=== PATIENT | male | born 1935 | race American Indian/Alaskan Native ===

== ENCOUNTER 2016-07-12 20:22 | Observation (INO) | payer MEDICARE, MEDICAID ==
[2016-07-12 20:50] VITALS: BMI 29.0
--- NOTE | 2016-07-12 21:06 | ED PDOC ---
Arrival/HPI - General Chief Complaint: Shortness Of Breath Time Seen by Provider: 07/12/16 20:23 Historian: Patient - History of Present Illness Narrative History of Present Illness (Text): 07/12/16 20:50 Davin Venegas Jr. is a 80 year old male, whose past medical history includes CAD , CABG, valve replacement, peripheral vascular disease, COPD, CHF, renal insufficiency, diabetes, hyperlipidemia, and arthritis, who presents to the Emergency department complaining of shortness of breath for the past few days. Patient denies any fever, chills, nausea, vomiting, diarrhea, urinary symptoms, back pain, neck pain, headache, dizziness, or any other complaints. Time/Duration: < week (few days) Symptom Onset: Gradual Symptom Course: Unchanged Activities at Onset: Rest, Light Context: Home Past Medical History - Provider Review Nursing Documentation Reviewed: Yes - Past History Past History: No Previous - Infectious Disease Hx of Infectious Diseases: None - Tetanus Immunization Tetanus Immunization: Unknown - Cardiac Hx Cardiac Disorders: Yes Hx Cardiac Arrhythmia: Yes Hx Congestive Heart Failure: Yes Hx Hypertension: Yes Hx Peripheral Edema: Yes Hx Peripheral Vascular Disease: Yes Other/Comment: CABG, Open Heart Sx - Pulmonary Hx Respiratory Disorders: Yes Hx Asthma: Yes Hx Chronic Obstructive Pulmonary Disease (COPD): Yes - Neurological Hx Neurological Disorder: No - HEENT Hx HEENT Disorder: No - Renal Hx Renal Disorder: No - Endocrine/Metabolic Hx Endocrine Disorders: No - Hematological/Oncological Hx Blood Disorders: No - Integumentary Hx Dermatological Disorder: No - Musculoskeletal/Rheumatological Hx Arthritis: Yes Hx Falls: No Other/Comment: (R) hand pain and edema - Gastrointestinal Hx Gastrointestinal Disorders: Yes Other/Comment: Large (L) sided inguinal hernia repair extending into scrotum - Genitourinary/Gynecological Hx Genitourinary Disorders: Yes Hx Prostate Problems: Yes - Psychiatric Hx Psychophysiologic Disorder: No Hx Substance Use: No - Past Surgical History Past Surgical History: No Previous - Surgical History Hx Inguinal Hernia Repair: Yes - Anesthesia Hx Anesthesia Reactions: No Hx Malignant Hyperthermia: No - Suicidal Assessment Feels Threatened In Home Enviroment: No Family/Social History - Physician Review Nursing Documentation Reviewed: Yes Family/Social History: No Known Family HX Smoking Status: Heavy Smoker > 10 Cigarettes Daily Hx Alcohol Use: No Hx Substance Use: No Hx Substance Use Treatment: No Allergies/Home Meds Allergies/Adverse Reactions: Allergies No Known Allergies Allergy (Verified 02/26/16 14:04) Home Medications: Home Meds Medication Instructions Recorded Confirmed Fluticasone/Salmeterol [Advair 1 dsk IH SA 09/06/12 07/13/16 250-50 Diskus] Simvastatin 40 mg PO DAILY 09/06/12 07/13/16 Finasteride [Proscar] 5 mg PO DAILY 07/28/14 07/13/16 Montelukast [Singulair] 10 mg PO HS 07/28/14 12/27/15 Pantoprazole Sodium [Protonix] 40 mg PO DAILY 07/28/14 12/27/15 Sitagliptin Phosphate [Januvia] 100 mg PO DAILY 07/28/14 07/13/16 Tamsulosin [Flomax] 0.4 mg PO DAILY 07/28/14 07/13/16 Aspirin 81 mg PO DAILY 10/13/15 07/13/16 Clopidogrel 75 mg PO DAILY 10/13/15 07/13/16 Metoprolol Tartrate 25 mg PO DAILY 10/13/15 12/27/15 Review of Systems - Physician Review All systems were reviewed & negative as marked: Yes - Review of Systems Constitutional: Normal. absent: Fevers Eyes: Normal ENT: Normal Respiratory: SOB Gastrointestinal: Normal. absent: Abdominal Pain, Diarrhea, Nausea, Vomiting Genitourinary Male: Normal. absent: Dysuria, Frequency, Hematuria, Urinary Output Changes Musculoskeletal: Normal. absent: Back Pain, Neck Pain Skin: Normal. absent: Rash Neurological: Normal. absent: Headache, Dizziness Endocrine: Normal Hemo/Lymphatic: Normal Psychiatric: Normal Physical Exam Vital Signs Reviewed: Yes Vital Signs Pulse Resp BP Pulse Ox 07/13/16 00:34 81 16 120/64 07/12/16 20:50 90 16 132/49 L 99 Temperature: Afebrile Blood Pressure: Normal Pulse: Regular Respiratory Rate: Normal Appearance: Positive for: Well-Appearing, Non-Toxic, Comfortable Pain Distress: None Mental Status: Positive for: Alert and Oriented X 3 - Systems Exam Head: Present: Atraumatic, Normocephalic Pupils: Present: PERRL Extroacular Muscles: Present: EOMI Conjunctiva: Present: Normal Mouth: Present: Moist Mucous Membranes Neck: Present: Normal Range of Motion Respiratory/Chest: Present: Wheezes. No: Respiratory Distress, Accessory Muscle Use Cardiovascular: Present: Regular Rate and Rhythm, Normal S1, S2. No: Murmurs Abdomen: Present: Normal Bowel Sounds. No: Tenderness, Distention, Peritoneal Signs Back: Present: Normal Inspection Upper Extremity: Present: Normal Inspection. No: Cyanosis, Edema Lower Extremity: Present: Normal Inspection. No: Edema Neurological: Present: GCS=15, CN II-XII Intact, Speech Normal Skin: Present: Warm, Dry, Normal Color. No: Rashes Psychiatric: Present: Alert, Oriented x 3, Normal Insight, Normal Concentration Medical Decision Making ED Course and Treatment: 07/12/16 20:50 Impression: 80 year old male complaining of shortness of breath for the past few days. Differential Diagnosis included but are not limited to: ACS vs. pneumonia vs. COPD vs. CHF Plan: -- EKG -- Chest X-ray -- Labs, cardiac enzymes, BNP, VBG, blood cultures -- Solu-medrol -- Reassess and disposition Prior Visits: Notes and results from previous visits were reviewed. On 02/26/2016, pt was seen in the Emergency department for hematuria. Pt was admitted to the hospital for further evaluation. Progress Notes: Reviewed EKG, 100% paced rhythm at 84 bpm. 07/12/16 21:50 Reviewed radiology, Chest X-ray shows no active disease, no pneumonia. 07/12/16 23:[address] Sorto, who is aware and agrees with plan. Accepts pt in to his service. Pt will go to Telemetry observation for COPD. Pt is no acute distress. Discussed results and plan with pt and family, who are aware and verbalize understanding. - Lab Interpretations Lab Results: 07/12/16 22:00 07/12/16 22:00 Lab Results 07/12/16 22:00: Sodium 136, Chloride 91 L, Potassium 3.2 L, Carbon Dioxide 33, Anion Gap 15, BUN 42 H, Creatinine 1.3, Est GFR ( Amer) > 60, Est GFR ( Non-Af Amer) 53, Random Glucose 84, Calcium 9.0, Total Bilirubin 1.3, AST 33, ALT 28, Alkaline Phosphatase 157 H, Lactate Dehydrogenase 555, Total Creatine Kinase 76, Troponin I 0.05 D, NT-Pro-B Natriuret Pep 1270 H, Total Protein 8.4 H, Albumin 4.0, Globulin 4.4, Albumin/Globulin Ratio 0.9 L 07/12/16 22:00: pO2 35, VBG pH 7.33, VBG pCO2 71.0 H*, VBG HCO3 37.4 H, VBG Total CO2 39.6 H, VBG O2 Sat (Calc) 67.1 H, VBG Base Excess 8.7 H, VBG Potassium 5.5 H, Sodium 134.0, Chloride 95.0 L, Glucose 88, Lactate 2.4 H, FiO2 21.0, Venous Blood Potassium 5.5 H 07/12/16 22:00: WBC 6.2, RBC 5.89, Hgb 17.9, Hct 49.6, MCV 84.2, MCH 30.4, MCHC 36.1, RDW 16.7 H, Plt Count 160, MPV 10.4, Gran % 42.9 L, Lymph % (Auto) 41.1 H , Loup % (Auto) 15.0 H, Eos % (Auto) 0.5 L, Baso % (Auto) 0.5, Gran # 2.66, Lymph # 2.6, Loup # 0.9 H, Eos # 0.0, Baso # 0.03 I have reviewed the lab results: Yes - RAD Interpretation Radiology Orders: 07/12/16 20:51 CHEST PORTABLE [RAD] Stat Wool Classer: ED Physician - EKG Interpretation EKG Interpretation (Text): EKG: Ordered, reviewed, and independently interpreted the EKG. Rate : 84 BPM Rhythm : 100% paced rhythm Comparison : No acute change from previous EKG on 02/26/2016. Interpreted by ED Physician: Yes Type: 12 lead EKG - Medication Orders Current Medication Orders: Acetaminophen (Tylenol 325mg Tab) 650 mg PO Q4H PRN PRN Reason: Fever >100.5 F Albuterol/Ipratropium (Duoneb 3 Mg/0.5 Mg (3 Ml) Ud) 3 ml IH Q4H PRN PRN Reason: Shortness of Breath Discontinued Medications Albuterol/Ipratropium (Duoneb 3 Mg/0.5 Mg (3 Ml) Ud) 3 ml IH Q15M EFRAIN Stop: 07/12/16 21:31 Last Admin: 07/12/16 21:50 Dose: Not Given Non-Admin Reason: Patient Refused Piperacillin Sod/Tazobactam Sod (Zosyn 3.375 In Ns 100ml) 100 mls @ 200 mls/hr IVPB STAT STA PRN Reason: Protocol Stop: 07/12/16 22:52 Last Admin: 07/12/16 23:26 Dose: 200 mls/hr Methylprednisolone (Solu-Medrol) 125 mg IVP STAT STA Stop: 07/12/16 20:52 Last Admin: 07/12/16 21:50 Dose: 125 mg Potassium Chloride (Klor-Con 10) 40 meq PO STAT STA Stop: 07/13/16 01:01 Last Admin: 07/13/16 01:13 Dose: 40 meq - Scribe Statement The provider has reviewed the documentation as recorded by the Buzz Malik Provider Attestation: All medical record entries made by the Buzz were at my direction and personally dictated by me. I have reviewed the chart and agree that the record accurately reflects my personal performance of the history, physical exam, medical decision making, and the department course for this patient. I have also personally directed, reviewed, and agree with the discharge instructions and disposition. Disposition/Present on Arrival - Present on Arrival Any Indicators Present on Arrival: No History of DVT/PE: No History of Uncontrolled Diabetes: No Urinary Catheter: No History of Decub. Ulcer: No History Surgical Site Infection Following: None - Disposition Have Diagnosis and Disposition been Completed?: Yes Diagnosis: Hypokalemia, Chronic obstructive lung disease Disposition: HOSPITALIZED Disposition Time: 23:00 Condition: FAIR
[2016-07-12] MEDS: Albuterol-Ipratrop 3 mg / 0.5 (3 ml) UD IH SCH ×4 (21:10→23:26)
[2016-07-12 22:10] LABS: ADD MANUAL DIFF? NO
[2016-07-12 22:19] LABS: BASO # 0.03 K/mm3 (0.0-2.0); BASO % 0.5 % (0.0-3.0); EOS % 0.5 % (1.5-5.0); GRAN # 2.66 (1.4-6.5); GRAN % 42.9 % (50.0-68.0); HEMATOCRIT 49.6 % (42.0-52.0); LYMPH # 2.6 (1.2-3.4); LYMPH % 41.1 % (22.0-35.0); MEAN CELL VOLUME 84.2 fL (80.0-105.0); MEAN CORPUSCULAR HEMOGLOBIN 30.4 pg (25.0-35.0); MEAN CORPUSCULAR HGB CONC 36.1 g/dl (31.0-37.0); MEAN PLATELET VOLUME 10.4 fl (7.0-11.0); MONO # 0.9 (0.1-0.6); PLATELET COUNT 160 10^3/uL (120.0-450.0); RED CELL DISTRIBUTION WIDTH 16.7 % (11.5-14.5); VENOUS BLOOD GAS BASE EXCESS 8.7 mmol/L (0.0-2.0); VENOUS BLOOD PH 7.33 (7.32-7.43); WHITE BLOOD COUNT 6.2 10^3/ul (4.5-11.0)
[2016-07-12] MEDS ORDERED: Piperacillin/Tazobact 3.375 gm 100 ML IVPB STA (22:23)
[2016-07-12 22:27] LABS: BLOOD UREA NITROGEN 42 mg/dL (7-21); GLUCOSE,RANDOM 84 mg/dL (70-110)
[2016-07-12 22:28] LABS: ALB/GLOB RATIO 0.9 (1.1-1.8); ALKALINE PHOSPHATASE 157 U/L (38-133); ALT/SGPT 28 U/L (7-56); AST/SGOT 33 U/L (15-59); BILIRUBIN,TOTAL 1.3 mg/dL (0.2-1.3); CARBON DIOXIDE 33 mmol/L (21-33); CHLORIDE 91 mmol/L (98-107); GFR AFRICAN-AMERICAN > 60; POTASSIUM 3.2 mmol/L (3.6-5.0); SODIUM 136 mmol/L (132-148); TOTAL PROTEIN 8.4 g/dL (5.8-8.3)
[2016-07-12 22:39] LABS: TROPONIN I 0.05 ng/mL
[2016-07-13] MEDS ORDERED: Potassium Chloride 10 mEq ER Tab PO STA (01:00)
[2016-07-13 02:33] LABS: VENOUS BLOOD GAS BASE EXCESS 7.2 mmol/L (0.0-2.0); VENOUS BLOOD PH 7.42 (7.32-7.43)
[2016-07-13 08:24] LABS: VENOUS BLOOD GAS BASE EXCESS 6.3 mmol/L (0.0-2.0); VENOUS BLOOD PH 7.38 (7.32-7.43)
--- NOTE | 2016-07-13 08:52 | RAD ---
HISTORY: sob COMPARISON: 02/26/2016 FINDINGS: LUNGS: No active pulmonary disease. PLEURA: No significant pleural effusion identified, no pneumothorax apparent. CARDIOVASCULAR: Permanent pacemaker. Normal heart size. Sternotomy wires. OSSEOUS STRUCTURES: No significant abnormalities. VISUALIZED UPPER ABDOMEN: Normal. OTHER FINDINGS: None. IMPRESSION: No active disease.
[2016-07-13] MEDS: cefTRIAXone 1 gm 1 GM/100 ML BAG IVPB SCH (09:44)
[2016-07-13] MEDS: Enoxaparin 40 mg Syringe SC SCH (09:45)
[2016-07-13] MEDS: Pantoprazole 40 mg EC Tab PO SCH (09:45)
[2016-07-13] MEDS: metOLazone 2.5 MG TAB PO SCH (09:48)
[2016-07-13] MEDS: Azithromycin 250 MG in Sodium Chloride 0.9% 250 ML IVPB SCH (09:57)
[2016-07-13] MEDS ORDERED: Potassium Chloride 20 mEq ER Tab PO SCH (10:00)
--- NOTE | 2016-07-13 10:24 | CARD ---
APPROVED REPORT EKG Measurement Heart [id number] IN [id number] <Conclusion> Electronic ventricular pacemaker
[2016-07-13] MEDS ORDERED: Potassium Chloride 20 mEq ER Tab PO STA (11:25)
--- NOTE | 2016-07-13 11:33 | US ---
HISTORY: Leg pain and swelling. Evaluate for DVT PHYSICIAN(S): Daniel Kate MD. TECHNIQUE: Duplex sonography and color-flow Doppler with graded compression were used to evaluate the deep venous systems of both lower extremities. The exam is limited by edema. FINDINGS: The visualized deep venous systems of both lower extremities are sonographically normal and compressible. Normal wave forms and augmentation are seen. There is no sonographic evidence for deep venous thrombosis in the visualized segments of both lower extremities. IMPRESSION: No sonographic evidence for deep venous thrombosis in the visualized segments of both lower extremities.
[2016-07-13] MEDS: Insulin Reg-LOW-Coverage SC SCH ×3 (12:04→22:25)
[2016-07-13] MEDS ORDERED: Potassium Chloride 20 mEq ER Tab PO ONE (13:00)
--- NOTE | 2016-07-13 18:49 | CON ---
DATE: 07/13/2016 The patient in room 260, bed 2. REASON FOR CONSULTATION: Shortness of breath, history of coronary artery disease, pacemaker, CABG, m itral valve replacement. HISTORY OF PRESENT ILLNESS: The patient is a 80-year-old male who was admitted with shortness of marita ath and cough, along with 2 days' duration. Denies any chest pain or palpitation. The patient is a poor compliant patient, does not follow medicine. Also, he has continued to smoke. He still s mokes 1 pack a day. The patient has known case of mitral valve endocarditis, status post open heart surgery, status post MVR and 5-vessel bypass in 2007. At that time, patient presented with a non-YURIY MT. The patient has history of COPD, obesity, pacemaker insertion. PAST MEDICAL HISTORY: Significant for mitral valve endocarditis, followed by a nme-VN-dnaofok elevat ion myocardial infarction, status post 5-vessel bypass surgery and mitral valve replacement, COPD, to bacco abuse. PERSONAL HISTORY: The patient continues to smoke 1 pack a day. Denies drinking. ALLERGIES: No known allergies. CARDIAC WORKUP: Echo on 10/15/2015 showed left ventricle size is mildly dilated, LV hypertrophy, eje ction fraction 30% to 35%, bioprosthetic mitral valve, moderate tricuspid regurg, RV systolic pressur e 42 mmHg. LIST OF HOME MEDICATIONS: Furosemide 40 mg b.i.d., Advair 250/50 Diskus, Proscar 5 mg daily, Plavix 75 mg daily, aspirin 81 mg daily, simvastatin 40 mg daily, Levaquin 250 p.o. daily, Januvia 100 mg p. o. daily, Flomax 0.4 mg daily, Zaroxolyn 2.5 mg p.o. daily, potassium 20 mEq p.o. daily, Protonix 40 mg p.o. daily, Singulair 10 mg daily, metoprolol tartrate 25 mg daily, Zyloprim 100 mg daily. PHYSICAL EXAMINATION: VITAL SIGNS: Blood pressure 145/80, respirations 19, pulse 59, temperature 97.1. HEENT: Head is normocephalic. Eyes: Pupils normal, conjunctivae normal. Nose and throat normal. NECK: JVP low. LUNGS: Bilateral wheezing. CHEST: The patient's pacemaker site intact. The patient has scar of bypass surgery. CARDIOVASCULAR: S1, S2, systolic murmur, no rub. ABDOMEN: Soft, nontender, no organomegaly. EXTREMITIES: No clubbing, no cyanosis. The patient had chronic venous stasis changes on the legs. LABORATORY DATA: WBC 6.2, hemoglobin 17.9, hematocrit 49.6, platelet 160. Sodium 136, potassium 3.2 on 07/12/2016, BUN 42, creatinine 1.3. Troponin 0.05. NT-Pro B natriuretic pep 1270. Total protei n 8.4, albumin 4.0, calcium 9.0. AST, ALT normal. Chest x-ray: Permanent pacemaker electrodes seen . Otherwise, no significant abnormality. EKG showed pacemaker rhythm. DIAGNOSES: The patient's symptoms are presently due to exacerbation of chronic obstructive pulmonary disease, history of cardiomyopathy, ischemic, status post permanent pacemaker insertion, status post coronary artery bypass surgery, status post mitral valve replacement, poor compliant patient, tobacc o abuse, hypertension, hyperlipidemia, diabetes mellitus, obesity. PLAN: The patient already getting aspirin 81 mg daily, Januvia 50 mg daily, potassium 40 mg given, e xtra potassium was given to the patient for hypokalemia, Lipitor 20 mg daily, metoprolol 25 mg daily, Lovenox 40 mg subcutaneous daily, Plavix 75 mg p.o. daily, Proscar 5 mg daily, Rocephin 1 g IV daily , Singulair 10 mg at bedtime, methylprednisone 60 mg IV q. 6 hours, Zaroxolyn 2.5 mg daily, azithromy elio 250 mg IV daily. Will continue present therapy. Will follow with you. Bon Caba MD cc: [id number] TT: 07/13/2016 18:48:31 Confirmation # [id number] Dictation # [id number] dn
[2016-07-13] MEDS: Hydrocortisone 1% Cream (30 GM) TOP SCH (22:25)
[2016-07-13] MEDS: Albuterol-Ipratrop 3 mg / 0.5 (3 ml) UD IH PRN (23:18)
--- NOTE | 2016-07-14 03:48 | CON ---
DATE: 07/13/2016 REFERRING PHYSICIAN: Guanaco Crockett MD REASON FOR CONSULTATION: Exacerbation of chronic obstructive lung disease, obstructive sleep apnea s yndrome, history of cardiomyopathy with valvular heart disease and coronary artery disease. HISTORY OF PRESENT ILLNESS: This is a 80-year-old gentleman with past medical history significant fo r cardiomyopathy, valvular heart disease, history of valve replacement, endocarditis, coronary artery disease, chronic obstructive lung disease, sleep apnea syndrome, active smoker, noncompliant with th e CPAP and BiPAP, coming to the hospital with cough and shortness of breath, sputum production. No n ausea, no vomiting, no diarrhea. No dysuria. No leg pain or leg swelling. PAST MEDICAL HISTORY: Chronic obstructive lung disease, obstructive sleep apnea syndrome, coronary a rtery disease, history of endocarditis requiring valve replacement. SOCIAL HISTORY: He is an active smoker. Denies any alcohol use. ALLERGIES: None known. FAMILY HISTORY: No significant cardiopulmonary disease reported. MEDICATIONS: He is on Zithromax 500 mg daily, cortisone cream at affected areas, DuoNeb q. 4 hours p .r.n., Ecotrin 81 mg daily, Flomax 0.4 mg daily, insulin coverage, Januvia 50 mg daily, Lipitor 20 mg daily, metoprolol tartrate 25 mg daily, Lovenox 40 mg daily, Plavix 75 mg daily, Proscar 5 mg daily, Protonix 40 mg daily, Rocephin 1 g IV daily, Singulair 10 mg daily, Solu-Medrol 60 mg q. 6 hours, Ty lenol on a p.r.n. basis, Zaroxolyn 2.5 mg daily. LABORATORY DATA: Reviewed. Hemoglobin 17.9, hematocrit 49.6, WBC 6.2, platelet is 160. VBG done, w hich shows pH 7.38, pCO2 of 56, O2 of 67. Sodium 136, potassium 3.2, chloride 91, bicarbonate 33, BU N 42, creatinine 1.3, glucose 53, calcium 9.0, total bili 1.3, AST 33, ALT 28, alk phos is 157. Trop onin 0.05, ProBNP 1270. Albumin 4.0. MICROBIOLOGY: Blood culture has been negative. CHEST X-RAY: There is no infiltrate. IMAGING DATA: Has a venous Doppler of lower extremity done, which shows no sonographic evidence of d eep vein thrombosis in the visualized segment of lower extremity. IMPRESSION AND PLAN: Exacerbation of chronic obstructive lung disease, sleep apnea syndrome with car bon dioxide retention, cardiomyopathy, history of coronary artery disease, history of endocarditis re quiring valve replacement, obesity. I agree with Dr. Sorto with the present management. Continue I V and inhaled bronchodilator, antibiotics, gastric prophylaxis, deep venous thrombosis prophylaxis. We will place him on a BiPAP 12/8 with 35% oxygen while sleeping. Keep head elevated at 45 degree. Avoid sedation. I urged patient to stop smoking. We will follow with you. We will add a nicotine p atch, though. Bon Sánchez MD cc: [id number] TT: 07/14/2016 03:48:16 Confirmation # [id number] Dictation # [id number] dn
--- NOTE | 2016-07-14 06:46 | HP ---
The patient was seen on 07/13/2016. CHIEF COMPLAINT: A 80-year-old male who came in with short of breath. HISTORY OF PRESENT ILLNESS: A 80-year-old male who has been complaining of shortness of breath for t he last few days, got worse, mainly with exertions. The patient does have a history of bypass surgery , mitral valve replacement. He also has a history of COPD, on multiple inhalers. The patient came, his dyspnea got worse. He has dyspnea with going from the chair and bed to the bathroom, seems getti ng worse. The patient came to the ER for further evaluation. Denied any chest pain. Denied any fev er, any chills. The patient takes all his meds on a regular basis. His appetite is fair, except for the last one week. According to him, he was not eating. He takes his water pills and lost a lot of water in his legs and he seems doing a lot better. The patient seen in the Emergency Room, evaluate d, had a chest x-ray, EKG and was treated in the Emergency Room. The patient also has a history of d iabetes, arthritis, COPD, peripheral vascular disease, hypertension, venous insufficiency with stents . PAST MEDICAL HISTORY: As I mentioned above, COPD, coronary bypass surgery, had valve replacement tiffany ral valve, peripheral vascular disease, right femoral artery stenting, severe arthritis of his hip an d his back, chronic obstructive pulmonary disease, hypertension, hypercholesterolemia, history of marianela al insufficiency. ALLERGIES: No known allergies. SOCIAL HISTORY: He smoking than before. He smokes for years, but now he smokes almost 10-15 y ears before. He smokes more than 1 pack a day for many, many years, almost 30 years. No drinking. No other drugs. HOME MEDICATIONS: He takes hydrocortisone cream for his legs, Lasix 40 b.i.d., Advair 50/250, Prosca r 5, Plavix 75, aspirin 81, simvastatin 40. The patient also giving Januvia 100 mg, Flomax 0.4, Zaro xolyn 2.5 mg p.o. q. a.m., potassium, Protonix 40, Singulair 10, metoprolol 25, and allopurinol 100 m g p.o. daily. REVIEW OF SYSTEMS: As in the present illness, arthritis, hip pain and back pain, short of breath, dy spnea. PHYSICAL EXAMINATION: VITAL SIGNS: When he came in, his temperature was 97, heart rate 86, blood pressure is 148/60, respi ration 20, oxygen saturation 93% on nasal cannula 2 L. HEAD AND NECK: Normal. No JVD, no thyromegaly. CHEST: Bilateral wheeze. CARDIAC: First sound and second sound normal. Systolic murmur. ABDOMEN: Soft, obese, nontender. EXTREMITIES: Mild edema bilateral. NEUROLOGIC: He moves all extremities and normal. LABORATORY DATA: Show sodium 136, potassium 3.2, chloride 91, bicarb 33, BUN 42, creatinine 1.3. Li keshia function test is normal. Alk phos 157, lactate dehydrogenase 555, total CPK 76. Troponin is neg ative at 0.05 slightly elevated and albumin and globulin is normal. CBC shows white count 6.2, hemog lobin 17.9, hematocrit 49.6, platelets are 160. ABG was done as follow, pCO2 was 71, pH 7.33, pO2 of 35, bicarb 39.6. Chest x-ray was reported as no active pulmonary disease. Also he has an EKG done and it shows has an electronic ventricular pacemaker with heart rate of 84. IMPRESSION AND PLAN: 1. Acute chronic obstructive pulmonary disease exacerbations. we will admit the patient to telemetry . IV steroids, IV Rocephin, IV Zithromax, nebulizer treatment, inhaled and IV bronchodilators. Pulm onary consult, Dr. Sánchez. Cardiology consult, Dr. Caba. 2. Hypertension, hypercholesterolemia. Continue Lipitor. Continue Januvia. We will add insulin co verage every 4 hours. 3. Prostate enlargement, peripheral vascular disease. Continue Plavix, aspirin. Continue Flomax. 4. Continue gastrointestinal and deep vein thrombosis prophylaxis. Continue current treatment. Fol low up with the brokerage office manager. Salty Sorto MD cc: [phone] TT: 07/14/2016 06:46:13 charlene
[2016-07-14] MEDS: Insulin Reg-LOW-Coverage SC SCH ×4 (08:04→22:33)
[2016-07-14 08:07] LABS: BLOOD UREA NITROGEN 43 mg/dL (7-21); CARBON DIOXIDE 28 mmol/L (21-33); CHLORIDE 100 mmol/L (95-110); GFR AFRICAN-AMERICAN > 60; GLUCOSE,RANDOM 98 mg/dL (70-110); PHOSPHOROUS 2.5 mg/dL (2.5-4.5); POTASSIUM 4.4 mmol/L (3.6-5.0); SODIUM 140 mmol/L (132-148)
--- NOTE | 2016-07-14 08:57 | PN ---
DATE: 07/14/2016 REASON FOR CONSULTATION AND FOLLOWUP: Shortness of breath, coronary artery disease, pacemaker, CABG, status post MVR. BRIEF CLINICAL HISTORY: This is a 80-year-old obese male with a past medical history significant for coronary artery disease status post [id number] myocardial infarction, status post mitral valve e ndocarditis, status post mitral valve repair and 5-vessel CABG, active tobacco abuse, history of COPD , admitted with acute exacerbation of COPD. Denies any chest pain, shortness of breath, any palpitat ion, status post permanent pacemaker. PHYSICAL EXAMINATION: VITAL SIGNS: Temperature afebrile, heart rate 60, blood pressure 123/64. HEENT: PERRLA. Extraocular muscles intact. NECK: Supple. No carotid bruits. No thyromegaly. CHEST: Clear to auscultation. HEART: S1, S2 regular. ABDOMEN: Soft. EXTREMITIES: Clubbing and cyanosis negative. BLOOD WORKUP: WBC 6.2, hemoglobin 17.9, hematocrit 49.6, platelet count 160. Chemistry shows sodium 140, potassium 4.4, chloride 100, carbon dioxide 28, anion gap of 16, BUN 43, creatinine 1.1. Tropo mia 0.01. IMPRESSION: Acute decompensated chronic obstructive pulmonary disease exacerbation, obesity, coronar y artery bypass graft, status post mitral valve repair after mitral valve endocarditis, status post n on-ST myocardial infarction, status post pacemaker. Last echocardiogram dated 10/15/2015 showed left ventricle size mildly dilated, left ventricle ejection fraction 30-35%, bioprosthetic mitral valve, moderate tricuspid regurgitation, right ventricular systolic pressure of 42. RECOMMENDATION: Continue aspirin, continue Januvia, continue potassium, metoprolol, Lovenox subQ for DVT prophylaxis. Continue ____ treatment of COPD. Discontinue telemetry. Consider a colonoscopy. The patient is losing weight. Discussed with the patient. Thank you, Dr. Sorto, for providing the opportunity in taking care of the patient. EKG shows V-pace d rhythm. Bon Blanc MD cc: [id number] TT: 07/14/2016 08:57:13 Confirmation # [id number] Dictation # [id number] mn
[2016-07-14] MEDS: Arformoterol 15 mcg/2 ml Inh Sol IH SCH ×2 (09:04→19:47)
[2016-07-14] MEDS: Pantoprazole 40 mg EC Tab PO SCH (10:40)
[2016-07-14] MEDS: Enoxaparin 40 mg Syringe SC SCH (10:40)
[2016-07-14] MEDS: cefTRIAXone 1 gm 1 GM/100 ML BAG IVPB SCH (10:41)
[2016-07-14] MEDS: Azithromycin 250 MG in Sodium Chloride 0.9% 250 ML IVPB SCH (10:43)
[2016-07-14] MEDS ORDERED: Vancomycin 1gm in NS 250ml 1 GM/250 ML BAG IVPB SCH (11:30)
[2016-07-14] MEDS: metOLazone 2.5 MG TAB PO SCH (13:37)
[2016-07-14] MEDS: Albuterol-Ipratrop 3 mg / 0.5 (3 ml) UD IH PRN (19:47)
--- NOTE | 2016-07-14 20:13 | CON ---
DATE: 07/14/2016 The patient in room 260, bed 2. CHIEF COMPLAINT: Positive blood cultures x 1 day duration. HISTORY OF PRESENT ILLNESS: This is a 80-year-old male known to me from previous admission with a hi story of hypertension, history of benign prostatic hypertrophy, history of congestive heart failure, chronic obstructive lung disease and history of myocardial infarction in 2007. The patient also had a mitral valve endocarditis in 2007 resulting in a mitral valve replacement, pacemaker placement and coronary bypass graft who is now admitted through the Emergency Room with a diagnosis of chronic obst ructive lung disease. The patient, in the Emergency Room, was seen by Dr. Kang Sosa on 07/12/2016. The patient had been short of breath. He denied any fevers, any chills, any nausea, any vomiting, any chest pain and his shortness of breath was acute in onset and because of it they entertained the diagnosis of pneumonia. Blood cultures were done. No fevers were ever documented. The patient had no fevers at home and there has been no abdominal pain or diarrhea. PAST MEDICAL HISTORY: Is significant for hypertension, coronary artery disease, myocardial infarctio n, mitral valve endocarditis in 2007, BPH, congestive heart failure, COPD, peripheral vascular diseas e. PAST SURGICAL HISTORY: Is significant for mitral valve replacement in 2007, pacemaker, prostate biop sy on 04/2011 and a hernia surgery. The patient also had coronary artery bypass graft in 2007. ALLERGIES: The patient has no known allergies. MEDICATIONS: At home reveals the patient had Lasix, inhaler, aspirin and statin. The patient was on Levaquin, Zaroxolyn and Protonix. PHYSICAL EXAMINATION: GENERAL: The patient is , he is comfortable and no complaints. VITAL SIGNS: Temperature of 97, blood pressure is 123/80, respiratory rate of 20, heart rate of 63. HEENT: Unremarkable. NECK: Supple. LUNGS: Have decreased breath sounds. HEART: Normal S1, S2. ABDOMEN: Soft, nontender. No rebound, no guarding, no masses. LABORATORY EXAMINATION: Reveals a white count of 6.2, hemoglobin of 17 and platelets of 160 and ther e is 42% granulocytosis. Chemistries reveal the BUN of 42, creatinine of 1.3. The patient has had a creatinine of 1.3, 1.4, and 1.9 in the past. The patient had a chest x-ray, which is reported as no infiltrates and an ultrasound, which was negative of the lower extremities. EKG shows a QTC of 501. Dr. Sorto's history and physical examination is reviewed. Dr. Blanc's progress note is reviewed. Dr Armando Caba's consultation is noted. Review of the laboratories, of the cultures, revealed 2 blood cult ure results were gram-positive cocci and it is reported 1 of them to be a coag-negative staph by PNA FISH. ASSESSMENT AND PLAN: This is a 80-year-old male with a history of hypertension, congestive heart willie lure, coronary artery disease, peripheral vascular disease, myocardial infarction, history of mitral valve endocarditis in 2007 with mitral valve replacement, a pacemaker, coronary bypass graft now pres enting with shortness of breath and exacerbation of chronic obstructive pulmonary disease, with a coa gulase-negative staphylococcus bacteremia of 2 bottles, most likely a contamination. No fevers, no c hills and the patient has responded, and the patient is scheduled to get vancomycin. Will discontinu e the vancomycin, will discontinue his ceftriaxone and the azithromycin. Since the patient is clinic ally nontoxic, will discontinue antibiotics. Will order a procalcitonin. Will order repeat blood cu ltures x 2, an echocardiogram and watch the patient and check on the blood cultures and will make fur ther recommendations and will follow closely with you. Will discuss the case with cardiology. I parvin bt this to be endocarditis. The patient appears clinically stable without any fevers or any chills. Will watch off of antibiotics and wait for the repeat blood cultures and check on the echo and proca lcitonin. Conrad Arnold MD cc: 350 TT: 07/14/2016 20:13:09 Confirmation # [id number] Dictation # [id number] charlnee
--- NOTE | 2016-07-14 20:40 | PN ---
DATE: 07/14/2016 REFERRING PHYSICIAN: Dr. Sorto. SUBJECTIVE: He is out of bed to chair, unremarkable night, tolerated BiPAP well. Still having cough and shortness of breath. No nausea, no vomiting, diarrhea. No leg pain or leg swelling. OBJECTIVE: GENERAL: No acute distress. VITAL SIGNS: Temperature is 98, heart rate is 59, respiratory rate is 20, blood pressure 124/67, pul se ox 96% on nasal cannula. HEENT: Moist mucous membranes. Crowded airway. Mallampati score is 4. NECK: Supple. No JVD. LUNGS: Has prolonged expiratory phase with some wheezing. HEART: S1 and S2. ABDOMEN: Soft, nontender. No organomegaly. EXTREMITIES: No edema. NEUROLOGIC: Awake, alert, follows simple commands. MEDICATIONS: He is on Brovana 15 mcg inhaled twice a day, hydrocortisone 1% affected area at bedtime , Ecotrin 81 mg daily, Flomax 0.4 mg daily, insulin coverage, Januvia 50 mg daily, Lipitor 20 mg gabe y, metoprolol tartrate 25 mg daily, Lovenox 40 mg daily, NicoDerm patch daily, Plavix 75 mg daily, Pr sania 5 mg daily, Protonix 40 mg daily, Singulair 10 mg daily, Solu-Medrol 60 mg q. 6 hours, Tylenol on a p.r.n. basis, Zaroxolyn 2.5 mg daily. LABORATORY DATA: Reviewed and shows sodium 140, potassium 4.4, chloride 100, bicarbonate 28, BUN 43, creatinine 1.1, glucose is 98, calcium is 9.0, phosphorus 2.5, magnesium is 2.0. Microbiology has g williams-positive cocci in the blood. IMPRESSION AND PLAN: Exacerbation of chronic obstructive lung disease, obstructive sleep apnea syndr ome, CO2 retention, cardiomyopathy, history of coronary artery disease, history of endocarditis, mitr al valve replacement. Has a bacteremia. Will decrease Solu-Medrol to 20 q. 8 hours. Gastric prophy laxis, deep venous thrombosis prophylaxis. We will repeat blood cultures now. Will give him vancomy elio 1 g IV now. Follow up blood cultures. Will follow with you. Bon Sánchez MD cc: [id number] TT: 07/14/2016 20:40:12 Confirmation # [id number] Dictation # [id number] rn
[2016-07-14] MEDS: Hydrocortisone 1% Cream (30 GM) TOP SCH (22:32)
[2016-07-15] MEDS: MethylPREDNISolone 40 mg Vial IV SCH ×5 (00:19→23:02)
[2016-07-15] MEDS ORDERED: Albuterol-Ipratrop 3 mg / 0.5 (3 ml) UD IH STA (01:46)
[2016-07-15] MEDS ORDERED: Albuterol-Ipratrop 3 mg / 0.5 (3 ml) UD IH PRN (01:50)
[2016-07-15] MEDS ORDERED: Albuterol-Ipratrop 3 mg / 0.5 (3 ml) UD IH SCH (02:00)
[2016-07-15] MEDS: Insulin Reg-LOW-Coverage SC SCH ×4 (08:02→21:41)
[2016-07-15] MEDS: Arformoterol 15 mcg/2 ml Inh Sol IH SCH ×2 (08:42→21:10)
[2016-07-15] MEDS: Enoxaparin 40 mg Syringe SC SCH (09:15)
[2016-07-15] MEDS: Pantoprazole 40 mg EC Tab PO SCH (09:16)
[2016-07-15] MEDS: metOLazone 2.5 MG TAB PO SCH (09:16)
--- NOTE | 2016-07-15 11:46 | PN ---
DATE: 07/15/2016 REASON FOR CONSULTATION AND FOLLOWUP: Shortness of breath, coronary artery disease, pacemaker, CABG, status post MVR, gram-positive sepsis, rule out endocarditis. BRIEF CLINICAL HISTORY: A 80-year-old male with past medical history significant for coronary artery disease, status post non-ST segment myocardial infarction, status post mitral valve endocarditis, st atus post mitral valve repair, 5 vessels CABG, history of active tobacco abuse, history of COPD, admi tted with acute exacerbation of COPD and gram-positive sepsis. Blood culture positive. History of p ermanent pacemaker. PHYSICAL EXAMINATION: VITAL SIGNS: Temperature afebrile, heart rate 60, blood pressure 130/50. HEENT: PERRLA. Extraocular muscles intact. NECK: Supple. No carotid bruits. No thyromegaly. CHEST: Clear to auscultation. HEART: S1, S2 regular. ABDOMEN: Soft. EXTREMITIES: Clubbing and cyanosis negative. LABORATORY DATA: WBC ____, hemoglobin 17.9, hematocrit 49.6, platelet count ____. Sodium 140, potas sium 4.0, chloride 100, carbon dioxide 28, anion gap of 16, BUN 43, creatinine 1.1. IMPRESSION: Gram-positive sepsis, ____, history of mitral valve endocarditis, history of non-ST myoc ardial infarction, history of coronary artery bypass graft and mitral valve replacement for endocardi tis, last echo 10/15/2015 showed LV size dilated, left ventricle, ejection fraction 30%-35%, bioprosth etic mitral valve, moderate tricuspid regurgitation, right ventricular systolic pressure of 42, ische apoorva cardiomyopathy, active tobacco abuse, chronic obstructive pulmonary disease, coronary artery dise ase, coronary artery bypass graft 5 vessels. RECOMMENDATION: Repeat blood culture. We will get a citrate. Echo to assess LV function as well as rule out endocarditis. If the blood culture remains persistently positive, consider WISAM. We will f adamslow with you. I discussed with Dr. Sorto. Thank you, Dr. Sorto, for providing the opportunity in taking care of this patient. Repeat the bloo d workup in the morning. Bon Blanc MD cc: [id number] TT: 07/15/2016 11:45:25 Confirmation # [id number] Dictation # [id number] rn
--- NOTE | 2016-07-15 15:16 | CARD ---
APPROVED REPORT EXAM: Two-dimensional and M-mode echocardiogram with Doppler and color Doppler. 2D DIMENSIONS IVSd1.4 (0.7-1.1cm)LVDd2.7 (3.9-5.9cm) PWd1.5 (0.7-1.1cm)LVDs2.0 (2.5-4.0cm) FS (%) 26.0 %LVEF (%)53.1 (>50%) M-Mode DIMENSIONS Left Atrium (MM)3.40 (2.5-4.0cm)Aortic Root2.30 (2.2-3.7cm) Aortic Cusp Exc.1.60 (1.5-2.0cm) Aortic Valve AoV Peak Oeovwhwe672.0cm/sAoV VTI33.1cmAO Peak GR.11mmHg LVOT Peak Xgzxzvox45.7cm/sLVOT VTI18.70cmAO Mean GR.5mmHg Mitral Valve MV E Zmqlxwse378.0cm/sMV E Peak Gr.20mmHgMV A Fozdtako617.0cm/s MV E Mean Gr.10mmHgE/A ratio0.9 TDI Lateral E' Peak V8.19cm/sMedial E' Peak V3.67cm/sE/Lateral E'23.8 E/Medial E'53.1Lateral S' Peak V4.0cm/s Tricuspid Valve TR Peak Lhnyiwpo889sl/sTR Peak Gr.40mmHg LEFT VENTRICLE The Left Ventricle is mildly dilated. There is mild concentric left ventricular hypertrophy. The left ventricular function is low normal.EF-50-55% There is mild to moderate hypokinesis in the mid-inferolateral wall. Transmitral Doppler flow pattern is Grade III-reversible restrictive diastolic dysfunction. No left ventricle thrombus noted on this study. There is no ventricular septal defect visualized. There is no left ventricular aneurysm. There is no mass noted in the left ventricle. RIGHT VENTRICLE The right ventricle is mildly dilated. There is normal right ventricular wall thickness. Systolic function is mildly reduced. There is a pacemaker lead in the right ventricle. ATRIA The left atrium is mildly dilated. The right atrium is borderline dilated. A pacemaker is seen in the right atrium consistent with history. The interatrial septum is intact with no evidence for an atrial septal defect. AORTIC VALVE The aortic valve is thickened but opens well. The aortic valve is moderately sclerotic. The aortic valve is not well visualized. There is trace aortic regurgitation. There is no aortic valvular stenosis. There is no aortic valvular vegetation. MITRAL VALVE Bioprosthesis leaflets are thickened, but move well.There are no vegetationspresent on this prosthetic mitral valve. TRICUSPID VALVE The tricuspid valve leaflets are thickened , but open well. There is trace tricuspid regurgitation.RVSP-40 mmof hg. There is no tricuspid valve stenosis. There is no tricuspid valve prolapse or vegetation. PULMONIC VALVE The pulmonic valve is not well visualized. GREAT VESSELS The aortic root is normal in size. The ascending aorta is normal in size. The pulmonary artery is normal. The IVC was not visualized. PERICARDIAL EFFUSION There is no pleural effusion. There is no pericardial effusion. <Conclusion> The Left Ventricle is mildly dilated. There is mild concentric left ventricular hypertrophy. The left ventricular function is low normal.EF-50-55% There is trace aortic regurgitation. Bioprosthesis leaflets are thickened, but move well.There are no vegetationspresent on this prosthetic mitral valve. There is trace tricuspid regurgitation.RVSP-40 mmof hg. There is a pacemaker lead in the right ventricle. No Obvious vegetation noted,in this study but it is TDS Since it is MVR,May considerTEE if clinical suspicious for endocarditis is high which is more sensitive test.
--- NOTE | 2016-07-15 19:35 | PN ---
DATE: 07/15/2016 The patient is in bed in no acute distress, nontoxic. No fevers and no chills. PHYSICAL EXAMINATION: VITAL SIGNS: Temperature is 97, blood pressure is 118/60, respiratory rate of 20. HEENT: Unremarkable. NECK: Supple. LUNGS: Have decreased breath sounds. HEART: Normal S1, S2. ABDOMEN: Soft, nontender. LABORATORY DATA: Reveals the patient's white count to be 6.2, hemoglobin of 17, BUN of 43, creatinin e of 1.1 and procalcitonin of 0.07. Microbiology reveals positive blood cultures x 2 bottles reporte d to be coag-negative staph. Review of the orders reveals the repeat blood cultures are pending and the patient is currently off o f antibiotics. The patient is on Solu-Medrol. Dr. Sorto's history and physical examination is revi ewed. Dr. Blanc's note is reviewed. An echocardiogram is reviewed. The echocardiogram results, traylor sthoracic, as read by Dr. Blanc, reveals no vegetations on the prosthetic mitral valve. ASSESSMENT AND PLAN: This is a 80-year-old male with a history of hypertension, congestive heart willie lure, coronary artery disease, peripheral vascular disease, myocardial infarction, history of mitral valve endocarditis in 2007 with a mitral valve replacement in a patient with a pacemaker, coronary ar reny bypass graft, admitted with shortness of breath and what appears to be an exacerbation of chroni c obstructive lung disease, found to have coagulase-negative Staphylococcal bacteremia x 2 bottles wi th no fevers, no chills, currently off of antibiotics, negative echo, awaiting for repeat blood cultu res and this patient is not behaving like endocarditis. Will hold off on antibiotics pending repeat blood cultures and will follow closely with you. Conrad Arnold MD cc: 350 TT: 07/15/2016 19:35:16 Confirmation # [id number] Dictation # [id number] dn
[2016-07-15] MEDS: Hydrocortisone 1% Cream (30 GM) TOP SCH (21:08)
--- NOTE | 2016-07-15 22:25 | PN ---
DATE: 07/15/2016 REFERRING PHYSICIAN: Dr. Sorto. SUBJECTIVE: He is lying in the bed, head at 45 degrees, night was unremarkable. Tolerated BiPAP wel l. Family is at bedside. He is still having cough and shortness of breath. No nausea, no vomiting, diarrhea. No leg pain or leg swelling. OBJECTIVE: GENERAL: No acute distress. VITAL SIGNS: Temperature is 98, heart rate is 64, respiratory rate is 20, blood pressure 119/66, pul se ox 95% on 2 liters nasal cannula. HEENT: Moist mucous membrane. No ulcer or oral thrush noted. NECK: Supple. No JVD. LUNGS: Has a prolonged expiratory phase with few wheezing. HEART: S1 and S2. ABDOMEN: Soft, nontender. No organomegaly. EXTREMITIES: There is no edema. NEUROLOGIC: Awake, alert, follows simple command. MEDICATIONS: He is on Brovana 15 mcg inhaled twice a day, hydrocortisone cream affected area, DuoNeb q. 12 hours p.r.n., Ecotrin 81 mg daily, Flomax 0.4 mg daily, insulin coverage, Januvia 50 mg daily, Lipitor 20 mg daily, metoprolol tartrate 25 mg daily, Lovenox 40 mg daily, NicoDerm patch daily, Harjinder vix 75 mg daily, Proscar 5 mg daily, Protonix 40 mg daily, Singulair 10 mg daily, Solu-Medrol 20 mg q . 6 hours, Tylenol on a p.r.n. basis, Zaroxolyn 2.5 mg daily. LABORATORY DATA: Reviewed. No new lab is available. Since yesterday, blood cultures have been posi tive. Had echocardiogram done, which shows mild left ventricular hypertrophy, LV ejection fraction o f 50%-55%. There are no vegetations present on the prosthetic valve. Right ventricular systolic pre ssure is 40. IMPRESSION AND PLAN: Exacerbation of chronic obstructive lung disease, obstructive sleep apnea syndr ome, cardiomyopathy, history of coronary artery disease, history of endocarditis, mitral valve replac ement, bacteremia. Pulmonary point of view, doing okay. Continue IV and inhaled bronchodilator. Co ntinue antibiotics. Gastric prophylaxis. Deep venous thrombosis prophylaxis. Sleep apnea precautio n. Encourage BiPAP use, infectious disease and cardiology followup. Thank you and will follow with you. Bon Sánchez MD cc: [facility] TT: 07/15/2016 22:25:04 Confirmation # [id number] Dictation # [id number] mn
[2016-07-16] MEDS: MethylPREDNISolone 40 mg Vial IV SCH ×4 (05:50→22:59)
[2016-07-16 07:26] LABS: ADD MANUAL DIFF? NO
[2016-07-16 07:40] LABS: BASO # 0.01 K/mm3 (0.0-2.0); BASO % 0.1 % (0.0-3.0); GRAN # 9.42 (1.4-6.5); GRAN % 87.2 % (50.0-68.0); HEMATOCRIT 49.6 % (42.0-52.0); LYMPH # 0.9 (1.2-3.4); LYMPH % 8.1 % (22.0-35.0); MEAN CELL VOLUME 83.6 fL (80.0-105.0); MEAN CORPUSCULAR HGB CONC 35.9 g/dl (31.0-37.0); MEAN PLATELET VOLUME 10.7 fl (7.0-11.0); MONO # 0.5 (0.1-0.6); MONO % 4.6 % (1.0-6.0); PLATELET COUNT 196 10^3/uL (120.0-450.0); RED CELL DISTRIBUTION WIDTH 16.2 % (11.5-14.5); WHITE BLOOD COUNT 10.8 10^3/ul (4.5-11.0)
[2016-07-16 07:45] LABS: ALB/GLOB RATIO 0.9 (1.1-1.8); ALKALINE PHOSPHATASE 133 U/L (38-133); ALT/SGPT 60 U/L (7-56); AST/SGOT 41 U/L (15-59); BILIRUBIN,TOTAL 0.5 mg/dL (0.2-1.3); BLOOD UREA NITROGEN 38 mg/dL (7-21); CALCIUM 8.8 mg/dL (8.4-10.5); CARBON DIOXIDE 29 mmol/L (21-33); CHLORIDE 100 mmol/L (95-110); GFR AFRICAN-AMERICAN > 60; GLUCOSE,RANDOM 98 mg/dL (70-110); MAGNESIUM 2.1 mg/dL (1.7-2.2); PHOSPHOROUS 2.5 mg/dL (2.5-4.5); SODIUM 139 mmol/L (132-148); TOTAL PROTEIN 7.3 g/dL (5.8-8.3)
[2016-07-16] MEDS: Insulin Reg-LOW-Coverage SC SCH ×4 (07:59→21:53)
[2016-07-16] MEDS: Arformoterol 15 mcg/2 ml Inh Sol IH SCH ×2 (08:13→21:00)
[2016-07-16] MEDS: metOLazone 2.5 MG TAB PO SCH (09:37)
[2016-07-16] MEDS: Pantoprazole 40 mg EC Tab PO SCH (09:37)
[2016-07-16] MEDS: Enoxaparin 40 mg Syringe SC SCH (09:39)
[2016-07-16 10:25] LABS: ERYTHROCYTE SEDIMENTATION RATE 3 mm/hr (0.00-15.0)
--- NOTE | 2016-07-16 11:05 | PN ---
DATE: 07/16/2016 REASON FOR CONSULTATION AND FOLLOWUP: Shortness of breath, coronary artery disease, pacemaker, CABG, status post MVR, gram-positive sepsis, rule out endocarditis. BRIEF CLINICAL HISTORY: A 80-year-old male with a past medical history significant for coronary megan ry disease, status post non-ST segment myocardial infarction, status post mitral valve endocarditis, status post mitral valve repair, 5-vessel CABG many years ago, history of active tobacco abuse. Admi tted with COPD, gram-positive blood culture grew. Echo shows no evidence of endocarditis, but is a t echnical difficult study and MVR. Repeat blood culture pending. History of a pacemaker. PHYSICAL EXAMINATION: VITAL SIGNS: Temperature afebrile, heart rate 60, blood pressure 119/66. HEENT: PERRLA. Extraocular muscles intact. NECK: Supple. No carotid bruits. No thyromegaly. CHEST: Clear to auscultation. HEART: S1, S2 regular. ABDOMEN: Soft. EXTREMITIES: Clubbing, cyanosis negative. BLOOD WORKUP: WBC 10.8, hemoglobin 10.8, hematocrit 49.6, platelet count 196. Chemistry shows sodiu m 139, potassium 4, chloride 100, carbon dioxide 20, anion gap of 14, BUN 38, creatinine 1.0. IMPRESSION: Gram-positive Staph coagulase-negative in 2 bottles, though patient does not appear clin ically in endocarditis. Echo did not show any evidence of vegetation, but it is a technically diffic ult study and mitral valve replacement, history of coronary artery bypass graft, history of mitral va lve replacement, history of endocarditis, history of chronic obstructive pulmonary disease. Doubt it is endocarditis. ESR was done 2 days . Repeat blood culture done was negative. Plan repeat b lood culture, follow sed rate, follow WBC. If index suspicion high, I would suggest WISAM, but at this point, very low suspicious index or suspicious for endocarditis, but will discuss with Dr. Mitzy cruz, infectious disease. Thank you, Dr. Sorto, for providing us the opportunity in taking care of the patient. We will follo w sed rate today, ordered, and follow the blood culture for today and follow the WBC. We will follow with you. Thank you, Dr. Sorto, for providing us the opportunity in taking care of the patient. Bon Blanc MD cc: 305 TT: 07/16/2016 11:05:00 Confirmation # [id number] Dictation # [id number] en
--- NOTE | 2016-07-16 16:59 | PN ---
DATE: 07/16/2016 The patient is in bed in no acute distress. Was seen earlier this morning. He is comfortable, no fe vers. PHYSICAL EXAMINATION: VITAL SIGNS: Temperature is 97, blood pressure is 102/70, respiratory rate of 16. HEENT: Unremarkable. NECK: Supple. LUNGS: Have decreased breath sounds. HEART: Normal S1, S2. ABDOMEN: Soft, nontender. LABORATORY DATA: Reveals a white count of 10,000, hemoglobin of 17 and platelets of 196. BUN of 38 and creatinine is 1.0. Procalcitonin is 0.07. Microbiology reveals the first 2 bottles were positiv e for coag negative Staph. Repeat blood cultures following within 24 hours, no growth at 24 hours. Current review of the medications reveals the patient to be off of antibiotics. Dr. Blanc's note is darrick bautista from today and I discussed the case in detail with Dr. Blanc. ASSESSMENT AND PLAN: This is a 80-year-old male with hypertension, congestive heart failure, coronar y artery disease, peripheral vascular disease and myocardial infarction. The patient does have a his tory of mitral valve endocarditis in 2007 resulting in mitral valve replacement and also has a histor y of a pacemaker placement, coronary artery bypass graft on this admission, admitted with what appear s to be shortness of breath and exacerbation of chronic obstructive lung disease and found to have 2 blood cultures that were positive for coag-negative staph, off of antibiotics. Repeat blood cultures no growth. The patient's history is not consistent with endocarditis. He is currently off of antib iotics, afebrile, normal white count, repeat blood cultures are no growth at 24 hours. Will continue to follow the patient clinically and keep the patient off of antibiotics. The case was discussed wi th Dr. Blanc. My suspicion is low for endocarditis with this patient. Will follow closely with you. Conrad Arnold MD cc: 350 TT: 07/16/2016 16:58:42 Confirmation # [id number] Dictation # [id number] charlene
--- NOTE | 2016-07-16 19:37 | PN ---
DATE: 07/16/2016 REFERRING PHYSICIAN: Dr. Sorto. SUBJECTIVE: He is lying in the bed, head at 45 degrees. Did not use BiPAP last night. No headache, no rhinitis. Still has a cough and shortness of breath. No nausea, no vomiting, no diarrhea. No l eg pain or leg swelling. OBJECTIVE: GENERAL: No acute distress. VITAL SIGNS: Temp is 98, heart rate is 70, respiratory rate is 20, blood pressure 102/76, pulse ox 9 5% on room air. HEENT: Moist mucous membranes. Crowded airway. Mallampati score is 4. NECK: Supple. No JVD. LUNGS: Have a prolonged expiratory phase with some wheezes. HEART: S1 and S2. ABDOMEN: Soft, nontender. No organomegaly. EXTREMITIES: There is no edema. NEUROLOGIC: Awake, alert, follows simple commands. MEDICATIONS: He is on hydralazine 10 mg q.i.d., Brovana 15 mcg q. 12 hours, DuoNeb q. 2 hours p.r.n. , Ecotrin 81 mg daily, Flomax 0.4 mg daily, insulin coverage, Januvia 50 mg daily, Lasix 20 mg daily, metoprolol tartrate 25 mg daily, Lovenox 40 mg subQ daily, Nicoderm patch daily, Plavix 75 mg daily, Proscar 5 mg daily, Protonix 40 mg daily, Singulair 10 mg daily, Solu-Medrol 20 mg q. 6 hours, Tylen ol on a p.r.n. basis, Zaroxolyn 2.5 mg daily. LABORATORY DATA: Shows hemoglobin 17.8, hematocrit 49.6, WBC 10.8, platelet is 196. Sodium 139, pot assium 4.0, chloride 100, bicarbonate 29, BUN 38, creatinine 1.0, glucose 98, calcium 8.8, phosphorus 2.5, magnesium 2.1. AST 41, ALT is 60, alk phos is 133, albumin is 3.5. Procalcitonin yesterday 0. 07. IMPRESSION AND PLAN: Exacerbation of chronic obstructive lung disease, obstructive sleep apnea syndr ome, cardiomyopathy, history of coronary artery disease, history of endocarditis, mitral valve replac ement, bacteremia. From pulmonary point of view, doing well. Continue bronchodilator. Keep head el evated at 45 degrees. Antibiotics as per infectious diseases. Gastric prophylaxis. DVT prophylaxis . Encourage BiPAP use. Avoid sedation. Thank you, and will follow with you. Bon Sánchez MD cc: 336 TT: 07/16/2016 19:37:03 Confirmation # [id number] Dictation # [id number] mn
[2016-07-16] MEDS: Hydrocortisone 1% Cream (30 GM) TOP SCH (22:33)
--- NOTE | 2016-07-17 00:26 | PN ---
DATE: 07/16/2016 The patient feels better. Less short of breath. Afebrile. No nausea. No vomiting. PHYSICAL EXAMINATION: VITAL SIGNS: Temperature 98, heart rate 61, blood pressure 145/83, respirations 20, saturating 96%. HEAD AND NECK: Normal. No JVD. No thyromegaly. CHEST: Clear, good air entry. CARDIAC: First sound, second sound normal. There is a systolic murmur. ABDOMEN: Soft, obese, nontender. EXTREMITIES: Mild edema. NEUROLOGIC: Normal. LABORATORY DATA: Sodium 139, potassium 4, chloride 100, bicarbonate 29, BUN 38, creatinine 1. CBC s hows white count 10.8, hemoglobin 17.8, hematocrit 49.6, platelets 196. IMPRESSION: 1. Gram-positive . Infectious disease consult, Dr. Arnold. Hold off on antibiotics. We w ill repeat blood cultures, and we will see how the patient does. Procalcitonin level is low, likely for endocarditis as per infectious disease and cardiology and echo report. 2. Acute chronic obstructive pulmonary disease exacerbation. Continue IV and inhaled bronchodilator s. Continue . Continue follow up with the inspector outside production. 3. History of hypertension, congestive heart failure, valve replacement, diabetes type 2, hyperchole sterolemia, chronic osteoarthritis, back pain. PLAN: Continue current medications, insulin coverage, Lipitor, Lopressor, and for smoking we will co janette JUNE. Continue current treatment. Follow up clinically. We will discuss further with the testing consultant. Salty Sorto MD cc: [phone] TT: 07/17/2016 00:26:28 Confirmation # [id number] Dictation # [id number] tn
[2016-07-17] MEDS: MethylPREDNISolone 40 mg Vial IV SCH ×4 (05:22→21:47)
[2016-07-17] MEDS: Insulin Reg-LOW-Coverage SC SCH ×4 (08:00→21:46)
[2016-07-17] MEDS: Arformoterol 15 mcg/2 ml Inh Sol IH SCH (08:09)
--- NOTE | 2016-07-17 08:20 | CON ---
DATE: 07/16/2016 This patient presents to evaluate. This 80-year-old patient with a past medical history of mitral va lve endocarditis, status post mitral valve replacement, status post coronary artery bypass grafting i n 2007, history of diabetes mellitus, status post permanent pacemaker placement, COPD, admitted with shortness of breath. The patient has history of significant loss of weight. GI consult was requeste d to evaluate this. The patient denies any abdominal pain. No recent change of bowel habits. No vo miting. The patient denies having had any endoscopy or colonoscopy in the past. The patient has not had any problem with any abdominal pain. PAST MEDICAL HISTORY: Significant as above, history of prostate biopsy. REVIEW OF SYSTEMS: Positive as above. SOCIAL HISTORY: Positive for smoking, no alcohol. ALLERGIES: No known drug allergies. FAMILY HISTORY: Noncontributory. REVIEW OF SYSTEMS: Positive as above. Other systems reviewed. The patient has history of sleep clay artisan ea syndrome. PHYSICAL EXAMINATION: The patient is lying on the bed, not in acute distress. LABORATORY DATA: Hemoglobin 17.8, hematocrit 49.6, WBC 10.8, platelets 196. is 60. IMPRESSION: This 80-year-old patient with past history of mitral valve replacement for endocarditis, COPD, coronary artery disease status post bypass, admitted with shortness of breath. The patient chilel d blood cultures done which showed 2 bottles coag-negative staph. The patient has been seen by ID. He is presently off the antibiotics. The patient has a significant history of weight loss. No complaints of abdominal pain. The CAT scan done in 2016 was reviewed with no obvious mass or lesions noticed at that time. IMPRESSION: Weight loss, the etiology is unclear. The patient has a history of short of breath, jacinta ng treated for COPD. Clinically, the patient is improving on steroid. The dose has been reduced to mg q. 8 hourly. The patient has coronary disease, stable, followed by the java lead engineer. For the significant weight loss, would recommend EGD and a colonoscopy to further evaluate. H is other comorbidities include diabetes mellitus and , bioprosthetic aortic valve replacement be fore, status post before. The patient will be scheduled for an upper GI endoscopy to further e valuate tomorrow. Thank you very much for allowing me to participate in the care of the patient. We will continue to c losely follow up. Branden Enriquez MD cc: [phone] TT: 07/16/2016 23:04:59 Confirmation # [id number] Dictation # [id number] mn
--- NOTE | 2016-07-17 08:31 | PN ---
DATE: 07/15/2016 The patient feels better. Less wheezing. Less short of breath. PHYSICAL EXAMINATION: VITAL SIGNS: Temperature 97.8, heart rate 60, blood pressure 131/ , respirations 18, saturatio n 95% on room air. HEAD AND NECK: Normal. No JVD. No thyromegaly. CHEST: Clear, good air entry. CARDIAC: First sound, second sound normal. There are murmurs. ABDOMEN: Soft, obese, nontender. EXTREMITIES: There is some bilateral leg edema, but less than before. NEUROLOGIC: Normal. LABORATORY DATA: Ordered for tomorrow. Blood sugar . Also patient has procalcitonin, which wa s low. The patient's report shows some positive blood culture, Gram-positive . IMPRESSION: 1. Acute chronic obstructive pulmonary disease exacerbation. Continue inhaled and IV bronchodilator s. Follow up with email developer. 2. Gram-positive . Two sets were positive. We will follow up infectious disease recommendatio ns. Low procalcitonin. Does have history of valve replacement, and echo by vocational aide has been re ad. We will follow the recommendation of infectious disease consult at this time. We will hold off on antibiotic vancomycin, and we will see how the patient does. 3. Hypertension. 4. Prostate enlargement, hypercholesterolemia, obesity, possible sleep apnea, weight loss, and refus ed colonoscopy in the past despite recommendation. We will get a GI consult, Dr. Enriquez, to follow up with him. Salty Sorto MD cc: [phone] TT: 07/17/2016 00:16:34 Confirmation # [id number] Dictation # [id number] tn
[2016-07-17] MEDS: Enoxaparin 40 mg Syringe SC SCH (09:53)
[2016-07-17] MEDS: Pantoprazole 40 mg EC Tab PO SCH (09:54)
[2016-07-17] MEDS: metOLazone 2.5 MG TAB PO SCH (09:54)
--- NOTE | 2016-07-17 11:12 | PN ---
DATE: 07/17/2016 The patient is in room 367, bed 1. REASON FOR CONSULTATION AND FOLLOWUP: Shortness of breath, coronary artery disease, pacemaker, CABG, status post MVR, gram-positive sepsis, rule out endocarditis. HISTORY OF PRESENT ILLNESS: The patient is a 80-year-old male with past medical history significant for coronary artery disease, status post [id number] myocardial infarction, status post mitral darek ve endocarditis, status post mitral valve repair, 5-vessel CABG many years ago, history of active tob acco abuse, admitted with exacerbation of COPD, gram-positive blood culture positive. Echo showed no evidence of endocarditis. Repeat blood culture on 07/14/2016 and 07/16/2016 shows no growth. The p atient is being followed by the infectious disease/Dr. Arnold with blood culture and afebri le, and off antibiotic, and a normal WBC count. IMPRESSION: The patient does not have endocarditis at present. The patient's breathing is improved. The patient has no chest pain, no palpitation. PHYSICAL EXAMINATION: VITAL SIGNS: Blood pressure 112/55, respirations 20, pulse 66, temperature 97.9. HEAD: Normocephalic. EYES: Pupils normal. Conjunctivae normal. NOSE AND THROAT: Normal. NECK: JVP low. Carotid equal. THORAX: AP diameter normal. LUNGS: No significant rales. CARDIOVASCULAR: S1, S2. ABDOMEN: Soft. No tenderness, no organomegaly. Bowel sounds normal. EXTREMITIES: No clubbing, no cyanosis. LABORATORY DATA: WBC 10.8, hemoglobin 17.8, hematocrit 49.6. WBC on 07/12/2016 was 6.2. Sodium 139 , potassium 4.0, BUN 38, creatinine 1.0. AST, ALT normal. Magnesium, phosphorus, calcium is normal. AST 41, ALT 60, total protein 7.3, albumin 3.5. DIAGNOSIS: Exacerbation of chronic obstructive pulmonary disease. The initial gram-positive culture positive, and subsequent cultures are negative. Coronary artery disease, status post 5-vessel coron lo bypass surgery; prior history of mitral valve endocarditis, status post mitral valve replacement; history of cardiomyopathy with ejection fraction 30-35%. PLAN: The subsequent blood cultures are negative, so clinically patient at this moment does not seem to have endocarditis, and the patient was taken off antibiotic by Dr. Arnold. His symptoms of C OPD have also improved. The patient is on DuoNeb hand nebulizer therapy, aspirin 81 mg daily, Flomax 0.4 daily, Januvia 50 mg daily, Lipitor 20 mg daily, metoprolol 25 mg daily, Lovenox 40 mg subQ gabe y, Plavix 75 daily, Proscar 5 mg daily, Singulair 10 mg at bedtime, Solu-Medrol 20 mg IV q. 6 hours, Zaroxolyn 2.5 mg p.o. daily. Will continue present therapy. Will follow with you. Bon Caba MD cc: [phone] TT: 07/17/2016 10:46:24 Confirmation # [id number] Dictation # [id number] mn
[2016-07-17] MEDS ORDERED: Peg-Electrolyte Oral Soln 4L (Golytely) PO ONE (16:00)
--- NOTE | 2016-07-17 16:49 | PN ---
DATE: 07/17/2016 HISTORY OF PRESENT ILLNESS: Seen and examined at the bedside earlier this afternoon. The daughter w as visiting. The patient denies any nausea, vomiting, or abdominal pain. He is moving his bowels, a nd no complaints of any overt GI bleed. He does report at least a 20-pound weight loss. VITAL SIGNS: Temperature is 97.9, blood pressure was 112/55, pulse rate 66, respirations 20, 94 O2 s aturation. LABORATORY DATA: No new labs are noted for today. PHYSICAL EXAMINATION: HEENT: Sclerae are anicteric. NECK: Supple. CARDIAC: S1, S2. LUNGS: Sounds are clear. ABDOMEN: With bowel sounds, soft, nontender, no rebound or guarding. EXTREMITIES: No edema. NEUROLOGIC: Awake and alert. ASSESSMENT: Weight loss, rule out malignancy. The patient was found to have gram-positive culture w ith repeat cultures that are negative. He has history of endocarditis of mitral valve, status post m itral valve replacement, history of coronary artery disease, with history of coronary artery bypass g raft, history of cardiomyopathy, and chronic obstructive pulmonary disease. PLAN: As per nursing staff of cardiology, the patient can go for GI workup. The patient is on aspir in and Plavix. He is also on Lovenox. This will be a diagnostic. The Lovenox a.m. dose will be he ld until after endoscopy workup. Diet has been changed to clear liquids and he will start colonoscop y preparation at 4 p.m. This was discussed with the patient at the bedside and the daughter was pres ent. N.P.O. after midnight and we will recheck his labs in the morning, BNP, CBC, PT/PTT. Discussed this with the nursing staff as well. Continue Protonix. The patient was seen and case discussed with Dr. Enriquez. Alina STAPLES cc: [id number] TT: 07/17/2016 16:49:03 Confirmation # [id number] Dictation # [id number] charlene
--- NOTE | 2016-07-17 19:12 | PN ---
DATE: 07/17/2016 The patient is in bed, in no acute distress, nontoxic. PHYSICAL EXAMINATION: VITAL SIGNS: Temperature is 97, blood pressure is 112/50, respiratory rate of 16. HEENT: Unremarkable. NECK: Supple. LUNGS: Have decreased breath sounds. HEART: Normal S1, S2. ABDOMEN: Soft, nontender. LABORATORY DATA: Reveals the white count is 10,000, hemoglobin of 17, platelets of 196, creatinine i s 1.0. MICROBIOLOGY: Reveals the blood cultures are negative. Initial blood cultures are positive; repeat cultures are still negative. The patient is off of antibiotics. The patient is on Solu-Medrol. ASSESSMENT AND PLAN: This is a 80-year-old male with hypertension, congestive heart failure, coronar y artery disease, peripheral vascular disease, myocardial infarction, history of mitral valve endocar ditis in 2007 resulting in mitral valve replacement, history of pacemaker placement, coronary bypass graft, admitted on this admission with what appears to be an exacerbation of chronic obstructive lung disease, found to have 2 blood cultures for coagulase-negative staphylococcus with no evidence of en docarditis on history and physical examination. No fevers and no chills. Off of antibiotics. Repea t blood cultures have been negative at 24 hours. The patient is currently still off of antibiotics. Will continue to keep the patient off of antibiotics and check on the final repeat culture results w hich have been reported to be negative at this time which speaks against prosthetic valve endocarditi s or pacemaker infection. The patient has been afebrile. Will follow closely with you. Conrad Arnold MD cc: [phone] TT: 07/17/2016 19:12:01 Confirmation # [id number] Dictation # [id number] mn
--- NOTE | 2016-07-17 20:30 | PN ---
DATE: 07/17/2016 REFERRING PHYSICIAN: Dr. Sorto. SUBJECTIVE: He is sitting on the side of the bed unremarkable. Refused to use CPAP/BiPAP. St ill has cough, shortness of breath. No nausea, vomiting or diarrhea. No leg pain or leg swelling. OBJECTIVE: GENERAL: No acute distress. VITAL SIGNS: Temp is 98, heart rate is 60, respiratory rate is 20, blood pressure 144/71, pulse ox 9 6% on 2 liters nasal cannula. HEENT: Moist mucous membranes. Crowded airway. Mallampati score is 4. NECK: Supple. No JVD. LUNGS: Have a prolonged expiratory phase with wheezing. HEART: S1 and S2. ABDOMEN: Soft, nontender. No organomegaly. EXTREMITIES: There is no edema. NEUROLOGIC: Awake, alert, follows simple commands. MEDICATIONS: He is on hydralazine 10 mg q.i.d., Brovana 15 mcg inhaled twice a day, hydrocortisone t o affected area at bedtime, DuoNeb q. 12 hours p.r.n., Ecotrin 81 mg daily, Flomax 0.4 mg daily, insu ibrahima coverage, Januvia 50 mg daily, Lipitor 20 mg daily, metoprolol tartrate 25 mg daily, Lovenox 40 m g subQ daily, Nicoderm patch daily, Plavix 75 mg daily, Proscar 5 mg daily, Protonix 40 mg daily, Sin gulair 10 mg daily, Solu-Medrol 20 mg q. 6 hours, Tylenol on a p.r.n. basis, Zaroxolyn 2.5 mg daily. LABORATORY DATA: Reviewed. Blood sugar this morning 191. IMPRESSION AND PLAN: Exacerbation of chronic obstructive lung disease, obstructive sleep apnea syndr ome, cardiomyopathy, history of coronary artery disease, history of endocarditis requiring mitral darek ve replacement, bacteremia. From pulmonary point of view, doing okay. Encourage BiPAP use. Keep he ad elevated at 45 degrees increased. Decrease Solu-Medrol to 20 mg q. 8 hours, inhaled bronchodilato r, antibiotics as per infectious disease. Gastric prophylaxis, deep venous thrombosis prophylaxis. Fall precaution. Thank you and will follow with you. Bon Sánchez MD cc: [phone] TT: 07/17/2016 20:30:18 Confirmation # [id number] Dictation # [id number] mn
--- NOTE | 2016-07-18 00:05 | PN ---
DATE: 07/17/2016 ADDENDUM This is an addendum to the GI progress report dictated by Alina Tompkins NP. The patient has a history of significant weight loss, nearly 20 pounds, etiology is unclear. History of coronary artery disease, status post mitral valve replacement, admitted with COPD exacerbation. The patient would benefit from the colonoscopic evaluation and endoscopic evaluation in view of the h istory of significant weight loss. The patient has been on Plavix. We will consider diagnostic work up. Branden Enriquez MD cc: [phone] TT: 07/18/2016 00:03:55 Confirmation # [id number] Dictation # [id number] tn
[2016-07-18] MEDS: MethylPREDNISolone 40 mg Vial IV SCH ×3 (05:08→22:25)
[2016-07-18 06:53] LABS: ADD MANUAL DIFF? NO
[2016-07-18 07:01] LABS: BASO # 0.01 K/mm3 (0.0-2.0); BASO % 0.1 % (0.0-3.0); GRAN # 11.84 (1.4-6.5); GRAN % 87.6 % (50.0-68.0); LYMPH # 1.1 (1.2-3.4); LYMPH % 8.3 % (22.0-35.0); MEAN CELL VOLUME 83.1 fL (80.0-105.0); MEAN CORPUSCULAR HEMOGLOBIN 29.8 pg (25.0-35.0); MEAN CORPUSCULAR HGB CONC 35.8 g/dl (31.0-37.0); MEAN PLATELET VOLUME 10.5 fl (7.0-11.0); MONO # 0.5 (0.1-0.6); PLATELET COUNT 213 10^3/uL (120.0-450.0); RED CELL DISTRIBUTION WIDTH 16.2 % (11.5-14.5); WHITE BLOOD COUNT 13.5 10^3/ul (4.5-11.0)
[2016-07-18 07:12] LABS: BLOOD UREA NITROGEN 41 mg/dL (7-21); CALCIUM 8.7 mg/dL (8.4-10.5); CARBON DIOXIDE 30 mmol/L (21-33); CHLORIDE 98 mmol/L (95-110); GFR AFRICAN-AMERICAN > 60; GLUCOSE,RANDOM 101 mg/dL (70-110); POTASSIUM 4.7 mmol/L (3.6-5.0); SODIUM 136 mmol/L (132-148)
[2016-07-18 07:13] LABS: INR 1.2 (0.93-1.08); PARTIAL THROMBOPLASTIN TIME 27.7 Seconds (23.7-30.8)
--- NOTE | 2016-07-18 07:41 | PN ---
DATE: 07/17/2016 The patient is comfortable, no distress, getting prepped for colonoscopy because of weight loss and u nderlying anemia. He has no chest pain, no short of breath. Currently, he is off IV antibiotics, se ems to be doing okay, afebrile. His breathing is much better with less wheezing. PHYSICAL EXAMINATION: VITAL SIGNS: Temperature 98, heart rate 60, blood pressure 144/71, respirations 18, saturation 96%. HEAD AND NECK: Normal. No JVD, no thyromegaly. CHEST: Clear, a few rhonchi. CARDIAC: First sound, second sound normal. Systolic murmur. ABDOMEN: Obese, nontender. EXTREMITIES: Mild edema bilateral. LABORATORY DATA: His blood sugar runs between 100-150. IMPRESSION AND PLAN: 1. Acute chronic obstructive pulmonary disease exacerbation, seems to be doing better. Continue the inhaled bronchodilators and IV bronchodilators. We will decrease the steroids. Now is 20 IV q. 8. 2. History of congestive heart failure. Continue Zaroxolyn, Lasix. Ejection fraction is 40%. 3. Prostate enlargement, hypertension, hypercholesterolemia, chronic back pain, chronic peripheral v ascular disease, history of cardiac bypass surgery, aortic valve replacement. Continue current treat ment. Continue Plavix, Protonix which is on hold now because of colonoscopy, Singulair, Lipitor, Lop ressor at 25 mg. 4. Diabetes. Continue Januvia, insulin coverage. We will follow up clinically. Salty Sorto MD cc: [phone] TT: 07/18/2016 07:40:30 Confirmation # [id number] Dictation # [id number] tn
[2016-07-18] MEDS: Insulin Reg-LOW-Coverage SC SCH ×5 (08:43→22:24)
[2016-07-18] MEDS: Arformoterol 15 mcg/2 ml Inh Sol IH SCH ×2 (08:49→19:28)
[2016-07-18] MEDS: Enoxaparin 40 mg Syringe SC SCH (09:09)
[2016-07-18] MEDS ORDERED: Propofol 10 mg/ml Inj (20 ML) ONE ×2 (13:04→13:21)
[2016-07-18] MEDS ORDERED: Benzocaine/Butamben/Tetracai 14-2-2% TOP Spray TOP ONE (13:08)
[2016-07-18] MEDS ORDERED: Ampicillin/Sulbactam 1.5 gm Inj ONE (13:15)
--- NOTE | 2016-07-18 13:54 | PN ---
DATE: 07/18/2016 REASON FOR CONSULTATION: Shortness of breath, coronary artery disease, pacemaker, CABG, status post MVR, gram-positive sepsis. No evidence of endocarditis on echo. The patient denies any chest pain, shortness of breath, any palpitation. PHYSICAL EXAMINATION: VITAL SIGNS: Temperature afebrile, heart rate 60, blood pressure 130/74. HEENT: PERRLA. Extraocular movements intact. NECK: Supple. No carotid bruit. No thyromegaly. CHEST: Clear to auscultation. HEART: S1, S2 regular. ABDOMEN: Soft. EXTREMITIES: Clubbing and cyanosis negative. LABORATORY DATA: WBC 13.5, hemoglobin 19.7, hematocrit 55, platelet 213. Chemistry: ____ 130, pota ssium 4.7, chloride 98, carbon dioxide 30, anion gap of 13, BUN 41. IMPRESSION: History of coronary artery bypass graft, history of coronary artery disease, history of mitral valve endocarditis, history of mitral valve repair. No evidence of endocarditis at this time. Repeat blood cultures negative. Sed rate is 3, so does not show any evidence of endocarditis. The patient is complaining of losing weight, having bowel prep for endoscopy. We will follow with you. Repeat blood cultures are negative. Thank you, Dr. Sorto, for providing us the opportunity in taking care of the patient. Discussed wit Dr. Macario jeffery, this morning. Bon Blanc MD cc: [phone] TT: 07/18/2016 13:53:34 Confirmation # [id number] Dictation # [id number] tn
[2016-07-18] MEDS ORDERED: Sodium Chloride 0.9% 1,000 ML IV SCH (14:15)
[2016-07-18] MEDS: Pantoprazole 40 mg EC Tab PO SCH (15:19)
[2016-07-18] MEDS: metOLazone 2.5 MG TAB PO SCH (15:19)
--- NOTE | 2016-07-18 18:19 | PN ---
DATE: 07/18/2016 REFERRING PHYSICIAN: Dr. Sorto. SUBJECTIVE: The patient is out of bed to chair, feels better, still having cough and shortness of br eath. No nausea, vomiting or diarrhea. No leg pain or leg swelling. OBJECTIVE: GENERAL: No acute distress. VITAL SIGNS: Temp is 98, heart rate is 60, respiratory rate is 20, blood pressure 161/71, pulse ox _ ____ on 3 liter nasal cannula. HEENT: Moist mucous membrane. Crowded airway. NECK: Supple. No JVD. LUNGS: Have a prolonged expiratory phase with some wheezing. HEART: S1, S2. ABDOMEN: Soft, nontender. No organomegaly. EXTREMITIES: There is no edema. NEUROLOGIC: Awake, alert, follows simple commands. MEDICATIONS: He is on hydralazine 10 mg q.i.d., Brovana 15 mcg inhaled twice a day, hydrocortisone 1 % cream at affected area, DuoNeb q. 2 hours p.r.n., Ecotrin 81 mg daily, Flomax 0.4 mg daily, insulin coverage, Januvia 50 mg daily, Lipitor 20 mg daily, metoprolol tartrate 25 mg daily, Lovenox 40 mg s ubQ daily, Nicoderm patch daily, Plavix 75 mg daily, Proscar 5 mg daily, Protonix 40 mg daily, Singul air 10 mg daily, Solu-Medrol 20 mg q. 8 hours, Tylenol p.r.n., Zaroxolyn 2.5 mg in the morning. LABORATORY DATA: Shows hemoglobin 19.7, hematocrit 55.0, WBC 13.5 and platelet is 213. INR 1.20, PT T is 28. Sodium 136, potassium 4.7, chloride 98, bicarbonate 30, BUN 41, creatinine 1.0, glucose 101 , calcium is 8.7. IMPRESSION AND PLAN: Exacerbation of chronic obstructive lung disease, obstructive sleep apnea syndr ome, cardiomyopathy, coronary artery disease, history of endocarditis requiring mitral valve replacem ent, bacteremia. From pulmonary point of view, doing okay. Also, has secondary polycythemia. Encou rage him to use BiPAP. I had a long discussion with the patient about polycythemia and causes of hyp oxemia including sleep apnea and chronic obstructive lung disease. Continue steroids, keep head elev ated at 45 degrees. Gastric prophylaxis, DVT prophylaxis. Thank you and will follow with you. Bon Sánchez MD cc: [phone] TT: 07/18/2016 18:18:17 Confirmation # [id number] Dictation # [id number] mn
--- NOTE | 2016-07-18 22:09 | CP.PCM.PN ---
Subjective - Date & Time of Evaluation Date of Evaluation: 07/18/16 Time of Evaluation: 11:05 - Subjective Subjective: Comfortable in bed, not in distress. Objective - Vital Signs/Intake and Output Vital Signs (last 24 hours): Temp Pulse Resp BP Pulse Ox 98.4 F 61 18 122/78 98 07/18/16 16:00 07/18/16 18:02 07/18/16 16:00 07/18/16 18:02 07/18/16 16:00 Intake and Output: 07/18/16 07/19/16 18:59 06:59 Intake Total 0 540 Output Total 1000 Balance 0 -460 - Medications Medications: Current Medications Acetaminophen (Tylenol 325mg Tab) 650 mg PO Q4H PRN PRN Reason: Fever >100.5 F Albuterol/Ipratropium (Duoneb 3 Mg/0.5 Mg (3 Ml) Ud) 3 ml IH Q2H PRN PRN Reason: Shortness of Breath Last Admin: 07/18/16 19:28 Dose: 3 ml Arformoterol Tartrate (Brovana) 15 mcg IH [id number] [facility] Last Admin: 07/18/16 19:28 Dose: 15 mcg Aspirin (Ecotrin) 81 mg PO DAILY [facility] Last Admin: 07/18/16 15:19 Dose: 81 mg Atorvastatin Calcium (Lipitor) 20 mg PO DAILY [facility] Last Admin: 07/18/16 15:19 Dose: 20 mg Clopidogrel Bisulfate (Plavix) 75 mg PO DAILY [facility] Last Admin: 07/18/16 15:19 Dose: 75 mg Enoxaparin Sodium (Lovenox) 40 mg SC DAILY [facility] PRN Reason: Protocol Last Admin: 07/18/16 09:09 Dose: Not Given Finasteride (Proscar) 5 mg PO DAILY [facility] Last Admin: 07/18/16 15:19 Dose: 5 mg Hydralazine HCl (Apresoline) 10 mg PO QID [facility] Last Admin: 07/18/16 18:02 Dose: 10 mg Hydrocortisone (Cortizone 1% Cream) 0 gm TOP HS [facility] Last Admin: 07/16/16 22:33 Dose: Not Given Insulin Human Regular (Humulin R Low) 0 units SC ACHS [facility] PRN Reason: Protocol Last Admin: 07/18/16 17:32 Dose: Not Given Methylprednisolone (Solu-Medrol) 20 mg IV Q8 [facility] Last Admin: 07/18/16 15:18 Dose: 20 mg Metolazone (Zaroxolyn) 2.5 mg PO QAM [facility] Last Admin: 07/18/16 15:19 Dose: 2.5 mg Metoprolol Tartrate (Lopressor) 25 mg PO DAILY [facility] Last Admin: 07/18/16 11:04 Dose: 25 mg Montelukast Sodium (Singulair) 10 mg PO HS [facility] Last Admin: 07/17/16 21:46 Dose: 10 mg Nicotine (Nicoderm Cq) 1 patch TD DAILY [facility] Last Admin: 07/18/16 15:18 Dose: 1 patch Pantoprazole Sodium (Protonix Ec Tab) 40 mg PO DAILY [facility] Last Admin: 07/18/16 15:19 Dose: 40 mg Sitagliptin Phosphate (Januvia) 50 mg PO DAILY [facility] Last Admin: 07/18/16 15:19 Dose: 50 mg Tamsulosin HCl (Flomax) 0.4 mg PO DAILY [facility] Last Admin: 07/18/16 15:19 Dose: 0.4 mg - Labs Labs: 07/18/16 06:30 07/18/16 06:30 PT 13.0 Seconds (9.9-11.8) H 07/18/16 06:30 INR 1.20 (0.93-1.08) H 07/18/16 06:30 APTT 27.7 Seconds (23.7-30.8) 07/18/16 06:30 - Constitutional Appears: Non-toxic, No Acute Distress - ENT Exam ENT Exam: Mucous Membranes Moist - Cardiovascular Exam Cardiovascular Exam: +S1, +S2 - GI/Abdominal Exam GI & Abdominal Exam: Soft. absent: Tenderness Assessment and Plan - Assessment and Plan (Free Text) Plan: Assessment Coagulase negative staph in blood cx, probably contamination history of mitral valve endocarditis S/P mitral valve replacement CAD S/P CABG S/P pacemaker placement Plan Continue to monitor off antibiotics since the patient is at risk for nosocomial infections
[2016-07-18] MEDS: Hydrocortisone 1% Cream (30 GM) TOP SCH (22:24)
[2016-07-19] MEDS: MethylPREDNISolone 40 mg Vial IV SCH ×2 (06:03→15:22)
[2016-07-19] MEDS: Insulin Reg-LOW-Coverage SC SCH ×2 (08:00→11:00)
[2016-07-19] MEDS: Arformoterol 15 mcg/2 ml Inh Sol IH SCH (08:02)
[2016-07-19 09:40] VITALS: BP 129/69; PULSE 64; RESP 20; TEMP 98.2; O2SAT 93
[2016-07-19] MEDS: Enoxaparin 40 mg Syringe SC SCH (10:25)
[2016-07-19] MEDS: metOLazone 2.5 MG TAB PO SCH (10:25)
[2016-07-19] MEDS: Pantoprazole 40 mg EC Tab PO SCH (10:25)
--- NOTE | 2016-07-19 12:05 | PN ---
DATE: 07/18/2016 The patient is stable. No new complaint. Going for EGD and colonoscopy by Dr. Enriquez and evaluati on for anemia and weight loss. The patient never had colonoscopy. No chest pain, no short of breath . Seen by front desk associate. PHYSICAL EXAMINATION: On 07/18 is as follows: VITAL SIGNS: Temperature 98, heart rate 61, blood pressure 122/78, respirations 18, saturation 98% o n room air. HEAD AND NECK: Normal. No JVD, no thyromegaly. CHEST: Clear, good entry, few rhonchi in the bases. ABDOMEN: Soft, nontender, obese. EXTREMITIES: Mild edema. NEUROLOGIC: Normal. LABORATORY DATA: White count 16.5, hemoglobin 19.7, hematocrit 55, platelets 213. Chemistry shows s odium 136, potassium 4.7, chloride 98, bicarbonate 30, BUN 41, creatinine 1, blood sugar 101, calcium 8.7. IMPRESSION AND PLAN: 1. Acute chronic obstructive pulmonary disease exacerbation. Continue IV steroids. Continue inhaled bronchodilator. Follow up with machine zipper trimmer. 2. History of gram-positive it seems transient. Repeat blood culture is negative. He is off antibiotics. No endocarditis. Echocardiography shows no vegetations. 3. Hypertension. Continue Lopressor. 4. Prostate enlargement, Flomax and Avodart. 5. The patient also has a history of coronary artery disease, bypass surgery, peripheral vascular di sease. Continue Plavix, continue Lovenox for deep venous thrombosis prophylaxis. 6. Nicotine addiction. The patient currently on Nicoderm CQ. 7. History of congestive heart failure, ejection fraction, systolic function seems okay, 50%. Gomez nue Zaroxolyn and Lasix. Follow up clinically. Will repeat labs in the morning. 8. For his diabetes, currently he is on regular Humulin R with low coverage and Januvia. We will co ntinue current treatment for now. The patient going for EGD and colonoscopy. Salty Sorto MD cc: [phone] TT: 07/19/2016 12:05:01 Confirmation # [id number] Dictation # [id number] micah
--- NOTE | 2016-07-19 13:17 | PN ---
DATE: 07/19/2016 LOCATION: The patient is in room 367, bed 1. REASON FOR CONSULTATION AND FOLLOWUP: Shortness of breath, coronary artery disease, pacemaker, CABG, status post MVR, gram-positive sepsis, no evidence of endocarditis. HISTORY OF PRESENT ILLNESS: The patient was admitted with shortness of breath 2 days' duration with a cough, found to have exacerbation of COPD. The patient is poorly compliant. Still continues to sm lala 1 pack a day and does not follow medically. Denies any chest pain. The patient also found to chilel ve gram-positive sepsis which is chronic with antibiotics. The patient now breathing better without any cardiac symptoms. PHYSICAL EXAMINATION: VITAL SIGNS: Blood pressure 129/69, respirations 20, pulse 64, temperature 98.2. HEAD: Normocephalic. EYES: Pupils normal. Conjunctivae are normal. NECK: JVP low. Carotids equal. THORAX: AP diameter normal. LUNGS: No significant rales. CARDIOVASCULAR: S1, S2. ABDOMEN: Soft, nontender, no organomegaly. Bowel sounds normal. EXTREMITIES: No clubbing, no cyanosis. LABORATORY DATA: WBC 13.5, hemoglobin 19.7, hematocrit 45.0, platelet 213. Sodium 136, potassium 4. 7, BUN 41, creatinine 1.0, sugar 127. DIAGNOSES: Coronary artery disease, status post coronary bypass surgery, history of mitral valve end ocarditis, history of mitral valve repair. No evidence of endocarditis on this admission. Found to have gram-positive sepsis, but repeat blood culture was negative. No evidence of endocarditis. Sed rate is 3. PLAN: From cardiac point of view, the patient is doing better. The patient had endoscopy and colono scopy. Endoscopy showed prepyloric ulcer and colonoscopy showed diverticulosis and hemorrhoids. The patient is on hydralazine 10 mg q.i.d., DuoNeb hand nebulizer therapy, aspirin 81 mg p.o. daily, Lipitor 20 mg daily, metoprolol 25 mg daily, Lovenox 40 mg subQ daily, Plavix 75 mg daily, Protonix 4 0 daily, Singulair 10 mg daily, Solu-Medrol 20 mg IV q. 8 hours. We will continue present therapy an d will follow with you. Bon Caba MD cc: [id number] TT: 07/19/2016 13:17:03 Confirmation # [id number] Dictation # [id number] rn
--- NOTE | 2016-07-19 14:25 | PN ---
DATE: 07/19/2016 REFERRING PHYSICIAN: Dr. Sorto. SUBJECTIVE: The patient is sitting side of the bed, having lunch. Daughter is at bedside. Night wa s unremarkable. Does not use CPAP/BiPAP. Cough is decreased. No nausea, no vomiting, diarrhea. No leg pain or leg swelling. OBJECTIVE: GENERAL: No acute distress. VITAL SIGNS: Temp is 98, heart rate is 64, respiratory rate is 20, blood pressure 129/65, pulse ox 9 3% on room air. HEENT: Moist mucous membranes. Crowded airway. Mallampati score is 4. NECK: Supple. No JVD. LUNGS: Have a prolonged expiratory phase. No wheezing, no rhonchi. HEART: S1, S2. ABDOMEN: Soft, nontender. No organomegaly. EXTREMITIES: There is no edema. NEUROLOGIC: Awake, alert, follows simple commands. MEDICATIONS: He is on hydralazine 10 mg q.i.d., Brovana 15 mcg inhaled twice a day, hydrocortisone t o affected area at bedtime, DuoNeb q. 12 hours p.r.n., Ecotrin 81 mg daily, Flomax 0.4 mg daily, insu ibrahima coverage, Januvia 50 mg daily, Lipitor 20 mg daily, metoprolol tartrate 25 mg daily, Lovenox 40 m g subQ daily, Nicoderm patch daily, Plavix 75 mg daily, Proscar 5 mg daily, Protonix 40 mg daily, Sin gulair 10 mg daily, Solu-Medrol 20 mg q. 8 hours, Tylenol p.r.n., Zaroxolyn 2.5 mg daily. LABORATORY DATA: Reviewed. Sugar this morning is 127. IMPRESSION AND PLAN: Exacerbation of chronic obstructive lung disease, obstructive sleep apnea syndr ome, cardiomyopathy, coronary artery disease, history of endocarditis repair, mitral valve replacemen t, bacteremia. Pulmonary point of view, doing okay. Encourage BiPAP use. Keep head elevated at 45 d egrees. Also has secondary polycythemia. May convert to p.o. steroids on discharge, inhaled broncho dilator. The patient is urged to stop smoking. I spoke about secondary polycythemia and risk of thr omboembolic disease. Gastric prophylaxis, deep venous thrombosis prophylaxis. Fall precautions. eep apnea precautions. Will follow with you. Bon Sánchez MD cc: [facility] TT: 07/19/2016 14:25:09 Confirmation # [id number] Dictation # [id number] rn
--- NOTE | 2016-07-19 18:17 | PN ---
DATE: 07/19/2016 Seen and examined at the bedside earlier today. Daughter was at the bedside. The patient had EGD an d colon that was diagnostic as the patient was on Plavix, found to have prepyloric ulcer, diverticulo sis and hemorrhoids. No acute overnight events. The patient denies any nausea, vomiting, pain or an y fever or chills. He is tolerating oral intake. VITAL SIGNS: Blood pressure is 129/69, pulse 64, respirations 20. LABORATORY DATA: The patient with no new labs for today, except for POC at 127. PHYSICAL EXAMINATION: HEENT: Sclerae anicteric. NECK: Supple. CARDIAC: S1, S2. LUNGS: Decreased breath sounds but good air entry, no rales or wheeze. ABDOMEN: With bowel sounds, soft, nontender, no rebound or guarding. ASSESSMENT: A 80-year-old male with a history of endocarditis, mitral valve, status post mitral valv e replacement, coronary artery disease, reports weight loss, status post EGD and colon and found to h ave prepyloric ulcers, diverticulosis and hemorrhoids. Other comorbidities are COPD and cardiomyopat hy. The patient on admission was found to have Gram-positive culture with repeat cultures that were negative. PLAN: Continue PPI. The patient is going to be discharged home to follow up with PCP. The patient to avoid any NSAIDs. The patient is back on his aspirin and Plavix. The patient was seen and case d iscussed with Dr. Enriquez. Alina STAPLES cc: [id number] TT: 07/19/2016 18:17:00 Confirmation # [id number] Dictation # [id number] mn
--- NOTE | 2016-07-19 18:23 | CP.PCM.PN ---
Subjective - Date & Time of Evaluation Date of Evaluation: 07/19/16 Time of Evaluation: 11:05 - Subjective Subjective: Comfortable in bed, not in distress, afebrile. Objective - Vital Signs/Intake and Output Vital Signs (last 24 hours): Temp Pulse Resp BP Pulse Ox 98.2 F 64 20 129/69 93 L 07/19/16 06:00 07/19/16 15:27 07/19/16 06:00 07/19/16 15:27 07/19/16 06:00 Intake and Output: 07/19/16 07/19/16 06:59 18:59 Intake Total 540 240 Output Total 1000 300 Balance -460 -60 - Medications Medications: Current Medications Acetaminophen (Tylenol 325mg Tab) 650 mg PO Q4H PRN PRN Reason: Fever >100.5 F Albuterol/Ipratropium (Duoneb 3 Mg/0.5 Mg (3 Ml) Ud) 3 ml IH Q2H PRN PRN Reason: Shortness of Breath Last Admin: 07/18/16 19:28 Dose: 3 ml Arformoterol Tartrate (Brovana) 15 mcg IH [id number] [facility] Last Admin: 07/19/16 08:02 Dose: 15 mcg Aspirin (Ecotrin) 81 mg PO DAILY [facility] Last Admin: 07/19/16 10:25 Dose: 81 mg Atorvastatin Calcium (Lipitor) 20 mg PO DAILY [facility] Last Admin: 07/19/16 10:25 Dose: 20 mg Clopidogrel Bisulfate (Plavix) 75 mg PO DAILY [facility] Last Admin: 07/19/16 10:25 Dose: 75 mg Enoxaparin Sodium (Lovenox) 40 mg SC DAILY [facility] PRN Reason: Protocol Last Admin: 07/19/16 10:25 Dose: 40 mg Finasteride (Proscar) 5 mg PO DAILY [facility] Last Admin: 07/19/16 10:25 Dose: 5 mg Hydralazine HCl (Apresoline) 10 mg PO QID [facility] Last Admin: 07/19/16 15:27 Dose: 10 mg Hydrocortisone (Cortizone 1% Cream) 0 gm TOP HS [facility] Last Admin: 07/18/16 22:24 Dose: Not Given Insulin Human Regular (Humulin R Low) 0 units SC ACHS [facility] PRN Reason: Protocol Last Admin: 07/19/16 11:00 Dose: Not Given Methylprednisolone (Solu-Medrol) 20 mg IV Q8 [facility] Last Admin: 07/19/16 15:22 Dose: 20 mg Metolazone (Zaroxolyn) 2.5 mg PO QAM [facility] Last Admin: 07/19/16 10:25 Dose: 2.5 mg Metoprolol Tartrate (Lopressor) 25 mg PO DAILY [facility] Last Admin: 07/19/16 10:25 Dose: 25 mg Montelukast Sodium (Singulair) 10 mg PO HS [facility] Last Admin: 07/18/16 22:24 Dose: 10 mg Nicotine (Nicoderm Cq) 1 patch TD DAILY [facility] Last Admin: 07/19/16 10:26 Dose: 1 patch Pantoprazole Sodium (Protonix Ec Tab) 40 mg PO DAILY [facility] Last Admin: 07/19/16 10:25 Dose: 40 mg Sitagliptin Phosphate (Januvia) 50 mg PO DAILY [facility] Last Admin: 07/19/16 10:25 Dose: 50 mg Tamsulosin HCl (Flomax) 0.4 mg PO DAILY [facility] Last Admin: 07/19/16 10:25 Dose: 0.4 mg - Labs Labs: 07/18/16 06:30 07/18/16 06:30 PT 13.0 Seconds (9.9-11.8) H 07/18/16 06:30 INR 1.20 (0.93-1.08) H 07/18/16 06:30 APTT 27.7 Seconds (23.7-30.8) 07/18/16 06:30 - Constitutional Appears: Non-toxic, No Acute Distress - Head Exam Head Exam: NORMAL INSPECTION - ENT Exam ENT Exam: Mucous Membranes Moist - Neck Exam Neck Exam: absent: Lymphadenopathy, Meningismus - Respiratory Exam Respiratory Exam: Decreased Breath Sounds - Cardiovascular Exam Cardiovascular Exam: +S1, +S2 - GI/Abdominal Exam GI & Abdominal Exam: Soft. absent: Tenderness Assessment and Plan - Assessment and Plan (Free Text) Plan: Assessment Coagulase negative staph in blood cx, probably contamination history of mitral valve endocarditis S/P mitral valve replacement CAD S/P CABG S/P pacemaker placement Plan Continue to monitor off antibiotics since the patient is at risk for healthcare- associated infections
--- NOTE | 2016-07-20 10:55 | DS ---
A 80-year-old male admitted with dyspnea, acute COPD exacerbation. The patient was given Lasix IV, w as given steroids IV. The patient also was seen by GI consult, Dr. Enriquez. He never had any endos copic evaluation, and he has history of weight loss. The patient advised, and he went for endoscopic evaluation, which was negative for colon cancer or any underlying malignancy. The patient was stabl e and was discharged home to be followed as outpatient. PHYSICAL EXAMINATION: VITAL SIGNS: Stable, afebrile. Temperature is 98, heart rate 64, blood pressure 129/69, respiratory rate 20 and saturating 95%. HEAD AND NECK: Normal. No JVD, no thyromegaly. CHEST: Clear, good air entry. CARDIAC: First and second sounds are normal. ABDOMEN: Soft, nontender. EXTREMITIES: No edema. NEUROLOGIC: Normal. DISCHARGE DIAGNOSES: 1. Acute chronic obstructive pulmonary disease exacerbation. The patient was given inhaler, Medrol pack, and we will give him Levaquin for another 5 days more. 2. Anemia, weight loss. Will follow up as outpatient. 3. History of prostate enlargement. 4. Diabetes type 2. 5. Hypertension, hypercholesterolemia, obesity, chronic osteoarthritis, chronic hip arthritis. 6. Coronary artery disease, peripheral vascular disease. 7. Obesity. 8. Obstructive sleep apnea. PLAN: Continue current treatment. Discharge the patient home. Follow up in the office within a jakob vale Salty Sorto MD cc: [id number] TT: 07/20/2016 10:54:53 jn
== END 2016-07-19 18:32 | disposition home or self-care (01) ==
LOC: ED 20:22 → ERH 23:03 → 2RNO 07-13 02:14 → OBSVTOIN 07-13 16:37 → INTOOBSV 07-13 16:37 → 3RNO 07-14 18:16
PROVIDERS: ADMIT Internal Medicine; ATTEND Internal Medicine
DX: J44.1 Chronic obstructive pulmonary disease with (acute) exacerbation (principal); E87.2 Acidosis; E11.51 Type 2 diabetes mellitus with diabetic peripheral angiopathy without gangrene; I11.0 Hypertensive heart disease with heart failure; I50.9 Heart failure, unspecified; D75.1 Secondary polycythemia; I25.5 Ischemic cardiomyopathy; I25.10 Atherosclerotic heart disease of native coronary artery without angina pectoris; I36.1 Nonrheumatic tricuspid (valve) insufficiency; E78.5 Hyperlipidemia, unspecified; I87.2 Venous insufficiency (chronic) (peripheral); E78.00 Pure hypercholesterolemia, unspecified; F17.210 Nicotine dependence, cigarettes, uncomplicated; N40.0 Benign prostatic hyperplasia without lower urinary tract symptoms; E66.9 Obesity, unspecified; E87.6 Hypokalemia; G47.33 Obstructive sleep apnea (adult) (pediatric); R63.4 Abnormal weight loss; K25.9 Gastric ulcer, unspecified as acute or chronic, without hemorrhage or perforation; K57.30 Diverticulosis of large intestine without perforation or abscess without bleeding; K64.8 Other hemorrhoids; M19.90 Unspecified osteoarthritis, unspecified site; D64.9 Anemia, unspecified; G89.29 Other chronic pain; I25.2 Old myocardial infarction; Z91.19 Patient's noncompliance with other medical treatment and regimen; Z79.02 Long term (current) use of antithrombotics/antiplatelets; Z79.82 Long term (current) use of aspirin; Z95.0 Presence of cardiac pacemaker; Z95.2 Presence of prosthetic heart valve; Z95.1 Presence of aortocoronary bypass graft
CPT/HCPCS: 36415; 43235; 45378; 71010; 80048; 80053; 82550; 82803; 82948; 83615; 83735; 83880; 84100; 84145; 84484; 85025; 85610; 85651; 85730; 87040; 87149; 87181; 87205; 93005; 93306; 93970; 94640; 94660; 96374; 97116; 97162; 97530; 99285; G0378; G8978; G8979; J0295; J0456; J0696; J1650; J2001; J2543; J2704; J2920; J2930; J7040

== ENCOUNTER 2016-08-07 18:21 | Observation (INO) | payer MEDICARE, MEDICAID ==
[2016-08-07 18:25] VITALS: BMI 29.7
--- NOTE | 2016-08-07 19:57 | ED PDOC ---
Arrival/HPI - General Chief Complaint: Male Genitourinary Time Seen by Provider: 08/07/16 18:57 Historian: Patient - History of Present Illness Narrative History of Present Illness (Text): 08/07/16 19:48 A 81 year old male presents to the emergency department complaining of hematouria for the past 5 days. Patient denies any fever, chills, nausea, vomiting, diarrhea, abdominal pain, chest pain, shortness of breath or any other complaints. PMD: Macario Urologist: Dr. Pires Time/Duration: Other (5 days) Symptom Course: Unchanged Quality: Other Context: Other Past Medical History - Provider Review Nursing Documentation Reviewed: Yes - Past History Past History: No Previous - Infectious Disease Hx of Infectious Diseases: None - Tetanus Immunization Tetanus Immunization: Unknown - Cardiac Hx Pacemaker: Yes - Pulmonary Hx Chronic Obstructive Pulmonary Disease (COPD): Yes - Neurological Hx Paralysis: No - HEENT Hx HEENT Disorder: No - Renal Hx Renal Disorder: No - Endocrine/Metabolic Hx Endocrine Disorders: No - Hematological/Oncological Hx Blood Transfusions: Yes Hx Blood Transfusion Reaction: No - Integumentary Hx Dermatological Disorder: No - Musculoskeletal/Rheumatological Hx Musculoskeletal Disorders: Yes - Gastrointestinal Hx Gastrointestinal Disorders: Yes Other/Comment: Large (L) sided inguinal hernia repair extending into scrotum - Genitourinary/Gynecological Hx Genitourinary Disorders: Yes Hx Prostate Problems: Yes - Psychiatric Hx Emotional Abuse: No Hx Physical Abuse: No Hx Substance Use: No - Past Surgical History Past Surgical History: No Previous - Surgical History Hx Inguinal Hernia Repair: Yes - Anesthesia Hx Anesthesia Reactions: No Hx Malignant Hyperthermia: No - Suicidal Assessment Feels Threatened In Home Enviroment: No Family/Social History - Physician Review Nursing Documentation Reviewed: Yes Family/Social History: No Known Family HX Smoking Status: Heavy Smoker > 10 Cigarettes Daily Hx Alcohol Use: No Hx Substance Use: No Hx Substance Use Treatment: No Allergies/Home Meds Allergies/Adverse Reactions: Allergies No Known Allergies Allergy (Verified 08/07/16 18:25) Home Medications: Home Meds Medication Instructions Recorded Confirmed Fluticasone/Salmeterol [Advair 1 dsk IH SA 09/06/12 08/07/16 250-50 Diskus] Simvastatin 40 mg PO DAILY 09/06/12 08/07/16 Finasteride [Proscar] 5 mg PO DAILY 07/28/14 08/07/16 Montelukast [Singulair] 10 mg PO HS 07/28/14 08/07/16 Pantoprazole Sodium [Protonix] 40 mg PO DAILY 07/28/14 08/07/16 Sitagliptin Phosphate [Januvia] 100 mg PO DAILY 07/28/14 08/07/16 Tamsulosin [Flomax] 0.4 mg PO DAILY 07/28/14 08/07/16 Aspirin [Adult Low Dose Aspirin EC] 81 mg PO DAILY 08/07/16 08/07/16 Clopidogrel [Plavix] 75 mg PO DAILY 08/07/16 08/07/16 Metoprolol Tartrate [Lopressor] 25 mg PO DAILY 08/07/16 08/07/16 Review of Systems - Physician Review All systems were reviewed & negative as marked: Yes - Review of Systems Constitutional: absent: Fevers, Night Sweats Respiratory: absent: SOB Cardiovascular: absent: Chest Pain Gastrointestinal: absent: Abdominal Pain, Diarrhea, Nausea, Vomiting Genitourinary Male: Hematuria Physical Exam Vital Signs Reviewed: Yes Vital Signs Temp Pulse Resp BP Pulse Ox 08/07/16 20:47 82 19 101/51 L 100 08/07/16 18:26 98.4 F 91 H 17 103/56 L 96 Temperature: Afebrile Blood Pressure: Hypotensive Pulse: Tachycardic Respiratory Rate: Normal Appearance: Positive for: Well-Appearing, Non-Toxic, Comfortable Pain Distress: None Mental Status: Positive for: Alert and Oriented X 3 - Systems Exam Head: Present: Atraumatic, Normocephalic Pupils: Present: PERRL Extroacular Muscles: Present: EOMI Conjunctiva: Present: Normal Mouth: Present: Moist Mucous Membranes Neck: Present: Normal Range of Motion Respiratory/Chest: Present: Clear to Auscultation, Good Air Exchange. No: Respiratory Distress, Accessory Muscle Use Cardiovascular: Present: Regular Rate and Rhythm, Normal S1, S2. No: Murmurs Abdomen: Present: Normal Bowel Sounds. No: Tenderness, Distention, Peritoneal Signs Back: Present: Normal Inspection Upper Extremity: Present: Normal Inspection. No: Cyanosis, Edema Lower Extremity: Present: Edema (+1 edema bilaterally), NORMAL PULSES. No: CALF TENDERNESS Neurological: Present: GCS=15, CN II-XII Intact, Speech Normal Skin: Present: Warm, Dry, Normal Color. No: Rashes Psychiatric: Present: Alert, Oriented x 3, Normal Insight, Normal Concentration Medical Decision Making ED Course and Treatment: 08/07/16 19:48 Impression: A 81 year old male with hematuria Differential Diagnosis included but are not limited to: Hematouria secondary to UTI vs. Acute renal failure Plan: -- Labs -- Urine culture and Urinalysis -- Reassess and disposition Progress Notes: 08/07/16 22:06 ARF noted. HR elevated at 105. Will hydrated. Discussed case with Dr. Sorto and will keep patient under observation for ARF, Hematuria and Dehydration. Patient also noted that he treated and felt a couple of days ago with an bruise on his hip that he says is getting better. He is able to walk. No numbness or weakness. Xray ordered. - Lab Interpretations Lab Results: 08/07/16 20:20 08/07/16 21:15 Lab Results 08/07/16 21:15: Sodium 137, Potassium 3.6, Chloride 98, Carbon Dioxide 32, Anion Gap 11, BUN 30 H, Creatinine 1.5 H, Est GFR ( Amer) 55, Est GFR ( Non-Af Amer) 45, Random Glucose 141 H, Calcium 8.4 08/07/16 20:30: Urine Color Light red, Urine Appearance Bloody, Urine pH 6.5, Ur Specific Bono 1.010, Urine Protein 100 H, Urine Glucose (UA) Negative, Urine Ketones Negative, Urine Blood Large H, Urine Nitrate Negative, Urine Bilirubin Negative, Urine Urobilinogen 1.0 H, Ur Leukocyte Esterase Trace H, Urine RBC Tntc, Urine WBC 2 - 5, Ur Epithelial Cells 0 - 2, Urine Bacteria Mod 08/07/16 20:20: WBC 5.6 D, RBC 5.15, Hgb 15.3, Hct 42.7, MCV 82.9, MCH 29.7, MCHC 35.8, RDW 16.2 H, Plt Count 245, MPV 9.9, Gran % 58.0, Lymph % (Auto) 28.8 , [place] % (Auto) 11.2 H, Eos % (Auto) 1.6, Baso % (Auto) 0.4, Gran # 3.26, Lymph # 1.6, [place] # 0.6, Eos # 0.1, Baso # 0.02 I have reviewed the lab results: Yes - RAD Interpretation Radiology Orders: 08/07/16 22:06 Hip Left [HIP MIN 2V W/ PELVIS LT] [RAD] Stat - Medication Orders Current Medication Orders: Sodium Chloride (Sodium Chloride 0.9%) 500 mls @ 999 mls/hr IV .Q31M STA Stop: 08/07/16 22:24 Last Admin: 08/07/16 21:58 Dose: 999 mls/hr - Scribe Statement The provider has reviewed the documentation as recorded by the Alvareziblupe Carlos Provider Scribe Attestation: All medical record entries made by the Scribe were at my direction and personally dictated by me. I have reviewed the chart and agree that the record accurately reflects my personal performance of the history, physical exam, medical decision making, and the department course for this patient. I have also personally directed, reviewed, and agree with the discharge instructions and disposition. Disposition/Present on Arrival - Present on Arrival Any Indicators Present on Arrival: No History of DVT/PE: No History of Uncontrolled Diabetes: No Urinary Catheter: No History of Decub. Ulcer: No History Surgical Site Infection Following: None - Disposition Have Diagnosis and Disposition been Completed?: Yes Diagnosis: Hematuria, Dehydration, Acute renal failure Disposition: HOSPITALIZED Disposition Time: 22:08 Patient Plan: Observation Condition: FAIR
[2016-08-07 20:30] LABS: ADD MANUAL DIFF? NO
[2016-08-07 20:36] LABS: BASO # 0.02 K/mm3 (0.0-2.0); BASO % 0.4 % (0.0-3.0); EOS # 0.1 (0.0-0.7); EOS % 1.6 % (1.5-5.0); GRAN # 3.26 (1.4-6.5); HEMATOCRIT 42.7 % (42.0-52.0); LYMPH # 1.6 (1.2-3.4); LYMPH % 28.8 % (22.0-35.0); MEAN CELL VOLUME 82.9 fL (80.0-105.0); MEAN CORPUSCULAR HEMOGLOBIN 29.7 pg (25.0-35.0); MEAN CORPUSCULAR HGB CONC 35.8 g/dl (31.0-37.0); MEAN PLATELET VOLUME 9.9 fl (7.0-11.0); MONO # 0.6 (0.1-0.6); MONO % 11.2 % (1.0-6.0); PLATELET COUNT 245 10^3/uL (120.0-450.0); RED CELL DISTRIBUTION WIDTH 16.2 % (11.5-14.5); WHITE BLOOD COUNT 5.6 10^3/ul (4.5-11.0)
[2016-08-07 20:54] LABS: PH,URINE 6.5 (4.7-8.0); URINE BILIRUBIN NEGATIVE (NEGATIVE); URINE BLOOD LARGE (NEGATIVE); URINE GLUCOSE (UA) NEGATIVE (NEGATIVE); URINE KETONE NEGATIVE (NEGATIVE); URINE LEUKOCYTE ESTERASE TRACE Leu/uL (NEGATIVE); URINE PROTEIN 100 mg/dL (<30 mg/dL)
[2016-08-07 20:57] LABS: URINE APPEARANCE BLOODY (CLEAR); URINE COLOR LIGHT RED (YELLOW)
[2016-08-07 21:14] LABS: URINE BACTERIA MOD (NEG); URINE EPITHELIAL CELLS 0 - 2 /hpf (0-5); URINE RBC TNTC /hpf (0-2)
[2016-08-07 21:37] LABS: CALCIUM 8.4 mg/dL (8.4-10.5); POTASSIUM 3.6 mmol/L (3.6-5.0)
[2016-08-07] MEDS ORDERED: Sodium Chloride 0.9% 500 ML IV STA (21:54)
[2016-08-08] MEDS ORDERED: cefTRIAXone 1 gm 100 ML IV SCH (07:45)
[2016-08-08] MEDS: Arformoterol 15 mcg/2 ml Inh Sol IH SCH ×2 (07:59→19:34)
[2016-08-08] MEDS: Budesonide 0.25 mg/2 ml Inhal Susp UD IH SCH ×2 (07:59→19:34)
[2016-08-08] MEDS ORDERED: Arformoterol 15 mcg/2 ml Inh Sol IH SCH (08:00)
[2016-08-08] MEDS: cefTRIAXone 1 gm 1 GM/100 ML BAG IV SCH (08:22)
--- NOTE | 2016-08-08 08:27 | RAD ---
PROCEDURE: Left Hip X-ray Radiographs. HISTORY: left hip pain s/p fall COMPARISON: None. FINDINGS: BONES: No acute fracture. JOINTS: Severe osteoarthritis of both hips with most complete effacement the joint space and extensive subchondral sclerosis. SOFT TISSUES: Left herniorrhaphy mesh OTHER FINDINGS: None. IMPRESSION: Severe osteoarthritis. No acute fracture
[2016-08-08] MEDS ORDERED: Sodium Chloride 0.45% 1,000 ML IV SCH (08:30)
[2016-08-08] MEDS: Pantoprazole 40 mg EC Tab PO SCH (09:02)
[2016-08-08] MEDS: metOLazone 2.5 MG TAB PO SCH (09:03)
[2016-08-08] MEDS: Potassium Chloride 20 mEq ER Tab PO SCH (09:03)
--- NOTE | 2016-08-08 09:04 | HP ---
A 81-year-old male came in with hematuria, also left hip pain. HISTORY OF PRESENT ILLNESS: This is a 81-year-old male with history of valve replacement, bypass jing artemio, peripheral vascular disease, coronary artery disease, congestive heart failure, COPD, and histo ry of prostate enlargement with history of hematuria in the past has been seeing Dr. Pires as outpa atifnt, came in this time was kevin hematuria more frequent, got panicky. The patient came to the [facility] Room for evaluation. The patient also complained of left hip pain. He fell, and since then, he has a little bit of swelling around the left hip. The patient is still walking, was limping, with a walker, but seems better. He is supposed to come to the office, but he could not because of his p ain. Also, the patient has been seen in the Emergency Room, and during the evaluation, his creatinin e went up to 1.5. PAST MEDICAL HISTORY: As I mentioned. 1. Chronic obstructive pulmonary disease. 2. Diabetes type 2. 3. Congestive heart failure. 4. Leg edema. 5. Severe osteoarthritis of his back and his hip with deformity. 6. Hypercholesterolemia. 7. Valve replacement. 8. Coronary artery disease. 9. Peripheral vascular disease. 10. Morbid obesity. 11. Possible obstructive sleep apnea. 12. Noncompliance. ALLERGIES: No known allergies. SOCIAL HISTORY: Not smoking and quit smoking, has back pain, has dysuria, and multiple medications. MEDICATIONS: The patient takes Lasix b.i.d., Lipitor 20 p.o. q. daily, metoprolol b.i.d. 25, Proscar 5, Protonix 40 once a day, Advair, Singulair. He also takes Tylenol p.r.n. for pain, and Zaroxolyn sometimes he takes it before Lasix. He also takes nebulizer treatment. PHYSICAL EXAMINATION: This patient was seen in the Emergency Room. Case was discussed with Emer[facility] Room physician. VITAL SIGNS: Temperature 98.4, heart rate 91, blood pressure 103/56, respirations 17, saturation 96% on room air. HEAD AND NECK: Normal. No JVD, no thyromegaly. CHEST: Clear, good air entry. CARDIAC: First sound and second sounds are normal. Systolic murmur. ABDOMEN: Obese, nontender. EXTREMITIES: Bilateral leg edema, mild edema of both legs. NEUROLOGIC: The patient moves all extremities. He is alert, awake, and oriented x 3. LABORATORY STUDY: White count 5.6, hemoglobin 15.3, hematocrit 42.7, platelets 245. His chemistry n oted for sodium 137, potassium 3.6, chloride 98, bicarb 32, BUN 30, creatinine 1.5. Blood sugar 141, calcium 8.4. His urine showed ____ blood cells, too numerous to count and trace leukocytes, also mo derate bacteria. The patient also had hip and pelvis x-ray, still not available. IMPRESSION AND PLAN: A 81-year-old male came in to the hospital with kevin hematuria, his high creat inine with acute renal failure. We will admit the patient to the hospital, evaluate him for kevin he maturia, renal failure. We will get a urology consult, Dr. Pires, also would hold off on any Lasix , IV fluid given. We will repeat his labs in the morning. We will resume all his meds tomorrow. Co ntinue nebulizer, continue insulin, and resume his cholesterol medication. We will follow up vicky nayak. Salty Sorto MD cc: [id number] TT: 08/08/2016 09:04:32 jn
[2016-08-08 10:25] LABS: BLOOD UREA NITROGEN 26 mg/dL (7-21); CALCIUM 8.4 mg/dL (8.4-10.5); CARBON DIOXIDE 32 mmol/L (21-33); CHLORIDE 100 mmol/L (98-107); GFR AFRICAN-AMERICAN > 60; GLUCOSE,RANDOM 112 mg/dL (70-110); POTASSIUM 3.1 mmol/L (3.6-5.0); SODIUM 139 mmol/L (132-148)
[2016-08-08] MEDS: Insulin Reg-LOW-Coverage SC SCH ×3 (11:40→22:00)
[2016-08-08 18:12] VITALS: O2SAT 97
[2016-08-08] MEDS: Hydrocortisone 1% Cream (30 GM) TOP SCH (22:30)
[2016-08-09] MEDS: Hydrocortisone 1% Cream (30 GM) TOP SCH (00:01)
[2016-08-09] MEDS: Budesonide 0.25 mg/2 ml Inhal Susp UD IH SCH (08:00)
[2016-08-09] MEDS: Arformoterol 15 mcg/2 ml Inh Sol IH SCH (08:01)
[2016-08-09] MEDS: Insulin Reg-LOW-Coverage SC SCH (08:15)
[2016-08-09 10:02] VITALS: PULSE 70; RESP 19; TEMP 98.4
[2016-08-09] MEDS: Potassium Chloride 20 mEq ER Tab PO SCH (10:13)
[2016-08-09] MEDS: metOLazone 2.5 MG TAB PO SCH (10:13)
[2016-08-09] MEDS: Pantoprazole 40 mg EC Tab PO SCH (10:13)
[2016-08-09] MEDS: cefTRIAXone 1 gm 1 GM/100 ML BAG IV SCH (10:14)
[2016-08-09 10:16] VITALS: BP 135/75
--- NOTE | 2016-08-09 12:44 | DS ---
The patient admitted with gross hematuria. His urine cleared up within 24 hours. Urine culture came back negative. The patient is still not seen by urologist. The patient had x-rays in the Emergency Room, which were of his left hip because of his recent fall, which show severe osteoarthritis, no fr actures and he has left herniorrhaphy mesh, also severe osteoarthritis of both hips. The patient als o was maintained on his medications. Urine culture came negative. The patient was discharged to [facility] with Dr. Pires as outpatient. Clinically stable. Creatinine back to normal at 1.3. The lyudmila vences will be discharged home to today. Today is 08/09/2016. PHYSICAL EXAMINATION: VITAL SIGNS: As follows: Temperature 98.4, heart rate 70, blood pressure 134/74, respiration 19, sa turation 97%. HEAD AND NECK: Normal. No JVD. No thyromegaly. CHEST: Clear, good entry. CARDIAC: First sound, second sound normal. ABDOMEN: Soft, obese, nontender. EXTREMITIES: Minimal edema. NEUROLOGIC: Normal except restricted hip movement due to pain. LABORATORY DATA: His blood sugar is in the 137 and 98, 72. Seems stable, no symptoms. DISCHARGE DIAGNOSES: 1. Gross hematuria. The patient does have a history of recurrent hematuria. Follow up with Dr. Brenda becker as outpatient. 2. History of high PSA, benign prostate hyperplasia, negative for cancer. Follow up with Dr. Eelna cruz. 3. Anemia. 4. Diabetes type 2. 5. Chronic obstructive pulmonary disease, obstructive sleep apnea, morbid obesity. 6. Congestive heart failure, mitral valve replacement, coronary artery bypass surgery. 7. Morbid obesity. 8. Peripheral vascular disease. 9. Chronic severe osteoarthritis of both hips. PLAN: Continue all meds as it is. Follow up in office within a week. Salty Sorto MD cc: [id number] TT: 08/09/2016 12:44:01 sn
--- NOTE | 2016-08-09 12:48 | PN ---
DATE: 08/08/2016 A 81-year-old male. The patient currently stable, his hematuria seems improved significantly. He do es not have it now. He is comfortable, no distress, no chest pain, not short of breath, still not se en by urologist. Still urine culture is pending. Otherwise, patient seems stable and he is maintain ed on his medicines. PHYSICAL EXAMINATION: VITAL SIGNS: Temperature 98.1, heart rate 77, blood pressure 136/78, respirations 19, saturation 97% room air. HEAD AND NECK: Normal. No JVD, no thyromegaly. CHEST: Clear, good entry. CARDIAC: First and second sounds are normal. ABDOMEN: Soft, obese, nontender. EXTREMITIES: Minimal edema. NEUROLOGIC: Normal. LABORATORY DATA: Sodium 139, potassium 3.1, chloride 100, bicarbonate 32, BUN 26, creatinine 1.3 whi ch is improved than previous, it was 1.5 before. The patient currently on IV fluids. His blood suga r 112. His calcium 8.4. Urinalysis was sent and culture is still pending. IMPRESSION AND PLAN: 1. Gross hematuria, acute renal failure. Continue IV fluids. Waiting for urology to see him. Clin ically patient is better, stable. Once he is seen, we will send him home and is still waiting for ur ine culture. 2. Acute renal failure, improved, probably prerenal. 3. Chronic obstructive pulmonary disease, obstructive sleep apnea. Does not using the mask, is nonc ompliant. We will continue inhaled bronchodilators for now and he has a nebulizer machine at home. 4. Hypertension, hypercholesterolemia. 5. Anemia has a GI workup including esophagogastroduodenoscopy and colon and was negative. At this time, we will continue current treatment. Probably if urine culture negative and urology sees the patient and the patient clinically stable, wi ll be discharged as soon as we get the results. Salty Sorto MD cc: [phone] TT: 08/09/2016 12:47:48 Confirmation # [id number] Dictation # [id number] shivam
[2016-08-12] MEDS ORDERED: Fluticasone-Salmeterol 250-50mcg Diskus IH SCH (11:07)
== END 2016-08-09 11:36 | disposition home or self-care (01) ==
LOC: ED 18:21 → ERH 22:05 → 3RSO 08-08 00:37
PROVIDERS: ADMIT Internal Medicine; ATTEND Internal Medicine
DX: N17.9 Acute kidney failure, unspecified (principal); R31.0 Gross hematuria; D64.9 Anemia, unspecified; J44.9 Chronic obstructive pulmonary disease, unspecified; G47.33 Obstructive sleep apnea (adult) (pediatric); E66.01 Morbid (severe) obesity due to excess calories; E11.51 Type 2 diabetes mellitus with diabetic peripheral angiopathy without gangrene; M16.0 Bilateral primary osteoarthritis of hip; I25.10 Atherosclerotic heart disease of native coronary artery without angina pectoris; E78.00 Pure hypercholesterolemia, unspecified; I11.0 Hypertensive heart disease with heart failure; I50.9 Heart failure, unspecified; Z79.84 Long term (current) use of oral hypoglycemic drugs; Z95.2 Presence of prosthetic heart valve; Z95.1 Presence of aortocoronary bypass graft; Z68.29 Body mass index [BMI] 29.0-29.9, adult; Z91.19 Patient's noncompliance with other medical treatment and regimen; Z79.82 Long term (current) use of aspirin
CPT/HCPCS: 36415; 73502; 80048; 81001; 82948; 85025; 87086; 94640; 94760; 99285; G0378; J0696; J7030; J7040

== ENCOUNTER 2016-11-14 14:42 | Observation (INO) | payer MEDICARE, MEDICAID ==
[2016-11-14 14:53] VITALS: BMI 30.8
[2016-11-14] MEDS ORDERED: Sodium Chloride 0.9% 500 ML IV STA (15:25)
--- NOTE | 2016-11-14 15:41 | ED PDOC ---
Arrival/HPI - General Historian: Patient <Ashu Humphrey - Last Filed: 11/14/16 19:47> <Lore Matias - Last Filed: 11/14/16 20:04> - General Chief Complaint: Male Genitourinary Time Seen by Provider: 11/14/16 14:54 - History of Present Illness Narrative History of Present Illness (Text): 11/14/16 15:30 This is a 81 year old male with PMHx CAD s/p CABG x3, Mitral valve replacement, CHF, BPH, PVD, COPD, DM who presents with complaint of blood in the urine. This began yesterday when the patient noticed tinges of blood in his urine. Patient denies any pain or burning with urination. Patient states that this has happened before back in July 2016. Patient states that Dr. Richa Pires evaluated him and told him that he was fine. Based on prior documentation, patient has BPH with no evidence of prostate cancer. PMHx: CAD s/p CABG x3, CHF, BPH, PVD, COPD, DM PSHx: CABG x3 (most recent one in 2008), Mitral valve replacement, left inguinal hernia repair Allergies: NKDA Social: Current smoker. Smokes 1 ppd for 60 years. Denies alcohol, drugs. Family Hx: Diabetes runs in the family PMD: Dr. Sorto Urologist: Dr. Richa Pires (Ashu Humphrey) Past Medical History - Provider Review Nursing Documentation Reviewed: Yes - Past History Past History: No Previous - Infectious Disease Hx of Infectious Diseases: None - Tetanus Immunization Tetanus Immunization: Unknown - Cardiac Hx Cardiac Disorders: Yes Hx Cardiac Arrhythmia: Yes Hx Circulatory Problems: Yes Hx Congestive Heart Failure: Yes Hx Hypertension: Yes Hx Pacemaker: Yes - Pulmonary Hx Respiratory Disorders: Yes Hx Chronic Obstructive Pulmonary Disease (COPD): Yes Hx Pneumonia: No Hx Sleep Apnea: Yes - Neurological Hx Neurological Disorder: No - HEENT Hx HEENT Disorder: Yes - Renal Hx Renal Disorder: Yes Hx Renal Failure: Yes - Endocrine/Metabolic Hx Endocrine Disorders: Yes Hx Diabetes Mellitus Type 2: Yes - Hematological/Oncological Hx Blood Disorders: Yes - Integumentary Hx Dermatological Disorder: Yes Hx Eczema: Yes - Musculoskeletal/Rheumatological Hx Musculoskeletal Disorders: Yes Hx Arthritis: Yes Hx Falls: Yes Hx Unsteady Gait: Yes - Gastrointestinal Hx Gastrointestinal Disorders: Yes Hx Crohn's Disease: Yes - Genitourinary/Gynecological Hx Hematuria: Yes Hx Prostate Problems: Yes - Psychiatric Hx Psychophysiologic Disorder: No Hx Substance Use: No - Past Surgical History Past Surgical History: No Previous - Surgical History Hx Inguinal Hernia Repair: Yes Hx Open Heart Surgery: Yes - Anesthesia Hx Anesthesia Reactions: No Hx Malignant Hyperthermia: No - Suicidal Assessment Feels Threatened In Home Enviroment: No <Ashu Humphrey - Last Filed: 11/14/16 19:47> Family/Social History - Physician Review Nursing Documentation Reviewed: Yes Family/Social History: Diabetes Smoking Status: Heavy Smoker > 10 Cigarettes Daily Hx Alcohol Use: No Hx Substance Use: No Hx Substance Use Treatment: No <Ashu Humphrey - Last Filed: 11/14/16 19:47> Allergies/Home Meds <Ashu Humphrey - Last Filed: 11/14/16 19:47> <Lore Matias - Last Filed: 11/14/16 20:04> Allergies/Adverse Reactions: Allergies No Known Allergies Allergy (Verified 08/07/16 18:25) Home Medications: Home Meds Medication Instructions Recorded Confirmed Aspirin [Adult Low Dose Aspirin EC] 81 mg PO DAILY 08/07/16 08/07/16 Clopidogrel [Plavix] 75 mg PO DAILY 08/07/16 08/07/16 Review of Systems - Review of Systems Constitutional: Normal Eyes: Normal ENT: Normal Respiratory: Normal Cardiovascular: Edema (chronic bilateral leg edema) Gastrointestinal: Normal Genitourinary Male: Hematuria. absent: Dysuria Musculoskeletal: Normal Skin: Normal Neurological: Normal Endocrine: Normal Hemo/Lymphatic: Normal Psychiatric: Normal <Ashu Humphrey Ninfa - Last Filed: 11/14/16 19:47> Physical Exam Vital Signs Reviewed: Yes Temperature: Afebrile Blood Pressure: Hypotensive (mild) Pulse: Regular Respiratory Rate: Normal Appearance: Positive for: Comfortable Pain Distress: None Mental Status: Positive for: Alert and Oriented X 3 - Systems Exam Head: Present: Atraumatic, Normocephalic Pupils: Present: PERRL Extroacular Muscles: Present: EOMI Conjunctiva: Present: Normal Mouth: Present: Dry Neck: Present: Normal Range of Motion. No: JVD Respiratory/Chest: Present: Clear to Auscultation, Good Air Exchange. No: Accessory Muscle Use Cardiovascular: Present: Regular Rate and Rhythm, Normal S1, S2 Abdomen: Present: Normal Bowel Sounds. No: Tenderness Upper Extremity: Present: Normal Inspection, NORMAL PULSES Lower Extremity: Present: Edema (bilateral pitting edema), NORMAL PULSES. No: CALF TENDERNESS Neurological: Present: GCS=15, CN II-XII Intact Skin: Present: Warm, Dry, Other (chronic venous stasis changes) Psychiatric: Present: Alert, Oriented x 3 <Ashu Humphrey - Last Filed: 11/14/16 19:47> Medical Decision Making <Ashu Humphrey - Last Filed: 11/14/16 19:47> <Lore Matias - Last Filed: 11/14/16 20:04> ED Course and Treatment: 11/14/16 15:45 CBC, CMP, Coags, Amylase, Lipase, UA, urine cultures NS [address] abdomen/pelvis w.o. contrast Will admit to observation under hospitalist service and consult Dr. Edlima Pires (MilagroAshu S) A 81 year old male with hematuria. In agreement with resident note, which includes further HPI details. Patient was seen and evaluated with resident, came up with plan and treatment together. Report Date : 11/14/2016 16:24:32 PROCEDURE: CT Abdomen and Pelvis without intravenous contrast Dictator : Jan Villasenor MD IMPRESSION: There is moderate right-sided hydronephrosis and hydroureter. There is blood layered in the distal ureter. No evidence of stone. There is also perinephric stranding on the right. 11/14/16 20:01 Patient with gross hematuria; blood work is nondiagnostic. Urine shows possible UTI. Urine is still bloody. Given IVF and abx - will need further observation on med surg and consult. Discussed with Dr. Sorto, who is on the blue list - will place on the hospitalist service. Discussed with Dr. Farooq. (Lore Matias) - Lab Interpretations Lab Results: 11/14/16 15:50 11/14/16 15:50 Lab Results 11/14/16 16:00: Urine Color Light red, Urine Appearance Cloudy, Urine pH 7.0, Ur Specific [place] 1.010, Urine Protein 30 H, Urine Glucose (UA) Negative, Urine Ketones Negative, Urine Blood Large H, Urine Nitrate Negative, Urine Bilirubin Negative, Urine Urobilinogen 1.0 H, Ur Leukocyte Esterase Trace H, Urine RBC Tntc, Urine WBC 5 - 10 11/14/16 15:50: Sodium 141, Potassium 4.4, Chloride 98, Carbon Dioxide 33, Anion Gap 14, BUN 17, Creatinine 1.3, Est GFR ( Amer) > 60, Est GFR (Non- Af Amer) 53, Random Glucose 78, Calcium 9.6, Total Bilirubin 0.5, AST 34, ALT 29 , Alkaline Phosphatase 180 H, Total Protein 7.3, Albumin 3.6, Globulin 3.8, Albumin/Globulin Ratio 0.9 L, Amylase 61, Lipase < 10 L 11/14/16 15:50: PT 12.0 H, INR 1.11 H, APTT 31.1 H 11/14/16 15:50: WBC 10.5 D, RBC 4.85, Hgb 14.1, Hct 40.1 L, MCV 82.7, MCH 29.1 , MCHC 35.2, RDW 15.8 H, Plt Count 357, MPV 9.4, Gran % 76.5 H, Lymph % (Auto) 16.1 L, [place] % (Auto) 6.9 H, Eos % (Auto) 0.2 L, Baso % (Auto) 0.3, Gran # 8.00 H, Lymph # 1.7, [place] # 0.7 H, Eos # 0.0, Baso # 0.03 - RAD Interpretation Radiology Orders: 11/14/16 15:24 ABD & PELVIS W/O PO OR IV CONT [CT] Stat - Medication Orders Current Medication Orders: Discontinued Medications Sodium Chloride (Sodium Chloride 0.9%) 500 mls @ 999 mls/hr IV .Q31M STA Stop: 11/14/16 15:55 Last Admin: 11/14/16 16:00 Dose: 999 mls/hr Ceftriaxone Sodium (Rocephin 1 Gram Ivpb) 1 gm in 100 mls @ 200 mls/hr IV ONCE STA PRN Reason: Protocol Stop: 11/14/16 17:45 Last Admin: 11/14/16 18:19 Dose: 200 mls/hr - PA / REGISTERED PHARMACIST / Resident Statement MIKKI has reviewed & agrees with the documentation as recorded. MIKKI has examined the patient and agrees with the treatment plan. <Lore Matias - Last Filed: 11/14/16 20:04> Disposition/Present on Arrival - Present on Arrival Any Indicators Present on Arrival: No History of DVT/PE: No History of Uncontrolled Diabetes: No Urinary Catheter: No History Surgical Site Infection Following: None - Disposition Have Diagnosis and Disposition been Completed?: Yes Disposition Time: 19:45 Patient Plan: Observation <Ashu Humphrey - Last Filed: 11/14/16 19:47> <Lore Matias - Last Filed: 11/14/16 20:04> - Disposition Diagnosis: Hematuria, UTI (urinary tract infection) Disposition: HOSPITALIZED Patient Problems: Current Active Problems Problem Status Onset Hematuria Acute Condition: STABLE
[2016-11-14 16:08] LABS: BASO # 0.03 K/mm3 (0.0-2.0); BASO % 0.3 % (0.0-3.0); EOS % 0.2 % (1.5-5.0); GRAN % 76.5 % (50.0-68.0); HEMATOCRIT 40.1 % (42.0-52.0); LYMPH # 1.7 (1.2-3.4); LYMPH % 16.1 % (22.0-35.0); MEAN CELL VOLUME 82.7 fl (80.0-105.0); MEAN CORPUSCULAR HEMOGLOBIN 29.1 pg (25.0-35.0); MEAN CORPUSCULAR HGB CONC 35.2 g/dl (31.0-37.0); MEAN PLATELET VOLUME 9.4 fl (7.0-11.0); MONO # 0.7 (0.1-0.6); MONO % 6.9 % (1.0-6.0); RED CELL DISTRIBUTION WIDTH 15.8 % (11.5-14.5); WHITE BLOOD COUNT 10.5 10^3/ul (4.5-11.0)
[2016-11-14 16:08] LABS: URINE BILIRUBIN NEGATIVE (NEGATIVE); URINE BLOOD LARGE (NEGATIVE); URINE GLUCOSE (UA) NEGATIVE (NEGATIVE); URINE KETONE NEGATIVE (NEGATIVE); URINE LEUKOCYTE ESTERASE TRACE Leu/uL (NEGATIVE); URINE PROTEIN 30 mg/dL (<30 mg/dL)
[2016-11-14 16:11] LABS: ALB/GLOB RATIO 0.9 (1.1-1.8); ALKALINE PHOSPHATASE 180 U/L (38-133); ALT/SGPT 29 U/L (7-56); AMYLASE 61 U/L (35-125); AST/SGOT 34 U/L (15-59); BILIRUBIN,TOTAL 0.5 mg/dL (0.2-1.3); BLOOD UREA NITROGEN 17 mg/dL (7-21); CALCIUM 9.6 mg/dL (8.4-10.5); CARBON DIOXIDE 33 mmol/L (21-33); CHLORIDE 98 mmol/L (98-107); GFR AFRICAN-AMERICAN > 60; GLUCOSE,RANDOM 78 mg/dL (70-110); POTASSIUM 4.4 mmol/L (3.6-5.0); SODIUM 141 mmol/L (132-148); TOTAL PROTEIN 7.3 g/dL (5.8-8.3)
[2016-11-14 16:13] LABS: LIPASE < 10 U/L (23-300)
[2016-11-14 16:14] LABS: INR 1.11 (0.93-1.08); PARTIAL THROMBOPLASTIN TIME 31.1 Seconds (23.7-30.8)
[2016-11-14 16:14] LABS: URINE APPEARANCE CLOUDY (CLEAR); URINE COLOR LIGHT RED (YELLOW)
[2016-11-14 16:21] LABS: URINE RBC TNTC /hpf (0-2)
--- NOTE | 2016-11-14 16:26 | CT ---
PROCEDURE: CT Abdomen and Pelvis without intravenous contrast HISTORY: hematuria COMPARISON: None. TECHNIQUE: Without contrast.. Contrast Dose: Radiation dose: Total exam DLP = 666 mGy-cm. This CT exam was performed using one or more of the following dose reduction techniques: Automated exposure control, adjustment of the mA and/or kV according to patient size, and/or use of iterative reconstruction technique. FINDINGS: LOWER THORAX: Unremarkable. LIVER: Unremarkable. No gross lesion or ductal dilatation. GALLBLADDER AND BILE DUCTS: 5 mm stone in the gallbladder. Small amount of air in the gallbladder. PANCREAS: Unremarkable. No gross lesion or ductal dilatation. SPLEEN: Unremarkable. ADRENALS: Unremarkable. No mass. KIDNEYS AND URETERS: There is moderate to severe hydronephrosis and hydroureter. There is dense material in the distal right ureter consistent with blood. There is no evidence of a ureteral stone. There is a moderate amount of perinephric stranding around the right kidney. The findings could be secondary to recent passage of a stone. There are no stones seen in the bladder. 3 mm nonobstructing stone in the left kidney. VASCULATURE: Unremarkable. No aortic aneurysm. BOWEL: Unremarkable. No obstruction. No gross mural thickening. APPENDIX: Unremarkable. Normal appendix. PERITONEUM: Unremarkable. No free fluid. No free air. LYMPH NODES: Unremarkable. No enlarged lymph nodes. BLADDER: There is mural thickening in the urinary bladder REPRODUCTIVE: The prostate is enlarged measuring 6 cm in diameter. BONES: Severe degenerative changes are seen in both hips. OTHER FINDINGS: None. IMPRESSION: There is moderate right-sided hydronephrosis and hydroureter. There is blood layered in the distal ureter. No evidence of stone. There is also perinephric stranding on the right.
[2016-11-14] MEDS ORDERED: cefTRIAXone 1 gm 1 GM/100 ML BAG IV STA (17:16)
[2016-11-14] MEDS ORDERED: Sodium Chloride 0.9% 1,000 ML IV SCH (21:45)
--- NOTE | 2016-11-15 05:14 | CP.PCM.HP ---
<TGANAHI - Last Filed: 11/15/16 05:07> History of Present Illness - History of Present Illness History of Present Illness: Anahi Elizabeth, PGY1, H&P for Dr. Farooq: CC: Hematuria HPI: 81M with significant PMH for CAD, DM, COPD, and BPH, who complains of 3 day history of painless hematuria and blood clots described as burgundy color, not associated with dysuria, burning on urination, fevers, chills, costovertebral/back pain, anorexia. He states that he notices blood only with urinating, and denies hematochezia/melena. Patient has had multiple episodes of painless hematuria in the past, and has been evaluated by Dr. Pires. He has had a prostate bx in the past which did not show CA, and he has had a bladder US in 2016 showing a 4.4x2.8x5.1cm mass in the bladder. Pt additionally reports that he has had a 40 lb weight loss over the past few months. He was evaluated by Dr. Parekh, and reportedly was no found to have cancer. In ED, pt afebril,e no leukocytosis, where he had labs drawn, UA sent, and a CT of the abdomen showing moderate R hydronephrosis and hydroureter, blood in the distal ureter, R perinephric stranding, but no obstructing stone. He was given 1L NS bolus and Ceftriaxone 1gm. He continues to have hematuria. He was admitted to observation for evaluation of hematuria. PMD: Macario Urologist: Pranay PMHX: CAD, CHF (EF 50-55%), BPH, PVD, COPD, DM, osteoarthritis PSH: CABGx3, Mitral valve replacement, l inguinal hernia repair Meds: Lopressor, Docusate, Daily vitamin with iron, Remeron, Plavix, Flomax, Januvia, Protonix, Lipitor, Proscar, low dose ASA, Lasix Allergies: NKDA Family hx: DM Social hx: - smoking 1ppd x 60 yrs - denies EtOH or recreational drugs - [facility], has aide for 2 hrs/day - daughter lives in [place] Present on Admission - Present on Admission Any Indicators Present on Admission: No History of DVT/PE: No History of Uncontrolled Diabetes: No Urinary Catheter: No Decubitus Ulcer Present: No History Surgical Site Infection Following: None Review of Systems - Review of Systems All systems: reviewed and no additional remarkable complaints except Review of Systems: as per HPI Past Patient History - Infectious Disease Hx of Infectious Diseases: None - Tetanus Immunizations Tetanus Immunization: Unknown - Past Social History Smoking Status: Former Smoker - CARDIAC Hx Cardiac Disorders: Yes Hx Cardia Arrhythmia: Yes Hx Circulatory Problems: Yes Hx Congestive Heart Failure: Yes Hx Hypertension: Yes Hx Pacemaker: Yes - PULMONARY Hx Respiratory Disorders: Yes Hx Chronic Obstructive Pulmonary Disease (COPD): Yes Hx Pneumonia: No Hx Sleep Apnea: Yes - NEUROLOGICAL Hx Neurological Disorder: No - HEENT Hx HEENT Problems: Yes - RENAL Hx Chronic Kidney Disease: Yes Hx Renal Failure: Yes - ENDOCRINE/METABOLIC Hx Endocrine Disorders: Yes Hx Diabetes Mellitus Type 2: Yes - HEMATOLOGICAL/ONCOLOGICAL Hx Blood Disorders: Yes - INTEGUMENTARY Hx Dermatological Problems: Yes Hx Eczema: Yes - MUSCULOSKELETAL/RHEUMATOLOGICAL Hx Musculoskeletal Disorders: Yes Hx Arthritis: Yes Hx Falls: Yes Hx Unsteady Gait: Yes - GASTROINTESTINAL Hx Gastrointestinal Disorders: Yes Hx Crohn's Disease: Yes - GENITOURINARY/GYNECOLOGICAL Hx Hematuria: Yes Hx Prostate Problems: Yes - PSYCHIATRIC Hx Psychophysiologic Disorder: No - SURGICAL HISTORY Hx Open Heart Surgery: Yes - ANESTHESIA Hx Anesthesia Reactions: No Hx Malignant Hyperthermia: No Meds Allergies/Adverse Reactions: Allergies Allergy/AdvReac Type Severity Reaction Status Date / Time No Known Allergies Allergy Verified 08/07/16 18:25 Physical Exam - Constitutional Appears: No Acute Distress, Older Than Stated Age, Chronically Ill - Head Exam Head Exam: ATRAUMATIC, NORMOCEPHALIC - Eye Exam Eye Exam: EOMI, PERRL. absent: Conjunctival injection, Scleral icterus Pupil Exam: NORMAL ACCOMODATION, PERRL. absent: Irregular, Unequal - ENT Exam ENT Exam: Mucous Membranes Moist - Neck Exam Neck exam: Positive for: Normal Inspection. Negative for: Lymphadenopathy, Thyromegaly - Respiratory Exam Respiratory Exam: Clear to Auscultation Bilateral, NORMAL BREATHING PATTERN. absent: Accessory Muscle Use, Rales, Rhonchi, Wheezes - Cardiovascular Exam Cardiovascular Exam: RRR, +S1, +S2. absent: Bradycardia, Tachycardia, JVD, Systolic Murmur - GI/Abdominal Exam GI & Abdominal Exam: Normal Bowel Sounds, Soft. absent: Distended, Firm, Guarding, Organomegaly, Rebound, Tenderness - Extremities Exam Extremities exam: Positive for: pedal edema, pedal pulses present. Negative for : calf tenderness, tenderness Additional comments: chronic venous stasis changes, - Back Exam Back exam: NORMAL INSPECTION. absent: CVA tenderness (L), CVA tenderness (R) - Neurological Exam Neurological exam: Alert, Oriented x3 - Psychiatric Exam Psychiatric exam: Normal Affect, Normal Mood - Skin Skin Exam: Dry, Warm Results - Vital Signs Recent Vital Signs: Last Vital Signs Temp 98.4 F 11/14/16 23:09 Pulse 68 11/14/16 23:09 Resp 20 11/14/16 23:09 BP 137/62 11/14/16 23:09 Pulse Ox 96 11/14/16 22:00 - Labs Result Diagrams: 11/14/16 15:50 11/14/16 15:50 Labs: Laboratory Results - last 24 hr 11/15/16 00:25 POC Glucose (mg/dL) 83 Assessment & Plan - Assessment and Plan (Free Text) Assessment: 81M with PMH BPH, CAD s/p CABG, CHF, admitted for hematuria 2/2 likely ureterolithiasis. Pt likely passed stone, recovering now. F/u with Dr. Pires ( pts urologist). Plan: Hematuria 2/2 likely ureterolithiasis - Pt has a hx of renal stones - BUN/Cr 17/1.3. baseline Cr 1.0 - CT abd pelvis showed mod right sided hydronephrosis and hydroureter. + dense material layered in distal right urteter. Moderate amount of perinnephric stranding. No obstructing stones. - UA showed light red, cloudy urine, large blood, neg nitrate, trace leuko esterase, rbc tntc, wbc 5-10 - C/w NS at 100/h, and toradol for pain control prn. - no leukocytosis, fever, CVA tenderness, flank pain, - unlikely pyelo BPH: c/w home med proscar and flomax H/O CAD s/p cabg: - continue home meds ASA, lipitor, plavix, CHF: - C/w Lasix DM: - hold oral hypoglycemics. On ISS. COPD: currently controlled Discussed with Dr. Farooq. Anahi Elizabeth, PGY1 - Date & Time Date: 11/15/16 Time: 05:30 <Tal Farooq - Last Filed: 11/18/16 03:08> Results - Vital Signs Recent Vital Signs: Last Vital Signs Temp 97.7 F 11/17/16 10:05 Pulse 63 11/17/16 10:05 Resp 18 11/17/16 10:05 BP 140/67 11/17/16 16:58 Pulse Ox 100 11/17/16 10:05 - Labs Result Diagrams: 11/17/16 11:30 11/17/16 11:30 Labs: Laboratory Results - last 24 hr 11/17/16 11/17/16 11/17/16 07:10 11:19 11:30 WBC 9.5 RBC 4.51 Hgb 12.6 L Hct 37.5 L MCV 83.1 MCH 27.9 MCHC 33.6 RDW 15.8 H Plt Count 290 MPV 9.6 Gran % 69.9 H Lymph % (Auto) 20.4 L [place] % (Auto) 9.1 H Eos % (Auto) 0.4 L Baso % (Auto) 0.2 Gran # 6.60 H Lymph # 1.9 [place] # 0.9 H Eos # 0.0 Baso # 0.02 Sodium Potassium Chloride Carbon Dioxide Anion Gap BUN Creatinine Est GFR ( Amer) Est GFR (Non-Af Amer) POC Glucose (mg/dL) 69 96 Random Glucose Calcium Total Bilirubin AST ALT Alkaline Phosphatase Total Protein Albumin Globulin Albumin/Globulin Ratio 11/17/16 11/17/16 11:30 16:10 WBC RBC Hgb Hct MCV MCH MCHC RDW Plt Count MPV Gran % Lymph % (Auto) [place] % (Auto) Eos % (Auto) Baso % (Auto) Gran # Lymph # [place] # Eos # Baso # Sodium 145 Potassium 3.9 Chloride 104 Carbon Dioxide 29 Anion Gap 16 BUN 15 Creatinine 1.1 Est GFR ( Amer) > 60 Est GFR (Non-Af Amer) > 60 POC Glucose (mg/dL) 157 H Random Glucose 95 Calcium 8.9 Total Bilirubin 0.4 AST 29 ALT 31 Alkaline Phosphatase 154 H Total Protein 6.7 Albumin 3.3 Globulin 3.5 Albumin/Globulin Ratio 0.9 L Attending/Attestation - Attestation I have personally seen and examined this patient.: Yes I have fully participated in the care of the patient.: Yes I have reviewed all pertinent clinical information: Yes Notes (Text): 11/18/16 03:06 Agree with history,physical examination, assessment and plan. Patient was seen when he was in [id number].
[2016-11-15] MEDS: Pantoprazole 40 mg EC Tab PO SCH (05:54)
[2016-11-15] MEDS: Insulin Reg-MEDIUM-Coverage SC SCH ×4 (08:16→22:17)
[2016-11-15] MEDS: MULTIVITAMIN WITH IRON PO SCH (10:17)
[2016-11-15 11:30] LABS: BASO # 0.02 K/mm3 (0.0-2.0); BASO % 0.2 % (0.0-3.0); EOS % 0.3 % (1.5-5.0); GRAN # 6.58 (1.4-6.5); GRAN % 71.7 % (50.0-68.0); HEMATOCRIT 37.1 % (42.0-52.0); LYMPH # 1.7 (1.2-3.4); LYMPH % 18.5 % (22.0-35.0); MEAN CELL VOLUME 81.7 fl (80.0-105.0); MEAN CORPUSCULAR HEMOGLOBIN 28.4 pg (25.0-35.0); MEAN CORPUSCULAR HGB CONC 34.8 g/dl (31.0-37.0); MEAN PLATELET VOLUME 9.3 fl (7.0-11.0); MONO # 0.9 (0.1-0.6); MONO % 9.3 % (1.0-6.0); RED CELL DISTRIBUTION WIDTH 15.7 % (11.5-14.5); WHITE BLOOD COUNT 9.2 10^3/ul (4.5-11.0)
[2016-11-15 11:35] LABS: ALB/GLOB RATIO 0.9 (1.1-1.8); BILIRUBIN,TOTAL 0.5 mg/dL (0.2-1.3); CALCIUM 8.6 mg/dL (8.4-10.5); POTASSIUM 3.9 mmol/L (3.6-5.0); TOTAL PROTEIN 6.3 g/dL (5.8-8.3)
[2016-11-15] MEDS: cefTRIAXone 1 gm 1 GM/100 ML BAG IVPB SCH (15:43)
[2016-11-16] MEDS: Pantoprazole 40 mg EC Tab PO SCH (05:53)
[2016-11-16 07:27] LABS: HEMATOCRIT 35.2 % (42.0-52.0); MEAN CELL VOLUME 82.2 fl (80.0-105.0); MEAN CORPUSCULAR HGB CONC 34.1 g/dl (31.0-37.0); MEAN PLATELET VOLUME 9.7 fl (7.0-11.0); RED CELL DISTRIBUTION WIDTH 15.9 % (11.5-14.5); WHITE BLOOD COUNT 8.3 10^3/ul (4.5-11.0)
[2016-11-16 07:31] LABS: ALB/GLOB RATIO 0.9 (1.1-1.8); BILIRUBIN,TOTAL 0.3 mg/dL (0.2-1.3); CALCIUM 8.7 mg/dL (8.4-10.5); POTASSIUM 3.7 mmol/L (3.6-5.0); TOTAL PROTEIN 6.1 g/dL (5.8-8.3)
[2016-11-16] MEDS: Insulin Reg-MEDIUM-Coverage SC SCH ×3 (08:15→22:03)
--- NOTE | 2016-11-16 10:31 | CP.PCM.DIS ---
Provider - Provider Date of Admission: 11/15/16 15:31 Attending physician: Norbert Madrid MD Primary care physician: NO PRIMARY CARE PROVIDER Consults: Urology: Pranay Time Spent in preparation of Discharge (in minutes): 45 Diagnosis - Discharge Diagnosis (1) Hematuria Status: Acute Priority: High (2) UTI (urinary tract infection) Status: Acute Priority: High Hospital Course - Lab Results Lab Results: Most Recent Lab Values WBC 8.3 10^3/ul (4.5-11.0) 11/16/16 07:00 RBC 4.28 10^6/uL (3.5-6.1) 11/16/16 07:00 Hgb 12.0 g/dL (14.0-18.0) L 11/16/16 07:00 Hct 35.2 % (42.0-52.0) L 11/16/16 07:00 MCV 82.2 fl (80.0-105.0) 11/16/16 07:00 MCH 28.0 pg (25.0-35.0) 11/16/16 07:00 MCHC 34.1 g/dl (31.0-37.0) 11/16/16 07:00 RDW 15.9 % (11.5-14.5) H 11/16/16 07:00 Plt Count 328 10^3/uL (120.0-450.0) 11/16/16 07:00 MPV 9.7 fl (7.0-11.0) 11/16/16 07:00 Gran % 71.7 % (50.0-68.0) H 11/15/16 11:20 Lymph % (Auto) 18.5 % (22.0-35.0) L 11/15/16 11:20 [place] % (Auto) 9.3 % (1.0-6.0) H 11/15/16 11:20 Eos % (Auto) 0.3 % (1.5-5.0) L 11/15/16 11:20 Baso % (Auto) 0.2 % (0.0-3.0) 11/15/16 11:20 Gran # 6.58 (1.4-6.5) H 11/15/16 11:20 Lymph # 1.7 (1.2-3.4) 11/15/16 11:20 [place] # 0.9 (0.1-0.6) H 11/15/16 11:20 Eos # 0.0 (0.0-0.7) 11/15/16 11:20 Baso # 0.02 K/mm3 (0.0-2.0) 11/15/16 11:20 PT 12.0 Seconds (9.9-11.8) H 11/14/16 15:50 INR 1.11 (0.93-1.08) H 11/14/16 15:50 APTT 31.1 Seconds (23.7-30.8) H 11/14/16 15:50 Sodium 141 mmol/L (132-148) 11/16/16 07:00 Potassium 3.7 mmol/L (3.6-5.0) 11/16/16 07:00 Chloride 104 mmol/L (98-107) 11/16/16 07:00 Carbon Dioxide 28 mmol/L (21-33) 11/16/16 07:00 Anion Gap 13 (10-20) 11/16/16 07:00 BUN 19 mg/dL (7-21) 11/16/16 07:00 Creatinine 1.4 mg/dL (0.5-1.4) 11/16/16 07:00 Est GFR ( Amer) 59 11/16/16 07:00 Est GFR (Non-Af Amer) 49 11/16/16 07:00 POC Glucose (mg/dL) 82 mg/dL (65-110) 11/16/16 07:15 Random Glucose 80 mg/dL (70-110) 11/16/16 07:00 Calcium 8.7 mg/dL (8.4-10.5) 11/16/16 07:00 Total Bilirubin 0.3 mg/dL (0.2-1.3) 11/16/16 07:00 AST 32 U/L (15-59) 11/16/16 07:00 ALT 23 U/L (7-56) 11/16/16 07:00 Alkaline Phosphatase 141 U/L (38-133) H 11/16/16 07:00 Total Protein 6.1 g/dL (5.8-8.3) 11/16/16 07:00 Albumin 2.9 g/dL (3.0-4.8) L 11/16/16 07:00 Globulin 3.3 gm/dL 11/16/16 07:00 Albumin/Globulin Ratio 0.9 (1.1-1.8) L 11/16/16 07:00 Amylase 61 U/L (35-125) 11/14/16 15:50 Lipase < 10 U/L (23-300) L 11/14/16 15:50 Urine Color Light red (YELLOW) 11/14/16 16:00 Urine Appearance Cloudy (CLEAR) 11/14/16 16:00 Urine pH 7.0 (4.7-8.0) 11/14/16 16:00 Ur Specific [place] 1.010 (1.005-1.035) 11/14/16 16:00 Urine Protein 30 mg/dL (<30 mg/dL) H 11/14/16 16:00 Urine Glucose (UA) Negative mg/dL (NEGATIVE) 11/14/16 16:00 Urine Ketones Negative mg/dL (NEGATIVE) 11/14/16 16:00 Urine Blood Large (NEGATIVE) H 11/14/16 16:00 Urine Nitrate Negative (NEGATIVE) 11/14/16 16:00 Urine Bilirubin Negative (NEGATIVE) 11/14/16 16:00 Urine Urobilinogen 1.0 E.U./dL (<1 E.U./dL) H 11/14/16 16:00 Ur Leukocyte Esterase Trace Jamar/uL (NEGATIVE) H 11/14/16 16:00 Urine RBC Tntc /hpf (0-2) 11/14/16 16:00 Urine WBC 5 - 10 /hpf (0-6) 11/14/16 16:00 - Hospital Course Hospital Course: 81 yo -[place] M with PMH of CAD, CHF, BPH, COPD, DM who initially presented to the ER with painless hematuria not associated with dysuria, burning on urination, fevers, chills, or costovertebral/back pain. He was afebrile, with no leukocytosis. In ED, he had labs drawn, UA sent, and a CT of abdomen showing moderate R hydronephrosis and hydroureter with blood in the distal ureter without nephrolithiasis or ureterolithiasis, with R perinephric stranding, all likely 2/2 to recently passed stone. Patient has had multiple episodes of painless hematuria in the past with similar courses. Urology was consulted and patient was placed on ABx and IV fluids. The following morning, patient had no particular complaints, but urine appeared blood tinged. Urology recommended outpatient cystoscopy. Today, patient feels well, without any concern. No kevin hematuria was reported by nurses, and he is no longer having blood-tinged urine. Patient denies CP, SOB , abdominal pain, fevers, chills, back pain, dysuria, frequency, or urgency. Patient is to follow up with his urologist for outpatient cystoscopy. All medications were discussed, all questions were answered to his satisfaction, and patient was discharged to home. Patient was seen, discussed, and reviewed with attending. Discharge Exam - Head Exam Head Exam: ATRAUMATIC, NORMOCEPHALIC - Eye Exam Eye Exam: EOMI, PERRL - ENT Exam ENT Exam: Mucous Membranes Moist - Respiratory Exam Respiratory Exam: Clear to PA & Lateral. absent: Rales, Rhonchi, Wheezes - Cardiovascular Exam Cardiovascular Exam: RRR, +S1, +S2 - GI/Abdominal Exam GI & Abdominal Exam: Normal Bowel Sounds, Soft. absent: Tenderness - Extremities Exam Additional comments: B/L LE edema, L>R B/L UE edema, L>R - Back Exam Back exam: absent: CVA tenderness (L), CVA tenderness (R) - Neurological Exam Neurological exam: Alert, Oriented x3 - Psychiatric Exam Psychiatric exam: Normal Affect, Normal Mood - Skin Skin Exam: Dry, Intact Discharge Plan - Discharge Medications Prescriptions: Ciprofloxacin/Ciprofloxa HCl [Ciprofloxacin] 500 mg PO Q12 #24 ter - Follow Up Plan Condition: STABLE Disposition: HOME/ ROUTINE Instructions: Heart Failure (GEN), Benign Prostatic Hypertrophy (GEN), Peripheral Vascular Disease (GEN), Fall Prevention for Older Adults (GEN), COPD (Chronic Obstructive Pulmonary Disease) (GEN), Acute Hematuria (GEN), Hypertension (GEN) Additional Instructions: 1. Continue to take all medications as prescribed 2. Continue course of antibiotics until all pills are done, even if you feel better 3. Follow up with Dr. Pires for outpatient cystoscopy 4. Follow up with PCP within 1 week 5. For any new or worsening concerns, contact PCP immediately, or return to ER Referrals: [facility] [Primary Care Provider] - Usman Pires MD [Staff Provider] -
[2016-11-16] MEDS: MULTIVITAMIN WITH IRON PO SCH (10:59)
[2016-11-16] MEDS: cefTRIAXone 1 gm 1 GM/100 ML BAG IVPB SCH (10:59)
--- NOTE | 2016-11-16 18:50 | CP.PCM.PN ---
<CHRISTOPHER GUDINO - Last Filed: 11/16/16 18:47> Subjective - Date & Time of Evaluation Date of Evaluation: 11/16/16 Time of Evaluation: 07:30 - Subjective Subjective: Christopher Mike DO PGY1 - Internal Medicine Progress Note Patient seen and examined at bedside. No acute events reported overnight. He feels well, without any particular concerns. He reports no kevin hematuria, but nurses report that he is still occasionally having blood tinged urine. He denies CP, SOB, abdominal pain, fevers, chills, back pain, dysuria, frequency, or urgency. He was seen by Dr. Pires who has scheduled him for cystoscopy tomorrow morning. Objective - Vital Signs/Intake and Output Vital Signs (last 24 hours): Temp Pulse Resp BP Pulse Ox 97.8 F 96 H 20 118/75 96 11/16/16 16:23 11/16/16 16:23 11/16/16 16:23 11/16/16 17:11 11/16/16 16:23 Intake and Output: 11/16/16 11/16/16 06:59 18:59 Intake Total 600 960 Output Total 1100 1200 Balance -500 -240 - Medications Medications: Current Medications Aspirin (Ecotrin) 81 mg PO DAILY [facility] Last Admin: 11/16/16 10:58 Dose: 81 mg Atorvastatin Calcium (Lipitor) 20 mg PO DIN [facility] Last Admin: 11/16/16 17:07 Dose: 20 mg Clopidogrel Bisulfate (Plavix) 75 mg PO DAILY [facility] Last Admin: 11/16/16 10:58 Dose: 75 mg Docusate Sodium (Colace) 100 mg PO BID [facility] Last Admin: 11/16/16 17:07 Dose: 100 mg Finasteride (Proscar) 5 mg PO DAILY [facility] Last Admin: 11/16/16 10:58 Dose: 5 mg Furosemide (Lasix) 40 mg PO BID [facility] Last Admin: 11/15/16 10:16 Dose: 40 mg Ceftriaxone Sodium (Rocephin 1 Gram Ivpb) 1 gm in 100 mls @ 100 mls/hr IVPB DAILY [facility] PRN Reason: Protocol Last Admin: 11/16/16 10:59 Dose: 100 mls/hr Insulin Human Regular (Humulin R Med) 0 units SC ACHS [facility] PRN Reason: Protocol Last Admin: 11/16/16 14:51 Dose: Not Given Ketorolac Tromethamine (Toradol) 15 mg IVP Q6H PRN PRN Reason: Pain, moderate (4-7) Lisinopril (Zestril) 5 mg PO DAILY [facility] Last Admin: 11/16/16 17:11 Dose: 5 mg Metoprolol Tartrate (Lopressor) 25 mg PO DAILY [facility] Last Admin: 11/16/16 10:58 Dose: 25 mg Mirtazapine (Remeron) 30 mg PO HS [facility] Last Admin: 11/15/16 22:19 Dose: 30 mg Non-Formulary Medication (Multivitamin With Iron [Daily Vitamin + Iron]) 1 tab PO DAILY [facility] Last Admin: 11/16/16 10:59 Dose: 1 tab Pantoprazole Sodium (Protonix Ec Tab) 40 mg PO 0600 [facility] Last Admin: 11/16/16 05:53 Dose: 40 mg Tamsulosin HCl (Flomax) 0.4 mg PO DAILY [facility] Last Admin: 11/16/16 10:58 Dose: 0.4 mg - Labs Labs: 11/16/16 07:00 11/16/16 07:00 PT 12.0 Seconds (9.9-11.8) H 11/14/16 15:50 INR 1.11 (0.93-1.08) H 11/14/16 15:50 APTT 31.1 Seconds (23.7-30.8) H 11/14/16 15:50 - Constitutional Appears: Non-toxic, No Acute Distress - Head Exam Head Exam: ATRAUMATIC - Eye Exam Eye Exam: Normal appearance, PERRL - ENT Exam ENT Exam: Mucous Membranes Moist - Neck Exam Neck Exam: absent: Lymphadenopathy, Thyromegaly - Respiratory Exam Respiratory Exam: Clear to Ausculation Bilateral, NORMAL BREATHING PATTERN - Cardiovascular Exam Cardiovascular Exam: REGULAR RHYTHM, +S1, +S2 Additional comments: B/L LE edema, L>R B/L UE edema, L>R - GI/Abdominal Exam GI & Abdominal Exam: Soft, Normal Bowel Sounds. absent: Tenderness - Extremities Exam Extremities Exam: Pedal Edema. absent: Calf Tenderness - Back Exam Back Exam: absent: CVA tenderness (L), CVA tenderness (R) - Neurological Exam Neurological Exam: Alert, Awake, Oriented x3 - Psychiatric Exam Psychiatric exam: Normal Affect, Normal Mood - Skin Skin Exam: Dry, Intact Assessment and Plan - Assessment and Plan (Free Text) Assessment: 81M with PMH BPH, CAD s/p CABG, CHF, admitted for hematuria 2/2 likely ureterolithiasis. Pt likely passed stone, recovering now. F/u with Dr. Pires ( pts urologist). Plan: 1. Hematuria 2/2 likely ureterolithiasis but cannot r/o bladder CA - Pt has a hx of renal stones with similar episodes in the past - Presented with MICHAEL, now resolved - CT abd pelvis showed mod right sided hydronephrosis and hydroureter. + dense material layered in distal right ureter likely blood. Moderate amount of perinephric stranding. No obstructing stones. - UA showed light red, cloudy urine, large blood, neg nitrate, trace leuko esterase, rbc tntc, wbc 5-10 - C/w NS at 100/h, and toradol for pain control prn. - no leukocytosis, fever, CVA tenderness, or flank pain - unlikely pyelo - Urology (Pranay) consulted, all recs appreciated - Patient is scheduled for cystoscopy tomorrow morning 2. BPH: - c/w home med proscar and flomax 3. H/O CAD s/p cabg: - continue home meds ASA, lipitor, plavix 4. CHF: - C/w Lasix - Start lisinopril 5 for improved BP control 5. DM: - hold oral hypoglycemics. On ISS. - Accucheck ACHS 6. COPD: currently controlled DVT/GI Ppx Patient seen, discussed, and reviewed with attending <Rikki Euceda - Last Filed: 12/11/16 11:07> Objective - Vital Signs/Intake and Output Vital Signs (last 24 hours): Temp Pulse Resp BP Pulse Ox 97.7 F 63 18 140/67 100 11/17/16 10:05 11/17/16 10:05 11/17/16 10:05 11/17/16 16:58 11/17/16 10:05 - Labs Labs: 11/17/16 11:30 11/17/16 11:30 PT 12.0 Seconds (9.9-11.8) H 11/14/16 15:50 INR 1.11 (0.93-1.08) H 11/14/16 15:50 APTT 31.1 Seconds (23.7-30.8) H 11/14/16 15:50 Attending/Attestation - Attestation I have personally seen and examined this patient.: Yes I have fully participated in the care of the patient.: Yes I have reviewed all pertinent clinical information, including history, physical exam and plan: Yes Notes (Text): 81M with PMH BPH, CAD s/p CABG, CHF, admitted for hematuria 2/2 likely ureterolithiasis. Pt likely passed stone, recovering now. F/u with Dr. Pires ( pts urologist). Plan: 1. Hematuria 2/2 likely ureterolithiasis but cannot r/o bladder CA - Pt has a hx of renal stones with similar episodes in the past 2. Presented with MICHAEL, now resolved 3. H/O chf not acute Chronic Diastolic unsure of EF 50% in june 20. Bioprosthetic valve
[2016-11-16] MEDS ORDERED: Albuterol-Ipratrop 3 mg / 0.5 (3 ml) UD IH PRN (21:18)
[2016-11-17] MEDS: Albuterol-Ipratrop 3 mg / 0.5 (3 ml) UD IH SCH ×3 (01:50→13:05)
[2016-11-17] MEDS: Pantoprazole 40 mg EC Tab PO SCH (05:45)
[2016-11-17] MEDS ORDERED: Lactated Ringer's 1,000 ML IV SCH (08:39)
[2016-11-17] MEDS ORDERED: HYDROmorphone 0.5 mg/0.5 ml ISec IVP PRN (08:39)
[2016-11-17 08:53] VITALS: RESP 18
[2016-11-17] MEDS ORDERED: Propofol 10 mg/ml Inj (20 ML) ONE (08:59)
[2016-11-17] MEDS ORDERED: Lidocaine 2% Jelly (Uro-Jet) TOP ONE (09:06)
[2016-11-17] MEDS ORDERED: Lidocaine 2% Jelly (Uro-Jet) ONE (09:28)
[2016-11-17 09:31] VITALS: TEMP 97.7
[2016-11-17 09:54] VITALS: PULSE 63; O2SAT 100
[2016-11-17 11:56] LABS: BASO # 0.02 K/mm3 (0.0-2.0); BASO % 0.2 % (0.0-3.0); EOS % 0.4 % (1.5-5.0); GRAN # 6.6 (1.4-6.5); GRAN % 69.9 % (50.0-68.0); HEMATOCRIT 37.5 % (42.0-52.0); LYMPH # 1.9 (1.2-3.4); LYMPH % 20.4 % (22.0-35.0); MEAN CELL VOLUME 83.1 fl (80.0-105.0); MEAN CORPUSCULAR HEMOGLOBIN 27.9 pg (25.0-35.0); MEAN CORPUSCULAR HGB CONC 33.6 g/dl (31.0-37.0); MEAN PLATELET VOLUME 9.6 fl (7.0-11.0); MONO # 0.9 (0.1-0.6); MONO % 9.1 % (1.0-6.0); RED CELL DISTRIBUTION WIDTH 15.8 % (11.5-14.5); WHITE BLOOD COUNT 9.5 10^3/ul (4.5-11.0)
[2016-11-17 12:07] LABS: ALB/GLOB RATIO 0.9 (1.1-1.8); ALKALINE PHOSPHATASE 154 U/L (38-126); ALT/SGPT 31 U/L (7-56); AST/SGOT 29 U/L (17-59); BILIRUBIN,TOTAL 0.4 mg/dL (0.2-1.3); BLOOD UREA NITROGEN 15 mg/dL (7-21); CALCIUM 8.9 mg/dL (8.4-10.5); CARBON DIOXIDE 29 mmol/L (21-33); CHLORIDE 104 mmol/L (98-107); GFR AFRICAN-AMERICAN > 60; GLUCOSE,RANDOM 95 mg/dL (70-110); POTASSIUM 3.9 mmol/L (3.6-5.0); SODIUM 145 mmol/L (132-148); TOTAL PROTEIN 6.7 g/dL (5.8-8.3)
--- NOTE | 2016-11-17 13:25 | CP.PCM.PN ---
Subjective - Date & Time of Evaluation Date of Evaluation: 11/17/16 Time of Evaluation: 13:22 - Subjective Subjective: PGY-[address] Lizarraga Pt resting comfortably in bed after cystoscopy. Denies dizziness, CP, SOB, flank pain, abdominal/suprapubic pain. Objective - Vital Signs/Intake and Output Vital Signs (last 24 hours): Temp Pulse Resp BP Pulse Ox 97.7 F 63 18 180/87 H 100 11/17/16 10:05 11/17/16 10:05 11/17/16 10:05 11/17/16 10:05 11/17/16 10:05 Intake and Output: 11/17/16 11/17/16 06:59 18:59 Intake Total 360 0 Output Total 800 Balance -440 0 - Medications Medications: Current Medications Albuterol/Ipratropium (Duoneb 3 Mg/0.5 Mg (3 Ml) Ud) 3 ml IH Q2H PRN PRN Reason: Shortness of Breath Last Admin: 11/16/16 21:54 Dose: 3 ml Albuterol/Ipratropium (Duoneb 3 Mg/0.5 Mg (3 Ml) Ud) 3 ml IH [id number] [facility] Last Admin: 11/17/16 13:05 Dose: Not Given Aspirin (Ecotrin) 81 mg PO DAILY [facility] Last Admin: 11/16/16 10:58 Dose: 81 mg Atorvastatin Calcium (Lipitor) 20 mg PO DIN [facility] Last Admin: 11/16/16 17:07 Dose: 20 mg Clopidogrel Bisulfate (Plavix) 75 mg PO DAILY [facility] Last Admin: 11/16/16 10:58 Dose: 75 mg Docusate Sodium (Colace) 100 mg PO BID [facility] Last Admin: 11/16/16 17:07 Dose: 100 mg Finasteride (Proscar) 5 mg PO DAILY [facility] Last Admin: 11/16/16 10:58 Dose: 5 mg Furosemide (Lasix) 40 mg PO BID [facility] Last Admin: 11/15/16 10:16 Dose: 40 mg Ceftriaxone Sodium (Rocephin 1 Gram Ivpb) 1 gm in 100 mls @ 100 mls/hr IVPB DAILY [facility] PRN Reason: Protocol Last Admin: 11/16/16 10:59 Dose: 100 mls/hr Insulin Human Regular (Humulin R Med) 0 units SC ACHS [facility] PRN Reason: Protocol Last Admin: 11/16/16 22:03 Dose: Not Given Ketorolac Tromethamine (Toradol) 15 mg IVP Q6H PRN PRN Reason: Pain, moderate (4-7) Lisinopril (Zestril) 5 mg PO DAILY [facility] Last Admin: 11/16/16 17:11 Dose: 5 mg Metoprolol Tartrate (Lopressor) 25 mg PO DAILY [facility] Last Admin: 11/17/16 06:50 Dose: 25 mg Mirtazapine (Remeron) 30 mg PO HS [facility] Last Admin: 11/16/16 21:27 Dose: 30 mg Non-Formulary Medication (Multivitamin With Iron [Daily Vitamin + Iron]) 1 tab PO DAILY [facility] Last Admin: 11/16/16 10:59 Dose: 1 tab Pantoprazole Sodium (Protonix Ec Tab) 40 mg PO 0600 [facility] Last Admin: 11/17/16 05:45 Dose: Not Given Tamsulosin HCl (Flomax) 0.4 mg PO DAILY [facility] Last Admin: 11/16/16 10:58 Dose: 0.4 mg - Labs Labs: 11/17/16 11:30 11/17/16 11:30 PT 12.0 Seconds (9.9-11.8) H 11/14/16 15:50 INR 1.11 (0.93-1.08) H 11/14/16 15:50 APTT 31.1 Seconds (23.7-30.8) H 11/14/16 15:50 - Constitutional Appears: No Acute Distress - Head Exam Head Exam: ATRAUMATIC, NORMAL INSPECTION, NORMOCEPHALIC - Eye Exam Eye Exam: EOMI, Normal appearance, PERRL. absent: Scleral icterus Pupil Exam: NORMAL ACCOMODATION - ENT Exam ENT Exam: Mucous Membranes Moist - Respiratory Exam Respiratory Exam: Clear to Ausculation Bilateral. absent: Rales, Rhonchi, Wheezes - Cardiovascular Exam Cardiovascular Exam: REGULAR RHYTHM, +S1, +S2 - GI/Abdominal Exam GI & Abdominal Exam: Soft, Normal Bowel Sounds. absent: Tenderness - Extremities Exam Extremities Exam: Normal Capillary Refill. absent: Calf Tenderness Additional comments: logan intact. red urine in bag, no clots - Back Exam Back Exam: absent: CVA tenderness (L), CVA tenderness (R) - Neurological Exam Neurological Exam: Alert, Awake, Oriented x3 - Psychiatric Exam Psychiatric exam: Normal Affect, Normal Mood - Skin Skin Exam: Dry, Warm Assessment and Plan - Assessment and Plan (Free Text) Plan: 81M with PMH BPH, CAD s/p CABG, CHF, admitted for hematuria likely due to ureterolithiasis. Pt likely passed stone, recovering now. CT showed R hydronephrosis and hydroureter, moderate, possible due to obstruction from BPH. Pt had flexible cystoscopy to r/o malignancy. Per Dr. Pires, BPH is grossly enlarged. There is bleeding but no obstructive mass. Pt can be discharged home. Hematuria likely from antiplatelet therapy. Pt develops new gross hemautria after cystoscopy today. Dr Pires said this is expected for the next 2-3 days. From urologist point of view, pt can continue plavix. Pt is hemodynamically stable, D/C logan per urol. If urinating fine and VSS, pt can be discharged later today. Hematuria likely from antiplatelet therapy Possibly due to ureterolithiasis but cannot r/o bladder CA - Pt has a hx of renal stones with similar episodes in the past - Presented with MICHAEL, now resolved - CT abd pelvis showed mod right sided hydronephrosis and hydroureter. + dense material layered in distal right ureter likely blood. Moderate amount of perinephric stranding. No obstructing stones. - UA showed light red, cloudy urine, large blood, neg nitrate, trace leuko esterase, rbc tntc, wbc 5-10 - C/w NS at 100/h, and toradol for pain control prn. - cystoscopy Sunday AM R hydronephrosis and hydroureter, moderate, possible due to obstruction BPH - c/w home med proscar and flomax Pyelonephritis, R vs UTI complicated by BPH - CT: perinephritc stranding R - ceftriaxone day 3. Then go home with H/O CAD s/p cabg: - continue home meds ASA, Plavix, metoprolol 25, lipitor CHF: - C/w Lasix DM: - hold oral hypoglycemics. On ISS. Accucheck ACHS COPD: currently controlled DVT/GI Ppx Consult: Dr. Pires (pts urologist). S/R/D/w Dr. Lizarraga
--- NOTE | 2016-11-17 16:25 | CON ---
REASON FOR CONSULTATION: Gross hematuria. HISTORY OF PRESENT ILLNESS: Mr. Venegas is a very pleasant gentleman who is here under the care of Dr. Madrid. He has gross hematuria and urology is consulted. He has a longstanding history, very pleasant but noncompliant gentleman who only comes in when he has gross hematuria, as well as underlying Plavix. Further history from the patient reveals that every time he drinks soda, not that day, not the next day, but like few days later, he develops gross hematuria and then usually clears. He currently still has gross hematuria. See the plans listed below. Past medical and surgical history is listed on the chart; otherwise, unremarkable from urology standpoint. REVIEW OF SYSTEMS: Listed above. PHYSICAL EXAMINATION: GENERAL: A well-nourished man, in no apparent distress. Currently, his son is resting at the bedside with him and he is also resting. VITAL SIGNS: Noted. GENITOURINARY: Deferred for now. DIAGNOSES: Gross hematuria, voiding dysfunction. I need to check my records to see if he has any history of any no malignancy, not to my recollection. He gets BPH and urethral stricture disease and this is induced by some activity and then it clears up. We need to check imaging studies. So further plans will follow, but the plan at the meantime is urinalysis, culture, cytology and consideration for a cystoscopy. Further plans will follow. Thank you for the urology consultation. Bao Pires MD
[2016-11-17 16:58] VITALS: BP 140/67
--- NOTE | 2016-11-17 22:52 | PN ---
DATE: 11/16/2016 UROLOGY PROGRESS NOTE DIAGNOSIS: Gross hematuria. SUBJECTIVE: The patient is currently resting. The first thing he said to me this morning is can he be discharged home. We discussed if urine is cleared out and he wants to leave. See below plans. PAST MEDICAL AND SURGICAL: No other changes. PHYSICAL EXAMINATION: No major changes. Today's diagnosis is gross hematuria. I discussed options with the patient, he wants to go home, so we are planning to discharge home. However, subsequently I received a phone call from his daughter who said the hematuria come back and forth and she is very worried about her father's compliance and he is a very pleasant but noncompliant gentleman, so the plan will be as follows: We are going to leave the patient in the hospital today and we are going to plan to do it first thing in the morning. We have made arrangements for an early case and then hopefully be discharged before the weekend. Bao Pires MD
--- NOTE | 2016-11-18 01:48 | OP ---
PREOPERATIVE DIAGNOSES: Gross hematuria, voiding dysfunction, decreased flow stream. POSTOPERATIVE DIAGNOSES: Gross hematuria, voiding dysfunction, decreased flow stream. PROCEDURE: Cystoscopy, , and insertion of Cooper catheter. SURGEON: Dr. Usman Pires COMPLICATIONS: There are no complications. ESTIMATED BLOOD LOSS: Less than 10 mL FINDINGS: Normal anterior urethra. No strictures today. It was a pale urethra, it was a little bit narrow, but we are able to get the flexible scope in without difficulty. The other finding is the prostate is very long, visually occlusive, and juicy. It felt 3 to 4 cm at least in length and is somewhat erythematous. I do not see any bladder tumors. At termination of the procedure, I left the Cooper catheter. INDICATIONS: See history and physical and consultations. This is a very pleasant gentleman, 81 years old, who has gross hematuria, here for the above testing. Very pleasant, but noncompliant gentleman. We are still in the evaluation stage. The patient is on Plavix. The reports that every time he has soda, two or three days later he gets gross hematuria. DESCRIPTION OF PROCEDURE: The patient really could not be put in a lithotomy position. His hips were contracted. So, we basically kept him almost supine. We did the procedure with just little lift in leg. We decided to do this with a flexible cystoscope. Although, this was a somewhat limited study, we felt more comfortable with the patient in this regard. A time-out was performed confirming the patient. The patient is already on Rocephin antibiotic. We confirmed the patient, positioning, etc. I was very gentle, so that we did not have to reposition the patient. We provided the patient with 2 local lidocaine and just a mild dose of anesthesia given his overall medical situation. We introduced the cystoscope under direct vision. Pictures were taken and placed on the chart. We noted a visually occlusive prostate, about 3 to 4 cm at least in length. There were no direct strictures. No pinpoint strictures. There is narrowing of little bit of urethra, but it is not of consequence. Also, with the Plavix and the like, I am not planning to do any incision to this. The bladder was inspected and I did not see any bladder tumors. At this point, I inserted the Cooper catheter via the urethra without difficulty and left it to drain and it showed some blood-tinged urine. The patient tolerated the procedure well without complications. ADDENDUM: The plan will be to observe the patient. If the Cooper stays clear, we will plan to remove Cooper and then plan to discharge home and then subsequent outpatient workup. Bao Pires MD
--- NOTE | 2016-11-18 10:37 | CP.PCM.DIS ---
Provider - Provider Date of Admission: 11/15/16 15:31 Attending physician: Norbert Madrid MD Primary care physician: NO PRIMARY CARE PROVIDER Consults: Uro: Pranay Time Spent in preparation of Discharge (in minutes): 45 Diagnosis - Discharge Diagnosis (1) Chronic obstructive lung disease Status: Chronic Priority: Medium (2) Enlarged prostate Status: Chronic Priority: Medium (3) Hematuria Status: Acute Priority: High Hospital Course - Lab Results Lab Results: Most Recent Lab Values WBC 9.5 10^3/ul (4.5-11.0) 11/17/16 11:30 RBC 4.51 10^6/uL (3.5-6.1) 11/17/16 11:30 Hgb 12.6 g/dL (14.0-18.0) L 11/17/16 11:30 Hct 37.5 % (42.0-52.0) L 11/17/16 11:30 MCV 83.1 fl (80.0-105.0) 11/17/16 11:30 MCH 27.9 pg (25.0-35.0) 11/17/16 11:30 MCHC 33.6 g/dl (31.0-37.0) 11/17/16 11:30 RDW 15.8 % (11.5-14.5) H 11/17/16 11:30 Plt Count 290 10^3/uL (120.0-450.0) 11/17/16 11:30 MPV 9.6 fl (7.0-11.0) 11/17/16 11:30 Gran % 69.9 % (50.0-68.0) H 11/17/16 11:30 Lymph % (Auto) 20.4 % (22.0-35.0) L 11/17/16 11:30 Marin % (Auto) 9.1 % (1.0-6.0) H 11/17/16 11:30 Eos % (Auto) 0.4 % (1.5-5.0) L 11/17/16 11:30 Baso % (Auto) 0.2 % (0.0-3.0) 11/17/16 11:30 Gran # 6.60 (1.4-6.5) H 11/17/16 11:30 Lymph # 1.9 (1.2-3.4) 11/17/16 11:30 Marin # 0.9 (0.1-0.6) H 11/17/16 11:30 Eos # 0.0 (0.0-0.7) 11/17/16 11:30 Baso # 0.02 K/mm3 (0.0-2.0) 11/17/16 11:30 PT 12.0 Seconds (9.9-11.8) H 11/14/16 15:50 INR 1.11 (0.93-1.08) H 11/14/16 15:50 APTT 31.1 Seconds (23.7-30.8) H 11/14/16 15:50 Sodium 145 mmol/L (132-148) 11/17/16 11:30 Potassium 3.9 mmol/L (3.6-5.0) 11/17/16 11:30 Chloride 104 mmol/L (98-107) 11/17/16 11:30 Carbon Dioxide 29 mmol/L (21-33) 11/17/16 11:30 Anion Gap 16 (10-20) 11/17/16 11:30 BUN 15 mg/dL (7-21) 11/17/16 11:30 Creatinine 1.1 mg/dL (0.5-1.4) 11/17/16 11:30 Est GFR ( Amer) > 60 11/17/16 11:30 Est GFR (Non-Af Amer) > 60 11/17/16 11:30 POC Glucose (mg/dL) 157 mg/dL (65-110) H 11/17/16 16:10 Random Glucose 95 mg/dL (70-110) 11/17/16 11:30 Calcium 8.9 mg/dL (8.4-10.5) 11/17/16 11:30 Total Bilirubin 0.4 mg/dL (0.2-1.3) 11/17/16 11:30 AST 29 U/L (17-59) 11/17/16 11:30 ALT 31 U/L (7-56) 11/17/16 11:30 Alkaline Phosphatase 154 U/L (38-126) H 11/17/16 11:30 Total Protein 6.7 g/dL (5.8-8.3) 11/17/16 11:30 Albumin 3.3 g/dL (3.0-4.8) 11/17/16 11:30 Globulin 3.5 gm/dL 11/17/16 11:30 Albumin/Globulin Ratio 0.9 (1.1-1.8) L 11/17/16 11:30 Amylase 61 U/L (35-125) 11/14/16 15:50 Lipase < 10 U/L (23-300) L 11/14/16 15:50 Urine Color Light red (YELLOW) 11/14/16 16:00 Urine Appearance Cloudy (CLEAR) 11/14/16 16:00 Urine pH 7.0 (4.7-8.0) 11/14/16 16:00 Ur Specific Sylvester 1.010 (1.005-1.035) 11/14/16 16:00 Urine Protein 30 mg/dL (<30 mg/dL) H 11/14/16 16:00 Urine Glucose (UA) Negative mg/dL (NEGATIVE) 11/14/16 16:00 Urine Ketones Negative mg/dL (NEGATIVE) 11/14/16 16:00 Urine Blood Large (NEGATIVE) H 11/14/16 16:00 Urine Nitrate Negative (NEGATIVE) 11/14/16 16:00 Urine Bilirubin Negative (NEGATIVE) 11/14/16 16:00 Urine Urobilinogen 1.0 E.U./dL (<1 E.U./dL) H 11/14/16 16:00 Ur Leukocyte Esterase Trace Jamar/uL (NEGATIVE) H 11/14/16 16:00 Urine RBC Tntc /hpf (0-2) 11/14/16 16:00 Urine WBC 5 - 10 /hpf (0-6) 11/14/16 16:00 - Hospital Course Hospital Course: 81 yo -[place] M with PMH of CAD, CHF, BPH, COPD, DM who initially presented to the ER with painless hematuria not associated with dysuria, burning on urination, fevers, chills, or costovertebral/back pain. He was afebrile, with no leukocytosis. In ED, he had labs drawn, UA sent, and a CT of abdomen showing moderate R hydronephrosis and hydroureter with blood in the distal ureter without nephrolithiasis or ureterolithiasis, with R perinephric stranding, all likely 2/2 to recently passed stone. Patient has had multiple episodes of painless hematuria in the past with similar courses. Urology was consulted and patient was placed on ABx and IV fluids. The following morning, patient had no particular complaints, but urine appeared blood tinged. Urology scheduled for cystoscopy the following morning. Today, patient is s/p cystoscopy, and now feels well, without any concern. He has kevin hematuria 2/2 antiplatelet therapy s/p cystoscopy. He has instructions to follow up with urologist outpatient. Patient denies CP, SOB, abdominal pain, fevers, chills, back pain, dysuria, frequency, or urgency. All medications were discussed, all questions were answered to his satisfaction, and patient was discharged to home. Patient was seen, discussed, and reviewed with attending. Discharge Exam - Head Exam Head Exam: ATRAUMATIC, NORMAL INSPECTION, NORMOCEPHALIC - Additional Findings Additional findings: PLease see exam from progress note earlier today Discharge Plan - Discharge Medications Prescriptions: Ciprofloxacin/Ciprofloxa HCl [Ciprofloxacin] 500 mg PO Q12 #24 ter Lisinopril [Zestril] 5 mg PO DAILY #14 tab - Follow Up Plan Condition: STABLE Disposition: HOME/ ROUTINE Instructions: Heart Failure (GEN), Benign Prostatic Hypertrophy (GEN), Peripheral Vascular Disease (GEN), Fall Prevention for Older Adults (GEN), COPD (Chronic Obstructive Pulmonary Disease) (GEN), Acute Hematuria (GEN), Hypertension (GEN) Additional Instructions: Discharge instructions 1. Per Dr. Pires, expect to have blood in urine for the next 2-[address] Pires or primary care doctor if new symptoms such as dizziness or heart palpitation. 2. Continue to take all medications as prescribed 3. Continue course of antibiotics until all pills are done, even if you feel better 4. Follow up with Dr. Pires in 1-2 weeks 5. Follow up with Primary care doctor, Dr. Sorto, within 1 week 6. For any new or worsening concerns, contact PCP immediately, or return to ER New Meds (Add) Lisinopril 5mg daily for hypertension Antibiotics: ciprofloxacin 500mg twice daily for 12 days Discharge diagnosis Hematuria R hydrinephrosis and hydroureter Pyelonephritis vs Complicated UTI Hx CHF, DM, COPD Referrals: PCP,NO [Primary Care Provider] - Usman Pires MD [Staff Provider] -
== END 2016-11-17 18:08 | disposition home or self-care (01) ==
LOC: ED 14:42 → ERH 19:46 → 5RNO 11-15 05:29 → OBSVTOIN 11-15 15:31 → INTOOBSV 11-15 15:31
PROVIDERS: ADMIT Hospitalist; ATTEND Hospitalist
DX: R31.0 Gross hematuria (principal); E11.22 Type 2 diabetes mellitus with diabetic chronic kidney disease; E11.51 Type 2 diabetes mellitus with diabetic peripheral angiopathy without gangrene; I50.9 Heart failure, unspecified; I13.0 Hypertensive heart and chronic kidney disease with heart failure and stage 1 through stage 4 chronic kidney disease, or unspecified chronic kidney disease; K50.90 Crohn's disease, unspecified, without complications; N13.2 Hydronephrosis with renal and ureteral calculous obstruction; J44.9 Chronic obstructive pulmonary disease, unspecified; N40.1 Benign prostatic hyperplasia with lower urinary tract symptoms; I25.10 Atherosclerotic heart disease of native coronary artery without angina pectoris; F17.210 Nicotine dependence, cigarettes, uncomplicated; G47.30 Sleep apnea, unspecified; N18.9 Chronic kidney disease, unspecified; N35.8 Other urethral stricture; N39.0 Urinary tract infection, site not specified; Z79.02 Long term (current) use of antithrombotics/antiplatelets; Z79.82 Long term (current) use of aspirin; Z83.3 Family history of diabetes mellitus; Z91.19 Patient's noncompliance with other medical treatment and regimen; Z95.0 Presence of cardiac pacemaker; Z95.1 Presence of aortocoronary bypass graft; Z95.2 Presence of prosthetic heart valve
CPT/HCPCS: 36415; 52000; 74176; 80053; 81001; 82150; 82948; 83690; 85025; 85027; 85610; 85730; 87086; 94640; 97161; 97530; 99285; G0378; G8978; G8979; J0696; J2704; J7040; J7120

== ENCOUNTER 2016-11-18 17:04 | Emergency (ER) | payer OTHER, MEDICAID ==
[2016-11-18 17:04] VITALS: BMI 30.8
--- NOTE | 2016-11-18 17:26 | ED PDOC ---
Arrival/HPI - General Chief Complaint: Male Genitourinary Time Seen by Provider: 11/18/16 17:06 Historian: Patient, Family (daughter) - History of Present Illness Time/Duration: Prior to Arrival Symptom Onset: Gradual Symptom Course: Worsening Severity Level: Moderate Activities at Onset: Rest Associated Symptoms (Text): 11/18/16 17:22 Patient was discharged yesterday after addmission for painless hematuria. Work up included CT scan which showed hydronephrosis and cystoscopy. Patient was discharged without a logan catheter. He has been unable to urinate all day today. he has only been able to dribble small amounts of bloody urine. Suprapubic discomfort, but no N/V/D. No fever. On antibiotics. Past Medical History - Past History Past History: No Previous - Infectious Disease Hx of Infectious Diseases: None - Tetanus Immunization Tetanus Immunization: Unknown - Cardiac Hx Cardiac Disorders: Yes Hx Congestive Heart Failure: Yes Hx Hypertension: Yes - Pulmonary Hx Chronic Obstructive Pulmonary Disease (COPD): Yes - Neurological Hx Neurological Disorder: No - HEENT Hx HEENT Disorder: Yes - Renal Hx Renal Failure: Yes - Endocrine/Metabolic Hx Diabetes Mellitus Type 2: Yes - Hematological/Oncological Hx Blood Transfusions: Yes - Integumentary Hx Dermatological Disorder: Yes Hx Eczema: Yes - Musculoskeletal/Rheumatological Hx Arthritis: Yes - Gastrointestinal Hx Gastrointestinal Disorders: Yes Hx Crohn's Disease: Yes - Genitourinary/Gynecological Hx Hematuria: Yes Hx Prostate Problems: Yes Other/Comment: S/P CYSTO 11/17/2016 - Psychiatric Hx Psychophysiologic Disorder: No Hx Substance Use: No - Past Surgical History Past Surgical History: No Previous - Surgical History Hx Open Heart Surgery: Yes - Anesthesia Hx Anesthesia Reactions: No Hx Malignant Hyperthermia: No - Suicidal Assessment Feels Threatened In Home Enviroment: No Family/Social History - Physician Review Nursing Documentation Reviewed: Yes Family/Social History: Unknown Family HX Smoking Status: Former Smoker Hx Alcohol Use: No Hx Substance Use: No Hx Substance Use Treatment: No Allergies/Home Meds Allergies/Adverse Reactions: Allergies No Known Allergies Allergy (Verified 08/07/16 18:25) Home Medications: Home Meds Medication Instructions Recorded Confirmed Aspirin [Adult Low Dose Aspirin EC] 81 mg PO DAILY 08/07/16 11/14/16 Clopidogrel [Plavix] 75 mg PO DAILY 08/07/16 11/14/16 Docusate Sodium [Stool Softener] 100 mg PO BID 11/14/16 11/14/16 Mirtazapine [Remeron] 30 mg PO DAILY 11/14/16 11/14/16 Multivitamin with Iron [Daily 1 tab PO DAILY 11/14/16 11/14/16 Vitamin + Iron] Review of Systems - Physician Review All systems were reviewed & negative as marked: Yes - Review of Systems Constitutional: Fatigue. absent: Fevers Respiratory: Normal Cardiovascular: Normal Gastrointestinal: Normal Genitourinary Male: Hematuria Physical Exam Vital Signs Temp Pulse Resp BP Pulse Ox 11/18/16 17:26 97.8 F 81 16 130/86 94 L Temperature: Afebrile Blood Pressure: Normal Pulse: Regular Respiratory Rate: Normal Appearance: Positive for: Well-Appearing, Non-Toxic, Comfortable, Uncomfortable Pain Distress: None Mental Status: Positive for: Alert and Oriented X 3 - Systems Exam Respiratory/Chest: Present: Clear to Auscultation, Good Air Exchange, Decreased Breath Sounds. No: Respiratory Distress, Accessory Muscle Use Cardiovascular: Present: Regular Rate and Rhythm, Normal S1, S2. No: Murmurs Abdomen: Present: Normal Bowel Sounds, Other (suprapubic discomfort and distention. ). No: Tenderness, Distention, Peritoneal Signs, Rebound, Guarding Lower Extremity: Present: Edema Medical Decision Making ED Course and Treatment: 11/18/16 17:26 Logan catheter by EDMD requiring MD skill with approximately 1200 cc grossly bloody urine returned with no clots. Marked improvement immediately. Disposition/Present on Arrival - Present on Arrival Any Indicators Present on Arrival: No History of DVT/PE: No History of Uncontrolled Diabetes: No Urinary Catheter: No History of Decub. Ulcer: No History Surgical Site Infection Following: None - Disposition Have Diagnosis and Disposition been Completed?: Yes Diagnosis: Hematuria, Urinary retention Disposition: HOME/ ROUTINE Disposition Time: 17:41 Patient Plan: Discharge Condition: IMPROVED Discharge Instructions (ExitCare): Urinary Retention in Men (ED), Acute Hematuria (ED), Logan Catheter Placement and Care (ED), Urinary Leg Bag (GEN) Additional Instructions: Follow up with PMD and Dr Pires. Forms: [employer] ([place])
[2016-11-18 17:43] VITALS: RESP 16; TEMP 97.8
[2016-11-18 17:57] VITALS: BP 131/54; PULSE 85; O2SAT 95
== END 2016-11-18 18:05 | disposition home or self-care (01) ==
LOC: ED 17:04
DX: R31.9 Hematuria, unspecified (principal); R33.9 Retention of urine, unspecified; E11.9 Type 2 diabetes mellitus without complications; I10 Essential (primary) hypertension

== ENCOUNTER 2017-02-02 08:04 | Day surgery (SDC) | payer MEDICARE, OTHER, MEDICAID ==
[2017-02-02] MEDS ORDERED: cefTRIAXone 1 gm 1 GM/100 ML BAG IVPB STA (08:21)
[2017-02-02] MEDS ORDERED: cefTRIAXone (Rocephin) 1 gm Inj ONE ×2 (08:24→08:52)
[2017-02-02 08:45] LABS: BASO # 0.01 K/mm3 (0.0-2.0); BASO % 0.1 % (0.0-3.0); GRAN # 4.45 (1.4-6.5); GRAN % 62.3 % (50.0-68.0); HEMATOCRIT 32.5 % (42.0-52.0); LYMPH % 28.4 % (22.0-35.0); MEAN CELL VOLUME 79.5 fl (80.0-105.0); MEAN CORPUSCULAR HEMOGLOBIN 27.4 pg (25.0-35.0); MEAN CORPUSCULAR HGB CONC 34.5 g/dl (31.0-37.0); MEAN PLATELET VOLUME 9.9 fl (7.0-11.0); MONO # 0.7 (0.1-0.6); MONO % 9.2 % (1.0-6.0); RED CELL DISTRIBUTION WIDTH 22.1 % (11.5-14.5); WHITE BLOOD COUNT 7.2 10^3/ul (4.5-11.0)
[2017-02-02] MEDS ORDERED: Propofol 10 mg/ml Inj (20 ML) ONE (08:48)
[2017-02-02] MEDS ORDERED: Midazolam 2 MG/2 ML VIAL ONE (08:48)
[2017-02-02] MEDS ORDERED: Gentamicin 80 mg/2mL Inj. ONE (08:52)
[2017-02-02] MEDS ORDERED: Lactated Ringer's 1,000 ML IV SCH (09:30)
[2017-02-02] MEDS ORDERED: Oxycodone/Acetaminophen 5/325 mg Tab PO PRN (09:43)
[2017-02-02] MEDS ORDERED: Gentamicin 160 MG in Sodium Chloride 0.9% 100 ML IVPB SCH (09:45)
[2017-02-02 10:45] VITALS: RESP 20; TEMP 98
[2017-02-02 12:13] VITALS: BP 112/70; PULSE 80; O2SAT 94
--- NOTE | 2017-02-02 23:10 | CARD ---
APPROVED REPORT EKG Measurement Heart [id number] <Conclusion> Atrial sensed, ventricular paced rhythm
--- NOTE | 2017-02-09 09:37 | HP ---
UROLOGY ADMISSION HISTORY AND PHYSICAL REASON FOR ADMISSION: Elevated PSA, voiding dysfunction, weight loss, and gross hematuria. HISTORY OF PRESENT ILLNESS: A very pleasant 81-year-old gentleman place and time. He is very pleasant, but extremely noncompliant gentleman. He only came in with gross hematuria. He is 81 years old with very elevated PSA prostate biopsy. I have to check my records, but meanwhile, I got a call this week that his PSA possibly for prostatitis and the longstanding prostate cancer testing. Every time we did testing with kidney scans, but no significant malignancies found, we did cystoscopy, washed out clots several times in the hospital. I will need to check in those records. I got a call this week about the patient having elevated PSA, with some weight loss. He also has COPD and need medical evaluation as this could also be cause for his weight loss and fairly doing well. I do an emergency prostate ultrasound-guided biopsy. Initially, he was on Plavix and aspirin, so we will stop this and it could be possible daughter initially called me last Sunday or , this should be 01/31/2017 or 02/01/2017 or so 02/01/2017 or 02/02/2017, because of the Plavix and aspirin, we waited until today and then we took the first date . I have got a chance to speak with Dr. Parekh and also speak with Dr. Stiles. A lot of preparation was made into this procedure. I discussed this with his two daughters and his son and patient directly risks, benefits and treatment alternatives, it is certainly our recommendation that at this point we do a biopsy. His age and PSA are suggestive of there to be possibly prostate malignancy and the presence of gross hematuria that has come and gone is less likely in this case is possible for sure. He has had multiple washed the clots. We never found any malignancies within the bladder or the upper tract. He has always had somewhat of irregular prostate with elevated PSA . He is having weight loss and poor appetite certainly this could be prostate malignancy, could be great time in detail explained to the family by telephone. I explained my concern about the possibility that we had not been and the possibility for having not performed the biopsy and all the listed malignancy. I also explained that in a 81-year-old gentleman, even in 80. In 79 even, at that time, there were several factors always going on and difficult circumstances with his age and his general medical health and his slow wheezing and shortness of breath upon presentation to the hospital and every time I would spoke with family with him we spoke with family emergency , although suspicion for cancer always seems to be and concerned, I . There was never , and even now, I am going to continue to request, family, patient, and other doctor's request. There are other contributing factors that are awaiting in our minds, but perhaps, if there is any underlying malignancy, the patient may benefit from hormonal therapy. I do not think he would be a surgical candidate. We then discussed the possibility of radiation, but I do not think surgical candidate even for surgery. I discussed all these things with the patient and the family at length multiple times, now and previously. We are pushing the . PAST MEDICAL AND SURGICAL HISTORY: As listed in chart, and no changes medical doctor. He is seeing Go in Cardiology preparation . REVIEW OF SYSTEMS: As mentioned, weight loss. gross hematuria. He has every time he takes he has mentioned it several times as explained to me that he problem. I explained to him that concerned now as we before, and then hopefully for which he will be admitted today. MEDICATIONS: See chart. ALLERGIES: we will stop the Plavix and aspirin. noted. He has some mild wheezing noted, but lungs are relatively clear. I will adding he may have some gross urinary retention . ADMITTING DIAGNOSES: Elevated prostate specific antigen, weight loss, voiding dysfunction, concern for malignancy. PLAN: It is already discussed with the family, the daughter, and the patient, my concern for an underlying malignancy. We discussed this before as well. the patient did big issue with gross hematuria and voiding dysfunction. The only my concern is for an underlying malignancy . 1. we are planning for an ultrasound of the prostate. 2. An ultrasound-guided prostate biopsy. 3. We will take multiple samples. 4. We will plan for voiding dysfunction, this seems to be much more ____. The list of other possibility for malignancies: 1. First, we need to rule out the prostate. 2. imaging of the upper tract with . 3. consultation with who is also on board. PLAN FOR TODAY: 1. We will provide antibiotic prophylaxis. 2. An ultrasound-guided biopsy. 3. biopsy and depending on what we find clinically. retention with hematuria, I discussed at length. We will also make sure that copy of this note to his general . We will also make sure copy to copy to . Bao Pires MD Bao Pires MD cc: Dr. Parekh.
--- NOTE | 2017-02-09 10:46 | OP ---
PROCEDURE DATE: 02/02/2017 PREOPERATIVE DIAGNOSES: Elevated prostate-specific antigen, voiding dysfunction, gross hematuria, weight loss, and prostate-specific antigen of 800. POSTOPERATIVE DIAGNOSES: Elevated prostate-specific antigen, voiding dysfunction, gross hematuria, weight loss, and prostate-specific antigen of 800. PROCEDURE: Transrectal ultrasound and ultrasound-guided prostate biopsy. SURGEON: Bao Pires MD COMPLICATIONS: There were no complications. INDICATIONS: See the history and physical for further details. A pleasant gentleman, who is here now for the above procedure. See history for further details. The patient is a pleasant, extremely noncompliant gentleman, who had episodes of gross hematuria in the past. These had resolved. We did cystoscopy, so we never found any bladder malignancy on ultrasound imaging, CT scan, etc. From a urology standpoint also, he has had an elevated PSA due to his medical conditions including COPD, difficulty breathing. The patient was also on Plavix and aspirin. We never had an opportunity to do a prostate biopsy. I do think that before he ever saw me, the patient had a biopsy elsewhere years back. I will need to check the records. In the meantime, he is here now for the above procedure. We discussed the risks, benefits, and treatment alternatives, specifically . We discussed the risk of bleeding. After discussing options with the patient, he is now here for the above procedure. DESCRIPTION OF PROCEDURE: The patient was now brought to the operating room and placed on the table. The patient was placed in decubitus position, a probe inserted via the rectum and we took pictures with transrectal ultrasound of the prostate in transverse and longitudinal views. There was no specific hypoechoic lesion. I do want to mention that I examined the prostate carefully. On viewing, it is fairly diffusely firm, but with no specific nodules. It is difficult to evaluate if there is any extension beyond the prostate (there is a high suspicion for prostate cancer). After obtaining informed consent, the patient was placed on the table. Routine monitors were placed. Time-outs were called to confirm the patient positioning, etc., antibiotic prophylaxis, all given. We now began our biopsy. We inserted a probe and took pictures in the transverse and longitudinal views. The prostate volume was measured to be about 40 to 50 mL. All great appearing. We then did random biopsies in the second quadrant, left base, left mid, left apex, right base, right mid, and right apex; so we did, mediolateral to mediolateral, for a total of 12 cores. Post biopsy rectal exam was within normal limits. There was no specific abnormality detected. The patient tolerated it without complication. Bao Pires MD cc: MD Inocencia Brown MD
== END 2017-02-02 12:10 | disposition home or self-care (01) ==
LOC: SDS 08:04
PROVIDERS: ATTEND Urology
DX: C61 Malignant neoplasm of prostate (principal); R31.0 Gross hematuria; J44.9 Chronic obstructive pulmonary disease, unspecified; Z91.19 Patient's noncompliance with other medical treatment and regimen
CPT/HCPCS: 36415; 55700; 85025; 88305; 93005; J0696; J1580; J2001; J2250; J2704; J3010; J7120 ×2

== ENCOUNTER 2017-02-06 13:11 | Inpatient (IN) | payer MEDICAID, MEDICARE, OTHER ==
[2017-02-06 13:24] VITALS: BMI 26.9
[2017-02-06] MEDS ORDERED: Ipratropium 0.02% Inhal Soln (0.5 mg/2.5 ml) UD IH STA ×2 (13:44)
[2017-02-06] MEDS ORDERED: Levalbuterol 1.25 MG/3 ML Inhal Soln UD IH STA ×2 (13:44)
[2017-02-06] MEDS ORDERED: guaiFENesin 200 mg/10 ml Syrup UD PO STA (13:45)
[2017-02-06 14:00] LABS: BASO # 0.02 K/mm3 (0.0-2.0); BASO % 0.3 % (0.0-3.0); EOS % 0.3 % (1.5-5.0); GRAN # 3.57 (1.4-6.5); GRAN % 53.6 % (50.0-68.0); HEMATOCRIT 34.5 % (42.0-52.0); LYMPH # 2.6 (1.2-3.4); LYMPH % 38.8 % (22.0-35.0); MEAN CELL VOLUME 80.2 fl (80.0-105.0); MEAN CORPUSCULAR HGB CONC 33.6 g/dl (31.0-37.0); MEAN PLATELET VOLUME 9.6 fl (7.0-11.0); MONO # 0.5 (0.1-0.6); RED CELL DISTRIBUTION WIDTH 22.6 % (11.5-14.5); WHITE BLOOD COUNT 6.7 10^3/ul (4.5-11.0)
--- NOTE | 2017-02-06 14:10 | RAD ---
HISTORY: sob COMPARISON: 07/12/2016 FINDINGS: LUNGS: No active pulmonary disease. PLEURA: No significant pleural effusion identified, no pneumothorax apparent. CARDIOVASCULAR: Normal. OSSEOUS STRUCTURES: No significant abnormalities. VISUALIZED UPPER ABDOMEN: Normal. OTHER FINDINGS: Sternal wires. Dual lead pacemaker IMPRESSION: No active disease.
[2017-02-06 14:16] LABS: INR 1.25 (0.93-1.08); PARTIAL THROMBOPLASTIN TIME 30.4 Seconds (25.1-36.5)
[2017-02-06 14:17] LABS: ARTERIAL BLOOD GAS HCO3 33.5 mmol/L (21-28); ARTERIAL BLOOD GAS O2 CAPACITY 14.3 mL/dl (16-24); ARTERIAL BLOOD GAS O2 CONTENT 14.2 ML/dl (15-23); ARTERIAL BLOOD HGB O2 SAT 92.9 % (95.0-98.0); CARBOXYHEMOGLOBIN 5.6 % (0.5-1.5); HHB 0.5 % (0-5)
--- NOTE | 2017-02-06 14:18 | ED PDOC ---
Arrival/HPI - General Time Seen by Provider: 02/06/17 13:16 Historian: Patient - History of Present Illness Narrative History of Present Illness (Text): 02/06/17 13:40 A 81 year old male smoker, whose past medical history includes diabetes mellitus , COPD, CAD/CABG, and mitral valve replacement, presents to the emergency department for shortness of breath, which began earlier this morning. The patient reports when he woke up this morning he felt fine, but as the day progressed so did his shortness of breath. He was watching tv when he had difficulty breathing. He notes that 1 week ago he began with a cough, leg swelling. He denies any fever, chest pains, dysuria, abdominal pain, or any other complaints at this time. PMD: Dr. Sorto Time/Duration: 1-3 hours Symptom Onset: Gradual Symptom Course: Worsening Activities at Onset: Rest, Light Context: Home Past Medical History - Provider Review Nursing Documentation Reviewed: Yes - Past History Past History: No Previous - Infectious Disease Hx of Infectious Diseases: None - Tetanus Immunization Tetanus Immunization: Unknown - Cardiac Hx Pacemaker: Yes - Pulmonary Hx Chronic Obstructive Pulmonary Disease (COPD): Yes - Neurological Hx Paralysis: No - HEENT Hx HEENT Disorder: Yes - Renal Hx Renal Failure: Yes - Endocrine/Metabolic Hx Diabetes Mellitus Type 2: Yes - Hematological/Oncological Hx Blood Transfusions: Yes Hx Blood Transfusion Reaction: No - Integumentary Hx Dermatological Disorder: Yes Hx Eczema: Yes - Musculoskeletal/Rheumatological Hx Musculoskeletal Disorders: Yes - Gastrointestinal Hx Gastrointestinal Disorders: Yes Hx Crohn's Disease: Yes - Genitourinary/Gynecological Hx Hematuria: Yes Hx Prostate Problems: Yes Other/Comment: S/P CYSTO 11/17/2016 - Psychiatric Hx Emotional Abuse: No Hx Physical Abuse: No Hx Substance Use: No - Past Surgical History Past Surgical History: No Previous - Surgical History Hx Open Heart Surgery: Yes - Anesthesia Hx Anesthesia Reactions: No Hx Malignant Hyperthermia: No - Suicidal Assessment Feels Threatened In Home Enviroment: No Family/Social History - Physician Review Nursing Documentation Reviewed: Yes Family/Social History: No Known Family HX Smoking Status: Former Smoker Hx Alcohol Use: No Hx Substance Use: No Hx Substance Use Treatment: No Allergies/Home Meds Allergies/Adverse Reactions: Allergies No Known Allergies Allergy (Verified 08/07/16 18:25) Home Medications: Home Meds Medication Instructions Recorded Confirmed Aspirin [Adult Low Dose Aspirin EC] 81 mg PO DAILY 08/07/16 02/02/17 Clopidogrel [Plavix] 75 mg PO DAILY 08/07/16 02/02/17 Docusate Sodium [Stool Softener] 100 mg PO BID 11/14/16 02/02/17 Mirtazapine [Remeron] 30 mg PO DAILY 11/14/16 02/02/17 Multivitamin with Iron [Daily 1 tab PO DAILY 11/14/16 02/02/17 Vitamin + Iron] Acetaminophen with Codeine 1 tab PO Q6 PRN 02/02/17 02/02/17 [Tylenol with Codeine #3 Tablet] Ciprofloxacin [Cipro] 500 mg PO Q12 02/02/17 02/02/17 Furosemide [Lasix] 40 mg PO DAILY 02/02/17 02/02/17 oxyCODONE [oxyCONTIN] 20 mg PO BID 02/02/17 02/02/17 Review of Systems - Physician Review All systems were reviewed & negative as marked: Yes - Review of Systems Constitutional: absent: Fevers Respiratory: SOB, Cough Cardiovascular: SANDERS. absent: Chest Pain, Orthopnea Gastrointestinal: absent: Abdominal Pain Genitourinary Male: absent: Dysuria Physical Exam Vital Signs Reviewed: Yes Vital Signs Temp Pulse Resp BP Pulse Ox 02/06/17 13:22 98.6 F 99 H 19 113/54 L 95 Temperature: Afebrile Blood Pressure: Normal Pulse: Regular Respiratory Rate: Normal Appearance: Positive for: Well-Appearing, Non-Toxic, Comfortable Pain Distress: None Mental Status: Positive for: Alert and Oriented X 3 - Systems Exam Head: Present: Atraumatic, Normocephalic Pupils: Present: PERRL Conjunctiva: Present: Normal Mouth: Present: Moist Mucous Membranes Pharnyx: Present: Normal. No: ERYTHEMA, EXUDATE Neck: Present: Normal Range of Motion, JVD (mild) Respiratory/Chest: Present: Wheezes (mild bwheezing bilaterally), Decreased Breath Sounds, Rhonchi (scattered ), Other (decreased air entry). No: Clear to Auscultation Cardiovascular: Present: Regular Rate and Rhythm, Murmurs, Normal S1, S2 Abdomen: Present: Normal Bowel Sounds. No: Tenderness, Distention, Peritoneal Signs Upper Extremity: Present: Normal Inspection. No: Cyanosis, Edema Lower Extremity: Present: Edema (1+ pitting edema bilaterally ) Neurological: Present: GCS=15, CN II-XII Intact, Speech Normal Skin: Present: Warm, Dry, Normal Color. No: Rashes Psychiatric: Present: Alert, Oriented x 3, Normal Insight, Normal Concentration Medical Decision Making ED Course and Treatment: 02/06/17 14:27 Impression: A 81 year old male with shortness of breath. Differential Diagnosis included but are not limited to: Acute COPD exacerbation vs. CHF vs. pneumonia Plan: -- Robitussin, Antrovient, Xopenex, solu-medrol -- Lower Extremity US -- Urinalysis -- Reassess and disposition Progress Notes: 02/06/17 15:31 Patient with noted history and exam. Labs with BNP of 4400, which is elevated compared with previous. Chest X-ray with no acute findings. EKG is unchanged. Remainder of labs with K of 3.1 but otherwise are nondiagnostic. Patient given steroids and nebs with mild-moderate response and subjective improvement. O2 sat remains at 90% - will need further observation on tele for treatment of COPD and CHF. Case discussed with Dr. Sorto for placement on his service. - Lab Interpretations Lab Results: 02/06/17 13:45 02/06/17 13:45 Lab Results 02/06/17 14:15: pCO2 43, pO2 201.0 H, HCO3 33.5 H, ABG pH 7.50 H, ABG Total CO2 34.8 H, ABG O2 Saturation 99.5 H, ABG O2 Content 14.2 L, ABG Base Excess 9.4 H, ABG Hemoglobin 10.5 L, ABG Carboxyhemoglobin 5.6 H, POC ABG HHb (Measured) 0.5, ABG Methemoglobin 1.0, ABG O2 Capacity 14.3 L, Hgb O2 Saturation 92.9 L, FiO2 40.0 02/06/17 13:45: Sodium 143, Potassium 3.1 L, Chloride 101, Carbon Dioxide 35 H, Anion Gap 10, BUN 13, Creatinine 0.8, Est GFR ( Amer) > 60, Est GFR (Non- Af Amer) > 60, Random Glucose 99, Calcium 9.1, Magnesium 1.6 L, Total Bilirubin 0.7, AST 33, ALT 27, Alkaline Phosphatase 203 H D, Lactate Dehydrogenase 848 H, Total Creatine Kinase 86, Troponin I 0.02 D, NT-Pro-B Natriuret Pep 4450 H, Total Protein 6.1, Albumin 3.1, Globulin 3.1, Albumin/Globulin Ratio 1.0 L, Lipase 11 L 02/06/17 13:45: PT 13.7 H, INR 1.25 H, APTT 30.4 02/06/17 13:45: WBC 6.7, RBC 4.30, Hgb 11.6 L, Hct 34.5 L, MCV 80.2, MCH 27.0, MCHC 33.6, RDW 22.6 H, Plt Count 202, MPV 9.6, Gran % 53.6, Lymph % (Auto) 38.8 H, Lyman % (Auto) 7.0 H, Eos % (Auto) 0.3 L, Baso % (Auto) 0.3, Gran # 3.57, Lymph # 2.6, Lyman # 0.5, Eos # 0.0, Baso # 0.02 - RAD Interpretation Radiology Orders: 02/06/17 13:42 DUPLEX LOWER EXTRM VEIN BILAT [US] Stat 02/06/17 13:43 CHEST PORTABLE [RAD] Stat - EKG Interpretation EKG Interpretation (Text): 02/06/17 15:35 NSR @ 98 with RBBB with QRS of 136; normal axis; QTc is 495; previous ekg was paced with RBBB pattern. Interpreted by ED Physician: Yes Type: 12 lead EKG Comparison: Similar to previous EKG (02/02/17) - Medication Orders Current Medication Orders: Levofloxacin/Dextrose (Levaquin 750mg) 750 mg in 150 mls @ 100 mls/hr IVPB STAT STA Stop: 02/06/17 16:56 Discontinued Medications Furosemide (Lasix) 20 mg IVP STAT STA Stop: 02/06/17 14:31 Guaifenesin (Robitussin) 400 mg PO ONCE STA Stop: 02/06/17 13:46 Last Admin: 02/06/17 13:55 Dose: 400 mg Ipratropium [place] (Atrovent) 0.5 mg IH STAT STA Stop: 02/06/17 13:45 Last Admin: 02/06/17 13:55 Dose: 0.5 mg Ipratropium [place] (Atrovent) 0.5 mg IH STAT STA Stop: 02/06/17 13:45 Last Admin: 02/06/17 14:13 Dose: 0.5 mg Levalbuterol HCl (Xopenex) 1.25 mg IH STAT STA Stop: 02/06/17 13:45 Last Admin: 02/06/17 13:55 Dose: 1.25 mg Levalbuterol HCl (Xopenex) 1.25 mg IH STAT STA Stop: 02/06/17 13:45 Last Admin: 02/06/17 14:13 Dose: 1.25 mg Methylprednisolone (Solu-Medrol) 125 mg IVP STAT STA Stop: 02/06/17 13:46 Last Admin: 02/06/17 14:03 Dose: 125 mg IVP Administration Document 02/06/17 14:03 SRE (Rec: 02/06/17 14:03 SRE [id number]) Charges for Administration # of IVP Administrations 1 Potassium Chloride (K-Dur 20 Meq Er Tab) 40 meq PO STAT STA Stop: 02/06/17 14:32 - Scribe Statement The provider has reviewed the documentation as recorded by the Scriblupe Caballero Provider Scribe Attestation: All medical record entries made by the Scribe were at my direction and personally dictated by me. I have reviewed the chart and agree that the record accurately reflects my personal performance of the history, physical exam, medical decision making, and the department course for this patient. I have also personally directed, reviewed, and agree with the discharge instructions and disposition. Disposition/Present on Arrival - Present on Arrival Any Indicators Present on Arrival: No History of DVT/PE: No History of Uncontrolled Diabetes: No Urinary Catheter: No History Surgical Site Infection Following: None - Disposition Have Diagnosis and Disposition been Completed?: Yes Diagnosis: Hypokalemia, Congestive heart failure (CHF), COPD exacerbation Disposition: HOSPITALIZED Disposition Time: 15:10 Patient Plan: Observation, Telemetry Patient Problems: Current Active Problems Problem Status Onset Hypokalemia Acute Condition: FAIR Discharge Instructions (ExitCare): Heart Failure (ED)
[2017-02-06 14:20] LABS: TROPONIN I 0.02 ng/mL
[2017-02-06 14:24] LABS: ALKALINE PHOSPHATASE 203 U/L (38-126); ALT/SGPT 27 U/L (7-56); AST/SGOT 33 U/L (17-59); BILIRUBIN,TOTAL 0.7 mg/dL (0.2-1.3); BLOOD UREA NITROGEN 13 mg/dL (7-21); CALCIUM 9.1 mg/dL (8.4-10.5); CARBON DIOXIDE 35 mmol/L (21-33); CHLORIDE 101 mmol/L (98-107); GFR AFRICAN-AMERICAN > 60; GLUCOSE,RANDOM 99 mg/dL (70-110); LIPASE 11 U/L (23-300); MAGNESIUM 1.6 mg/dL (1.7-2.2); POTASSIUM 3.1 mmol/L (3.6-5.0); SODIUM 143 mmol/L (132-148); TOTAL PROTEIN 6.1 g/dL (5.8-8.3)
[2017-02-06] MEDS ORDERED: Potassium Chloride 20 mEq ER Tab PO STA (14:31)
[2017-02-06] MEDS ORDERED: levoFLOXacin 750 mg in D5W 750 MG/150 ML BAG IVPB STA (15:27)
[2017-02-06 16:19] LABS: PH,URINE 6.5 (4.7-8.0); URINE BILIRUBIN NEGATIVE (NEGATIVE); URINE BLOOD LARGE (NEGATIVE); URINE GLUCOSE (UA) NEGATIVE (NEGATIVE); URINE KETONE NEGATIVE (NEGATIVE); URINE LEUKOCYTE ESTERASE SMALL Leu/uL (NEGATIVE); URINE PROTEIN TRACE mg/dL (<30 mg/dL)
[2017-02-06 16:22] LABS: URINE APPEARANCE CLEAR (CLEAR); URINE COLOR YELLOW (YELLOW)
[2017-02-06 16:36] LABS: URINE RBC 25 - 30 /hpf (0-2)
[2017-02-06 16:37] LABS: URINE BACTERIA RARE (NEG)
[2017-02-06] MEDS ORDERED: Magnesium Sulfate 2 GM in Sodium Chloride 0.9% 100 ML IVPB STA (16:43)
[2017-02-06] MEDS ORDERED: Influenza Vaccine 60 mcg/0.5 mL SYR (4YR UP) IM ONE (18:53)
[2017-02-06] MEDS ORDERED: Pneumococcal 23-Valent Vaccine IM ONE (18:53)
[2017-02-06] MEDS ORDERED: Oxycodone/Acetaminophen 5/325 mg Tab PO PRN (20:53)
[2017-02-06] MEDS ORDERED: Levalbuterol 0.63 MG/3 ML Inhal Soln UD IH PRN (20:55)
[2017-02-06] MEDS ORDERED: MethylPREDNISolone 40 mg Vial IVP SCH (22:00)
[2017-02-06] MEDS: Insulin Reg-LOW-Coverage SC SCH (22:02)
[2017-02-06] MEDS: Enoxaparin 40 mg Syringe SC SCH (23:47)
[2017-02-06] MEDS: guaiFENesin-Codeine 100-10mg/5ml Syrup (5 ml) UD PO PRN (23:47)
--- NOTE | 2017-02-07 01:38 | CON ---
DATE: 02/06/2017 REFERRING PHYSICIAN: Salty Sorto MD REASON FOR CONSULTATION: Shortness of breath and active smoker. HISTORY OF PRESENT ILLNESS: This is a 81-year-old gentleman known to me from previous admission, has a history of cardiomyopathy, valvular heart disease, heart failure, chronic obstructive lung disease, may have sleep apnea syndrome, never had a sleep study done, history of coronary bypass surgery, mitral valve replacement, active smoker, comes in with cough, shortness of breath, wheezing, leg swelling. No nausea, no vomiting. No diarrhea. PAST MEDICAL HISTORY: Cardiomyopathy, valvular heart disease, coronary artery disease, chronic obstructive lung disease, diabetes and may have a sleep apnea syndrome. ALLERGIES: NONE KNOWN. SOCIAL HISTORY: Active smoker. Denies any alcohol use. FAMILY HISTORY: No significant cardiopulmonary disease reported. MEDICATIONS: He is on Colace 100 mg twice a day, Flomax 0.4 mg daily, insulin coverage, Lasix 20 mg twice a day, Lipitor 20 mg daily, Lovenox 40 mg subcutaneous daily, Percocet 5/325 one tab q6 hours p.r.n., 30 mg at bedtime., Robitussin DM 5 mL three times a day, Robitussin with Codeine 5 mL p.o. at bedtime p.r.n., Solu-Medrol 30 mg three times a day, Xopenex inhaler q. 4 hours, and Xopenex also p.r.n. basis. REVIEW OF SYSTEMS: No headache or rhinitis. Has a cough, sputum production, short of breath. No nausea, vomiting, no diarrhea. Does have a lower extremity swelling. OBJECTIVE: GENERAL: No acute distress. VITAL SIGNS: Temperature is 98, heart rate is 88, respiratory rate is 20, blood pressure 103/65, pulse ox 92% of 2 liters nasal cannula. HEENT: Moist mucous membranes. Crowded airway. NECK: Supple. No JVD. LUNGS: Has a scattered rhonchi and wheezing. HEART: S1 and S2. ABDOMEN: Soft, nontender, no organomegaly. EXTREMITIES: There is no edema. NEUROLOGICALLY: Awake, alert, follows simple commands. LABORATORY DATA: Shows hemoglobin 11.6, hematocrit 34.5, WBC 6.7, platelet is 202. INR 1.25. PTT is 30. ABG show pH 7.50, pCO2 of 43, O2 201, this is on 40% oxygen. Sodium 140, potassium 3.1, chloride 101, bicarbonate 35, BUN 13, creatinine 0.8, glucose 230, calcium 9.1, magnesium 1.6, AST 33, ALT 27, alk phos is 203, LDH 844. Troponin less than 0.04. ProBNP 4450, albumin is 3.1, lipase is 11. Chest x-ray done in ER shows no active pulmonary disease, has a venous Doppler lower extremity done which shows no DVT. IMPRESSION AND PLAN: Chronic obstructive lung disease with exacerbation, active smoker, cardiomyopathy, valvular heart disease, coronary artery disease, and diabetes. Agree with the present management. Continue inhaled bronchodilator, add Mucomyst to the treatment, also add Daliresp 500 mcg daily. Continue steroids, add doxycycline 100 mg twice a day, increase Lasix to 20 mg three times a day. Follow up CBC, CMP in the morning. Thank you and we will follow with you. Bon Sánchez MD
--- NOTE | 2017-02-07 07:49 | CARD ---
APPROVED REPORT EKG Measurement Heart [id number] <Conclusion> Normal sinus rhythm with 1st degree AVB Right bundle branch block Possible Inferior infarct, age undetermined NSSTW changes V. pacing not seen c/w prior ECG 02/02/17
[2017-02-07] MEDS: Insulin Reg-LOW-Coverage SC SCH ×4 (07:57→21:28)
[2017-02-07] MEDS: Levalbuterol 0.63 MG/3 ML Inhal Soln UD IH SCH ×4 (08:06→22:00)
[2017-02-07] MEDS: Acetylcysteine 20% Inhal Soln (4ml) IH SCH ×2 (08:06→22:00)
[2017-02-07 08:37] LABS: ALB/GLOB RATIO 0.9 (1.1-1.8); ALKALINE PHOSPHATASE 211 U/L (38-126); ALT/SGPT 22 U/L (7-56); AST/SGOT 47 U/L (17-59); BILIRUBIN,TOTAL 0.7 mg/dL (0.2-1.3); BLOOD UREA NITROGEN 18 mg/dL (7-21); CALCIUM 8.9 mg/dL (8.4-10.5); CARBON DIOXIDE 34 mmol/L (21-33); CHLORIDE 102 mmol/L (98-107); GFR AFRICAN-AMERICAN > 60; GLUCOSE,RANDOM 132 mg/dL (70-110); POTASSIUM 3.9 mmol/L (3.6-5.0); SODIUM 142 mmol/L (132-148); TOTAL PROTEIN 6.5 g/dL (5.8-8.3)
[2017-02-07] MEDS: Enoxaparin 40 mg Syringe SC SCH (09:49)
[2017-02-07] MEDS: guaiFENesin DM 100 mg-10 mg/5 ml UD PO SCH ×3 (09:49→17:04)
[2017-02-07] MEDS: MethylPREDNISolone 40 mg Vial IVP SCH ×3 (09:50→17:05)
[2017-02-07] MEDS ORDERED: cefTRIAXone 1 gm 1 GM/100 ML BAG IVPB SCH (10:00)
--- NOTE | 2017-02-07 14:49 | CP.PCM.CON ---
History of Present Illness - History of Present Illness History of Present Illness: 81 year old male with PMH of DM, CAD S/P CABG, COPD, S/P mitral valve replacement was brought in to [facility], [place] because of shortness of breath a day prior to admission. He was just watching TV when it suddenly happened. He is not complaining of chest pain, no headache or dizziness, no nausea or vomiting, no abdominal pain, no diarrhea, no dysuria, no no increased urinary frequency, no flank pain. In the ED, there was some WBC's in the urine and Infectious Diseases consult is requested to further evaluate and manage. Review of Systems - Review of Systems All systems: reviewed and no additional remarkable complaints except (as per HPI ) Past Patient History - Infectious Disease Hx of Infectious Diseases: None - Tetanus Immunizations Tetanus Immunization: Unknown - Past Social History Smoking Status: Former Smoker - CARDIAC Hx Cardiac Disorders: Yes (CAD,CABG,MVR,PROSTHETIC MITRAL VALVE) Hx Circulatory Problems: Yes Hx Hypertension: Yes Hx Pacemaker: Yes Hx Peripheral Edema: Yes Hx Peripheral Vascular Disease: Yes - PULMONARY Hx Respiratory Disorders: Yes (SMOKED X 60 YRS 1 PPD) Hx Chronic Obstructive Pulmonary Disease (COPD): Yes Hx Sleep Apnea: Yes - NEUROLOGICAL Hx Neurological Disorder: No - HEENT Hx HEENT Problems: Yes - RENAL Hx Chronic Kidney Disease: Yes Hx Renal Failure: Yes - ENDOCRINE/METABOLIC Hx Endocrine Disorders: Yes Hx Diabetes Mellitus Type 2: Yes - HEMATOLOGICAL/ONCOLOGICAL Hx Blood Disorders: Yes - INTEGUMENTARY Hx Dermatological Problems: Yes (BILATERAL LEG EDEMA +2 MORE TO RIGHT LEG.) Hx Eczema: Yes - MUSCULOSKELETAL/RHEUMATOLOGICAL Hx Musculoskeletal Disorders: Yes Hx Falls: Yes - GASTROINTESTINAL Hx Gastrointestinal Disorders: Yes Hx Crohn's Disease: Yes - GENITOURINARY/GYNECOLOGICAL Hx Genitourinary Disorders: Yes (URINARY RETENTION ,HEMATURIA) Hx Hematuria: Yes Hx Prostate Problems: Yes Other/Comment: S/P CYSTO 11/17/2016 - PSYCHIATRIC Hx Emotional Abuse: No Hx Physical Abuse: No Hx Substance Use: No (DENIES) - SURGICAL HISTORY Hx Surgeries: Yes (PACEMAKER,PROSTHETIC MITRAL VALVE,CABG,CYSTO) Hx Open Heart Surgery: Yes - ANESTHESIA Hx Anesthesia Reactions: No Hx Malignant Hyperthermia: No Meds Allergies/Adverse Reactions: Allergies Allergy/AdvReac Type Severity Reaction Status Date / Time No Known Allergies Allergy Verified 02/06/17 17:09 - Medications Medications: Current Medications Acetylcysteine (Acetylcysteine 20%) 4 ml IH BIDRESP [facility] Last Admin: 02/07/17 08:06 Dose: 4 ml Atorvastatin Calcium (Lipitor) 20 mg PO DIN EFRAIN Docusate Sodium (Colace) 100 mg PO BID EFRAIN Last Admin: 02/07/17 09:48 Dose: 100 mg Doxycycline Hyclate (Doryx) 100 mg PO Q12 EFRAIN PRN Reason: Protocol Last Admin: 02/07/17 09:48 Dose: 100 mg Enoxaparin Sodium (Lovenox) 40 mg SC DAILY [facility] PRN Reason: Protocol Last Admin: 02/07/17 09:49 Dose: 40 mg Furosemide (Lasix) 40 mg IVP BID [facility] Last Admin: 02/07/17 09:51 Dose: 40 mg Guaifenesin/Codeine Phosphate (Robitussin W/Codeine) 5 ml PO HS PRN PRN Reason: Cough and congestion Last Admin: 02/06/17 23:47 Dose: 5 ml Guaifenesin/Dextromethorphan (Robitussin Dm) 5 ml PO TID [facility] Last Admin: 02/07/17 09:49 Dose: 5 ml Ceftriaxone Sodium (Rocephin 1 Gram Ivpb) 1 gm in 100 mls @ 100 mls/hr IVPB DAILY [facility] PRN Reason: Protocol Last Admin: 02/07/17 10:25 Dose: 100 mls/hr Insulin Human Regular (Humulin R Low) 0 units SC ACHS EFRAIN PRN Reason: Protocol Last Admin: 02/07/17 07:57 Dose: Not Given Levalbuterol HCl (Xopenex) 0.63 mg IH QIDRESP [facility] Last Admin: 02/07/17 08:06 Dose: 0.63 mg Levalbuterol HCl (Xopenex) 0.63 mg IH [id number] PRN PRN Reason: Shortness of Breath Methylprednisolone (Solu-Medrol) 30 mg IVP TID [facility] Last Admin: 02/07/17 09:50 Dose: 30 mg Metoprolol Tartrate (Lopressor) 12.5 mg PO BID [facility] Last Admin: 02/07/17 09:49 Dose: 12.5 mg Mirtazapine (Remeron) 30 mg PO HS [facility] Last Admin: 02/06/17 22:02 Dose: 30 mg Nicotine (Nicoderm Cq) 1 patch TD DAILY [facility] Last Admin: 02/07/17 09:50 Dose: 1 patch Oxycodone/Acetaminophen (Percocet 5/325 Mg Tab) 1 tab PO Q6H PRN PRN Reason: Pain, moderate (4-7) Stop: 02/09/17 20:54 Tamsulosin HCl (Flomax) 0.4 mg PO HS [facility] Last Admin: 02/06/17 22:02 Dose: 0.4 mg Physical Exam - Constitutional Appears: Non-toxic, No Acute Distress - Head Exam Head Exam: NORMAL INSPECTION - ENT Exam ENT Exam: Mucous Membranes Moist - Neck Exam Neck exam: Negative for: Meningismus - Respiratory Exam Respiratory Exam: Decreased Breath Sounds - Cardiovascular Exam Cardiovascular Exam: +S1, +S2 - GI/Abdominal Exam GI & Abdominal Exam: Soft. absent: Tenderness Results - Vital Signs Recent Vital Signs: Last Vital Signs Temp 98.2 F 02/07/17 06:00 Pulse 89 02/07/17 09:49 Resp 20 02/07/17 06:00 BP 136/67 02/07/17 09:51 Pulse Ox 100 02/07/17 06:00 - Labs Result Diagrams: 02/06/17 13:45 02/07/17 06:00 Labs: Laboratory Results - last 24 hr 02/06/17 02/06/17 02/07/17 16:09 21:34 06:00 Sodium 142 Potassium 3.9 Chloride 102 Carbon Dioxide 34 H Anion Gap 10 BUN 18 Creatinine 0.9 Est GFR ( Amer) > 60 Est GFR (Non-Af Amer) > 60 POC Glucose (mg/dL) 230 H Random Glucose 132 H Calcium 8.9 Total Bilirubin 0.7 AST 47 ALT 22 Alkaline Phosphatase 211 H Total Protein 6.5 Albumin 3.1 Globulin 3.4 Albumin/Globulin Ratio 0.9 L Urine Color Yellow Urine Appearance Clear Urine pH 6.5 Ur Specific [place] 1.010 Urine Protein Trace H Urine Glucose (UA) Negative Urine Ketones Negative Urine Blood Large H Urine Nitrate Negative Urine Bilirubin Negative Urine Urobilinogen 1.0 H Ur Leukocyte Esterase Small H Urine RBC 25 - 30 Urine WBC 10 - 15 Ur Epithelial Cells 6 - 8 Urine Bacteria Rare Assessment & Plan - Assessment and Plan (Free Text) Plan: Assessment pyuria in urinalysis, but no symptoms R/O UTI probable CHFhistory of mitral valve endocarditis S/P mitral valve replacement CAD S/P CABG S/P pacemaker placement Plan patient has been given a dose of Rocephin - since the patient is asymptomatic, we can follow up urine cx and monitor off antibiotics
--- NOTE | 2017-02-07 18:04 | PN ---
DATE: 02/07/2017 PULMONARY PROGRESS NOTE REFERRING PHYSICIAN: Dr. Sorto. SUBJECTIVE: The patient is out of bed to chair. Feels much better. Decreased cough. Decreased shortness of breath. No nausea. No vomiting. No diarrhea. Still have leg swelling. OBJECTIVE: GENERAL: In no acute distress. VITAL SIGNS: Temperature 98, heart rate is 87, respiratory rate is 20, blood pressure 136/67, and pulse ox 99% on nasal cannula. HEENT: Moist mucous membranes. Crowded airway. NECK: Supple. No JVD. LUNGS: Has a prolonged expiratory phase with wheezing. HEART: S1 and S2. ABDOMEN: Soft, nontender. No organomegaly. EXTREMITIES: Does have edema left more than the right. NEUROLOGIC: Awake and alert. Follows simple commands. MEDICATIONS: He is on Mucomyst 20% inhale twice a day, Colace 100 mg twice a day, doxycycline 100 mg twice a day, Flomax 0.4 mg daily, insulin coverage, Lasix 40 mg twice a day, Lipitor 20 mg daily, metoprolol tartrate 12.5 mg twice a day, Lovenox 40 mg subcutaneous daily, NicoDerm patch daily, Percocet 5/325 one tab q. 6 hours p.r.n., Remeron 30 mg at bedtime, Robitussin DM p.r.n. basis, Rocephin 1 g IV daily, Solu-Medrol 30 mg three times a day, Xopenex inhaler q. 4 hours, and q.i.d. round the clock. LABORATORY DATA: Sodium 142, potassium 3.9, chloride 102, bicarbonate 34, BUN 18, creatinine 0.9, glucose 147, calcium is 8.9, AST is 47, ALT is 22, alkaline phosphatase is 211, albumin 3.1, lipase is 11. Microbiology; blood culture and urine culture, there is no growth. IMPRESSION AND PLAN: Exacerbation of chronic obstructive lung disease, may have obstructive sleep apnea syndrome, cardiomyopathy, valvular heart disease, history of coronary artery disease, diabetes. I spoke to the patient and family at bedside and all the questions answered.. Continue inhaled bronchodilator. Continue antibiotics, gastric prophylaxis, deep venous thrombosis prophylaxis. Continue diuretics. The patient is urged to stop smoking. We will discontinue Rocephin. Continue doxycycline. Thank you, and we will follow with you. Bon Sánchez MD [facility] # [id number]
[2017-02-08] MEDS: guaiFENesin-Codeine 100-10mg/5ml Syrup (5 ml) UD PO PRN (00:38)
[2017-02-08] MEDS: Insulin Reg-LOW-Coverage SC SCH ×4 (07:57→22:00)
[2017-02-08] MEDS: Levalbuterol 0.63 MG/3 ML Inhal Soln UD IH SCH ×4 (08:34→20:09)
[2017-02-08] MEDS: Acetylcysteine 20% Inhal Soln (4ml) IH SCH ×2 (08:34→20:08)
--- NOTE | 2017-02-08 08:37 | PN ---
DATE: 02/08/2017 SUBJECTIVE: The patient is in bed. The patient was seen earlier this morning in 271, bed 1. No fevers and no chills. OBJECTIVE: VITAL SIGNS: The patient had an uneventful night with a temperature of 97, blood pressure is 120/60, and respiratory rate of 18. HEENT: Unremarkable. NECK: Supple. LUNGS: Have decreased breath sounds. HEART: Normal S1 and S2. ABDOMEN: Soft and nontender. No organomegaly, no rebound, no guarding. No masses. LABORATORY DATA: Reveals white count of 6.7, hemoglobin of 11, and platelets of 202. Chemistries reveals a BUN of 18 and creatinine of 0.9. Urinalysis is noted, 10-15 WBCs. Microbiology reveals the blood cultures no growth. Urine cultures no growth, and the patient had a bone scan results that are pending. Review of orders reveals the patient to be on p.o. doxycycline, Solu-Medrol IV, IV Lasix, metoprolol, and Lovenox. Dr. Sánchez's note from yesterday is reviewed. ASSESSMENT AND PLAN: This is a 81-year-old male seen earlier in 271, bed 1 with diabetes mellitus, coronary artery disease, chronic obstructive lung disease, and history of mitral valve replacement and admitted with extensive shortness of breath with pyuria of 10-15 WBCs in the urinalysis, but the urine culture negative, blood cultures negative and no urinary symptoms. The patient had a chest x-ray on the , which was reported as no active lung disease and ultrasound of lower extremities, no evidence of DVT. With probable congestive heart failure with a history of mitral valve endocarditis and mitral valve replacement, coronary artery disease status post coronary artery bypass graft, a history of pacemaker placement, currently on p.o. doxycycline, ceftriaxone was discontinued, with negative blood cultures, negative urine cultures, negative chest x-ray, and unremarkable urinalysis. We will follow the final culture results. The patient did have a coag-negative Staph in the blood in 07/12/2016. Conrad Arnold MD
[2017-02-08] MEDS: guaiFENesin DM 100 mg-10 mg/5 ml UD PO SCH ×3 (10:17→17:18)
[2017-02-08] MEDS: MethylPREDNISolone 40 mg Vial IVP SCH ×3 (10:18→17:19)
[2017-02-08] MEDS: Enoxaparin 40 mg Syringe SC SCH (10:19)
--- NOTE | 2017-02-08 16:29 | PN ---
PULMONARY PROGRESS NOTE DATE: 02/08/2017 REFERRING PHYSICIAN: Salty Sorto MD SUBJECTIVE: The patient is lying in the bed, head at 45 degrees. Night was unremarkable. Decreased cough. Decreased shortness of breath. No nausea. No vomiting. Decreased ankle swelling. OBJECTIVE: GENERAL: In no acute distress. VITAL SIGNS: Temperature is 98, heart rate is 64, respiratory rate is 20, blood pressure is 130/61, and pulse ox is 99% on nasal cannula. HEENT: Moist mucous membranes. Carotid airway. NECK: Supple. No JVD. LUNGS: Has a scattered rhonchi with few wheezing. HEART: S1 and S2. ABDOMEN: Soft and nontender. No organomegaly. EXTREMITIES: Has a decreased edema of the ankles. NEUROLOGIC: Awake and alert. Follow simple commands. MEDICATIONS: He is on Mucomyst 20% inhale twice a day, Colace 100 mg twice a day, doxycycline 100 mg twice a day, Flomax 0.4 mg at bedtime, Lasix 40 mg twice a day, Lipitor 20 mg daily, metoprolol tartrate 12.5 mg twice a day, Lovenox 40 mg subcutaneous daily, NicoDerm patch daily, Percocet 5/325 one tab at q.6 hours p.r.n., mirtazapine 30 mg at bedtime, Robitussin DM 5 mL three times a day, Robitussin with Codeine 5 mL at bedtime p.r.n., Solu-Medrol 20 mg three times a day, Xopenex q.4 hours p.r.n., and also Xopenex 0.63 q.i.d. [id number]. LABORATORY DATA: Blood sugar this morning is 88. IMPRESSION AND PLAN: Exacerbation of chronic obstructive lung disease, suspected sleep apnea syndrome, cardiomyopathy, valvular heart disease, history of coronary artery disease, diabetes, and fluid overloaded. Pulmonary point of view, doing okay. Continue IV and inhale bronchodilator, antibiotics, gastric prophylaxis, deep venous thrombosis prophylaxis, diuretics, and sleep apnea precaution. Continue therapy. We will order labs for tomorrow. Thank you and we will follow with you. Bon Sánchez MD
--- NOTE | 2017-02-08 22:33 | CON ---
CARDIOLOGY CONSULT DATE: REASON FOR CONSULTATION: Coronary artery disease and exacerbation of chronic obstructive lung disease. HISTORY OF PRESENT ILLNESS: The patient is a 81-year-old -[place] male who has a history of coronary artery disease. He states that he underwent coronary artery bypass surgery and mitral valve replacement 7 years ago at [facility]. Prior to that, the patient states that he underwent pacemaker placement. The patient is a smoker and he continues to smoke. He presents because of worsening of his leg swelling as well as shortness of breath. The patient denies any retrosternal chest pain. The patient has history of prostatic carcinoma. SOCIAL HISTORY: The patient is a smoker. MEDICATIONS: Colace 100 mg twice a day, doxycycline 100 mg p.o. twice a day, Flomax 0.4 mg once a day, Lasix 40 mg intravenous twice a day, Lipitor 20 mg p.o. once a day, Lopressor 12.5 mg twice a day, Lovenox 20 mg subcutaneously once a day, Nicoderm patch, Solu-Medrol 30 mg intravenously t.i.d., Robitussin with Codeine 5 mL q.h.s. and Xopenex inhaler. REVIEW OF SYSTEMS: No nausea or vomiting. No dizziness or syncope. PHYSICAL EXAMINATION: GENERAL: The patient is an elderly male who does not appear to be in acute distress. VITAL SIGNS: Blood pressure 130/61, heart rate 64, temperature 98 and respirations 18. HEENT: Normocephalic. CHEST: Bilateral rhonchi. HEART: S1 and S2 regular. ABDOMEN: Soft. EXTREMITIES: 2+ pitting edema. LABORATORY DATA: Hemoglobin and hematocrit 11.6 and 34.5. White count and platelet count are within normal limits. SMA-7; sodium 142, potassium 3.9, chloride 102, CO2 34, glucose 132, BUN 18, creatinine 0.9. Admission potassium was 3.1. Troponin 0.02. ProBNP is 4450. INR is 1.2. PTT 30.4. EKG revealed normal sinus rhythm with first degree AV block, right bundle branch block, possible inferior infarct of indeterminate age with nonspecific ST-T wave changes, ventricular paced rhythm was also noted. Echocardiography study performed in June 2016 revealed mild concentric LVH with ejection fraction estimated in the range of 50% to 55%, bioprosthetic mitral valve, leaflets are thickened but move well, no vegetation, right ventricular systolic pressure estimated as 40 mmHg. Venous Doppler of lower extremity; no evidence of DVT. Chest x-ray revealed prominent bronchovascular markings, dual-chamber pacemaker and no definite infiltrate or consolidation. ASSESSMENT: 1. Exacerbation of chronic obstructive lung disease. 2. Coronary artery disease, status post coronary artery bypass surgery and bioprosthetic mitral valve replacement. 3. Consider right heart failure. RECOMMENDATIONS: Continue Lasix 40 mg intravenous twice a day, Lipitor 20 mg once a day, Lopressor 12.5 mg once a day, subcutaneous Lovenox 20 mg once a day and Solu-Medrol 30 mg intravenously 3 times a day besides bronchodilators. Nando Jackson MD
[2017-02-09 05:59] VITALS: O2SAT 98
[2017-02-09] MEDS: Levalbuterol 0.63 MG/3 ML Inhal Soln UD IH SCH ×3 (07:51→15:50)
[2017-02-09] MEDS: Acetylcysteine 20% Inhal Soln (4ml) IH SCH (07:51)
[2017-02-09 08:36] LABS: ALB/GLOB RATIO 0.9 (1.1-1.8); ALKALINE PHOSPHATASE 218 U/L (38-126); ALT/SGPT 38 U/L (7-56); AST/SGOT 51 U/L (17-59); BILIRUBIN,TOTAL 0.5 mg/dL (0.2-1.3); BLOOD UREA NITROGEN 30 mg/dL (7-21); CALCIUM 8.6 mg/dL (8.4-10.5); CARBON DIOXIDE 33 mmol/L (21-33); CHLORIDE 101 mmol/L (98-107); GFR AFRICAN-AMERICAN > 60; GLUCOSE,RANDOM 111 mg/dL (70-110); POTASSIUM 3.7 mmol/L (3.6-5.0); SODIUM 142 mmol/L (132-148); TOTAL PROTEIN 6.1 g/dL (5.8-8.3)
[2017-02-09] MEDS: Insulin Reg-LOW-Coverage SC SCH ×3 (08:36→17:04)
--- NOTE | 2017-02-09 09:03 | PN ---
DATE: 02/09/2017 SUBJECTIVE: The patient is in bed in no acute distress, nontoxic,no fevers. PHYSICAL EXAMINATION VITAL SIGNS: On exam, temperature is 98, blood pressure is 126/50, respiratory rate of 20, heart rate of 60. HEENT: Examination is unremarkable. NECK: Supple. LUNGS: Have decreased breath sounds. HEART: Normal S1, S2. ABDOMEN: Examination is soft, nontender. LABORATORY DATA: Examination reveals a white count of 6.7, hemoglobin of 11, platelets of 202. Coagulation is noted and chemistries reveals a BUN of 18, creatinine of 0.9, alk phos is 211. Blood cultures are negative. Urine cultures are no growth. The patient is on p.o. doxycycline. ASSESSMENT AND PLAN: This is a 81-year-old male, seen earlier today in 271, bed 1 with history of diabetes mellitus, coronary artery disease, chronic obstructive lung disease, history of mitral valve replacement admitted with extensive shortness of breath, pyuria and urine cultures negative and the blood cultures negative. No urinary symptoms. Chest x-ray; no active disease, probable congestive heart failure with history of mitral valve endocarditis and mitral valve replacement and coronary artery disease status post coronary artery bypass graft, history of pacemaker placement, currently on doxycycline. We will complete a short course therapy with p.o. doxycycline. Conrad Arnold MD
--- NOTE | 2017-02-09 09:21 | CON ---
DATE: 02/07/2017 LOCATION: The patient is in room 271, bed 1. REASON FOR CONSULTATION: Shortness of breath, cough, swelling of legs. HISTORY OF PRESENT ILLNESS: The patient is a 81-year-old male with known case of coronary artery disease, status post coronary artery bypass surgery, status post mitral valve replacement for endocarditis, hypertension, diabetes mellitus, COPD, admitted with history that is for one week he has cough and swelling legs. This morning, he started having shortness of breath, so he came to the emergency room, denied any chest pain or palpitation. PAST MEDICAL HISTORY: Significant for mitral valve endocarditis, status post mitral valve replacement; [id number] myocardial infarction, status post 5-vessel bypass surgery; COPD; tobacco abuse. PERSONAL HISTORY: The patient still continues to smoke, denies drinking. ALLERGIES: NO KNOWN ALLERGIES. PREVIOUS CARDIAC WORKUP: The patient had IV Lexiscan stress test on 08/09/2012 which was negative for ischemia. The patient had an echocardiogram on 07/15/2016, which showed mildly dilated left ventricle. There is mild concentric left ventricular hypertrophy. Left ventricular ejection fraction is low normal with EF 50% to 55%. There is trace aortic regurg, bioprosthetic mitral valve moving well. No vegetations were seen. Trace tricuspid regurgitation with RVSP 40 mmHg. Pacemaker lead in right ventricle. Chest x-ray, no significant abnormality. EKG showed regular sinus rhythm with first-degree AV block, right bundle branch block, possible old inferior wall infarct. PHYSICAL EXAMINATION VITAL SIGNS: Blood pressure 139/65, respirations 18, pulse 59, temperature 97.9. HEENT: Head: Normocephalic. Eyes: Pupils normal. Conjunctivae slightly pale. NECK: JVP low. Carotids equal. THORAX: AP diameter normal. LUNGS: No rales. CARDIOVASCULAR: S1 and S2. ABDOMEN: Soft, no tenderness. No organomegaly. EXTREMITIES: The patient has chronic venous stasis, also edema on the lower legs. DIAGNOSES: Exacerbation of chronic obstructive pulmonary disease; history of coronary artery disease, status post coronary artery bypass surgery; diabetes; hypertension; pacemaker; tobacco abuse; poor compliance. The patient is status post 5-vessel bypass surgery, mitral valve replacement, hypertension, diabetes, respiratory tract infection. PLAN: The patient is already on doxycycline 100 mg q.12 hours; furosemide 40 IV b.i.d.; Levaquin 750 mg one dose was given and after that, it was stopped; Lipitor 20 mg daily; metoprolol 12.5 mg b.i.d.; Lovenox 40 mg subcu daily; Solu-Medrol 30 mg IV t.i.d. We will continue present therapy and we will monitor intake and output. Again, emphasized the patient to stop smoking, but the patient is a very poor compliant patient. We will follow. Bon Caba MD
[2017-02-09] MEDS: MethylPREDNISolone 40 mg Vial IVP SCH (09:40)
[2017-02-09] MEDS: guaiFENesin DM 100 mg-10 mg/5 ml UD PO SCH ×3 (09:40→17:03)
[2017-02-09] MEDS: Enoxaparin 40 mg Syringe SC SCH (09:41)
--- NOTE | 2017-02-09 10:21 | NM ---
PROCEDURE: Whole Body Bone Scan HISTORY: Prostate cancer COMPARISON: None available. TECHNIQUE: Following administration of 27.8 miCu of Tc MDP multiplanar whole body images were obtained. FINDINGS: Evidence for bony metastatic disease: Osseous metastatic disease primarily affecting appendicular skeleton primarily bilateral femurs, bilateral humerus and shoulders. Degenerative uptake: None. Physiologic uptake: Normal physiologic activity in the kidneys. Other findings: None. IMPRESSION: Atypical appearance for what is presumed to be metastatic disease. Benign etiologies can include fibrous dysplasia and Paget disease.
--- NOTE | 2017-02-09 12:18 | PN ---
DATE: 02/09/2017 LOCATION: The patient is in room 271, bed 1. REASON FOR CONSULTATION: Followup shortness of breath, cough, swelling of legs. SUBJECTIVE: The patient's shortness of breath has improved, swelling in leg has improved. Denies any chest pain. No shortness of breath. The patient is lying comfortably in the bed at present. PHYSICAL EXAMINATION: VITAL SIGNS: Blood pressure 126/54, respirations 20, pulse 66, temperature 98.4. HEENT: Head is normocephalic. Eyes, pupils normal. Conjunctivae slightly pale. NECK: JVP low. Carotids equal. THORAX: AP diameter normal. LUNGS: Clear. CARDIOVASCULAR: S1 and S2. ABDOMEN: Soft, nontender. No organomegaly. Bowel sounds normal. EXTREMITIES: No clubbing. No cyanosis. LABORATORY DATA: Sodium 142, potassium 3.7, BUN 30, creatinine 1.0, random sugar 115. AST, ALT, bilirubin normal. Total protein, albumin normal. PREVIOUS CARDIAC WORKUP: The patient had Lexiscan stress test on 08/09/2012, which was negative. Echocardiogram was on 07/15/2016, which showed mildly dilated left ventricle. There is mild concentric left ventricular hypertrophy, ejection fraction normal 50-55%. Bioprosthetic mitral valve was seen. No vegetation present. Trace tricuspid regurg with RVSP 40 mmHg. DIAGNOSES: Exacerbation of chronic obstructive pulmonary disease, coronary artery disease, status post bypass surgery, status post bioprosthetic mitral valve replacement, hypertension, diabetes, pacemaker insertion, tobacco abuse, poor compliance patient, respiratory tract infection. PLAN: Since swelling legs has improved, we will stop IV Lasix. We will put Lasix 40 p.o. b.i.d., and we will discontinue telemetry. The patient's shortness of breath was probably related to exacerbation of COPD. The patient is on Doryx 100 mg q. 12 hours, Flomax 0.4 daily, furosemide changed to 40 p.o. daily starting tomorrow, Lipitor 20 daily, metoprolol 12.5 b.i.d., Lovenox 40 subcutaneous daily, Solu-Medrol 30 mg IV t.i.d. We will follow with you. Bon Caba MD
[2017-02-09 12:55] VITALS: RESP 18; TEMP 98
[2017-02-09 17:06] VITALS: BP 120/65; PULSE 65
--- NOTE | 2017-02-09 18:37 | PN ---
PULMONARY PROGRESS NOTE DATE: 02/09/2017 REFERRING PHYSICIAN: Salty Sorto MD SUBJECTIVE: The patient is sitting at the side of the bed. Still have some cough and shortness of breath. No nausea or vomiting. No diarrhea. Decreased leg swelling. PHYSICAL EXAMINATION GENERAL: No acute distress. VITAL SIGNS: Temperature is 98, heart rate is 68, respiratory rate is 18, blood pressure 120/65 and pulse oximetry is 98% on nasal cannula. HEENT: Moist mucous membranes. Crowded airway. NECK: Supple. No JVD. LUNGS: Has a scattered rhonchi. HEART: S1 and S2. ABDOMEN: Soft and nontender. No organomegaly. EXTREMITIES: Decreased edema. NEUROLOGIC: Awake and alert. Follow simple commands. MEDICATIONS: He is on Mucomyst 20% inhaled twice a day, Colace 100 mg twice a day, doxycycline 100 mg twice a day, Flomax 0.4 mg at bedtime, insulin coverage, Lasix 40 mg twice a day, Lipitor 20 mg daily, metoprolol tartrate 12.5 mg twice a day, Lovenox 40 mg subcutaneous daily, NicoDerm patch daily, Percocet 5/325 one tab q. 6 hours p.r.n., Remeron 30 mg at bedtime, Robitussin DM 5 mL three times a day, Robitussin with Codeine 5 mL at bedtime p.r.n., also Solu-Medrol 30 mg q. 12 hours, Xopenex inhaled q. 4 hours p.r.n. and Xopenex 0.63 four times a day [id number]. LABORATORY DATA: Reviewed and noted. Sodium 142, potassium 3.7, chloride 101, bicarbonate 33, BUN 30, creatinine 1.0, glucose 111, calcium is 8.6, AST is 51, ALT 38, alkaline phosphatase is 218, albumin 3.0. Shows blood culture and urine culture, there is no growth. IMPRESSION AND PLAN: Exacerbation of chronic obstructive lung disease, suspected sleep apnea syndrome, cardiomyopathy, valvular heart disease, history of coronary artery disease, diabetes, fluid overloaded. Spoke to the nurse practitioner this morning. Agree decreasing Solu-Medrol to 20 q. 12 hours. Continue inhaled bronchodilator. Antibiotics. Continue diuretics. The patient will benefit from TRCU type of services. Thank you and we will follow with you. Bon Sánchez MD [facility] # [id number]
--- NOTE | 2017-02-09 20:55 | CON ---
DATE: 02/09/[address] Parekh. CHIEF COMPLAINT: Prostate cancer. HISTORY OF PRESENT ILLNESS: The patient is a 81-year-old male seems sitting up in bed with family at the bedside, in no acute distress. Denies any pain with recent biopsy by Dr. 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 We are asked to consult as per Dr. Sorto with the patient also recently having had a bone scan done on 02/07/2017. 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 Further evidence for bony metastatic disease, osseous metastatic disease primarily affecting the appendicular skeleton, primarily bilateral femurs and shoulders. The patient is otherwise resting comfortably, in no acute distress. He was recommended to continue his care on TCU, which he refused as he is on tapering dose of the steroids and will be transferred to the medical floor as he is seen on telemetry floor at present. His shortness of breath is now improved. It should be noted that Dr. Pires reports his most recent PSA was 800. ALLERGIES: NO KNOWN ALLERGIES. MEDICATIONS: His medications at this point include acetylcysteine, Colace, doxycycline, Flomax, insulin sliding scale, Lasix, Lipitor, Lopressor, Lovenox, NicoDerm 14 mg, Percocet, Remeron, Robitussin DM, Solu-Medrol 30 IV q. 12 hours, and Xopenex nebulizer. PAST MEDICAL HISTORY: Significant for ASCVD with an ejection fraction of 35%, history of mitral valve endocarditis, mechanical mitral valve replacement, permanent pacer, BPH, recent diagnosis of bladder mass, type 2 diabetes now, also right femoral artery stent, COPD, chronic edema with lower extremities, hyperlipidemia, history of nephrolithiasis with hematuria, and sleep apnea. FAMILY HISTORY AND SOCIAL HISTORY: He is an active smoker, pack a day for at least 30 years. Denies alcohol use. 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 REVIEW OF SYSTEMS: A 12-point review of systems was done, which was negative except for items mentioned in the history of present illness. OBJECTIVE/PHYSICAL EXAMINATION: VITAL SIGNS: Temperature 98, pulse 68, respirations 18, blood pressure 129/63 with the pulse ox of 98%. HEENT: Unremarkable. NECK: Supple. HEART: Regular rate. LUNGS: Clear. ABDOMEN: Obese, soft, nontender. EXTREMITIES: +1 edema of the left greater than right feet of a chronic nature. NEUROLOGIC: Awake and alert, but lethargic. The patient speaks in a hoarse voice. LABORATORY DATA: The patient's labs were done to include a white blood cell count of 6.7, hemoglobin of 11.6, hematocrit of 34.5, platelet count of 202,000 with a chem metabolic panel showing a BUN of 30 with a normal creatinine of 1.0, alkaline phosphatase is 218, otherwise normal chem metabolic panel. His INR is 1.25 from 4 days prior as were these other labs except the chem panel. The other testings for this patient included an ultrasound lower extremities on 02/06/2017, which was read as negative. Chest x-ray was done on 02/06/2017 and it was read as no active disease; however, CAT scan of the chest would be preferred due to the patient's strong smoking history. The patient's other tests included the biopsy report as listed above. ASSESSMENT: For this patient is that of adenocarcinoma of the prostate, abnormal prostate specific antigen, diabetes mellitus, chronic obstructive pulmonary disease, atherosclerotic cardiovascular disease, status post mitral valve replacement, pacer, benign prostatic hypertrophy, tobacco abuse. PLAN: The plan for this patient is to continue present medical regimen with consult recommended for Radiation Oncology, Dr. Rochelle Cheng, also as his bone scan reports that there is atypical appearance would have presumed the metastatic disease. Dr. Parekh recommends that a bone survey completely done along with CT scan of the pelvis with bony windows to be compared with the bone scan of 02/07/2017. Further recommendations to be done once these tests are completed. The followup of this patient will be clinically and with labs. Prognosis for this patient is guarded. Rob Heredia MD
[2017-02-09] MEDS ORDERED: MethylPREDNISolone 40 mg Vial IVP SCH (22:00)
--- NOTE | 2017-02-10 13:25 | HP ---
DATE: 02/07/2017 CHIEF COMPLAINT: Short of breath, edema lower extremity. HISTORY OF PRESENT ILLNESS: This is a 81-year-old male smoker, COPD, on inhalers; coronary artery disease; bypass surgery; mitral valve replacement; prostate cancer recently diagnosed, came into the hospital with short of breath and edema in the lower extremity, here with problem *------* recently, compliance with medications and questionable and also BiPAP machine. Denies any fever. Denies any nausea or any vomiting. The patient has no other complaint, otherwise, he takes his inhalers on a regular basis. PAST MEDICAL HISTORY: As I mentioned, he had past medical and surgical history. He has coronary artery disease and bypass surgery. He had mitral valve replacement biological valve. He had also peripheral vascular disease. He has right femoral artery stenting and angioplasty done by Dr. Daniel Kate more than 10 years ago. Also, he has prostate biopsy recently done and proved there is prostate cancer. 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 He had x-rays, which was negative before and that. The patient also had hematuria, bladder biopsy done and was negative 2 years ago. At that time also his PSA was elevated. REVIEW OF SYSTEMS: As in the present illness, he also has some leg edema, short of breath, arthritis, back pain, and hip pain, which is chronic. His right hip has severe arthritis. He has also knee pain. The patient also has pseudogout, has been on medications, with joint pain. ALLERGIES: HE HAS NO KNOWN ALLERGIES. SOCIAL HISTORY: He lives himself in a senior citizen building and very supportive family members, daughters, and a son. PHYSICAL EXAMINATION: VITAL SIGNS: On 02/07/2017, Mr. Davin Venegas's temperature has of 97.9, heart rate is 70, blood pressure is 126/67, and respirations are 18. HEAD AND NECK: Normal. No JVD. No thyromegaly. CHEST: Diminished breath sounds, but few rhonchi. CARDIAC: First sound and second sound normal. ABDOMEN: Soft, obese, and nontender. EXTREMITIES: Bilateral foot and ankle edema above the ankle joint and below the knee. NEUROLOGIC: The patient moves all extremities. Alert, awake, and oriented x3. LABORATORY DATA: White count 6.7, hemoglobin 11.6, hematocrit 34.5, and platelets 202. Chemistry: Sodium 142, potassium 3.7, chloride 101, bicarb 33, BUN 30, creatinine is 1, and blood sugar 111. Liver function test is normal. Alkaline phosphatase is elevated. The patient has PT is 13.7, INR 1.25 slightly elevated, and PTT 30.4. The patient also had urinalysis, which shows 25-30 red blood cells and 10 to 15 white blood cells. Blood culture and urine culture has been sent. IMPRESSION AND PLAN: 1. The patient is a 81-year-old male who came in with short of breath, leg edema, has a history of cardiac disease, lung disease, obstructive sleep apnea, and questionable compliance with the CPAP and home medications; however, he came in with short of breath. We will admit the patient with acute chronic obstructive pulmonary disease on exacerbation and also congestive heart failure. We will give him Lasix, IV steroids, and bronchodilators. Pulmonary consult and Cardiology consult for further evaluations. BiPAP machine at night. 2. The patient has prostate biopsy, positive for prostate cancer. I will get a bone scan to reevaluate. It will not surprise me his bone scan results most likely it is going to be positive; however, I will discuss these results with Dr. Parekh for further assistance and help. 3. Urinary tract infection: We will get urine culture. 4. Congestive heart failure: Continue Lasix. Continue cardiac medications. 5. Chronic osteoarthritis in his hip: We will continue Percocet p.r.n. one every 6 hours p.r.n. He is still active smoking. We will give him nicotine patch. Continue GI and DVT prophylaxis. The patient had Lovenox 40 subcu daily and we will put him on Protonix. 6. Possible urinary tract infection: Continue doxycycline. He got Rocephin. We will follow up with ID consultation Dr. Arnold also. 7. Hypercholesterolemia: Continue Lipitor. 8. Diabetes type 2: Continue insulin coverage. We will follow up clinically. Salty Sorto MD
--- NOTE | 2017-02-10 13:32 | DS ---
HISTORY OF PRESENT ILLNESS: The patient came in with acute short of breath, found to have acute COPD exacerbation. The patient had an echocardiogram, shows preserved good LV function with mitral valve repair. No vegetations that was done previous admissions. The patient also had been seen by Cardiology, Dr. Caba, and also seen by logistics planning manager, Dr. Sánchez. ID consult has also seen the patient and he was on doxycycline, Rocephin, and the patient seems doing very well and his blood culture, urine cultures came back negative. The patient was stable on IV Lasix 40 b.i.d., IV steroid 30 mg q. 8 hours, inhaled bronchodilators by Mucomyst for coughing and nebulizer treatment at least 4 times a day. Seems doing well, improving clinically and we will give him nicotine patch for smoking cessations. Also, multiple times advised to discontinue smoking, but he has poor compliance with that. The patient's sugar seems stable. We will continue current treatment, and we will follow up clinically. At this time on discharge, the patient seems stable, comfortable, eating well, breathing comfortably, his legs edema is improved significantly. He is sitting with his brother, talking, in no distress and no other complaints. PHYSICAL EXAMINATION: On 02/09/2017: VITAL SIGNS: His temperature 98, heart rate 68, blood pressure 129/63, respirations 18. HEAD AND NECK: Normal. No JVD. No thyromegaly. CHEST: Clear. Good air entry. CARDIAC: First sound and second sound normal. ABDOMEN: Soft, nontender. EXTREMITIES: Mild edema above the ankle. NEUROLOGIC: He moves all extremities. He is alert, awake, oriented x3. LABORATORY DATA: The patient had chemistry on the day, which shows sodium 142, potassium 3.7, chloride 101, bicarbonate 33, BUN 30, creatinine 1, blood sugar 111, calcium is 8.6. Liver enzymes seems normal. His alkaline phosphatase is mildly elevated. He also has albumin 3, globulin 3.1, albumin globulin ratio is low 0.9. The patient also had recent prostate biopsy as an outpatient, came back Newcomb score of 9 and was positive for malignancy. He also had bone scan, which shows positive for atypical mix and also the patient had cultures including urine, blood and all of them came back negative. He does have a good urine output, seems stable. DISCHARGE DIAGNOSES: 1. Acute chronic obstructive pulmonary disease exacerbation. 2. Chronic heart failure or cor pulmonale probably mild in nature. We will continue Lasix to keep his leg down, probably diastolic dysfunction. 3. Chronic leg edema, possibly pulmonary reason or cardiac. The patient has venous Doppler, which was negative. 4. Prostate cancer. 5. Hematuria, bacteriuria negative. PLAN: To continue IV antibiotic for 5 more days. We will transfer the patient to TCU for continuation of physical therapy. We will get Dr. Parekh to see him for further treatment plan for his prostate. Discussed with the patient in detail, we will test results. He understands and we will follow up clinically. Salty Sorto MD
== END 2017-02-09 18:07 | DRG 191 ==
LOC: ED 13:11 → ERH 15:24 → 2RSO 17:00 → OBSVTOIN 02-07 15:34
PROVIDERS: ADMIT Internal Medicine; ATTEND Internal Medicine
PROC: 5A09357 Assistance with Respiratory Ventilation, Less than 24 Consecutive Hours, Continuous Positive Airway Pressure (ICD-10-PCS; principal; 2017-02-06)
DX: J44.1 Chronic obstructive pulmonary disease with (acute) exacerbation (principal); I13.0 Hypertensive heart and chronic kidney disease with heart failure and stage 1 through stage 4 chronic kidney disease, or unspecified chronic kidney disease; I50.32 Chronic diastolic (congestive) heart failure; I42.9 Cardiomyopathy, unspecified; N39.0 Urinary tract infection, site not specified; C61 Malignant neoplasm of prostate; E11.22 Type 2 diabetes mellitus with diabetic chronic kidney disease; N18.9 Chronic kidney disease, unspecified; E11.51 Type 2 diabetes mellitus with diabetic peripheral angiopathy without gangrene; I27.81 Cor pulmonale (chronic); I25.10 Atherosclerotic heart disease of native coronary artery without angina pectoris; M19.041 Primary osteoarthritis, right hand; M19.042 Primary osteoarthritis, left hand; F17.200 Nicotine dependence, unspecified, uncomplicated; G47.33 Obstructive sleep apnea (adult) (pediatric); E78.00 Pure hypercholesterolemia, unspecified; N40.0 Benign prostatic hyperplasia without lower urinary tract symptoms; E87.6 Hypokalemia; Z95.0 Presence of cardiac pacemaker; Z95.3 Presence of xenogenic heart valve; Z79.82 Long term (current) use of aspirin; Z79.84 Long term (current) use of oral hypoglycemic drugs; Z95.1 Presence of aortocoronary bypass graft; Z87.442 Personal history of urinary calculi

== ENCOUNTER 2017-02-09 18:07 | Inpatient (IN) | payer MEDICAID, MEDICARE, OTHER ==
[2017-02-09] MEDS ORDERED: Levalbuterol 0.63 MG/3 ML Inhal Soln UD IH PRN (20:54)
[2017-02-09] MEDS ORDERED: guaiFENesin-Codeine 100-10mg/5ml Syrup (5 ml) UD PO PRN (20:54)
[2017-02-09] MEDS: MethylPREDNISolone 40 mg Vial IVP SCH (21:44)
[2017-02-09] MEDS: Oxycodone/Acetaminophen 5/325 mg Tab PO PRN (21:47)
[2017-02-09] MEDS: Insulin Reg-LOW-Coverage SC SCH (22:14)
[2017-02-09 22:39] VITALS: BMI 25.9
[2017-02-10] MEDS: Insulin Reg-LOW-Coverage SC SCH ×4 (06:34→22:09)
[2017-02-10 06:35] LABS: ALKALINE PHOSPHATASE 193 U/L (38-126); ALT/SGPT 62 U/L (7-56); AST/SGOT 64 U/L (17-59); BILIRUBIN,TOTAL 0.5 mg/dL (0.2-1.3); BLOOD UREA NITROGEN 38 mg/dL (7-21); CALCIUM 8.8 mg/dL (8.4-10.5); CARBON DIOXIDE 35 mmol/L (21-33); CHLORIDE 101 mmol/L (98-107); GFR AFRICAN-AMERICAN > 60; GLUCOSE,RANDOM 100 mg/dL (70-110); POTASSIUM 4.4 mmol/L (3.6-5.0); SODIUM 140 mmol/L (132-148); TOTAL PROTEIN 6.2 g/dL (5.8-8.3)
[2017-02-10 06:42] LABS: BASO # 0.02 K/mm3 (0.0-2.0); BASO % 0.2 % (0.0-3.0); EOS % 0.1 % (1.5-5.0); GRAN # 7.35 (1.4-6.5); GRAN % 70.7 % (50.0-68.0); HEMATOCRIT 34.4 % (42.0-52.0); LYMPH # 2.3 (1.2-3.4); MEAN CELL VOLUME 81.9 fl (80.0-105.0); MEAN CORPUSCULAR HEMOGLOBIN 26.4 pg (25.0-35.0); MEAN CORPUSCULAR HGB CONC 32.3 g/dl (31.0-37.0); MEAN PLATELET VOLUME 9.6 fl (7.0-11.0); MONO # 0.7 (0.1-0.6); WHITE BLOOD COUNT 10.4 10^3/ul (4.5-11.0)
--- NOTE | 2017-02-10 08:40 | CON ---
DATE: 02/10/2017 The patient was seen in #[id number] earlier this morning. CHIEF COMPLAINT: Weakness. HISTORY OF PRESENT ILLNESS: This is a 81-year-old male with past medical history significant for diabetes mellitus, coronary artery disease, chronic obstructive lung disease who is admitted to the acute care with probable congestive heart failure. The patient also had a history of mitral valve endocarditis requiring a mitral valve replacement, also with a coronary artery bypass graft and a pacemaker. The patient was found to have pyuria in the urinalysis but no symptoms. REVIEW OF SYSTEMS: Reveals no fevers and no chills. No nausea, no vomiting, no chest pain. The patient is doing better. PAST MEDICAL HISTORY: Significant for diabetes mellitus, coronary artery disease, chronic obstructive lung disease, history of mitral valve endocarditis. PAST SURGICAL HISTORY: Significant for mitral valve replacement, pacemaker placement and coronary artery bypass graft. ALLERGIES: THE PATIENT HAS NO KNOWN ALLERGIES. MEDICATIONS: Reviewed. PHYSICAL EXAMINATION: VITAL SIGNS: Temperature is 98, blood pressure is 120/70, respiratory rate of 18, heart rate of 80. HEENT: Examination of HEENT is unremarkable. NECK: Supple. LUNGS: Have decreased breath sounds. HEART: Normal S1, S2. ABDOMEN: Soft, nontender. No rebound, no guarding. No masses. LABORATORY DATA: Reveals the patient has a white count of 10,000, hemoglobin of 11, platelets of 235. Chemistries reveals a BUN of 38, creatinine is 1.2, anion gap is 8, alk phos is elevated. Urinalysis is noted. Microbiology reveals the blood cultures and urine cultures are negative. In June, the patient did have a coag-negative staph in 2 bottles of blood cultures. ASSESSMENT AND PLAN: This is a 81-year-old male with past medical history of coronary artery disease and history of mitral valve replacement because of mitral valve endocarditis, history of chronic obstructive lung disease, diabetes mellitus and who is admitted with shortness of breath and found to have pyuria with negative cultures, no urinary symptoms. Chest x-ray was negative except for congestive heart failure in the setting of mitral valve endocarditis and mitral valve replacement. All cultures negative, and the patient is on doxycycline. We will complete a short course of therapy, and we will follow closely with you. Most likely, we will discontinue the doxycycline in the next 24-48 hours. The patient is also on Solu-Medrol. Conrad Arnold MD [facility] # [id number]
[2017-02-10] MEDS: Levalbuterol 0.63 MG/3 ML Inhal Soln UD IH SCH ×4 (09:28→20:55)
[2017-02-10] MEDS: Acetylcysteine 20% Inhal Soln (4ml) IH SCH ×2 (09:28→20:55)
--- NOTE | 2017-02-10 09:36 | CP.PCM.CON ---
History of Present Illness - History of Present Illness History of Present Illness: Mr Venegas is a 81 year old gentleman with multiple comorbidities including CAD status post CABG, DM, COPD who came to the ER with shortness of breath and leg swelling. He also reports that he has been followed by Dr Pires for the past few months for hematuria and issues with urination. During his hospitalization , she had a TRUS with biopsy on February 02, 2017 which revealed Ryan 9. A bone scan on February 07 showed an atypical appearance to the bone which was presumed to possibly be metastases. As per another note, his PSA was reportedly over 800, however we cannot find a current PSA to confirm this value. He denies any pain. Review of Systems - Respiratory Respiratory: Dyspnea, Dyspnea on Exertion Past Patient History - Infectious Disease Hx of Infectious Diseases: None - Tetanus Immunizations Tetanus Immunization: Unknown - Past Social History Smoking Status: Former Smoker Home Situation {Lives}: Alone - CARDIAC Hx Cardiac Disorders: Yes (CAD,CABG,MVR,PROSTHETIC MITRAL VALVE) Hx Hypertension: Yes - PULMONARY Hx Chronic Obstructive Pulmonary Disease (COPD): Yes - NEUROLOGICAL Hx Neurological Disorder: No - HEENT Hx HEENT Problems: Yes - RENAL Hx Renal Failure: Yes - ENDOCRINE/METABOLIC Hx Diabetes Mellitus Type 2: Yes - HEMATOLOGICAL/ONCOLOGICAL Hx Blood Disorders: Yes - INTEGUMENTARY Hx Dermatological Problems: Yes (BILATERAL LEG EDEMA +2 MORE TO RIGHT LEG.) Hx Eczema: Yes - MUSCULOSKELETAL/RHEUMATOLOGICAL Hx Falls: Yes - GASTROINTESTINAL Hx Gastrointestinal Disorders: Yes Hx Crohn's Disease: Yes - GENITOURINARY/GYNECOLOGICAL Hx Reproductive Disorders: No - PSYCHIATRIC Hx Emotional Abuse: No Hx Physical Abuse: No - SURGICAL HISTORY Hx Surgeries: Yes (PACEMAKER,PROSTHETIC MITRAL VALVE,CABG,CYSTO) Hx Open Heart Surgery: Yes - ANESTHESIA Hx Anesthesia Reactions: No Hx Malignant Hyperthermia: No Meds Allergies/Adverse Reactions: Allergies Allergy/AdvReac Type Severity Reaction Status Date / Time No Known Allergies Allergy Verified 02/09/17 20:53 - Medications Medications: Current Medications Acetylcysteine (Acetylcysteine 20%) 4 ml IH BIDRESP EFRAIN Last Admin: 02/10/17 09:28 Dose: 4 ml Atorvastatin Calcium (Lipitor) 20 mg PO DIN EFRAIN Docusate Sodium (Colace) 100 mg PO BID EFRAIN Doxycycline Hyclate (Doryx) 100 mg PO Q12 EFRAIN PRN Reason: Protocol Last Admin: 02/09/17 21:43 Dose: 100 mg Enoxaparin Sodium (Lovenox) 40 mg SC DAILY [facility] PRN Reason: Protocol Furosemide (Lasix) 40 mg PO BID [facility] Guaifenesin/Codeine Phosphate (Robitussin W/Codeine) 5 ml PO HS PRN PRN Reason: Cough and congestion Guaifenesin/Dextromethorphan (Robitussin Dm) 5 ml PO TID [facility] Insulin Human Regular (Humulin R Low) 0 units SC ACHS [facility] PRN Reason: Protocol Last Admin: 02/10/17 06:34 Dose: Not Given Levalbuterol HCl (Xopenex) 0.63 mg IH [id number] PRN PRN Reason: Shortness of Breath Levalbuterol HCl (Xopenex) 0.63 mg IH QIDRESP [facility] Last Admin: 02/10/17 09:28 Dose: 0.63 mg Methylprednisolone (Solu-Medrol) 30 mg IVP Q12 [facility] Last Admin: 02/09/17 21:44 Dose: 30 mg Metoprolol Tartrate (Lopressor) 12.5 mg PO BID [facility] Mirtazapine (Remeron) 30 mg PO HS [facility] Last Admin: 02/09/17 21:43 Dose: 30 mg Nicotine (Nicoderm Cq) 1 patch TD DAILY [facility] Oxycodone/Acetaminophen (Percocet 5/325 Mg Tab) 1 tab PO Q6H PRN PRN Reason: Pain, moderate (4-7) Stop: 02/12/17 20:55 Last Admin: 02/09/17 21:47 Dose: 1 tab Pantoprazole Sodium (Protonix Ec Tab) 40 mg PO ACB [facility] Tamsulosin HCl (Flomax) 0.4 mg PO HS [facility] Last Admin: 02/09/17 21:43 Dose: 0.4 mg Physical Exam - Head Exam Head Exam: NORMAL INSPECTION - Eye Exam Eye Exam: EOMI - Neck Exam Neck exam: Positive for: Normal Inspection - Respiratory Exam Respiratory Exam: Clear to Auscultation Bilateral - Cardiovascular Exam Cardiovascular Exam: REGULAR RHYTHM - GI/Abdominal Exam GI & Abdominal Exam: Normal Bowel Sounds - Neurological Exam Neurological exam: Alert, CN II-XII Intact, Oriented x3 Results - Vital Signs Recent Vital Signs: Last Vital Signs Temp Pulse Resp 19 02/09/17 18:41 BP Pulse Ox - Labs Result Diagrams: 02/10/17 05:45 02/10/17 05:45 Labs: Laboratory Results - last 24 hr 02/10/17 02/10/17 02/10/17 05:00 05:45 05:45 WBC 10.4 D RBC 4.20 Hgb 11.1 L Hct 34.4 L MCV 81.9 MCH 26.4 MCHC 32.3 RDW 23.0 H Plt Count 235 MPV 9.6 Gran % 70.7 H Lymph % (Auto) 22.0 [place] % (Auto) 7.0 H Eos % (Auto) 0.1 L Baso % (Auto) 0.2 Gran # 7.35 H Lymph # 2.3 [place] # 0.7 H Eos # 0.0 Baso # 0.02 Sodium 140 Potassium 4.4 Chloride 101 Carbon Dioxide 35 H Anion Gap 8 L BUN 38 H Creatinine 1.2 Est GFR ( Amer) > 60 Est GFR (Non-Af Amer) 58 POC Glucose (mg/dL) 115 H Random Glucose 100 Calcium 8.8 Total Bilirubin 0.5 AST 64 H D ALT 62 H Alkaline Phosphatase 193 H Total Protein 6.2 Albumin 3.1 Globulin 3.2 Albumin/Globulin Ratio 1.0 L Assessment & Plan - Assessment and Plan (Free Text) Assessment: Mr Venegas is a 81 year old gentleman with a high risk prostate cancer, Ryan 9. If his PSA is over 800, his bone scan findings are most likely real even though they have an atypical appearance. He is currently asymptomatic from his bone metastases. In light of this, there is no role for radiation at this time. He will need androgen deprivation therapy as well as bisphosphonates for his bone metastases. We relayed our recommendation to the patient as well.
[2017-02-10] MEDS: Pantoprazole 40 mg EC Tab PO SCH (10:54)
[2017-02-10] MEDS: Enoxaparin 40 mg Syringe SC SCH (10:55)
[2017-02-10] MEDS: MethylPREDNISolone 40 mg Vial IVP SCH ×2 (10:56→21:52)
[2017-02-10] MEDS: guaiFENesin DM 100 mg-10 mg/5 ml UD PO SCH ×3 (10:56→17:07)
--- NOTE | 2017-02-10 13:36 | CON ---
HOSPITAL CONSULTATION DATE: 02/10/2017 This is Davin Venegas' TCU consult for Dr. Parekh. CHIEF COMPLAINT: Prostate cancer. HISTORY OF PRESENT ILLNESS: The patient is a 81-year-old male seen sitting up in a chair with family at the bedside with no pain despite significantly positive findings for prostate cancer on biopsies done by Dr. Pires, Urology on 02/02/2017. With this, the patient is now on transitional care for transition of his IV steroids and with reconditioning as per Dr. Sorto. Consult with Dr. Rochelle Cheng was done with a PSA to be ordered as there is no recent PSA on the chart with the most recent one of greater than 800. With this, the patient is otherwise in no acute distress. ALLERGIES: NO KNOWN ALLERGIES. MEDICATIONS: At this time include acetylcysteine, Colace, doxycycline, Flomax, sliding scale insulin, Lasix, Lipitor, Lopressor, Lovenox, Nicoderm, Percocet, Protonix, Remeron, Robitussin DM, Solu-Medrol, Xopenex. FAMILY HISTORY AND SOCIAL HISTORY: The patient is a current smoker at least a pack a day for 30 years. Denies alcohol use. 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 PAST MEDICAL HISTORY: Significant for ASCVD with an ejection fraction of 35%, history of mitral valve endocarditis, mechanical mitral valve replacement, permanent pacer, BPH, bladder mass. Also, type 2 diabetes, right femoral artery stent, COPD, chronic edema of the lower extremities, hyperlipidemia, history of nephrolithiasis with hematuria, sleep apnea and now prostate cancer. REVIEW OF SYSTEMS: Twelve-point review of systems was done, which was negative except as positive findings in the history of present illness. OBJECTIVE PHYSICAL EXAMINATION: VITAL SIGNS: Temperature 98, pulse 79, respirations 19, blood pressure 117/68 with a pulse ox of 98%. HEENT: Unremarkable. NECK: Supple. The patient speaks with a deep hoarse voice. No change in that respect. HEART: Regular rate with a pacer. LUNGS: Clear. ABDOMEN: Obese, soft, nontender. EXTREMITIES: +1 edema, left greater than right lower extremities of chronic nature. NEUROLOGIC: Awake, alert and oriented. SKIN: Warm, dry and clear. LABORATORY DATA: The patient's labs were done. White blood cell count of 10.4, hemoglobin 11.1, hematocrit 34.4, platelet count 235,000 with a chem metabolic panel within normal limits except for BUN of 38, normal creatinine of 1.2. AST of 64, ALT of 62. ASSESSMENT: The assessment for this patient is that of newly diagnosed prostate cancer, deconditioning, atherosclerotic cardiovascular disease with mitral valve replacement, history of endocarditis, chronic obstructive pulmonary disease, diabetes mellitus, history of pacemaker, chronic pedal edema, benign prostatic hypertrophy, tobacco abuse, history of nephrolithiasis with hematuria. PLAN: Plan for this patient after conversation with Dr. Parekh is to check a CT scan of the pelvis with bony widows, also bone survey. The patient has a history of a pulmonary nodule. We will also add a CT of the chest at this time with continuation of his present medical regimen as per natural remedy consultant's recommendations. Also, reconditioning as per Dr. Sorto with the patient to be followed by labs and clinically with a repeat PSA to be done with treatment as per Dr. Parekh once the patient is stable. Rob Heredia MD
--- NOTE | 2017-02-10 14:39 | CT ---
PROCEDURE: CT Chest, Abdomen and Pelvis without intravenous contrast HISTORY: lung nodule COMPARISON: 11/14/2016 TECHNIQUE: Radiation dose: Total exam DLP = 1118 mGy-cm. This CT exam was performed using one or more of the following dose reduction techniques: Automated exposure control, adjustment of the mA and/or kV according to patient size, and/or use of iterative reconstruction technique. FINDINGS: CT CHEST WITHOUT CONTRAST: LUNGS: Small nodules are seen at the right lung base measuring 5 mm in diameter. These are unchanged. MEDIASTINUM: Unremarkable. Normal caliber aorta and pulmonary arterial trunk. Normal size heart. Coronary artery calcifications are seen as well as aortic calcifications LYMPH NODES: Unremarkable. PLEURA: Unremarkable. No pneumothorax. No pleural fluid. BONES: Unremarkable. OTHER FINDINGS: None. CT ABDOMEN AND PELVIS: LIVER: Unremarkable. No gross lesion or ductal dilatation. GALLBLADDER AND BILE DUCTS: Unremarkable. PANCREAS: Unremarkable. No gross lesion or ductal dilatation. SPLEEN: Unremarkable. ADRENALS: Unremarkable. No mass. KIDNEYS AND URETERS: There is a small nonobstructing 2 mm stone in the left kidney. The previous study showed right-sided hydronephrosis and hydroureter. This has resolved. VASCULATURE: Unremarkable. No aortic aneurysm. BOWEL: Unremarkable. No obstruction. No gross mural thickening. APPENDIX: Normal appendix. PERITONEUM: Unremarkable. No free fluid. No free air. There is a left inguinal hernia that contains some fluid. LYMPH NODES: Unremarkable. No enlarged lymph nodes. BLADDER: There is mural thickening in the bladder REPRODUCTIVE: The prostate is enlarged and invaginate the bladder. BONES: Severe degenerative changes are seen in both hips. OTHER FINDINGS: Degenerative changes are seen in the thoracic spine. IMPRESSION: Small lung nodules at the right lung base unchanged. No acute findings
--- NOTE | 2017-02-10 19:34 | CON ---
PULMONARY CONSULTATION DATE: 02/10/2017 REFERRING PHYSICIAN: Salty Sorto MD REASON FOR CONSULTATION: Chronic obstructive lung disease, pulmonary hypertension. HISTORY OF PRESENT ILLNESS: This is a 81 years old gentleman with history of cardiomyopathy, valvular heart disease, heart failure, chronic obstructive lung disease, suspected sleep apnea syndrome, history of coronary artery bypass surgery, history of mitral valve replace, admitted to the acute side of the hospital with chronic obstructive lung disease, heart failure, treated with antibiotics, IV and inhaled bronchodilator, diuretics and was feeling better. Now admitted to TICU for continue care. Still has some cough and shortness breath. No nausea, no vomiting, no diarrhea. PAST MEDICAL HISTORY: Cardiomyopathy, valvular heart disease, coronary artery disease, chronic obstructive lung disease, diabetes, and suspected sleep apnea syndrome. ALLERGIES: NONE KNOWN. SOCIAL HISTORY: Active smoker. Denies any alcohol use. FAMILY HISTORY: No significant cardiopulmonary disease reported. MEDICATIONS: He is on Mucomyst 20% inhaled twice a day, Colace 100 mg twice a day, doxycycline 100 mg twice a day, Flomax 0.4 mg h.s., insulin coverage, Lasix 40 mg twice a day, Lipitor 20 mg daily, metoprolol tartrate 12.5 mg twice a day, Lovenox 40 mg daily, Nicoderm patch daily, Percocet 5/225 one tablet q.6 h. p.r.n., Protonix 40 mg daily, Remeron 30 mg h.s., Robitussin DM 5 mL three times a day, Robitussin with codeine q.h.s. p.r.n., Solu-Medrol 30 mg q.12 h., Xopenex inhaled q.4 h. p.r.n. and q.i.d. around the clock. REVIEW OF SYSTEMS: No headache. No rhinitis. Has some cough and shortness of breath. No nausea. No vomiting. No diarrhea. Ankle swelling is much better. PHYSICAL EXAMINATION: GENERAL: Lying in the bed, no acute distress. VITAL SIGNS: Temperature is 98, heart rate is 62, respiratory rate is 21, blood pressure 130/80, pulse ox 95% on nasal cannula. HEENT: Moist mucous membranes. Crowded airway. Mallampati score is 4. NECK: Supple. No JVD. LUNGS: Has a fair airflow with rhonchi. HEART: S1, S2. ABDOMEN: Soft, nontender, no organomegaly. EXTREMITIES: Does have some ankle edema. NEUROLOGIC: Awake, alert and follows simple commands. LABORATORY DATA: Shows hemoglobin 11.1, hematocrit 34.4, WBC 10.4, platelet is 235. Sodium 140, potassium 4.4, chloride 101, bicarbonate 35, BUN 38, creatinine is 1.2, glucose 100, calcium is 8.8, AST 64, ALT 62, alk phos is 193. Albumin is 3.1. Microbiology; blood culture and urine culture, there is no growth. Had a CAT scan of the abdomen and pelvis done which shows small lung nodule at the right lung base, unchanged. No acute other finding reported. IMPRESSION AND PLAN: Exacerbation of chronic obstructive lung disease, suspected sleep apnea syndrome, cardiomyopathy, valvular heart disease, history of coronary artery disease with diabetes, fluid overloaded, history of prostate cancer, has a small lung nodule on the CT of the abdomen. Pulmonary point of view, doing okay. Keep IV and inhaled bronchodilator, gastric prophylaxis, deep venous thrombosis prophylaxis, sleep apnea precaution, avoid sedation, follow up x-rays to assure the stability of lung nodule. Thank you and we will follow with you. Bon Sánchez MD
[2017-02-10] MEDS: Oxycodone/Acetaminophen 5/325 mg Tab PO PRN (21:53)
[2017-02-11] MEDS: Insulin Reg-LOW-Coverage SC SCH ×2 (06:34→12:42)
[2017-02-11 07:17] LABS: BASO # 0.04 K/mm3 (0.0-2.0); BASO % 0.4 % (0.0-3.0); EOS % 0.2 % (1.5-5.0); GRAN # 7.7 (1.4-6.5); GRAN % 67.7 % (50.0-68.0); HEMATOCRIT 37.9 % (42.0-52.0); LYMPH # 2.7 (1.2-3.4); LYMPH % 23.7 % (22.0-35.0); MEAN CELL VOLUME 82.2 fl (80.0-105.0); MEAN CORPUSCULAR HEMOGLOBIN 26.7 pg (25.0-35.0); MEAN CORPUSCULAR HGB CONC 32.5 g/dl (31.0-37.0); MEAN PLATELET VOLUME 9.4 fl (7.0-11.0); MONO # 0.9 (0.1-0.6); RED CELL DISTRIBUTION WIDTH 23.4 % (11.5-14.5); WHITE BLOOD COUNT 11.4 10^3/ul (4.5-11.0)
[2017-02-11] MEDS: Pantoprazole 40 mg EC Tab PO SCH (07:39)
[2017-02-11 07:49] LABS: ALKALINE PHOSPHATASE 201 U/L (38-126); ALT/SGPT 56 U/L (7-56); AST/SGOT 57 U/L (17-59); BILIRUBIN,TOTAL 0.6 mg/dL (0.2-1.3); BLOOD UREA NITROGEN 44 mg/dL (7-21); CALCIUM 8.9 mg/dL (8.4-10.5); CARBON DIOXIDE 34 mmol/L (21-33); CHLORIDE 101 mmol/L (98-107); GFR AFRICAN-AMERICAN > 60; GLUCOSE,RANDOM 72 mg/dL (70-110); POTASSIUM 4.4 mmol/L (3.6-5.0); SODIUM 141 mmol/L (132-148); TOTAL PROTEIN 6.2 g/dL (5.8-8.3)
[2017-02-11] MEDS: Acetylcysteine 20% Inhal Soln (4ml) IH SCH ×2 (08:20→20:16)
[2017-02-11] MEDS: Levalbuterol 0.63 MG/3 ML Inhal Soln UD IH SCH ×4 (08:22→20:17)
[2017-02-11] MEDS: Enoxaparin 40 mg Syringe SC SCH (10:09)
[2017-02-11] MEDS: MethylPREDNISolone 40 mg Vial IVP SCH ×2 (10:10→21:03)
[2017-02-11] MEDS: guaiFENesin DM 100 mg-10 mg/5 ml UD PO SCH ×3 (10:10→17:11)
--- NOTE | 2017-02-11 11:06 | PN ---
DATE: 02/11/2017 SUBJECTIVE: The patient was seen in room 304. No fevers, no chills. PHYSICAL EXAMINATION: VITAL SIGNS: Temperature is 98, blood pressure is 111/50, and respiratory rate of 18. HEENT: Unremarkable. NECK: Supple. LUNGS: Decreased breath sounds. HEART: Normal S1 and S2. ABDOMEN: Soft and nontender. LABORATORY DATA: Reveals the patient's white count of 11,400, hemoglobin of 12, and platelets of 228. Chemistries reveals BUN of 44 and creatinine of 1.2. Microbiology review is noted and review of orders reveals the patient is on p.o. doxycycline. The patient is also on Solu-Medrol. ASSESSMENT AND PLAN: A 81-year-old male with past medical history of coronary artery disease, history of mitral valve replacement and mitral valve endocarditis, history of chronic obstructive lung disease, and diabetes mellitus who was admitted with shortness of breath, found to have pyuria, negative cultures, no urinary symptoms. Chest x-ray is negative except for congestive heart failure in the setting of mitral valve endocarditis by history and mitral valve replacement by history. The patient is on doxycycline and we will discontinue the doxycycline at this point. We will follow the patient off of antibiotics and the patient is at risk for developing nosocomial infections. Follow the fever curve and temperature. Conrad Arnold MD
[2017-02-11 11:53] LABS: URINE BILIRUBIN NEGATIVE (NEGATIVE); URINE BLOOD LARGE (NEGATIVE); URINE GLUCOSE (UA) NEGATIVE (NEGATIVE); URINE KETONE NEGATIVE (NEGATIVE); URINE LEUKOCYTE ESTERASE TRACE Leu/uL (NEGATIVE); URINE PROTEIN NEGATIVE mg/dL (<30 mg/dL); URINE UROBILINOGEN 0.2 E.U./dL (<1 E.U./dL)
[2017-02-11 12:08] LABS: URINE APPEARANCE CLEAR (CLEAR); URINE COLOR YELLOW (YELLOW)
[2017-02-11 12:09] LABS: URINE BACTERIA FEW (NEG); URINE EPITHELIAL CELLS 0 - 2 /hpf (0-5); URINE RBC 25 - 30 /hpf (0-2)
--- NOTE | 2017-02-11 13:11 | RAD ---
PROCEDURE: Bone survey complete HISTORY: r/o mets COMPARISON: Bone scan 02/07/2017 TECHNIQUE: A complete bone scan was performed and compare to the recent bone scan FINDINGS: There is an unusual pattern of bony sclerosis and cortical thickening in both proximal femurs and humeri. This is not a typical pattern for metastatic disease and could be secondary to fibrous dysplasia or Paget's disease. There is no evidence of thickening of the iliopectineal line in the pelvis which is usually present in Paget's disease. Atypical pre is not a rutherford of metastatic disease is also possible. The plain film findings are nonspecific. Severe degenerative changes are seen in both hips with flattening of the femoral heads and bony sclerosis. IMPRESSION: There is an unusual pattern of bony sclerosis and cortical thickening in both proximal femurs and humeri. This is not a typical pattern for metastatic disease and could be secondary to fibrous dysplasia or Paget's disease. Atypical metastatic disease is also possible
[2017-02-11] MEDS: Oxycodone/Acetaminophen 5/325 mg Tab PO PRN ×2 (13:45→20:52)
--- NOTE | 2017-02-11 14:14 | PN ---
DATE: 02/11/2017 This is [facility]'s [facility] visit on TCU for Dr. Parekh. SUBJECTIVE: The patient is a 81-year-old male seen sitting up in his chair reporting some lightheadedness after ambulating earlier today. Otherwise in no acute distress, with the patient now known to have prostate cancer as per recent biopsy by Dr. Pires. The patient is now on Transitional Care floor where participating with TCU protocol for reconditioning. He is otherwise resting comfortably with his initial hospitalization for evaluation of shortness of breath which is now improved. The patient also is known to have significant cardiac compromise with the patient being status post bypass surgery with prosthetic mitral valve, hypertension, pacer,and tobacco abuse as per Dr. Caba. OBJECTIVE/PHYSICAL EXAMINATION: VITAL SIGNS: Temperature is 97.9, pulse is 81, respirations are 20, blood pressure is 119/58, and pulse oximetry is 95%. HEENT: Unremarkable. NECK: Supple. HEART: Paced rate,and regular rhythm. LUNGS: Occasional rhonchi. ABDOMEN: Obese, soft, and nontender. EXTREMITIES: No change. Chronic +1 edema of the feet. NEUROLOGIC: Awake and alert. SKIN: Warm and dry. LABORATORY DATA: The patient's labs were done white blood cell count of 11.4, hemoglobin of 12.3, hematocrit of 37.9, and platelet count of 228,000. With a chem metabolic panel showing a BUN of 44 with a creatinine of 1.2, with a nonfasting glucose of 61, and alkaline phosphatase is 201. PSA was done, it was 611. His urinalysis again shows large amount of blood, and trace of leukocytes esterase. ASSESSMENT: The assessment for this patient is that of newly diagnosed prostate cancer, prostate-specific antigen of 611, severe atherosclerotic cardiovascular disease status post bypass surgery with mitral valve surgery status post pacer, diabetes mellitus, hypertension, chronic peripheral vascular disease, tobacco abuse, nephrolithiasis and history of hematuria. The patient did have a CT scan of the chest, abdomen and pelvis done yesterday with request for bony windows on the sacrum, however, it is unclear whether this order was transcribed as it was originally written and recommended to the CAT Scan Department for bony windows to be done on his bone testing. The Impression was small lung nodules at the right lung base unchanged, no acute findings, bone severe degenerative changes seen in both hips. We will contact the CAT Scan Department to see bony windows were indeed done with this particular scan. Also the patient had bone survey done, it is not read as of yet. PLAN: Plan for this patient after conversation with Dr. Parekh is to continue the present medical regimen with Dr. Rochelle Cheng, Radiation planning consultant recommending to hold off radiation as the patient is not symptomatic at this time with androgen deprivation therapy and bisphosphonates to be considered. He will continue his reconditioning on TCU with his blood sugar to be repeated as this may have been the reason for his lightheadedness with the patient being on a sliding scale insulin coverage with low coverage ordered, with no diabetic medication listed, and the patient be on Solu-Medrol 30 mg q. 12 hours. We will monitor clinically with labs. Rob Heredia MD
--- NOTE | 2017-02-11 20:56 | PN ---
DATE: 02/11/2017 REFERRING PHYSICIAN: Salty Sorto MD SUBJECTIVE: The patient is sitting up in the chair. Night was unremarkable, feels a little better, still has some cough, shortness of breath. No nausea. No vomiting. No diarrhea. Decreased leg swelling. OBJECTIVE: GENERAL: No acute distress. VITAL SIGNS: Temperature is 98, heart rate is 68, respiratory rate is 20, blood pressure 106/40, 97% on room air. HEENT: Moist mucous membrane. Crowded airway. NECK: Supple. No JVD. LUNGS: Has a fair airflow with few rhonchi. HEART: S1, S2. ABDOMEN: Soft, nontender, no organomegaly. EXTREMITIES: Decreased edema. NEUROLOGIC: Awake, alert, and follows simple commands. MEDICATIONS: He is on Mucomyst 20% inhaled q. 12 hours, Colace 100 mg twice a day, Flomax 0.4 mg at bedtime, insulin coverage, Lasix 40 mg twice a day, Lipitor 20 mg daily, metoprolol tartrate 12.5 mg twice a day, Lovenox 40 mg daily, Nicoderm patch daily, Percocet 5/325 one tablet q. 6 h. p.r.n., Protonix 40 mg daily, mirtazapine 30 mg at bedtime, Robitussin DM 5 mL 3 times a day, Robitussin with codeine 5 mL daily at bedtime p.r.n., Solu-Medrol 30 mg q. 12 hours, Xopenex inhaled q. 4 hours p.r.n. and four times a day round the clock. LABORATORY DATA: Shows hemoglobin 12.3, hematocrit 37.9, WBC 11.4, platelet is 228. Sodium 141, potassium 4.4, chloride 101, bicarbonate 34, BUN 44, creatinine 1.2, glucose 109, calcium 8.9, total bilirubin 0.6, AST 57, ALT 56, alkaline phosphatase is 201, albumin 3.1, PSA is 611, testosterone 299. Had a bone density done yesterday shows there is an unusual pattern of bony sclerosis and cortical thickening in the both proximal femur and humeri. There is no typical pattern for metastatic disease and could be secondary to fibrous dysplasia, Paget's disease, atypical metastatic disease is also possible. IMPRESSION AND PLAN: Exacerbation of chronic obstructive lung disease, suspected sleep apnea syndrome, cardiomyopathy, valvular heart disease, history of coronary artery disease, diabetes, status post fluid overload, prostate cancer with very high PSA, has a small lung nodule, being followed by Oncology. Pulmonary point of view, continue IV and inhaled bronchodilators, continue diuretics, fall precaution, sleep apnea precaution, gastric prophylaxis, deep venous thrombosis prophylaxis. Continue therapy. Thank you and we will follow with you. Bon Sánchez MD
--- NOTE | 2017-02-11 21:21 | PN ---
DATE: 02/11/2017 SUBJECTIVE: The patient is a 81-year-old male, he seems comfortable, no distress. Seen by Data Governance Consultant, Dr. Sánchez and also by Radiation Oncology. He seems comfortable, no distress, eating well, and slept very good. He is getting physical therapy. PHYSICAL EXAMINATION VITAL SIGNS: As follows: Temperature 97.9, blood pressure 119/58, respirations 20, saturation 98% on room air. HEAD AND NECK: Normal. No JVD. No thyromegaly. CHEST: Clear with good air entry. CARDIAC: First sound and second sound normal. ABDOMEN: Soft, obese, and nontender. EXTREMITIES: Mild edema bilaterally. NEUROLOGIC: He moves all extremities. Alert, awake, and oriented x3. LABORATORY DATA: White count 11.4, hemoglobin 12.3, hematocrit 37.9, and platelets 228. Chemistry: Sodium 141, potassium 4.4, chloride 101, bicarb 34, BUN 44, creatinine 1.2, and blood sugar 129. Liver function test is normal. IMPRESSION: 1. Acute chronic obstructive pulmonary disease exacerbation, congestive heart failure. Continue Lasix. Continue IV steroids. Continue inhaled bronchodilator and Mucomyst, seems stable. 2. Prostate cancer, bone metastases. We are getting skeletal survey, it looks like has atypical presentation could be Paget's disease, however, we will see his PSA is elevated definitely above 20, which is more likely to be bone metastases. We will discuss further with Oncology. Probably androgen deprivation therapy will be the proper treatment for him. Clinically, he is stable. He is eating and he has no pain, comfortable. 3. Hypertension, chronic obstructive pulmonary disease, obstructive sleep apnea, diabetes type 2, hypercholesterolemia, chronic osteoarthritis, degenerative disc disease, and severe hip arthritis. PLAN: To resume all his meds including Lopressor 12.5 b.i.d., Lipitor 20 p.o. at bedtime. Continue Robitussin. Continue Remeron, Xopenex, Solu-Medrol, and Lasix 40 b.i.d., insulin coverage p.r.n., and we will follow up clinically. The patient also has prostate cancer with bone metastases. We will follow up with the tax credit leasing consultant. Salty Sorto MD
--- NOTE | 2017-02-12 01:19 | HP ---
DATE: 02/10/2017 The patient is in transitional care unit on the medical floor because of deconditioning, and the patient was admitted for edema of lower extremity and COPD exacerbation with recent diagnosis of prostate cancer. HISTORY OF PRESENT ILLNESS: This 81-year-old male with history of COPD, obstructive sleep apnea, mitral valve replacement, bypass surgery, right iliac and right femoral artery stenting in the past with peripheral vascular disease, hypertension, currently smoking. He does have an ejection fraction in the low 40, congestive heart failure, on Lasix, came in for COPD exacerbation, edema lower extremity, was treated with IV Lasix, IV steroids, nebulizer treatment, BiPAP machine. The patient seems doing well and improved. He need to get therapy in consideration of therapy. While there, we are going to get also reevaluation by oncology consult, Dr. Parekh and radiation oncologist. At this moment, the patient denies any pain, seems comfortable, no distress. He feel better. His leg edema improved. PAST MEDICAL HISTORY: As I mentioned in the present illness as above, COPD, mitral valve replacement, congestive heart failure, hypertension, hypercholesterolemia, obstructive sleep apnea, obesity, chronic osteoarthritis, severe degenerative arthritis of his hips and his back, peripheral vascular disease, actively smoking, degenerative osteoarthritis all over his body including hands, coronary artery disease, bypass surgery, prostate biopsy with prostate cancer and possibly bone metastasis, diabetes type 2. The patient had gross hematuria a year or 2 ago and had negative workup. REVIEW OF SYSTEMS: As in the present illness. ALLERGIES: NO KNOWN ALLERGIES. HOME MEDICINES: He takes oxycodone, Percocet p.r.n. for pain. He take inhalers, Flomax, and Januvia 100 mg p.o. daily for diabetes type 2. He takes multivitamin, Remeron 30 mg at night, Lopressor 12.5 mg b.i.d., Xopenex, Lasix 40 b.i.d., Lovenox 40 subcutaneous daily, doxycycline, Colace, stool softener. He is taking colchicine, Lipitor 20, low dose aspirin, Plavix, and Mucomyst. PHYSICAL EXAMINATION: VITAL SIGNS: His vital signs since the date is as follows: Temperature 98, heart rate 62, blood pressure 130/88, respirations 20, saturation 95%. HEAD AND NECK: Normal. No JVD. No thyromegaly. CHEST: Clear. Good air entry. Diminished breath sounds. CARDIAC: First sound and second sound normal. ABDOMEN: Obese, nontender. EXTREMITIES: Mild edema bilaterally. NEUROLOGIC: Normal. LABORATORY STUDIES: White count 10.4, hemoglobin 11.1, hematocrit 34.4, and platelets 235. Chemistry; sodium 140, potassium 4.4, chloride 101, bicarbonate 35, BUN 38, creatinine 1.2. Liver function test; AST 64, ALT 62, alkaline phosphatase 193. The patient also had urinalysis, which showed 25 to 30 red blood cells. IMPRESSION AND PLAN: 1. Deconditioning, generalized weakness. We will start physical therapy on daily basis. 2. Acute chronic obstructive pulmonary disease exacerbation, congestive heart failure. Continue IV steroid, inhaled bronchodilators, BiPAP machine for obstructive sleep apnea, and IV Lasix. 3. Prostate cancer with possible bone metastasis, atypical presentation on bone scan. We will get a bone survey. CAT scan abdomen and pelvis as per oncology consultation and will follow up on that. Radiology oncology consultation has been seen and we will follow up the recommendations. 4. Chronic degenerative arthritis. 5. Diabetes type 2. 6. Hypertension. 7. History of microscopic hematuria, microscopic hematuria in the past. 8. Chronic obstructive pulmonary disease. We will continue current medicine. We will follow up clinically. Salty Sorto MD
[2017-02-12] MEDS: Acetylcysteine 20% Inhal Soln (4ml) IH SCH ×2 (07:15→20:08)
[2017-02-12] MEDS: Levalbuterol 0.63 MG/3 ML Inhal Soln UD IH SCH ×4 (07:15→20:08)
[2017-02-12] MEDS: Pantoprazole 40 mg EC Tab PO SCH (07:44)
--- NOTE | 2017-02-12 09:08 | CP.PCM.PN ---
Subjective - Date & Time of Evaluation Date of Evaluation: 02/12/17 Time of Evaluation: 07:00 - Subjective Subjective: Progress note for hematology/oncology service- Dr Parekh Patient seen and examined in TCU. Patient reports no events overnight. States he had a good night sleep. States the shortness of breath has improved, and the physical therapy is going well. States he has been able to walk up and down the hallway. Denies cp, fever, chills, n/v/d. Objective - Vital Signs/Intake and Output Vital Signs (last 24 hours): Temp Pulse Resp BP Pulse Ox 97.9 F 86 16 139/73 99 02/12/17 06:00 02/12/17 06:00 02/12/17 06:00 02/12/17 06:00 02/12/17 06:00 Intake and Output: 02/12/17 02/12/17 06:59 18:59 Intake Total 420 Balance 420 - Medications Medications: Current Medications Acetylcysteine (Acetylcysteine 20%) 4 ml IH BIDRESP [facility] Last Admin: 02/12/17 07:15 Dose: 4 ml Atorvastatin Calcium (Lipitor) 20 mg PO DIN [facility] Last Admin: 02/11/17 17:10 Dose: 20 mg Docusate Sodium (Colace) 100 mg PO BID [facility] Last Admin: 02/11/17 17:10 Dose: 100 mg Enoxaparin Sodium (Lovenox) 40 mg SC DAILY [facility] PRN Reason: Protocol Last Admin: 02/11/17 10:09 Dose: 40 mg Furosemide (Lasix) 40 mg PO BID [facility] Last Admin: 02/11/17 17:11 Dose: Not Given Guaifenesin/Codeine Phosphate (Robitussin W/Codeine) 5 ml PO HS PRN PRN Reason: Cough and congestion Guaifenesin/Dextromethorphan (Robitussin Dm) 5 ml PO TID [facility] Last Admin: 02/11/17 17:11 Dose: 5 ml Insulin Human Regular (Humulin R Low) 0 units SC ACHS [facility] PRN Reason: Protocol Last Admin: 02/11/17 12:42 Dose: Not Given Levalbuterol HCl (Xopenex) 0.63 mg IH [id number] PRN PRN Reason: Shortness of Breath Levalbuterol HCl (Xopenex) 0.63 mg IH QIDRESP [facility] Last Admin: 02/12/17 07:15 Dose: 0.63 mg Methylprednisolone (Solu-Medrol) 30 mg IVP Q12 [facility] Last Admin: 02/11/17 21:03 Dose: 30 mg Metoprolol Tartrate (Lopressor) 12.5 mg PO BID [facility] Last Admin: 02/11/17 17:11 Dose: Not Given Mirtazapine (Remeron) 30 mg PO [facility] Last Admin: 02/11/17 21:03 Dose: 30 mg Nicotine (Nicoderm Cq) 1 patch TD DAILY [facility] Last Admin: 02/11/17 10:10 Dose: 1 patch Oxycodone/Acetaminophen (Percocet 5/325 Mg Tab) 1 tab PO Q6H PRN PRN Reason: Pain, moderate (4-7) Stop: 02/12/17 20:55 Last Admin: 02/11/17 20:52 Dose: 1 tab Pantoprazole Sodium (Protonix Ec Tab) 40 mg PO ACB [facility] Last Admin: 02/12/17 07:44 Dose: 40 mg Tamsulosin HCl (Flomax) 0.4 mg PO [facility] Last Admin: 02/11/17 21:03 Dose: 0.4 mg - Labs Labs: 02/11/17 07:04 02/11/17 07:04 - Constitutional Appears: No Acute Distress, Cachectic, Chronically Ill - Head Exam Head Exam: ATRAUMATIC, NORMAL INSPECTION, NORMOCEPHALIC - Eye Exam Eye Exam: Normal appearance. absent: Scleral icterus Pupil Exam: NORMAL ACCOMODATION - ENT Exam ENT Exam: Mucous Membranes Dry - Neck Exam Neck Exam: Normal Inspection - Respiratory Exam Respiratory Exam: Clear to Ausculation Bilateral, NORMAL BREATHING PATTERN. absent: Prolonged Expiratory Phase, Rales, Rhonchi, Wheezes, Respiratory Distress, Stridor - Cardiovascular Exam Cardiovascular Exam: REGULAR RHYTHM, RRR, +S1, +S2. absent: Bradycardia, Tachycardia - GI/Abdominal Exam GI & Abdominal Exam: Soft, Normal Bowel Sounds. absent: Distended, Firm, Guarding, Rigid - Extremities Exam Extremities Exam: Normal Inspection. absent: Pedal Edema - Back Exam Back Exam: NORMAL INSPECTION - Neurological Exam Neurological Exam: Alert, Awake, Oriented x3 - Psychiatric Exam Psychiatric exam: Normal Affect, Normal Mood - Skin Skin Exam: Dry, Intact, Normal Color, Warm Assessment and Plan - Assessment and Plan (Free Text) Assessment: Patient is a 81 y/o with pmh of CAD s/p CABG, systolic chf, COPD whom presented to [facility] with shortness of breath and was treated for copd exacerbation, in TCU for rehab. Heme/oncology following patient for newly diagnosed stage 4 prostate cancer with possible metastatic to the bone Hallock score 9. PSA on this admission was 611. Patient had bone scan recently revealing bony sclerosis and cortical thickening in both proximal femurs and humeri with presumable atypical metastasis. Plan: - Discussed with Dr Mullins regarding Mr Rubi' malignancy, patient is a candidate for androgen receptor blockers, will start casodex 50 mg po daily, and if patient tolerates the medication well, may consider leuprolide in the future. Patient will also need bisphosphonate. - Patient is being followed by multiple services, and is going to continue with rehab in TCU, and is on tapered down steroids for COPD exacerbation. Patient seen, examined, discussed with Dr Parekh.
[2017-02-12] MEDS: MethylPREDNISolone 40 mg Vial IVP SCH ×2 (10:01→21:38)
[2017-02-12] MEDS: Enoxaparin 40 mg Syringe SC SCH (10:04)
[2017-02-12] MEDS: guaiFENesin DM 100 mg-10 mg/5 ml UD PO SCH ×3 (10:06→17:15)
[2017-02-12] MEDS: Oxycodone/Acetaminophen 5/325 mg Tab PO PRN (10:29)
--- NOTE | 2017-02-12 12:36 | CP.PCM.PN ---
Subjective - Date & Time of Evaluation Date of Evaluation: 02/12/17 Time of Evaluation: 11:30 - Subjective Subjective: No fevers, not in distress, able do his physical therapy fairly ok. Objective - Vital Signs/Intake and Output Vital Signs (last 24 hours): Temp Pulse Resp BP Pulse Ox 97.9 F 86 16 139/73 99 02/12/17 06:00 02/12/17 06:00 02/12/17 06:00 02/12/17 06:00 02/12/17 06:00 Intake and Output: 02/12/17 02/12/17 06:59 18:59 Intake Total 420 Balance 420 - Medications Medications: Current Medications Acetylcysteine (Acetylcysteine 20%) 4 ml IH BIDRESP [facility] Last Admin: 02/12/17 07:15 Dose: 4 ml Atorvastatin Calcium (Lipitor) 20 mg PO DIN [facility] Last Admin: 02/11/17 17:10 Dose: 20 mg Docusate Sodium (Colace) 100 mg PO BID [facility] Last Admin: 02/11/17 17:10 Dose: 100 mg Enoxaparin Sodium (Lovenox) 40 mg SC DAILY [facility] PRN Reason: Protocol Last Admin: 02/11/17 10:09 Dose: 40 mg Furosemide (Lasix) 40 mg PO BID [facility] Last Admin: 02/11/17 17:11 Dose: Not Given Guaifenesin/Codeine Phosphate (Robitussin W/Codeine) 5 ml PO HS PRN PRN Reason: Cough and congestion Guaifenesin/Dextromethorphan (Robitussin Dm) 5 ml PO TID [facility] Last Admin: 02/11/17 17:11 Dose: 5 ml Insulin Human Regular (Humulin R Low) 0 units SC ACHS [facility] PRN Reason: Protocol Last Admin: 02/11/17 12:42 Dose: Not Given Levalbuterol HCl (Xopenex) 0.63 mg IH [id number] PRN PRN Reason: Shortness of Breath Levalbuterol HCl (Xopenex) 0.63 mg IH QIDRESP [facility] Last Admin: 02/12/17 07:15 Dose: 0.63 mg Methylprednisolone (Solu-Medrol) 30 mg IVP Q12 [facility] Last Admin: 02/11/17 21:03 Dose: 30 mg Metoprolol Tartrate (Lopressor) 12.5 mg PO BID [facility] Last Admin: 02/11/17 17:11 Dose: Not Given Mirtazapine (Remeron) 30 mg PO HS [facility] Last Admin: 02/11/17 21:03 Dose: 30 mg Nicotine (Nicoderm Cq) 1 patch TD DAILY [facility] Last Admin: 02/11/17 10:10 Dose: 1 patch Oxycodone/Acetaminophen (Percocet 5/325 Mg Tab) 1 tab PO Q6H PRN PRN Reason: Pain, moderate (4-7) Stop: 02/12/17 20:55 Last Admin: 02/11/17 20:52 Dose: 1 tab Pantoprazole Sodium (Protonix Ec Tab) 40 mg PO ACB [facility] Last Admin: 02/12/17 07:44 Dose: 40 mg Tamsulosin HCl (Flomax) 0.4 mg PO [facility] Last Admin: 02/11/17 21:03 Dose: 0.4 mg - Labs Labs: 02/11/17 07:04 02/11/17 07:04 - Constitutional Appears: Non-toxic - Head Exam Head Exam: NORMAL INSPECTION - Respiratory Exam Respiratory Exam: Decreased Breath Sounds - Cardiovascular Exam Cardiovascular Exam: +S1, +S2 - GI/Abdominal Exam GI & Abdominal Exam: Soft. absent: Tenderness Assessment and Plan - Assessment and Plan (Free Text) Plan: Assessment pyuria in urinalysis, but no symptoms and no evidence of UTI probable CHF history of mitral valve endocarditis S/P mitral valve replacement CAD S/P CABG S/P pacemaker placement Plan continue to monitor the patient off antibiotics since he is at risk for nosocomial infections
--- NOTE | 2017-02-12 20:19 | CON ---
DATE: 02/12/2017 LOCATION: The patient is in room 304, bed 1. REASON FOR CONSULTATION: Coronary artery disease, status post coronary artery bypass surgery, status post mitral valve replacement, history of pacemaker insertion, exacerbation of COPD, deconditioning. HISTORY OF PRESENT ILLNESS: A 81-year-old male with known case of coronary artery disease, status post coronary artery bypass surgery, 5-vessel and status post mitral valve replacement for endocarditis, hypertension, diabetes mellitus, COPD, sleep apnea, arthritis, CA of the prostate, was admitted to medical floor with shortness of breath and swelling of legs. The patient improved and now is admitted to Transitional Care Unit for deconditioning and physical therapy. The patient's breathing has improved now. Denies chest pain or palpitation. PAST MEDICAL HISTORY: Positive for mitral valve endocarditis, status post mitral valve replacement; [id number] elevation myocardial infarction, status post 5-vessel bypass surgery; COPD; tobacco abuse; hypertension; diabetes; sleep apnea; poor compliant. The patient has arthritis, CA of the prostate, status post pacemaker. PERSONAL HISTORY: The patient continues to smoke, denies drinking. ALLERGIES: THE PATIENT DENIES ANY ALLERGIES. REVIEW OF SYSTEMS: All the systems reviewed, positive mentioned in the history. Others were negative. HOME MEDICATIONS: Included inhalers, Flomax, Januvia 100 mg p.o. daily, Remeron 30 mg at night, Lopressor 12.5 b.i.d., Xopenex, Lasix 40 p.o. b.i.d., Lovenox 40 subcu daily, doxycycline b.i.d., Lipitor 20, colchicine, aspirin, Plavix, Mucomyst. PREVIOUS CARDIAC WORKUP: The patient had a IV Lexiscan stress test on 08/09/2012 which was negative for ischemia. The patient had an echocardiogram on 07/15/2016, which showed mildly dilated left ventricle, mild concentric left ventricular hypertrophy, left ventricular ejection fraction is low normal with EF 50% to 55%, trace aortic regurg, bioprosthetic mitral valve moving well. No vegetations seen. Trace tricuspid regurgitation with RVSP 40 mmHg which is mild pulmonary hypertension. Pacemaker lead in the right ventricle. PHYSICAL EXAMINATION: VITAL SIGNS: Blood pressure 137/61, respirations 16, pulse 86, temperature 97.9. HEENT: Head is normocephalic. Eyes: Pupils normal. Conjunctivae slightly pale. NECK: JVP low. Carotids equal. THORAX: AP diameter normal. LUNGS: No significant rales. CARDIOVASCULAR: S1 and S2. ABDOMEN: Soft, no organomegaly. EXTREMITIES: No clubbing, no cyanosis or edema seen on the medical floor, has cleared now. LABORATORY DATA: WBC 11.4, hemoglobin 12.3, hematocrit 37.9, platelet 228. Random sugar 117. Sodium 140, potassium 4.4, BUN 38, creatinine 1.2, calcium 8.8. AST 64, ALT 62, alkaline phosphatase 193. Total protein and albumin normal. EKG showed regular sinus rhythm with first-degree AV block, right bundle-branch block, possible old inferior wall SC. Chest x-ray: No significant abnormality. DIAGNOSES: Status post exacerbation of chronic obstructive pulmonary disease; edema of the legs, history of coronary artery disease, status post coronary artery bypass surgery, 5-vessel; diabetes; hypertension; status post pacemaker insertion; tobacco abuse; poor compliance; respiratory tract infection. PLAN: The patient is on furosemide 40 mg p.o. b.i.d., Lipitor 20 mg daily, metoprolol 12.5 b.i.d., Lovenox 40 subcu daily, Solu-Medrol 30 mg IV q.12 hour, Xopenex hand nebulizer therapy, insulin as ordered, Flomax 0.4 daily, Colace 100 b.i.d. Continue physical therapy. We will follow. Bon Caba MD
--- NOTE | 2017-02-12 23:27 | PN ---
PULMONARY PROGRESS NOTE DATE: 02/12/2017 REFERRING PHYSICIAN: Salty Sorto MD SUBJECTIVE: The patient is sitting on the chair. Night was unremarkable. Did not use CPAP. No headache. No rhinitis. Cough is better. No nausea. No vomiting or diarrhea. Decreased leg swelling. PHYSICAL EXAMINATION: GENERAL: In no acute distress. VITAL SIGNS: Temperature is 98, heart rate is 77, respiratory rate is 20, blood pressure is 107/60, and pulse ox 98% on nasal cannula. HEENT: Moist mucous membrane. Crowded airway. NECK: Supple. No JVD. LUNGS: Has a prolonged expiratory phase and wheezing. HEART: S1 and S2. ABDOMEN: Soft and nontender. No organomegaly. EXTREMITIES: No edema. NEUROLOGIC: Awake, alert, and follows simple commands. MEDICATIONS: He is on Mucomyst 20% inhaled twice a day, he is on Casodex 50 mg daily, Colace 100 mg twice a day, Flomax 0.4 mg daily, Lasix 40 mg twice a day, Lipitor 20 mg daily, metoprolol tartrate 12.5 mg twice a day, Lovenox 40 mg daily, Nicoderm patch daily, Percocet 5/325 one tablet q.6 hours p.r.n., Protonix 40 mg daily, Remeron 30 mg at bedtime, Robitussin DM 5 mL q.8 hours p.r.n., also Robitussin with codeine at bedtime p.r.n., Solu-Medrol 30 mg q.12 hours, and Xopenex inhaled q.4 hours. LABORATORY DATA: Reviewed and shows blood sugar this morning 117. PSA was 688. IMPRESSION AND PLAN: Exacerbation of chronic obstructive lung disease, suspected sleep apnea syndrome, cardiomyopathy, valvular heart disease, coronary artery disease, diabetes, prostate cancer with very high PSA, and small lung nodule. Pulmonary point of view, doing okay and being followed by Oncology. Continue bronchodilators. Keep head at 45 degrees. Follow up x-rays to show the stability of nodule. Gastric prophylaxis and deep venous thrombosis prophylaxis. Thank you and we will follow with you. Bon Sánchez MD [facility] # [id number]
[2017-02-13] MEDS: Enoxaparin 40 mg Syringe SC SCH (05:42)
[2017-02-13] MEDS: MethylPREDNISolone 40 mg Vial IVP SCH ×2 (05:43→17:18)
--- NOTE | 2017-02-13 07:22 | CP.PCM.PN ---
Subjective - Date & Time of Evaluation Date of Evaluation: 02/13/17 Time of Evaluation: 07:15 - Subjective Subjective: Heme onc progress note for Dr Parekh service. Patient with no acute events overnight. Reports good night sleep. Reports the shortness of breath continues to improve. Denies cp, fever or chills. Denies n/v /d. Patient is able to tolerate po intake. Objective - Vital Signs/Intake and Output Vital Signs (last 24 hours): Temp Pulse Resp BP Pulse Ox 97.9 F 77 20 107/60 98 02/12/17 16:00 02/12/17 16:00 02/12/17 16:00 02/12/17 17:14 02/12/17 16:00 Intake and Output: 02/13/17 02/13/17 06:59 18:59 Intake Total 360 Balance 360 - Medications Medications: Current Medications Acetylcysteine (Acetylcysteine 20%) 4 ml IH BIDRESP [facility] Last Admin: 02/12/17 20:08 Dose: 4 ml Atorvastatin Calcium (Lipitor) 20 mg PO DIN [facility] Last Admin: 02/12/17 17:13 Dose: 20 mg Bicalutamide (Casodex) 50 mg PO DAILY [facility] Last Admin: 02/12/17 10:47 Dose: 50 mg Docusate Sodium (Colace) 100 mg PO BID [facility] Last Admin: 02/12/17 17:13 Dose: 100 mg Enoxaparin Sodium (Lovenox) 40 mg SC 0600 [facility] PRN Reason: Protocol Last Admin: 02/13/17 05:42 Dose: 40 mg Furosemide (Lasix) 40 mg PO BID [facility] Last Admin: 02/12/17 17:14 Dose: 40 mg Guaifenesin/Codeine Phosphate (Robitussin W/Codeine) 5 ml PO HS PRN PRN Reason: Cough and congestion Guaifenesin/Dextromethorphan (Robitussin Dm) 5 ml PO TID [facility] Last Admin: 02/12/17 17:15 Dose: 5 ml Insulin Human Regular (Humulin R Low) 0 units SC ACHS [facility] PRN Reason: Protocol Last Admin: 02/11/17 12:42 Dose: Not Given Levalbuterol HCl (Xopenex) 0.63 mg IH [id number] PRN PRN Reason: Shortness of Breath Levalbuterol HCl (Xopenex) 0.63 mg IH QIDRESP [facility] Last Admin: 02/12/17 20:08 Dose: 0.63 mg Methylprednisolone (Solu-Medrol) 30 mg IVP 0600,1800 [facility] Last Admin: 02/13/17 05:43 Dose: 30 mg Metoprolol Tartrate (Lopressor) 12.5 mg PO 0800,1700 [facility] Mirtazapine (Remeron) 30 mg PO HS [facility] Last Admin: 02/12/17 21:38 Dose: 30 mg Nicotine (Nicoderm Cq) 1 patch TD DAILY [facility] Last Admin: 02/12/17 10:06 Dose: 1 patch Pantoprazole Sodium (Protonix Ec Tab) 40 mg PO 0600 [facility] Tamsulosin HCl (Flomax) 0.4 mg PO HS [facility] Last Admin: 02/12/17 21:38 Dose: 0.4 mg - Labs Labs: 02/11/17 07:04 02/11/17 07:04 - Constitutional Appears: No Acute Distress, Cachectic, Chronically Ill - Head Exam Head Exam: ATRAUMATIC, NORMAL INSPECTION, NORMOCEPHALIC - Eye Exam Eye Exam: EOMI, Normal appearance, PERRL. absent: Scleral icterus - ENT Exam ENT Exam: Mucous Membranes Moist - Neck Exam Neck Exam: Normal Inspection - Respiratory Exam Respiratory Exam: Clear to Ausculation Bilateral, NORMAL BREATHING PATTERN. absent: Rales, Rhonchi, Wheezes, Respiratory Distress, Stridor - Cardiovascular Exam Cardiovascular Exam: REGULAR RHYTHM, +S1, +S2 - GI/Abdominal Exam GI & Abdominal Exam: Soft, Normal Bowel Sounds. absent: Distended, Firm, Guarding, Rigid, Tenderness - Extremities Exam Extremities Exam: Normal Inspection. 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 PSA on this admission was 611, with repeat of 688. Plan: Continue with casodex 50 mg po daily for 3 days total. Will consider starting leupron at 7.5 mg IM once a month after 3 days of casodex. Will start patient on aredia 60 mg iv once a month. Will repeat labs to evaluate renal function. Patient to continue with rehab Patient seen, examined and case discussed with Dr Parekh.
[2017-02-13] MEDS: Levalbuterol 0.63 MG/3 ML Inhal Soln UD IH SCH ×4 (07:46→20:21)
[2017-02-13] MEDS: Acetylcysteine 20% Inhal Soln (4ml) IH SCH ×2 (07:46→20:22)
[2017-02-13] MEDS: guaiFENesin DM 100 mg-10 mg/5 ml UD PO SCH ×3 (09:25→17:17)
--- NOTE | 2017-02-13 11:20 | CP.PCM.PN ---
Subjective - Date & Time of Evaluation Date of Evaluation: 02/13/17 Time of Evaluation: 10:40 - Subjective Subjective: Doing his physical therapy well, walking the corridors, no fevers overnight, no diarrhea. Objective - Vital Signs/Intake and Output Vital Signs (last 24 hours): Temp Pulse Resp BP Pulse Ox 97.9 F 80 20 118/68 98 02/12/17 16:00 02/13/17 08:13 02/12/17 16:00 02/13/17 08:13 02/12/17 16:00 Intake and Output: 02/13/17 02/13/17 06:59 18:59 Intake Total 360 Balance 360 - Medications Medications: Current Medications Acetylcysteine (Acetylcysteine 20%) 4 ml IH BIDRESP [facility] Last Admin: 02/13/17 07:46 Dose: 4 ml Atorvastatin Calcium (Lipitor) 20 mg PO DIN [facility] Last Admin: 02/12/17 17:13 Dose: 20 mg Bicalutamide (Casodex) 50 mg PO DAILY [facility] Last Admin: 02/12/17 10:47 Dose: 50 mg Docusate Sodium (Colace) 100 mg PO BID [facility] Last Admin: 02/12/17 17:13 Dose: 100 mg Enoxaparin Sodium (Lovenox) 40 mg SC 0600 [facility] PRN Reason: Protocol Last Admin: 02/13/17 05:42 Dose: 40 mg Furosemide (Lasix) 40 mg PO BID [facility] Last Admin: 02/12/17 17:14 Dose: 40 mg Guaifenesin/Codeine Phosphate (Robitussin W/Codeine) 5 ml PO HS PRN PRN Reason: Cough and congestion Guaifenesin/Dextromethorphan (Robitussin Dm) 5 ml PO TID [facility] Last Admin: 02/12/17 17:15 Dose: 5 ml Insulin Human Regular (Humulin R Low) 0 units SC ACHS [facility] PRN Reason: Protocol Last Admin: 02/11/17 12:42 Dose: Not Given Levalbuterol HCl (Xopenex) 0.63 mg IH [id number] PRN PRN Reason: Shortness of Breath Levalbuterol HCl (Xopenex) 0.63 mg IH QIDRESP [facility] Last Admin: 02/13/17 07:46 Dose: 0.63 mg Methylprednisolone (Solu-Medrol) 30 mg IVP 0600,1800 [facility] Last Admin: 02/13/17 05:43 Dose: 30 mg Metoprolol Tartrate (Lopressor) 12.5 mg PO 0800,1700 [facility] Last Admin: 02/13/17 08:13 Dose: 12.5 mg Mirtazapine (Remeron) 30 mg PO HS [facility] Last Admin: 02/12/17 21:38 Dose: 30 mg Nicotine (Nicoderm Cq) 1 patch TD DAILY [facility] Last Admin: 02/12/17 10:06 Dose: 1 patch Pantoprazole Sodium (Protonix Ec Tab) 40 mg PO 0600 [facility] Tamsulosin HCl (Flomax) 0.4 mg PO HS [facility] Last Admin: 02/12/17 21:38 Dose: 0.4 mg - Labs Labs: 02/11/17 07:04 02/11/17 07:04 - Constitutional Appears: Non-toxic - Head Exam Head Exam: NORMAL INSPECTION - Respiratory Exam Respiratory Exam: Decreased Breath Sounds - Cardiovascular Exam Cardiovascular Exam: +S1, +S2 - GI/Abdominal Exam GI & Abdominal Exam: Soft. absent: Tenderness Assessment and Plan - Assessment and Plan (Free Text) Plan: Assessment pyuria in urinalysis, but no symptoms and no evidence of UTI probable CHF history of mitral valve endocarditis S/P mitral valve replacement CAD S/P CABG S/P pacemaker placement Plan continue to monitor the patient off antibiotics since he is at risk for hospital -acquired infections
[2017-02-13] MEDS ORDERED: PAMIDRONATE IV ONE (15:44)
[2017-02-13] MEDS ORDERED: PAMIDRONATE IVPB ONE (16:45)
[2017-02-13] MEDS ORDERED: NS 0.9% IVPB ONE (16:45)
--- NOTE | 2017-02-13 17:45 | PN ---
DATE: 02/13/2017 REASON FOR CONSULTATION AND FOLLOWUP: Coronary artery disease, status post coronary artery bypass, status post MVR, history of pacemaker, admitted the patient with COPD and deconditioning of the body. SUBJECTIVE: The patient denies any chest pain, shortness of breath, or any palpitations. PHYSICAL EXAMINATION: GENERAL: Not in apparent distress, sitting and having the breakfast. VITAL SIGNS: Temperature afebrile, heart rate 80, and blood pressure 118/68. HEENT: PERRLA. Extraocular muscles intact. NECK: Supple. No carotid bruit or thyromegaly. CHEST: Clear to auscultation. HEART: S1 and S2 regular. ABDOMEN: Soft. EXTREMITIES: Clubbing and cyanosis negative. LABORATORY DATA: Blood workup as follows, WBC 11.1, hemoglobin 12.7, hematocrit 37.9, platelet count 228. Chemistry shows sodium 141, potassium 4.4, chloride 107, carbon dioxide 34, anion gap of 11, BUN 44, and creatinine 1.2. Prostate specific antigen elevated at 611. IMPRESSION: Acute deconditioning of the body, congestive heart failure, chronic obstructive pulmonary disease, coronary artery disease, coronary artery bypass graft, status post pacemaker, tobacco abuse, noncompliance with the medication, diastolic dysfunction, and trace aortic regurgitation, status post mitral valve replacement, last ejection fraction 50% to 55%. Dilated left ventricle. RECOMMENDATION: Continue Lasix 40 mg twice a day, Lipitor, continue metoprolol for DVT prophylaxis, continue Solu Medrol, Xopenex, nebulizer treatment, rehab, elevated prostatic specific antigen, and consider uro evaluation and followup. Thank you for the opportunity in taking care of the patient Davin Rubi Roland. Bon Blanc MD
[2017-02-13] MEDS: Oxycodone/Acetaminophen 5/325 mg Tab PO PRN (22:06)
--- NOTE | 2017-02-13 23:17 | PN ---
DATE: 02/13/2017 PULMONARY PROGRESS REPORT REFERRING PHYSICIAN: Salty Sorto MD SUBJECTIVE: He is sitting up in reclining chair. Family is at the bedside. Night was unremarkable. Doing well in therapy. Still has some cough and sputum production. No nausea. No vomiting. No diarrhea. Leg swelling is better. OBJECTIVE: GENERAL: In no acute distress. VITAL SIGNS: Temperature is 98, heart rate is 83, respiratory rate is 16, blood pressure is 118/50, and pulse ox is 97% on room air. HEENT: Moist mucous membranes. Carotid airway. NECK: Supple. No JVD. LUNGS: Scattered rhonchi with few wheezing. HEART: S1 and S2. ABDOMEN: Soft and nontender. No organomegaly. EXTREMITIES: There is no edema. NEUROLOGIC: Awake and alert. Follow simple commands. LABORATORY DATA: Reviewed. Blood sugar this morning is 201. No other lab is available since yesterday. MEDICATIONS: He is on Mucomyst 20% inhale twice a day, Casodex 50 mg daily, Colace 100 mg twice a day, Flomax 0.4 mg daily, insulin coverage, Lasix 40 mg twice a day, Lipitor 20 mg daily, metoprolol tartrate 12.5 mg twice a day, Lovenox 40 mg daily, NicoDerm patch daily, Percocet 5/325 one tab q.6 hours p.r.n., Protonix 40 mg daily, Remeron 30 mg at bedtime, Robitussin DM on p.r.n. basis, Solu-Medrol 30 mg q.12 hours, and Xopenex inhale q.4 hours p.r.n. IMPRESSION AND PLAN: Exacerbation of chronic obstructive lung disease, suspected sleep apnea syndrome, cardiomyopathy, valvular heart disease, coronary artery disease, diabetes, history of prostate cancer from a pulmonary point of view, doing okay, also a small lung nodule. Continue bronchodilator. Keep head at 45 degrees. Diuretics and fall precaution. Followup x-rays to assure the stability of nodule. Thank you and we will follow with you. Bon Sánchez MD
[2017-02-14] MEDS: Pantoprazole 40 mg EC Tab PO SCH (05:37)
[2017-02-14] MEDS: MethylPREDNISolone 40 mg Vial IVP SCH (05:37)
[2017-02-14] MEDS: Enoxaparin 40 mg Syringe SC SCH (05:37)
--- NOTE | 2017-02-14 06:54 | CP.PCM.PN ---
Subjective - Date & Time of Evaluation Date of Evaluation: 02/14/17 Time of Evaluation: 07:50 - Subjective Subjective: Heme/onc progress note for Dr Mullins service. Patient with no acute events overnight. Denies cp, sob, n/v/d. Patient is voiding. No night sweats, fever or chills. Objective - Vital Signs/Intake and Output Vital Signs (last 24 hours): Temp Pulse Resp BP Pulse Ox 97.3 F L 60 16 118/50 L 97 02/13/17 10:00 02/13/17 17:17 02/13/17 10:00 02/13/17 17:17 02/13/17 10:00 Intake and Output: 02/13/17 02/14/17 18:59 06:59 Output Total 900 Balance -900 - Medications Medications: Current Medications Acetylcysteine (Acetylcysteine 20%) 4 ml IH BIDRESP [facility] Last Admin: 02/13/17 20:22 Dose: 4 ml Atorvastatin Calcium (Lipitor) 20 mg PO DIN [facility] Last Admin: 02/13/17 17:16 Dose: 20 mg Bicalutamide (Casodex) 50 mg PO DAILY [facility] Last Admin: 02/13/17 09:27 Dose: 50 mg Docusate Sodium (Colace) 100 mg PO BID [facility] Last Admin: 02/13/17 17:16 Dose: 100 mg Enoxaparin Sodium (Lovenox) 40 mg SC 0600 [facility] PRN Reason: Protocol Last Admin: 02/14/17 05:37 Dose: 40 mg Furosemide (Lasix) 40 mg PO BID [facility] Last Admin: 02/13/17 17:16 Dose: Not Given Guaifenesin/Codeine Phosphate (Robitussin W/Codeine) 5 ml PO HS PRN PRN Reason: Cough and congestion Guaifenesin/Dextromethorphan (Robitussin Dm) 5 ml PO TID [facility] Last Admin: 02/13/17 17:17 Dose: 5 ml Insulin Human Regular (Humulin R Low) 0 units SC ACHS [facility] PRN Reason: Protocol Last Admin: 02/11/17 12:42 Dose: Not Given Levalbuterol HCl (Xopenex) 0.63 mg IH [id number] PRN PRN Reason: Shortness of Breath Levalbuterol HCl (Xopenex) 0.63 mg IH QIDRESP [facility] Last Admin: 02/13/17 20:21 Dose: 0.63 mg Methylprednisolone (Solu-Medrol) 30 mg IVP 0600,1800 [facility] Last Admin: 02/14/17 05:37 Dose: 30 mg Metoprolol Tartrate (Lopressor) 12.5 mg PO 0800,1700 [facility] Last Admin: 02/13/17 17:17 Dose: Not Given Mirtazapine (Remeron) 30 mg PO [facility] Last Admin: 02/13/17 21:19 Dose: 30 mg Nicotine (Nicoderm Cq) 1 patch TD DAILY [facility] Last Admin: 02/13/17 09:24 Dose: 1 patch Oxycodone/Acetaminophen (Percocet 5/325 Mg Tab) 1 tab PO Q6H PRN; Protocol PRN Reason: moderate pain Stop: 02/16/17 22:00 Last Admin: 02/13/17 22:06 Dose: 1 tab Pantoprazole Sodium (Protonix Ec Tab) 40 mg PO 0600 [facility] Last Admin: 02/14/17 05:37 Dose: 40 mg Tamsulosin HCl (Flomax) 0.4 mg PO [facility] Last Admin: 02/13/17 21:18 Dose: 0.4 mg - Labs Labs: 02/11/17 07:04 02/11/17 07:04 - Constitutional Appears: No Acute Distress, Chronically Ill - Head Exam Head Exam: ATRAUMATIC, NORMAL INSPECTION, NORMOCEPHALIC - Eye Exam Eye Exam: EOMI, Normal appearance, PERRL. absent: Scleral icterus Pupil Exam: NORMAL ACCOMODATION - ENT Exam ENT Exam: Mucous Membranes Dry - Neck Exam Neck Exam: Normal Inspection - Respiratory Exam Respiratory Exam: Clear to Ausculation Bilateral, NORMAL BREATHING PATTERN. absent: Rales, Rhonchi, Wheezes, Respiratory Distress, Stridor - Cardiovascular Exam Cardiovascular Exam: REGULAR RHYTHM, +S1, +S2 - GI/Abdominal Exam GI & Abdominal Exam: Soft, Normal Bowel Sounds. absent: Distended, Firm, Guarding, Rigid, Tenderness - Extremities Exam Extremities Exam: Normal Inspection - Back Exam Back Exam: NORMAL INSPECTION - Neurological Exam Neurological Exam: Alert, Awake, Oriented x3 - Psychiatric Exam Psychiatric exam: Normal Affect, Normal Mood - Skin Skin Exam: Dry, Intact, Warm Assessment and Plan - Assessment and Plan (Free Text) Assessment: Patient is a 81 y/o with pmh of CAD s/p CABG, systolic chf, COPD admitted with copd exacerbation, and Dr Parekh is consulted for metastatic prostate cancer, met to the bone with elevated PSA, CT chest with lung nodules unchanged from prior studies ( 03/03). Patient is currently on casodex day # 3, will start leuprolide tomorrow. S/p aredia yesterday. Repeat labs this AM with normal renal function. Continue with current management. Dr Pires re-consulted for reevaluation. Discussed with Dr Parekh.
[2017-02-14 07:06] LABS: BASO # 0.03 K/mm3 (0.0-2.0); BASO % 0.2 % (0.0-3.0); EOS % 0.2 % (1.5-5.0); GRAN # 8.83 (1.4-6.5); GRAN % 71.4 % (50.0-68.0); HEMATOCRIT 34.5 % (42.0-52.0); LYMPH # 2.5 (1.2-3.4); LYMPH % 20.4 % (22.0-35.0); MEAN CELL VOLUME 81.8 fl (80.0-105.0); MEAN CORPUSCULAR HEMOGLOBIN 26.8 pg (25.0-35.0); MEAN CORPUSCULAR HGB CONC 32.8 g/dl (31.0-37.0); MEAN PLATELET VOLUME 9.5 fl (7.0-11.0); MONO % 7.8 % (1.0-6.0); RED CELL DISTRIBUTION WIDTH 24.3 % (11.5-14.5); WHITE BLOOD COUNT 12.4 10^3/ul (4.5-11.0)
[2017-02-14] MEDS: Acetylcysteine 20% Inhal Soln (4ml) IH SCH ×2 (07:18→19:52)
[2017-02-14] MEDS: Levalbuterol 0.63 MG/3 ML Inhal Soln UD IH SCH ×4 (07:18→19:52)
[2017-02-14 07:46] LABS: BLOOD UREA NITROGEN 47 mg/dL (7-21); CALCIUM 8.7 mg/dL (8.4-10.5); CARBON DIOXIDE 35 mmol/L (21-33); CHLORIDE 101 mmol/L (98-107); GFR AFRICAN-AMERICAN > 60; GLUCOSE,RANDOM 94 mg/dL (70-110); POTASSIUM 4.5 mmol/L (3.6-5.0); SODIUM 139 mmol/L (132-148)
[2017-02-14] MEDS: guaiFENesin DM 100 mg-10 mg/5 ml UD PO SCH ×3 (10:14→17:39)
--- NOTE | 2017-02-14 10:27 | PN ---
DATE: 02/14/2017 REASON FOR CONSULTATION: Follow up coronary artery disease, status post coronary artery bypass, he is status post MVR, history of pacemaker, admitted with COPD exacerbation and deconditioning of the body. SUBJECTIVE: The patient denies any chest pain, shortness of breath, or any palpitation, wanted to go home. OBJECTIVE: GENERAL: Not in apparent distress. He is sitting at the bedside having the breakfast. VITAL SIGNS: As follows: Temperature afebrile, heart rate 76, and blood pressure 105/80. HEENT: PERRLA. Extraocular muscles intact. NECK: Supple. No carotid bruit or thyromegaly. CHEST: Clear to auscultation. HEART: S1 and S2 regular. ABDOMEN: Soft. EXTREMITIES: Clubbing and cyanosis negative. LABORATORY DATA: Blood workup as follows: WBC 12.5, hemoglobin 11 , hematocrit 34.5, and platelet count 166. Chemistry shows sodium 137, potassium 4.5, chloride 101, carbon dioxide 35, anion gap of 8, BUN 47, and creatinine 1.1. IMPRESSION: Acute exacerbation of chronic obstructive pulmonary disease, history of coronary artery disease status post coronary artery bypass grafting, status post mitral valve replacement secondary to mitral valve endocarditis, history of tobacco abuse, active tobacco abuse, noncompliance with medication, diastolic dysfunction, and congestive heart failure secondary to diastolic dysfunction. Most recent echocardiogram shows trace aortic regurgitation, preserved left ventricular function, ejection fraction 50-55%, dilated left ventricle. RECOMMENDATIONS: Continue gentle diuretics. Continue metoprolol. Continue DVT prophylaxis. Continue Solu-Medrol. Continue Xopenex. PSA elevated, needs a close followup. Consider evaluation and followup. Thank Dr. Sorto for providing us the opportunity in taking care of patient, Davin Venegas. Bon Blanc MD
--- NOTE | 2017-02-14 10:47 | CP.PCM.PN ---
Subjective - Date & Time of Evaluation Date of Evaluation: 02/14/17 Time of Evaluation: 10:45 - Subjective Subjective: Comfortable in bed, no fevers overnight, not in distress, no diarrhea. Objective - Vital Signs/Intake and Output Vital Signs (last 24 hours): Temp Pulse Resp BP Pulse Ox 97.3 F L 60 16 118/50 L 97 02/13/17 10:00 02/13/17 17:17 02/13/17 10:00 02/13/17 17:17 02/13/17 10:00 Intake and Output: 02/13/17 02/14/17 18:59 06:59 Output Total 900 Balance -900 - Medications Medications: Current Medications Acetylcysteine (Acetylcysteine 20%) 4 ml IH BIDRESP [facility] Last Admin: 02/13/17 20:22 Dose: 4 ml Atorvastatin Calcium (Lipitor) 20 mg PO DIN [facility] Last Admin: 02/13/17 17:16 Dose: 20 mg Bicalutamide (Casodex) 50 mg PO DAILY [facility] Last Admin: 02/13/17 09:27 Dose: 50 mg Docusate Sodium (Colace) 100 mg PO BID [facility] Last Admin: 02/13/17 17:16 Dose: 100 mg Enoxaparin Sodium (Lovenox) 40 mg SC 0600 [facility] PRN Reason: Protocol Last Admin: 02/14/17 05:37 Dose: 40 mg Furosemide (Lasix) 40 mg PO BID [facility] Last Admin: 02/13/17 17:16 Dose: Not Given Guaifenesin/Codeine Phosphate (Robitussin W/Codeine) 5 ml PO HS PRN PRN Reason: Cough and congestion Guaifenesin/Dextromethorphan (Robitussin Dm) 5 ml PO TID [facility] Last Admin: 02/13/17 17:17 Dose: 5 ml Insulin Human Regular (Humulin R Low) 0 units SC ACHS [facility] PRN Reason: Protocol Last Admin: 02/11/17 12:42 Dose: Not Given Levalbuterol HCl (Xopenex) 0.63 mg IH [id number] PRN PRN Reason: Shortness of Breath Levalbuterol HCl (Xopenex) 0.63 mg IH QIDRESP [facility] Last Admin: 02/13/17 20:21 Dose: 0.63 mg Methylprednisolone (Solu-Medrol) 30 mg IVP 0600,1800 [facility] Last Admin: 02/14/17 05:37 Dose: 30 mg Metoprolol Tartrate (Lopressor) 12.5 mg PO 0800,1700 [facility] Last Admin: 02/13/17 17:17 Dose: Not Given Mirtazapine (Remeron) 30 mg PO HS [facility] Last Admin: 02/13/17 21:19 Dose: 30 mg Nicotine (Nicoderm Cq) 1 patch TD DAILY [facility] Last Admin: 02/13/17 09:24 Dose: 1 patch Oxycodone/Acetaminophen (Percocet 5/325 Mg Tab) 1 tab PO Q6H PRN; Protocol PRN Reason: moderate pain Stop: 02/16/17 22:00 Last Admin: 02/13/17 22:06 Dose: 1 tab Pantoprazole Sodium (Protonix Ec Tab) 40 mg PO 0600 [facility] Last Admin: 02/14/17 05:37 Dose: 40 mg Tamsulosin HCl (Flomax) 0.4 mg PO HS [facility] Last Admin: 02/13/17 21:18 Dose: 0.4 mg - Labs Labs: 02/11/17 07:04 02/11/17 07:04 - Constitutional Appears: Non-toxic - Head Exam Head Exam: NORMAL INSPECTION - Respiratory Exam Respiratory Exam: Decreased Breath Sounds - Cardiovascular Exam Cardiovascular Exam: +S1, +S2 - GI/Abdominal Exam GI & Abdominal Exam: Soft. absent: Tenderness Assessment and Plan - Assessment and Plan (Free Text) Plan: Assessment pyuria in urinalysis, but no symptoms and no evidence of UTI probable CHF history of mitral valve endocarditis S/P mitral valve replacement CAD S/P CABG S/P pacemaker placement Plan continue to monitor the patient off antibiotics since he is at risk for healthcare-associated infections
--- NOTE | 2017-02-14 11:59 | PN ---
DATE: 02/12/2017 SUBJECTIVE: The patient seems comfortable. No distress. His leg edema is down. Son next to him. No new complaints. The patient is eating well, moving around with physical therapy. There are no any falls. No short of breath. Seems to be doing well. PHYSICAL EXAMINATION: VITAL SIGNS: His temperature is 98, heart rate is 87, blood pressure is 137/61, respirations are 14, and saturating 99%. HEAD AND NECK: Normal. No JVD. No thyromegaly. CHEST: Clear with good air entry. CARDIAC: First sound and second sound normal. ABDOMEN: Soft and nontender. EXTREMITIES: There is mild edema, improved. NEUROLOGIC: Normal. He moves all extremities. LABORATORY DATA: Noted blood sugar runs 120-140 range and seems otherwise stable. The patient had a repeat PSA with 688. The patient also had previously testosterone level of 299. IMPRESSION AND PLAN: 1. Prostate cancer with probably bony metastases. The patient is clinically stable and seems doing well, eating well, and breathing better. We will continue current treatment. The patient is getting oxycodone for his arthritis. His hands and hips seems stable on that. Oncology consult seen the patient. We will continue follow his recommendations, probably hormonal therapy. 2. Acute chronic obstructive pulmonary disease exacerbation: Continue inhaled and IV bronchodilators. Follow up with Dr. Sánchez. Recommendations: The patient is getting BiPAP machine at night. He seems stable on that. 3. Congestive heart failure: The patient also had coronary artery disease, 5-vessel bypass surgery, and mitral valve replacement, and also history of peripheral vascular disease in his right leg. He has a stent placement in the past and seems to be doing well with that. The patient also has congestive heart failure. Clinically, the patient is stable on Lasix b.i.d. His leg edema has improved, in part the swelling could be chronic obstructive pulmonary disease and right-sided heart failure, [id number] pulmonary hypertension secondary to obstructive sleep apnea, on part of that diastolic dysfunction, cardiac in origin. We will continue current therapy. We will follow up clinically with the consultants. 4. Chronic osteoarthritis: The patient has severe bilateral hip arthritis more on the right than the left for years. Continue oxycodone p.r.n. and the patient seems stable and had a bowel movement, eating well, and continue deep venous thrombosis prophylaxis on Lovenox 40 mg subcutaneous daily. 5. Diabetes seems controlled under 150s. We will continue insulin coverage. 6. Hypercholesterolemia: Continue Lipitor 20 mg p.o. daily. At this time, we will continue current therapy. Continue cough medicine, Remeron, Protonix, Nicoderm patch, the patient is still smoking, but he hopefully will quit, Lopressor 12.5 b.i.d., insulin coverage, Flomax 0.4, Colace, and Mucomyst, and started already chemotherapy pills Casodex, seems doing okay and we will continue on that. Salty Sorto MD
--- NOTE | 2017-02-14 13:16 | PN ---
DATE: 02/13/2017 SUBJECTIVE: The patient seems stable and comfortable, in no distress. Getting physical therapy and eating well. His leg edema improved and his breathing is better. Seen by wealth management consultant and seems doing well. PHYSICAL EXAMINATION: VITAL SIGNS: Temperature of 97.3, heart rate is 60, blood pressure is 118/50, respirations are 16, and saturating 97%. HEAD AND NECK: Normal. No JVD. No thyromegaly. CHEST: Clear with good air entry. CARDIAC: First sound and second sound normal. ABDOMEN: Soft and nontender. EXTREMITIES: Mild edema. NEUROLOGIC: Normal. LABORATORY DATA: On 02/13/2017 is noted for blood sugar 140 to 200 range and otherwise, no other labs. The patient also had urine culture done before and it was negative. As per ID, the patient also was seen by Dr. Sánchez, Dr. Caba, and other consultants including Oncology evaluation IMPRESSION AND PLAN: 1. Deconditioning and weakness. We will continue physical therapy. Doing better. 2. Acute chronic obstructive pulmonary disease exacerbation, currently improving on inhaled and intravenous bronchodilators. Continue steroids. We will follow up with Dr. Sánchez. The patient seems stable in that too. 3. Congestive heart failure, probably combination of right and left-sided heart failure. Continue Lasix and monitor blood pressure. We will follow up with his cardiology. Continue bilevel positive airway pressure machine for underlying obstructive sleep apnea and inhaled bronchodilators. We will repeat laboratories in the morning. 4. Prostate cancer. The patient has prostate cancer with metastases in the bone seems clinically stable. Eating well. Moving around with physical therapy. We will continue Casodex as per Oncology recommendations and we will follow up clinically. 5. Chronic osteoarthritis, bilateral hip arthritis, severe right hip arthritis with history of peripheral vascular disease, bilateral hand arthritis. Continue oxycodone p.r.n. for pain and continue current treatment. Salty Sorto MD
[2017-02-14 17:37] VITALS: RESP 18
[2017-02-14] MEDS: Oxycodone/Acetaminophen 5/325 mg Tab PO PRN (20:29)
--- NOTE | 2017-02-14 21:27 | PN ---
DATE: 02/14/2017 PULMONARY PROGRESS NOTE REFERRING PHYSICIAN: Salty Sorto MD SUBJECTIVE: He is out of bed to chair. Brother is at bedside. Night was unremarkable. No nausea. No vomiting. No diarrhea, leg pain or leg swelling. OBJECTIVE: GENERAL: In no acute distress. VITAL SIGNS: Temperature is 98, heart rate is 76, respiratory rate is 20, blood pressure is 103/59, and pulse ox is 98% on room air. HEENT: Moist mucous membranes. Carotid airway. NECK: Supple. No JVD. LUNGS: Has fair airflow with few rhonchi. HEART: S1 and S2. ABDOMEN: Soft and nontender. No organomegaly. EXTREMITIES: No edema. NEUROLOGIC: Awake and alert. Follow simple commands. MEDICATIONS: He is on Mucomyst 20% inhale twice a day, Casodex 50 mg daily, Colace 100 mg twice a day, Flomax 0.4 mg daily, insulin coverage, Lasix 40 mg twice a day, Lipitor 20 mg daily, metoprolol tartrate 12.5 mg twice a day, Lovenox 40 mg daily, NicoDerm patch daily, Percocet 5/325 one tab q. 6 hours p.r.n., Protonix 40 mg daily, Remeron 30 mg at bedtime, Robitussin DM on p.r.n. basis, Solu-Medrol mg twice a day, Xopenex inhale q. 4 hours p.r.n., and Xopenex inhale four times a day round the clock. LABORATORY DATA: Shows hemoglobin 11.3, hematocrit 34.5, WBC 12.4, platelet is 166. Sodium 139, potassium 4.5, chloride 101, bicarbonate 35, BUN 47, creatinine 1.1, glucose is 94, calcium is 8.7. Urine culture show further no growth. IMPRESSION AND PLAN: Exacerbation of chronic obstructive lung disease, suspected sleep apnea syndrome, cardiomyopathy, valvular heart disease, coronary artery disease, diabetes, history of prostate cancer. We will decrease Solu-Medrol to 30 on a daily basis. Continue antibiotics. Continue diuretics. Gastric prophylaxis and deep venous thrombosis prophylaxis. Encourage CPAP use. Thank you and we will follow with you. Mohammad Princess, MD [facility] # [id number]
[2017-02-15] MEDS: Enoxaparin 40 mg Syringe SC SCH (05:26)
[2017-02-15] MEDS: Pantoprazole 40 mg EC Tab PO SCH (05:26)
--- NOTE | 2017-02-15 06:56 | CP.PCM.PN ---
Subjective - Date & Time of Evaluation Date of Evaluation: 02/15/17 Time of Evaluation: 07:15 - Subjective Subjective: Heme/onc progress note for Dr Parekh's service. Patient lying comfortably on the hospital bed, in no acute distress. Denies any acute events overnight. States the physical therapy is going well, sob resolved. Patient is able to void, denies hematuria, cp, sob, n/v/d. Tolerating po. Denies pain. Objective - Vital Signs/Intake and Output Vital Signs (last 24 hours): Temp Pulse Resp BP Pulse Ox 97.6 F 76 18 118/54 L 99 02/14/17 17:36 02/14/17 17:38 02/14/17 17:36 02/14/17 17:38 02/14/17 17:36 Intake and Output: 02/14/17 02/15/17 18:59 06:59 Intake Total 420 Output Total 650 Balance -230 - Medications Medications: Current Medications Acetylcysteine (Acetylcysteine 20%) 4 ml IH BIDRESP [facility] Last Admin: 02/14/17 19:52 Dose: 4 ml Atorvastatin Calcium (Lipitor) 20 mg PO DIN [facility] Last Admin: 02/14/17 17:38 Dose: 20 mg Bicalutamide (Casodex) 50 mg PO DAILY [facility] Last Admin: 02/14/17 10:26 Dose: 50 mg Docusate Sodium (Colace) 100 mg PO BID [facility] Last Admin: 02/14/17 17:38 Dose: 100 mg Enoxaparin Sodium (Lovenox) 40 mg SC 0600 EF[facility]IN PRN Reason: Protocol Last Admin: 02/15/17 05:26 Dose: 40 mg Furosemide (Lasix) 40 mg PO BID [facility] Last Admin: 02/14/17 17:38 Dose: 40 mg Guaifenesin/Codeine Phosphate (Robitussin W/Codeine) 5 ml PO HS PRN PRN Reason: Cough and congestion Guaifenesin/Dextromethorphan (Robitussin Dm) 5 ml PO TID [facility] Last Admin: 02/14/17 17:39 Dose: 5 ml Insulin Human Regular (Humulin R Low) 0 units SC ACHS [facility] PRN Reason: Protocol Last Admin: 02/11/17 12:42 Dose: Not Given Levalbuterol HCl (Xopenex) 0.63 mg IH [id number] PRN PRN Reason: Shortness of Breath Levalbuterol HCl (Xopenex) 0.63 mg IH QIDRESP [facility] Last Admin: 02/14/17 19:52 Dose: 0.63 mg Methylprednisolone (Solu-Medrol) 30 mg IVP DAILY [facility] Metoprolol Tartrate (Lopressor) 12.5 mg PO 0800,1700 [facility] Last Admin: 02/14/17 17:38 Dose: Not Given Mirtazapine (Remeron) 30 mg PO [facility] Last Admin: 02/14/17 21:05 Dose: 30 mg Nicotine (Nicoderm Cq) 1 patch TD DAILY [facility] Last Admin: 02/14/17 10:12 Dose: 1 patch Oxycodone/Acetaminophen (Percocet 5/325 Mg Tab) 1 tab PO Q6H PRN; Protocol PRN Reason: moderate pain Stop: 02/16/17 22:00 Last Admin: 02/14/17 20:29 Dose: 1 tab Pantoprazole Sodium (Protonix Ec Tab) 40 mg PO 0600 [facility] Last Admin: 02/15/17 05:26 Dose: 40 mg Tamsulosin HCl (Flomax) 0.4 mg PO [facility] Last Admin: 02/14/17 21:05 Dose: 0.4 mg - Labs Labs: 02/14/17 06:30 02/14/17 06:30 - Constitutional Appears: No Acute Distress, Cachectic, Chronically Ill - Head Exam Head Exam: ATRAUMATIC, NORMAL INSPECTION, NORMOCEPHALIC - Eye Exam Eye Exam: EOMI, Normal appearance, PERRL. absent: Scleral icterus Pupil Exam: NORMAL ACCOMODATION - ENT Exam ENT Exam: Mucous Membranes Dry - Neck Exam Neck Exam: Normal Inspection - Respiratory Exam Respiratory Exam: Clear to Ausculation Bilateral, NORMAL BREATHING PATTERN. absent: Rales, Rhonchi, Wheezes, Respiratory Distress, Stridor - Cardiovascular Exam Cardiovascular Exam: REGULAR RHYTHM, +S1, +S2 - GI/Abdominal Exam GI & Abdominal Exam: Soft, Normal Bowel Sounds. absent: Distended, Firm, Guarding, Rigid, Tenderness - Extremities Exam Extremities Exam: Normal Inspection - Back Exam Back Exam: NORMAL INSPECTION - Neurological Exam Neurological Exam: Alert, Awake, Oriented x3 - Psychiatric Exam Psychiatric exam: Normal Affect, Normal Mood - Skin Skin Exam: Dry, Intact, Normal Color, Warm Assessment and Plan - Assessment and Plan (Free Text) Assessment: Patient is a 81 y/o with pmh of CAD s/p CABG, systolic chf, COPD admitted with copd exacerbation, and Dr Parekh is consulted for metastatic prostate cancer, met to the bone Ryan score 9, latest PSA of 688, CT chest with lung nodules unchanged from prior studies ( 03/03). Patient had 3 days of casodex, was giving a dose of aredia on 02/13/17. Patient to get leuprolide 7.5 mg IM today , and will need to follow up with Dr Parekh in the office next week. Spoke to patient's son, Jonathan Venegas, at [phone] on 02/15/17, at 1350 and explained patient's condition, discharge planning and follow ups. I also explained what side effects to expect with leuprolide, and gave patient's son opportunity to ask questions. Discussed case with Dr Parekh.
[2017-02-15] MEDS: Levalbuterol 0.63 MG/3 ML Inhal Soln UD IH SCH ×2 (07:30→11:17)
[2017-02-15] MEDS: Acetylcysteine 20% Inhal Soln (4ml) IH SCH (07:30)
[2017-02-15] MEDS ORDERED: MethylPREDNISolone 40 mg Vial IVP SCH (10:00)
[2017-02-15] MEDS: guaiFENesin DM 100 mg-10 mg/5 ml UD PO SCH ×2 (10:19→13:00)
[2017-02-15 10:24] VITALS: BP 112/63
[2017-02-15] MEDS ORDERED: [UNRECOGNIZED DRUG - OTHER] IM ONE ×2 (10:31→12:30)
[2017-02-15 10:46] VITALS: PULSE 107; TEMP 97.3; O2SAT 95
--- NOTE | 2017-02-15 13:14 | CP.PCM.PN ---
Subjective - Date & Time of Evaluation Date of Evaluation: 02/15/17 Time of Evaluation: 11:20 - Subjective Subjective: Comfortable, no fevers, not in distress. Objective - Vital Signs/Intake and Output Vital Signs (last 24 hours): Temp Pulse Resp BP Pulse Ox 97.6 F 92 H 18 102/52 L 99 02/14/17 17:36 02/15/17 08:10 02/14/17 17:36 02/15/17 08:10 02/14/17 17:36 Intake and Output: 02/15/17 02/15/17 06:59 18:59 Intake Total 420 Output Total 650 Balance -230 - Medications Medications: Current Medications Acetylcysteine (Acetylcysteine 20%) 4 ml IH BIDRESP [facility] Last Admin: 02/15/17 07:30 Dose: 4 ml Atorvastatin Calcium (Lipitor) 20 mg PO DIN [facility] Last Admin: 02/14/17 17:38 Dose: 20 mg Bicalutamide (Casodex) 50 mg PO DAILY [facility] Last Admin: 02/14/17 10:26 Dose: 50 mg Docusate Sodium (Colace) 100 mg PO BID [facility] Last Admin: 02/14/17 17:38 Dose: 100 mg Enoxaparin Sodium (Lovenox) 40 mg SC 0600 [facility] PRN Reason: Protocol Last Admin: 02/15/17 05:26 Dose: 40 mg Furosemide (Lasix) 40 mg PO BID [facility] Last Admin: 02/14/17 17:38 Dose: 40 mg Guaifenesin/Codeine Phosphate (Robitussin W/Codeine) 5 ml PO HS PRN PRN Reason: Cough and congestion Guaifenesin/Dextromethorphan (Robitussin Dm) 5 ml PO TID [facility] Last Admin: 02/14/17 17:39 Dose: 5 ml Insulin Human Regular (Humulin R Low) 0 units SC ACHS [facility] PRN Reason: Protocol Last Admin: 02/11/17 12:42 Dose: Not Given Levalbuterol HCl (Xopenex) 0.63 mg IH [id number] PRN PRN Reason: Shortness of Breath Levalbuterol HCl (Xopenex) 0.63 mg IH QIDRESP [facility] Last Admin: 02/15/17 07:30 Dose: 0.63 mg Methylprednisolone (Solu-Medrol) 30 mg IVP DAILY [facility] Metoprolol Tartrate (Lopressor) 12.5 mg PO 0800,1700 [facility] Last Admin: 02/15/17 08:10 Dose: 12.5 mg Mirtazapine (Remeron) 30 mg PO HS [facility] Last Admin: 02/14/17 21:05 Dose: 30 mg Nicotine (Nicoderm Cq) 1 patch TD DAILY [facility] Last Admin: 02/14/17 10:12 Dose: 1 patch Oxycodone/Acetaminophen (Percocet 5/325 Mg Tab) 1 tab PO Q6H PRN; Protocol PRN Reason: moderate pain Stop: 02/16/17 22:00 Last Admin: 02/14/17 20:29 Dose: 1 tab Pantoprazole Sodium (Protonix Ec Tab) 40 mg PO 0600 [facility] Last Admin: 02/15/17 05:26 Dose: 40 mg Tamsulosin HCl (Flomax) 0.4 mg PO HS [facility] Last Admin: 02/14/17 21:05 Dose: 0.4 mg - Labs Labs: 02/14/17 06:30 02/14/17 06:30 - Constitutional Appears: Non-toxic - Head Exam Head Exam: NORMAL INSPECTION - Respiratory Exam Respiratory Exam: Decreased Breath Sounds - Cardiovascular Exam Cardiovascular Exam: +S1, +S2 - GI/Abdominal Exam GI & Abdominal Exam: Soft. absent: Tenderness Assessment and Plan - Assessment and Plan (Free Text) Plan: Assessment pyuria in urinalysis, but no symptoms and no evidence of UTI probable CHF history of mitral valve endocarditis S/P mitral valve replacement CAD S/P CABG S/P pacemaker placement Plan continue to monitor the patient off antibiotics since he is at risk for healthcare-associated infections
[2017-02-15] MEDS ORDERED: Home Med 1 UNIT IM ONE (13:30)
--- NOTE | 2017-02-15 14:29 | PN ---
DATE: 02/15/2017 PULMONARY PROGRESS NOTE REFERRING PHYSICIAN: Salty Sorto MD SUBJECTIVE: The patient is lying in the bed, head at 45 degrees. Night was unremarkable. Not very complaint with the CPAP, willing to use CPAP with nasal mask though. No nausea. No vomiting. No diarrhea. No leg pain or leg swelling. OBJECTIVE: GENERAL: In no acute distress. VITAL SIGNS: Temperature 98, heart rate 107, respiratory rate 20, blood pressure 112/63, and pulse ox 95% on room air. HEENT: Moist mucous membranes. Crowded airway. NECK: Supple. No JVD. LUNGS: Fair airflow with few rhonchi. HEART: S1 and S2. ABDOMEN: Soft, nontender. No organomegaly. EXTREMITIES: There is no edema. NEUROLOGIC: Awake and alert. Follows simple commands. LABORATORY DATA: Shows blood sugar is 119. No other new lab available since yesterday. MEDICATIONS: He is on Mucomyst 20% inhale twice a day, Colace 100 mg twice a day, Flomax 0.4 mg daily, Lasix 40 mg twice a day, Lipitor 20 mg daily, metoprolol tartrate 12.5 mg twice a day, Lovenox 40 mg daily, Nicoderm patch daily, Percocet 5/325 one tab q. 6 hours p.r.n., Protonix 40 mg daily, Remeron 30 mg at bedtime, Robitussin 5 mL 3 times a day, Robitussin with Codeine p.r.n. basis, Solu-Medrol 20 mg daily, Xopenex inhale q. 4 hours. IMPRESSION AND PLAN: Chronic obstructive lung disease, cardiomyopathy, coronary artery disease, valvular heart disease, sleep apnea syndrome, diabetes, prostate cancer. Pulmonary point of view, he is doing okay. Continue IV and inhaled bronchodilator. Encourage BiPAP use. May provide nasal mask. Spoke to nursing staff to call to respiratory therapy. Gastric prophylaxis. Deep venous thrombosis prophylaxis. Continue therapy. Thank you and we will follow with you. Bon Sánchez MD
--- NOTE | 2017-02-15 17:45 | PN ---
DATE: 02/15/2017 REASON FOR CONSULTATION AND FOLLOWUP: Coronary artery disease, status post bypass, status post MVR, history of pacemaker, admitted with COPD exacerbation and deconditioning of the body. SUBJECTIVE: Not in apparent distress. PHYSICAL EXAMINATION: GENERAL: Not in apparent distress. VITAL SIGNS: Temperature afebrile, heart rate 92, and blood pressure 102/52. HEENT: PERRLA. Extraocular muscles intact. NECK: Supple. No carotid bruit or thyromegaly. CHEST: Clear to auscultation. HEART: S1 and S2, regular. ABDOMEN: Soft. EXTREMITIES: Clubbing and cyanosis negative. LABORATORY DATA: Blood workup as follows: WBC 12.4, hemoglobin 11.3, hematocrit 34.5, and platelet count 166. Chemistry shows sodium 139, potassium 4.5, chloride 101, carbon dioxide 35, anion gap of 8, BUN 47, and creatinine 1.1. IMPRESSION: Acute exacerbation of chronic obstructive pulmonary disease, deconditioning of the body, coronary artery disease status post coronary artery bypass grafting, status post mitral valve replacement secondary to mitral valve endocarditis, history of tobacco abuse, noncompliance with medication, diastolic dysfunction, and congestive heart failure secondary to diastolic dysfunction. Most recent echocardiogram shows trace aortic regurgitation, preserved left ventricular function, ejection fraction 50%-55%, dilated left ventricle. RECOMMENDATIONS: Continue gentle diuretics. Continue metoprolol. Continue DVT prophylaxis. Continue treatment of COPD. PSA elevated, needs to be monitored closely and also consider evaluation and followup for elevated PSA. The patient needs close followup for because of elevated PSA. We will discuss with Dr. Sorto. Thank Dr. Sorto for providing us the opportunity in taking care of patient, Davin Venegas Jr.. Bon Blanc MD
== END 2017-02-15 15:46 | disposition home or self-care (01) | DRG 945 ==
LOC: TRCU 18:07
PROVIDERS: ADMIT Internal Medicine; ATTEND Internal Medicine
PROC: F07Z9FZ Gait Training/Functional Ambulation Treatment using Assistive, Adaptive, Supportive or Protective Equipment (ICD-10-PCS; principal; 2017-02-10)
PROC: F08Z4FZ Home Management Treatment using Assistive, Adaptive, Supportive or Protective Equipment (ICD-10-PCS; 2017-02-10)
PROC: 3E0F7GC Introduction of Other Therapeutic Substance into Respiratory Tract, Via Natural or Artificial Opening (ICD-10-PCS; 2017-02-10)
DX: R53.1 Weakness (principal); J44.1 Chronic obstructive pulmonary disease with (acute) exacerbation; C79.51 Secondary malignant neoplasm of bone; C61 Malignant neoplasm of prostate; I11.0 Hypertensive heart disease with heart failure; E11.51 Type 2 diabetes mellitus with diabetic peripheral angiopathy without gangrene; I50.42 Chronic combined systolic (congestive) and diastolic (congestive) heart failure; I42.9 Cardiomyopathy, unspecified; G47.33 Obstructive sleep apnea (adult) (pediatric); I25.10 Atherosclerotic heart disease of native coronary artery without angina pectoris; R31.9 Hematuria, unspecified; N40.0 Benign prostatic hyperplasia without lower urinary tract symptoms; E78.5 Hyperlipidemia, unspecified; I27.20 Pulmonary hypertension, unspecified; E78.00 Pure hypercholesterolemia, unspecified; M16.0 Bilateral primary osteoarthritis of hip; F17.210 Nicotine dependence, cigarettes, uncomplicated; I25.2 Old myocardial infarction; Z87.442 Personal history of urinary calculi; Z91.14 Patient's other noncompliance with medication regimen; Z95.2 Presence of prosthetic heart valve; Z95.1 Presence of aortocoronary bypass graft; Z95.0 Presence of cardiac pacemaker

== ENCOUNTER 2017-04-29 17:04 | Inpatient (IN) | payer MEDICARE, MEDICAID ==
[2017-04-29] MEDS ORDERED: Aspirin 325 mg EC Tablets PO STA (17:23)
--- NOTE | 2017-04-29 17:27 | ED PDOC ---
Arrival/HPI - General Chief Complaint: Shortness Of Breath Time Seen by Provider: 04/29/17 17:07 Historian: Patient - History of Present Illness Narrative History of Present Illness (Text): 04/29/17 17:20 A 81 year old male, whose past medical history includes CHD, Diabetes, COPD, CAD /CABG, hypertension, pacemaker, sleep apnea, and mitral valve replacement, presents to the emergency department complaining of leg swelling for 3 days. Patient states symptom has worsened despite taking Lasix. Patient reports also experiencing nasal congestion, cough and rhinorrhea for past 2 weeks. Patient denies any fever, chills, body aches, chest pain, or any other complaints. PMD: Dr. Sorto Oncologist: Dr. Wisdom 04/29/17 19:21 Time/Duration: > week (2 weeks of nasal congestion and rhinorrhea), < week (3 days of increased leg swelling) Symptom Onset: Sudden, Gradual Symptom Course: Unchanged Past Medical History - Provider Review Nursing Documentation Reviewed: Yes - Past History Past History: No Previous - Infectious Disease Hx of Infectious Diseases: None - Tetanus Immunization Tetanus Immunization: Unknown - Cardiac Hx Cardiac Disorders: Yes (CAD,CABG,MVR,PROSTHETIC MITRAL VALVE) Hx Congestive Heart Failure: Yes Hx Hypertension: Yes Hx Peripheral Edema: Yes - Pulmonary Hx Chronic Obstructive Pulmonary Disease (COPD): Yes - Neurological Hx Neurological Disorder: No - HEENT Hx HEENT Disorder: Yes - Renal Hx Renal Failure: Yes - Endocrine/Metabolic Hx Diabetes Mellitus Type 2: Yes - Hematological/Oncological Hx Blood Disorders: Yes - Integumentary Hx Dermatological Disorder: Yes - Musculoskeletal/Rheumatological Hx Falls: Yes - Gastrointestinal Hx Gastrointestinal Disorders: Yes Hx Crohn's Disease: Yes - Genitourinary/Gynecological Hx Reproductive Disorders: No - Psychiatric Hx Emotional Abuse: No Hx Physical Abuse: No Hx Substance Use: No (DENIES) - Past Surgical History Past Surgical History: No Previous - Surgical History Hx Open Heart Surgery: Yes - Anesthesia Hx Anesthesia Reactions: No Hx Malignant Hyperthermia: No - Suicidal Assessment Feels Threatened In Home Enviroment: No Family/Social History - Physician Review Nursing Documentation Reviewed: Yes Family/Social History: No Known Family HX Smoking Status: Former Smoker Hx Alcohol Use: No (DENIES) Hx Substance Use: No (DENIES) Hx Substance Use Treatment: No Allergies/Home Meds Allergies/Adverse Reactions: Allergies No Known Allergies Allergy (Verified 04/29/17 17:22) Home Medications: Home Meds Medication Instructions Recorded Confirmed Aspirin [Adult Low Dose Aspirin EC] 81 mg PO DAILY 08/07/16 04/29/17 Multivitamin with Iron [Daily 1 tab PO DAILY 11/14/16 04/29/17 Vitamin + Iron] Furosemide [Lasix] 40 mg PO BID 02/02/17 04/29/17 SITagliptin [Januvia] 100 mg PO DAILY 02/06/17 04/29/17 Albuterol HFA [Ventolin HFA 90 2 puff NEB Q4 PRN 04/29/17 04/29/17 mcg/actuation (8 g)] Albuterol/Ipratropium [Combivent 2 puff NEB Q4 PRN 04/29/17 04/29/17 Respimat] Clopidogrel [Plavix] 75 mg PO DAILY 04/29/17 04/29/17 Fluticasone/Salmeterol 250/50 2 puff NEB DAILY 04/29/17 04/29/17 [Advair Diskus 250/50] Review of Systems - Physician Review All systems were reviewed & negative as marked: Yes - Review of Systems Constitutional: absent: Fevers, Night Sweats ENT: Rhinorrhea, Other (nasal congestion) Respiratory: Cough (with phlegm) Cardiovascular: absent: Chest Pain Musculoskeletal: Other (worsening leg swelling). absent: Myalgias Physical Exam Vital Signs Reviewed: Yes Vital Signs Temp Pulse Resp BP Pulse Ox 04/29/17 18:54 86 18 113/47 L 98 04/29/17 17:46 128/80 04/29/17 17:23 14 98 04/29/17 17:05 99.1 F 116 H 18 128/80 92 L Temperature: Afebrile Blood Pressure: Normal Pulse: Regular Respiratory Rate: Normal Appearance: Positive for: Well-Appearing Pain Distress: None Mental Status: Positive for: Alert and Oriented X 3 - Systems Exam Head: Present: Atraumatic, Normocephalic Pupils: Present: PERRL Extroacular Muscles: Present: EOMI Conjunctiva: Present: Normal Pharnyx: Present: Normal Nose (Internal): Present: Other (congested) Neck: Present: Normal Range of Motion. No: JVD Respiratory/Chest: Present: Wheezes (bilaterally), Rales (lower lung naranjo) Cardiovascular: Present: Regular Rate and Rhythm, Normal S1, S2. No: Murmurs Abdomen: Present: Normal Bowel Sounds. No: Tenderness, Distention, Peritoneal Signs Lower Extremity: Present: Edema (+2 pitting edema) Neurological: Present: GCS=15, CN II-XII Intact, Speech Normal Skin: Present: Warm, Dry, Normal Color. No: Rashes Psychiatric: Present: Alert, Oriented x 3, Normal Insight, Normal Concentration Medical Decision Making ED Course and Treatment: 04/29/17 17:23 Impression: 81 year old male with increasing leg swelling, nasal congestion, and rhinorrhea. Physical exam shows no JVD; nose is congested; lungs wheezing bilaterally and rales in lower naranjo; +2 pitting edema to lower extremities. Differential Diagnosis included but are not limited to: CHF vs. COPD Exacerbation Plan: -- EKG -- Chest X-ray -- Labs -- Albuterol -- Ecotrin -- Lasix -- SOLU-Medrol -- Urinalysis -- Blood Culture -- Urine Culture -- Reassess and disposition Prior Visits: Notes and results from previous visits were reviewed. Patient was last seen in the emergency department on 02/06/2017 for shortness of breath. Patienet was admitted. Progress Notes: 04/29/2017 18:04 Chest X-ray IMPRESSION: No active disease. No significant interval change compared to the prior examination(s). Dictator: Alan Fournier MD EKG: Ordered, reviewed, and independently interpreted the EKG. Rate : 84 BPM Rhythm : Pacemaker Interpretation : No ST-segment elevations or depressions, no T-wave inversions, normal intervals. Comparison : No previous EKG for comparison. 04/29/17 19:[address] Sorto who will admit to his service. He requested Rocephin and Tamiflu. Patient admitted to Telemetry for CHF/COPD. - Lab Interpretations Lab Results: 04/29/17 18:10 04/29/17 18:10 Lab Results 04/29/17 18:10: Sodium 145, Potassium 3.7, Chloride 106, Carbon Dioxide 28, Anion Gap 14, BUN 13, Creatinine 0.9, Est GFR ( Amer) > 60, Est GFR (Non- Af Amer) > 60, Random Glucose 75, Calcium 9.1, Total Bilirubin 0.3, AST 22, ALT 27, Alkaline Phosphatase 261 H D, Lactate Dehydrogenase 441, Total Creatine Kinase 58, Troponin I < 0.01 D, NT-Pro-B Natriuret Pep 1520 H, Total Protein 6.3, Albumin 3.3, Globulin 3.0, Albumin/Globulin Ratio 1.1 04/29/17 18:10: WBC 4.4 L D, RBC 3.45 L, Hgb 10.0 L, Hct 31.5 L, MCV 91.3 D, MCH 29.0, MCHC 31.7, RDW 21.9 H, Plt Count 302, MPV 9.6, Gran % 57.4, Lymph % ( Auto) 31.4, [place] % (Auto) 9.8 H, Eos % (Auto) 0.7 L, Baso % (Auto) 0.7, Gran # 2.53, Lymph # (Auto) 1.4, [place] # (Auto) 0.4, Eos # (Auto) 0.0, Baso # (Auto) 0.03 I have reviewed the lab results: Yes - RAD Interpretation Radiology Orders: 04/29/17 17:23 CHEST PORTABLE [RAD] Stat - Medication Orders Current Medication Orders: Discontinued Medications Albuterol/Ipratropium (Duoneb 3 Mg/0.5 Mg (3 Ml) Ud) 3 ml IH Q15M EFRAIN Stop: 04/29/17 18:01 Last Admin: 04/29/17 18:15 Dose: 3 ml Aspirin (Ecotrin) 325 mg PO STAT STA Stop: 04/29/17 17:24 Last Admin: 04/29/17 17:46 Dose: 325 mg Furosemide (Lasix) 40 mg IVP STAT STA Stop: 04/29/17 17:24 Last Admin: 04/29/17 17:46 Dose: 40 mg MAR Blood Pressure Document 04/29/17 17:46 RG (Rec: 04/29/17 18:36 [id number]) Blood Pressure Blood Pressure (100/60-150/90) 128/80 IVP Administration Document 04/29/17 17:46 RG (Rec: 04/29/17 18:36 [id number]) Charges for Administration # of IVP Administrations 1 Methylprednisolone (Solu-Medrol) 125 mg IVP STAT STA Stop: 04/29/17 17:25 Last Admin: 04/29/17 17:05 Dose: 125 mg IVP Administration Document 04/29/17 17:05 MATT (Rec: 04/29/17 18:35 RG [id number]) Charges for Administration # of IVP Administrations 1 - Scribe Statement The provider has reviewed the documentation as recorded by the Alvareziblupe Stratton Provider Scribe Attestation: All medical record entries made by the Scribe were at my direction and personally dictated by me. I have reviewed the chart and agree that the record accurately reflects my personal performance of the history, physical exam, medical decision making, and the department course for this patient. I have also personally directed, reviewed, and agree with the discharge instructions and disposition. Disposition/Present on Arrival - Present on Arrival Any Indicators Present on Arrival: No History of DVT/PE: No History of Uncontrolled Diabetes: No Urinary Catheter: No History of Decub. Ulcer: No History Surgical Site Infection Following: None - Disposition Have Diagnosis and Disposition been Completed?: Yes Diagnosis: COPD exacerbation, Congestive heart failure (CHF), Chronic obstructive lung disease Disposition: HOSPITALIZED Disposition Time: 19:22 Patient Plan: Observation Condition: FAIR Discharge Instructions (ExitCare): Heart Failure (ED) Referrals: Salty Sorto MD [Primary Care Provider] - Follow up with primary Forms: [employer] ([place])
[2017-04-29] MEDS: Albuterol-Ipratrop 3 mg / 0.5 (3 ml) UD IH SCH ×3 (17:45→18:15)
--- NOTE | 2017-04-29 18:06 | RAD ---
HISTORY: Cough. Pneumonia/CHF. COMPARISON: 02/06/2017 FINDINGS: LUNGS: No active pulmonary disease. PLEURA: No significant pleural effusion identified, no pneumothorax apparent. CARDIOVASCULAR: No radiographic findings to suggest acute or significant cardiovascular disease. Position/ configuration of pacemaker device: Satisfactory.Incidental Finding(s): Postoperative changes related to sternotomy. OSSEOUS STRUCTURES: No significant abnormalities. VISUALIZED UPPER ABDOMEN: Normal. OTHER FINDINGS: None. IMPRESSION: No active disease. No significant interval change compared to the prior examination(s). Martinez
[2017-04-29 18:46] LABS: ALB/GLOB RATIO 1.1 (1.1-1.8); ALBUMIN 3.3 g/dL (3.0-4.8); ALT/SGPT 27 U/L (7-56); AST/SGOT 22 U/L (17-59); BLOOD UREA NITROGEN 13 mg/dL (7-21); CALCIUM 9.1 mg/dL (8.4-10.5); GFR AFRICAN-AMERICAN > 60; GFR NON-AFRICAN AMERICAN > 60
[2017-04-29 18:59] LABS: TROPONIN I < 0.01 ng/mL
[2017-04-29 19:01] LABS: BASO # 0.03 K/mm3 (0.0-2.0); BASO % 0.7 % (0.0-3.0); EOS % 0.7 % (1.5-5.0); GRAN # 2.53 (1.4-6.5); GRAN % 57.4 % (50.0-68.0); LYMPH # 1.4 (1.2-3.4); LYMPH % 31.4 % (22.0-35.0); MEAN CELL VOLUME 91.3 fl (80.0-105.0); MEAN CORPUSCULAR HGB CONC 31.7 g/dl (31.0-37.0); MEAN PLATELET VOLUME 9.6 fl (7.0-11.0); MONO # 0.4 (0.1-0.6); MONO % 9.8 % (1.0-6.0); RBC 3.45 10^6/uL (3.5-6.1); RED CELL DISTRIBUTION WIDTH 21.9 % (11.5-14.5); WHITE BLOOD COUNT 4.4 10^3/ul (4.5-11.0)
[2017-04-29 19:04] LABS: B-TYPE NATRIURETIC PEPTIDE 1520 pg/mL (0-450)
[2017-04-29] MEDS ORDERED: cefTRIAXone 1 gm 1 GM/100 ML BAG IVPB STA (19:19)
[2017-04-29] MEDS ORDERED: Albuterol-Ipratrop 3 mg / 0.5 (3 ml) UD IH PRN (19:22)
[2017-04-29 19:25] LABS: INR 1.19 (0.93-1.08); PARTIAL THROMBOPLASTIN TIME 32.8 Seconds (25.1-36.5); PROTHROMBIN TIME 13.6 SECONDS (9.4-12.5)
[2017-04-29 20:58] LABS: URINE BILIRUBIN NEGATIVE (NEGATIVE); URINE BLOOD TRACE-LYSED (NEGATIVE); URINE GLUCOSE (UA) NEGATIVE (NEGATIVE); URINE LEUKOCYTE ESTERASE TRACE Leu/uL (NEGATIVE); URINE NITRATE NEGATIVE (NEGATIVE); URINE PROTEIN NEGATIVE mg/dL (<30 mg/dL); URINE UROBILINOGEN 0.2 E.U./dL (<1 E.U./dL)
[2017-04-29 21:02] LABS: URINE APPEARANCE CLEAR (CLEAR); URINE COLOR LIGHT YELLOW (YELLOW)
[2017-04-29 21:50] VITALS: BMI 32.9
[2017-04-29] MEDS ORDERED: Amoxicillin-Clav 875-125 mg Tab PO STA (22:19)
[2017-04-29 22:29] LABS: URINE RBC 0 - 2 /hpf (0-2)
[2017-04-29 22:30] LABS: URINE BACTERIA MOD (NEG)
[2017-04-30] MEDS: MethylPREDNISolone 40 mg Vial IVP SCH ×3 (05:20→21:39)
[2017-04-30] MEDS: Enoxaparin 40 mg Syringe SC SCH (10:20)
[2017-04-30] MEDS: Budesonide 0.5 mg/2 ml Inhal Susp UD IH SCH ×3 (11:37→20:43)
--- NOTE | 2017-04-30 16:00 | CARD ---
APPROVED REPORT EKG Measurement Heart [id number] <Conclusion> Atrial sensed, ventricular paced rhythm
[2017-04-30] MEDS ORDERED: Potassium Chloride 20 mEq ER Tab PO ONE (16:07)
[2017-04-30] MEDS: Oxycodone/Acetaminophen 5/325 mg Tab PO PRN (20:09)
[2017-04-30] MEDS: Arformoterol 15 mcg/2 ml Inh Sol IH SCH (20:43)
--- NOTE | 2017-05-01 01:26 | CON ---
DATE: 04/30/2017 PULMONARY CONSULTATION REFERRING PHYSICIAN: Salty Sorto MD. REASON FOR CONSULT: Cough, shortness of breath, fever. HISTORY OF PRESENT ILLNESS: This is a 81-year-old gentleman, well known to me from previous admission, noncompliant with the followup with a known history of chronic obstructive lung disease, still on and off smokes, sleep apnea syndrome, not very compliant with the CPAP/BiPAP, coronary artery disease, coronary bypass surgery, history of valvular heart disease, had a mitral valve replaced in the past, cardiac arrhythmia requiring pacemaker, hypertension, diabetes, comes into emergency room with cough, shortness of breath, sputum production. No headache. No body chills. Does have leg swelling. No nausea or vomiting. PAST MEDICAL HISTORY: Prostate cancer, chronic obstructive lung disease, coronary artery disease, history of CABG, history of valve disease, mitral valve replacement, diabetes, hypertension, cardiac arrhythmia requiring pacemaker, renal failure. FAMILY HISTORY: No significant cardiopulmonary disease reported. SOCIAL HISTORY: History of heavy smoking. Still on and off smokes. ALLERGIES: NONE KNOWN. MEDICATIONS: He is on Brovana inhaled twice a day, Colace 100 mg twice a day, albuterol/Atrovent nebulizer q. 4 hours p.r.n., Ecotrin 81 mg daily, Flomax 0.4 mg daily, Januvia 100 mg daily, potassium 20 mEq daily, Lasix 40 mg daily, Lipitor 20 mg daily, metoprolol tartrate 40 mg daily, Nicoderm patch daily, Percocet 5/325 one tab q. 4 hours p.r.n., Plavix 75 mg daily, Protonix 40 mg daily, Pulmicort inhaled twice a day, Remeron 30 mg at bedtime, Solu-Medrol 40 mg q. 8 hours, Tylenol p.r.n., Zestril 20 mg daily, Zofran 4 mg IV q. 4 hours p.r.n. REVIEW OF SYSTEMS: No headache, not much rhinitis. Has a cough, shortness of breath, sputum production. No chest pain. No nausea. No vomiting. No diarrhea, dysuria. Does have leg swelling. PHYSICAL EXAMINATION: GENERAL: Sitting up in a chair, mild distress secondary to cough and shortness of breath. VITAL SIGNS: Temperature is 98, heart rate 60, respiratory rate is 20, blood pressure 156/78, pulse ox of 100% on nasal cannula. HEENT: Moist mucous membranes. Crowded airway. Mallampati score is 4. NECK: Short thick neck. LUNGS: bilateral wheezing and rhonchi. HEART: S1 and S2. ABDOMEN: Soft, nontender. No organomegaly. EXTREMITIES: Does have edema. NEUROLOGICALLY: Awake, alert. Follows simple command. LABORATORY DATA: Shows hemoglobin 10.0, hematocrit 31.5, WBC 4.4, platelet is 302. INR 1.19, PTT 33. Sodium 145, potassium 3.7, chloride 106, bicarbonate 28, BUN 13, creatinine 0.9, glucose 86, calcium is 9.1, total bili 0.3, AST 22, ALT 27, alk phos is 261. Troponin less than 0.01. ProBNP 2310. Albumin 3.3, procalcitonin 0.05. Influenza A and B is negative. Microbiology: Blood culture, there is no growth. Had a venous Doppler of lower extremity done, which shows no sonographic evidence of DVT of both lower extremity. Had chest x-ray done in the emergency room shows no infiltrate or effusion reported since yesterday. IMPRESSION AND PLAN: Exacerbation of chronic obstructive lung disease, suspected sleep apnea syndrome, cardiomyopathy, valvular heart disease, history of coronary artery disease, diabetes, history of prostate cancer, lung nodule. Pulmonary point of view, continue IV and inhaled bronchodilator. Continue antibiotics, diuretics, afterload imcu nurse, gastric prophylaxis, deep venous thrombosis prophylaxis. Followup x-ray to assure the stability of lung nodule. Thank you and we will follow with you. Bon Sánchez MD
--- NOTE | 2017-05-01 03:41 | CON ---
DATE: CONSULT SERVICE: Cardiology. REASON FOR CONSULTATION: Shortness of breath, cardiac evaluation, rule out CHF, history of coronary artery disease, CABG, history of MVR, and permanent pacemaker. BRIEF CLINICAL HISTORY: This is a 81-year-old male with past medical history significant for diabetes; hypertension; hyperlipidemia; obesity, weight; history of coronary artery disease; CABG; history of mitral valve endocarditis; status post mitral valve repair, replaced; history of pacemaker; came in with complaint of leg swelling. Denies any chest pain. Denies any palpitations. PAST MEDICAL HISTORY: Significant for coronary artery disease; paroxysmal atrial fibrillation; history of mitral valve endocarditis status post mitral valve replacement; [id number] elevation at that time, status post 5-vessel bypass surgery; COPD, active tobacco abuse; hypertension; sleep apnea, noncompliant; history of arthritis; history of prostate CA; status post permanent pacemaker. SOCIAL HISTORY: Patient actively smokes. Denies any drinking. ALLERGIES: NO KNOWN DRUG ALLERGIES. CURRENT MEDICATIONS: At home, patient was taking Flomax, Januvia, nicotine, metoprolol, Lasix, Colace, Plavix, Lipitor, aspirin, albuterol. CARDIAC WORKUP: Most recent cardiac workup as follows: Patient had echocardiography on 07/15/2016, that showed ejection fraction 50% to 55%, trace aortic regurgitation, bioprosthetic leaflets are thickened, the mitral valve well positioned, no vegetation noted, ejection fraction is 50% to 55%, trace tricuspid regurgitation, RV systolic pressure of 40, pacemaker lead noted. EKG showed normal sinus, V-paced rhythm, underlying normal rhythm of 84. REVIEW OF SYSTEMS: As per HPI. PHYSICAL EXAMINATION: VITAL SIGNS: As follows: Temperature is afebrile, heart rate 80, and blood pressure 134/80. HEENT: PERRLA. Extraocular muscles are intact. NECK: Supple. No carotid bruits or thyromegaly. CHEST: Clear to auscultation. HEART: S1 and S2 regular. ABDOMEN: Soft. EXTREMITIES: Clubbing and cyanosis negative. 2 to 3+ pedal edema noted. LABORATORY DATA: Blood workup as follows: WBC 4.4, hemoglobin 10, hematocrit 31.5, platelet count 302. Chemistry shows sodium 145, potassium 3.7, chloride 106, carbon dioxide 28, anion gap of 13, BUN 14, and creatinine is 0.9. Troponin is 0.01. IMPRESSION: A 81-year-old male with past medical history significant for coronary artery disease status post coronary artery bypass graft, 5-vessel; status post mitral valve replacement, bioprosthetic, because of mitral valve endocarditis; active tobacco abuse; chronic obstructive pulmonary disease; obstructive sleep apnea; diabetes; hypertension; hyperlipidemia; obesity in the past with paroxysmal atrial fibrillation, now in normal sinus; status post permanent pacemaker; history of prostate cancer; admitted with leg edema; congestive heart failure secondary to diastolic dysfunction. Most recent echo shows preserved left ventricular function, ejection fraction 50% to 55%. RECOMMENDATIONS: Continue diuretics aggressively. Monitor electrolyte, DVT prophylaxis, complete cessation of smoking, compliance with the medication, and follow up. Patient's blood pressure is high. Patient has a pacemaker, so we will increase metoprolol to 25 b.i.d. and monitor the electrolytes closely. We will follow with you. Thank you, Dr. Sorto, for providing us the opportunity in taking care of the patient, Davin Venegas Jr. We will follow with you. Bon Blanc MD
[2017-05-01] MEDS: MethylPREDNISolone 40 mg Vial IVP SCH ×3 (05:23→21:22)
[2017-05-01] MEDS: Pantoprazole 40 mg EC Tab PO SCH (05:23)
[2017-05-01 07:18] LABS: GRAN # 9.22 (1.4-6.5); GRAN % 88.2 % (50.0-68.0); HEMOGLOBIN 10.7 g/dL (14.0-18.0); LYMPH # 0.8 (1.2-3.4); LYMPH % 7.6 % (22.0-35.0); MEAN CELL VOLUME 90.1 fl (80.0-105.0); MEAN CORPUSCULAR HEMOGLOBIN 28.5 pg (25.0-35.0); MEAN CORPUSCULAR HGB CONC 31.7 g/dl (31.0-37.0); MEAN PLATELET VOLUME 9.7 fl (7.0-11.0); MONO # 0.4 (0.1-0.6); MONO % 4.2 % (1.0-6.0); RBC 3.75 10^6/uL (3.5-6.1); RED CELL DISTRIBUTION WIDTH 20.8 % (11.5-14.5); WHITE BLOOD COUNT 10.5 10^3/ul (4.5-11.0)
[2017-05-01 07:50] LABS: LDL CHOLESTEROL 100 mg/dL (0-129)
[2017-05-01] MEDS: Arformoterol 15 mcg/2 ml Inh Sol IH SCH ×2 (08:00→20:38)
[2017-05-01] MEDS: Budesonide 0.5 mg/2 ml Inhal Susp UD IH SCH ×2 (08:01→20:39)
[2017-05-01 08:03] LABS: ALB/GLOB RATIO 1.1 (1.1-1.8); ALBUMIN 3.4 g/dL (3.0-4.8); ALT/SGPT 27 U/L (7-56); AST/SGOT 20 U/L (17-59); BLOOD UREA NITROGEN 30 mg/dL (7-21); CALCIUM 8.8 mg/dL (8.4-10.5); GFR AFRICAN-AMERICAN > 60; GFR NON-AFRICAN AMERICAN > 60; HDL CHOLESTEROL 47 mg/dL (29-60); MAGNESIUM 2.3 mg/dL (1.7-2.2)
[2017-05-01] MEDS: Potassium Chloride 20 mEq ER Tab PO SCH (08:06)
[2017-05-01] MEDS: Enoxaparin 40 mg Syringe SC SCH (10:47)
--- NOTE | 2017-05-01 17:59 | PN ---
DATE: 05/01/2017 REASON FOR CONSULTATION AND FOLLOWUP: Cardiac evaluation, history of CABG, history of MVR, history of permanent pacemaker, admitted with shortness of breath secondary to acute exacerbation of COPD. OBJECTIVE: GENERAL: Not in apparent distress. VITAL SIGNS: Temperature afebrile, heart rate 60, blood pressure 156/70. HEENT: PERRLA, intact. NECK: Supple. No carotid bruits or thyromegaly. CHEST: Clear to auscultation. HEART: S1 and S2, regular. ABDOMEN: Soft. EXTREMITIES: Clubbing and cyanosis negative. LABORATORY DATA: WBC 10.9, hemoglobin 10.7, hematocrit 33.8, and platelet count 303. Chemistry showed sodium 141, potassium 4.5, chloride 101, bicarbonate 30, anion gap of 14. BUN 30, creatinine 0.9. TSH 0.24. Triglycerides 51. Cholesterol 167, LDL 100, HDL 47. BNP 1520 on admission yesterday, it was 2310. IMPRESSION: A 81-year-old male with past medical history significant for coronary artery disease, status post coronary artery bypass graft, status post mitral valve replacement secondary to mitral valve endocarditis [id number] myocardial infarction and endocarditis, chronic obstructive pulmonary disease after tobacco abuse, hypertension, sleep apnea, prostate cancer, history of permanent pacemaker, congestive heart failure secondary to diastolic dysfunction. Most recent echocardiogram on 07/15/2016, ejection fraction 55%, trace aortic regurgitation, bioprosthetic mitral valve leaflet thickened, good adequate excursion. EKG shows underlying normal sinus, chronic obstructive pulmonary disease exacerbation. RECOMMENDATIONS: Continue diuretics, monitor electrolytes. DVT prophylaxis. Complete cessation of smoking, compliance with the medication. Continue baby aspirin. Continue supplement as needed. Continue gentle diuretics. Increase metoprolol to 25 b.i.d. We will follow I's and O's, and monitor electrolytes. We will add low doses of DARY inhibitors for better control of blood pressure. We will follow with you. If blood pressure in the morning. Thank you Dr. Sorto for providing us the opportunity in taking care of the patientDavin. Bon Blanc MD [facility] # [id number]
--- NOTE | 2017-05-01 20:39 | HP ---
CHIEF COMPLAINT: The patient admitted with lower extremity edema and shortness of breath. HISTORY OF PRESENT ILLNESS: The patient is a 81-year-old male who has advanced prostate CA, chronic obstructive pulmonary disease, coronary artery disease, mitral valve replacement, peripheral vascular disease with stent in the right femoral, heavy smoker. The patient came in with shortness of breath, wheezing, coughing, and also both lower extremity edema as well as taking his Lasix. Also compliance is in the question with this patient, but according to him, he takes his medicines, his Lasix. He denied any fever, any chills, any nausea, vomiting or diarrhea. No leg pain. Both legs are swollen almost equally. PAST MEDICAL HISTORY: As I mentioned above, he does have COPD, prostate CA advanced with bone metastases. He does have congestive heart failure, mitral valve placement, bioprosthesis, obstructive sleep apnea, possible pulmonary hypertension, chronic osteoarthritis, chronic severe hip arthritis, chronic back pain, dysuria, congestive heart failure, edema of lower extremities. SOCIAL HISTORY: No drinking. He has positive smoking for 40 years, smoking a pack a day. No alcohol. No other drugs. He lives at a senior citizen building by himself. He does have supportive family, daughter and son. ALLERGIES: NO KNOWN ALLERGY. MEDICATIONS: He does take multiple medications including nebulizer treatment, Ventolin, Advair, Plavix, daily vitamins, Remeron 30 mg at bedtime, metoprolol 12.5 b.i.d., Compazine, Flomax 0.4 once daily, Colace 100 once a day, aspirin 81 once a day, Januvia 100 once a day, Protonix 40 mg once a day, Lasix 40 b.i.d. p.o., and Lipitor 20 p.o. with dinner. PHYSICAL EXAMINATION: GENERAL: On 04/30/2017, temperature 97.5, heart rate is 60, blood pressure 156/78, respirations 20, saturation 100% on 2 liters. HEAD AND NECK: Normal. No JVD. CHEST: Mild bilateral wheezing. Prolonged expiratory phase. CARDIAC: First and second sound normal. Systolic murmur. ABDOMEN: Obese, nontender. EXTREMITIES: Bilateral leg edema below knee. NEUROLOGIC: He moves all extremities. LABORATORY STUDY: He has the following; white count 4.4, hemoglobin 10, hematocrit 31.5, platelets 302. Chemistry noted for sodium 145, potassium 3.7, chloride 106, bicarbonate 28, BUN 13, creatinine 0.9. Liver function test, alkaline phosphatase 61, CPK 58, troponin less than 0.01, and proBNP 1520. The patient also had procalcitonin 0.05 which is low. The patient also on admission had a chest x-ray, which shows no active pulmonary disease. The patient also had electrocardiogram on admission which shows atrial-ventricular pacing, pacemaker QT is 442, QTC 522. Heart rate 84. IMPRESSION AND PLAN: This is 81-year-old male with multiple medical problems, came in with lower extremity edema worsening than before, associated with shortness of breath and wheezing. We will admit the patient for, 1. Acute chronic obstructive pulmonary edema exacerbation. 2. Possible congestive heart failure, may be right sided heart failure, the patient does have history of heart failure in the past, obstructive sleep apnea, pulmonary hypertension and probably cor pulmonale. We will give the patient IV Lasix. We will give him IV steroids. We will get cardiology consult, pulmonary consult, oxygen, nebulizer treatment and DVT prophylaxis. We will get a venous Doppler of both lower extremities. We will continue diuresing him and IV steroids with nebulizer treatment to treat his underlying chronic obstructive pulmonary disease. We will resume all other medications including prostate medicines, pain medications for his chronic osteoarthritis and we will follow up clinically. Continue gastrointestinal and deep venous thrombosis. Follow up with the consultants. Salty Sorto MD
[2017-05-01] MEDS: Oxycodone/Acetaminophen 5/325 mg Tab PO PRN (21:26)
--- NOTE | 2017-05-02 03:01 | PN ---
DATE: 05/01/2017 PULMONARY PROGRESS NOTE REFERRING PHYSICIAN: Salty Sorto MD. SUBJECTIVE: Patient is lying in the bed at 45 degrees, sleepy, arousable. Night was unremarkable. Did not use BiPAP. Cough and sputum production is improved. No nausea, no vomiting, no diarrhea. Still has some leg swelling. OBJECTIVE: GENERAL: In no acute distress. VITAL SIGNS: Temperature is 98, heart rate is 60, respiratory rate is 20, blood pressure 162/74, pulse ox 99% on 2 liters nasal cannula. HEENT: Moist mucous membranes. Crowded airway. Mallampati score is IV. NECK: Supple. No JVD. LUNGS: Have scattered rhonchi and a few wheezing. HEART: S1 and S2. ABDOMEN: Soft, nontender. No organomegaly. EXTREMITIES: Trace edema. NEUROLOGICAL: Awake and alert. Follows simple command. MEDICATIONS: He is on Brovana inhaled twice a day, Colace 100 mg twice a day, DuoNeb q.4 hours p.r.n., Ecotrin 81 mg daily, Flomax 0.4 mg daily, Januvia 100 mg daily, potassium 20 mEq daily, Lasix 40 mg daily, Lipitor 20 mg daily, metoprolol tartrate 25 mg twice a day, Lovenox 40 mg daily, Nicoderm patch daily, Percocet 5/324 one tablet q.6 hours p.r.n., Plavix 75 mg daily, Protonix 40 mg daily, Pulmicort inhaled twice a day, Remeron 30 mg at bedtime, Solu-Medrol 40 mg q.8 hours, Tylenol p.r.n., Zestril 20 mg daily, Zofran p.r.n. basis. LABORATORY DATA: Shows hemoglobin 10.7, hematocrit 33.8, WBC 10.5, platelet is 303. Blood sugar is 99. Sodium 141, potassium 4.5, chloride 101, bicarbonate 31, BUN 30, creatinine 0.9, glucose 112, calcium is 8.8, magnesium 2.3. AST 20, ALT 27, alk phos is 248, total protein 6.6, albumin 3.4. Cholesterol is 165. TSH 0.24. Microbiology: Urine culture has gram-negative rods. IMPRESSION: Exacerbation of chronic obstructive lung disease, sleep apnea syndrome, cardiomyopathy, valvular heart disease, coronary artery disease, diabetes, history of prostate cancer, lung nodules, urinary tract infection. PLAN: Continue IV and inhaled bronchodilator. Keep head at 45 degrees. Started on Rocephin 1 g daily. Gastric prophylaxis, DVT process prophylaxis. Out of bed to chair. Encouraged BiPAP use. Fall precaution. Thank you and we will follow with you. Bon Sánchez MD
[2017-05-02] MEDS: Pantoprazole 40 mg EC Tab PO SCH (05:35)
[2017-05-02] MEDS: MethylPREDNISolone 40 mg Vial IVP SCH ×2 (05:35→21:13)
[2017-05-02] MEDS: Arformoterol 15 mcg/2 ml Inh Sol IH SCH ×2 (07:49→20:24)
[2017-05-02] MEDS: Budesonide 0.5 mg/2 ml Inhal Susp UD IH SCH ×2 (07:49→20:25)
[2017-05-02 08:29] LABS: GRAN # 10.34 (1.4-6.5); GRAN % 91.1 % (50.0-68.0); LYMPH # 0.6 (1.2-3.4); LYMPH % 5.6 % (22.0-35.0); MEAN CELL VOLUME 91.1 fl (80.0-105.0); MEAN CORPUSCULAR HEMOGLOBIN 28.9 pg (25.0-35.0); MEAN CORPUSCULAR HGB CONC 31.7 g/dl (31.0-37.0); MEAN PLATELET VOLUME 9.4 fl (7.0-11.0); MONO # 0.4 (0.1-0.6); MONO % 3.3 % (1.0-6.0); PLATELET COUNT 310 10^3/uL (120.0-450.0); RBC 3.81 10^6/uL (3.5-6.1); RED CELL DISTRIBUTION WIDTH 21.1 % (11.5-14.5); WHITE BLOOD COUNT 11.3 10^3/ul (4.5-11.0)
[2017-05-02 08:39] LABS: BLOOD UREA NITROGEN 34 mg/dL (7-21); CALCIUM 8.5 mg/dL (8.4-10.5); GFR AFRICAN-AMERICAN > 60; GFR NON-AFRICAN AMERICAN > 60
[2017-05-02 09:31] LABS: LYMPHOCYTE 10 % (22.0-35.0); MONOCYTE 2 % (1.0-6.0); NEUTROPHIL 88 % (50.0-70.0)
[2017-05-02 09:32] LABS: ANISOCYTOSIS SLIGHT; TARGET CELLS SLIGHT
[2017-05-02] MEDS: Potassium Chloride 20 mEq ER Tab PO SCH (09:54)
[2017-05-02] MEDS: cefTRIAXone 1 gm 1 GM/100 ML BAG IVPB SCH (09:57)
[2017-05-02] MEDS: Enoxaparin 40 mg Syringe SC SCH (09:57)
--- NOTE | 2017-05-02 13:31 | PN ---
DATE: 05/02/2017 LOCATION: The patient is in room 373, bed 1. REASON FOR CONSULTATION: Followup, cardiac evaluation, history of COPD, history of mitral valve replacement, history of permanent pacemaker, admitted with shortness of breath due to exacerbation of COPD. SUBJECTIVE: The patient is lying flat in bed without any chest pain, shortness of breath, palpitation. PHYSICAL EXAMINATION VITAL SIGNS: Blood pressure 145/66, respirations 18, pulse 61, the patient is afebrile. HEENT: Head is normocephalic. Eyes: Pupils normal. Conjunctivae slightly pale. NECK: JVP low. Carotids equal. THORAX: AP diameter normal. LUNGS: No rales. CARDIOVASCULAR: S1 and S2. Ejection systolic murmur grade III/. No rub. ABDOMEN: Soft. No tenderness. No organomegaly. EXTREMITIES: No clubbing. No cyanosis. LABORATORY DATA: WBC 11.3, hemoglobin 11.0, hematocrit 34.7, platelets 310. Sodium 142, potassium 4.6, BUN 34, creatinine 1.0, random sugar 114, calcium 8.5. 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 Most recent echocardiogram on 07/15/2016 showed ejection fraction of 55%, trace aortic regurgitation, bioprosthetic mitral valve leaflet thickened, good adequate excursion. PLAN: Continue aspirin 81 mg daily, Flomax 0.4 daily, Furosemide 40 IV daily, Lipitor 20 daily, metoprolol 25 b.i.d., Lovenox 40 mg subcu daily, Protonix 40 daily, Remeron 30 mg p.o. at bedtime, Rocephin 1 g IV daily, Solu-Medrol 40 mg IV q. 8 hours, lisinopril 20 daily. We will follow. Bon Caba MD
--- NOTE | 2017-05-02 14:35 | PN ---
DATE: 05/01/2017 SUBJECTIVE: The patient is feeling better, less leg edema. No chest pain,no shortness of breath. Getting IV steroids and feeling much better. PHYSICAL EXAMINATION VITAL SIGNS: His temperature 97.8, heart rate 60, blood pressure is 162/74, respirations 20, saturation 95% on 2 liters. HEAD AND NECK: Normal. No JVD. No thyromegaly. CHEST: Clear. Good air entry. CARDIAC: First and second sounds normal. Systolic murmur. ABDOMEN: Soft, obese, nontender. EXTREMITIES: Bilateral leg edema, it is less than before. NEUROLOGIC: Normal. LABORATORY DATA: White count 10.5, hemoglobin 10.7, hematocrit 33.8, and platelets is 303. Chemistry shows sodium 141, potassium 4.5, chloride 101, bicarbonate 31, BUN 30, creatinine 0.9, blood sugar 112. Liver enzymes are normal. Magnesium 2.3 and alkaline phosphatase 248, liver albumin and globulin is normal. LDL 100, HDL 47, triglycerides is 51. IMPRESSION AND PLAN: 1. Acute chronic obstructive pulmonary disease exacerbation. Continue inhaled steroids and IV steroids. He is doing well. Continue nebulizer DuoNeb as prescribed. The patient seems doing well and stable. 2. Hypertension. Continue metoprolol and doing well. 3. Coronary artery disease, history of mitral valve placement, bypass surgery, peripheral vascular disease, continue Plavix and continue aspirin 81 mg. 4. Hypercholesterolemia, congestive heart failure, right-sided heart failure, bilateral lower extremity edema. Continue Lasix IV daily. We will monitor his progress on daily basis. 5. Prostate cancer with metastasis to the bone. Continue Flomax. Continue the medication Casodex, which is not yet here. We will resume it for his prostate cancer. 6. Continue gastrointestinal and deep venous thrombosis prophylaxis. Patient is getting Lovenox 4 mg subcutaneous daily. Continue Protonix. We will follow up clinically for his smoking. We will continue Nicoderm subcutaneously once a day. Continue current treatment. Salty Sorto MD
[2017-05-02] MEDS: Oxycodone/Acetaminophen 5/325 mg Tab PO PRN (21:23)
--- NOTE | 2017-05-03 00:37 | PN ---
DATE: SUBJECTIVE: The patient is stable. His swelling is improving, but still some significant swelling. His breathing is better on IV steroids. The patient's son at the bedside and discussed with the patient about his chemotherapy pills for his prostate cancer. Dr. Parekh would see the patient. I spoke to him. PHYSICAL EXAMINATION: VITAL SIGNS: Temperature 97.5, heart rate 145/66, respirations 18, saturation 95% on room air. HEAD AND NECK: Normal. No JVD. No thyromegaly. CHEST: Clear. Good air entry. Few wheeze, bilateral, mild expiratory wheeze. CARDIAC: First and second sounds normal. Systolic murmur. ABDOMEN: Obese, nontender. EXTREMITIES: Bilateral leg edema. NEUROLOGIC: Normal. LABORATORY DATA: The patient had labs including white count 11.3, hemoglobin 11, hematocrit 34.7, and platelets is 310. Chemistry: Sodium 142, potassium 4.6, chloride 103, bicarbonate 29, BUN 34, creatinine 1, blood sugar is 114 and calcium 8.5. The patient's venous Doppler of both legs negative. IMPRESSION AND PLAN: 1. Bilateral leg edema, probably secondary to right-sided heart failure due to underlying coronary artery disease or elevated pressure due to chronic left-sided heart failure. Plan, continue Lasix IV. We will increase the Lasix to 40 mg IV twice a day. Monitor electrolytes. 2. 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 Continue inhaled bronchodilators. 3. Prostate cancer, enlarged prostate. Continue Flomax. The patient taking chemotherapy. We will consult Dr. Parekh for continuation of that. 4. Congestive heart failure, coronary artery disease, mitral valve replacement. Continue Lopressor. Continue Plavix and baby aspirin. The patient is seen doing well. 5. Continue gastrointestinal and deep venous thrombosis prophylaxis and get physical therapy. Patient may benefit from transitional care unit. Salty Sorto MD
--- NOTE | 2017-05-03 01:34 | PN ---
DATE: 05/02/2017 PULMONARY PROGRESS NOTE REFERRING PHYSICIAN: Salty Sorto MD. SUBJECTIVE: He is out of bed to chair. Night was unremarkable. Feels better. Decreased cough. Decreased shortness of breath. No nausea. No vomiting, diarrhea, leg pain, leg swelling. Could not use CPAP. OBJECTIVE: GENERAL: In no acute distress. VITAL SIGNS: Temperature is 98, heart rate is 60, respiratory rate is 20, blood pressure 146/66, pulse ox of 95% on room air. HEENT: Moist mucous membrane. Crowded airway. Mallampati score is 4. NECK: Supple. No JVD. LUNGS: Have a prolonged expiratory phase with some wheezing. HEART: S1 and S2. ABDOMEN: Soft, nontender. No organomegaly. EXTREMITIES: No edema. NEUROLOGIC: Awake and alert. Follows simple command. MEDICATIONS: He is on Brovana inhaled twice a day, Casodex 50 mg daily, Colace 100 mg twice a day, DuoNeb q. 4 hours p.r.n., Ecotrin 81 mg daily, Flomax 0.4 mg daily, Januvia 50 mg daily, potassium 20 mEq daily, Lasix 40 mg IV daily, Lipitor 20 mg daily, metoprolol tartrate 25 mg twice a day, Lovenox 40 mg daily, Nicoderm patch daily, Percocet 5/324 one tablet q. 6 hours p.r.n., Plavix 75 mg daily, Protonix 40 mg daily, Pulmicort inhaled twice a day, Remeron 30 mg at bedtime, Rocephin 1 g IV daily, Solu-Medrol 40 mg q. 12 hours, Tylenol p.r.n., Zestril 20 mg daily, Zofran p.r.n. basis. LABORATORY DATA: Shows hemoglobin 11.0, hematocrit 34.7, WBC 11.3, platelet is 310. Sodium 142, potassium 4.6, chloride 103, bicarbonate 29, BUN 34, creatinine 1.0, glucose 114, calcium is 8.5. Influenza A and B is negative. Urine culture has E. coli. IMPRESSION AND PLAN: Exacerbation of chronic obstructive lung disease, sleep apnea syndrome, cardiomyopathy, valvular heart disease, coronary artery disease, diabetes, history of prostate cancer, lung nodule, urinary tract infection. Pulmonary point of view, doing okay. Continue bronchodilator, keep head at 45 degrees. Antibiotics. Gastric prophylaxis, deep venous thrombosis prophylaxis. Encouraged continuous positive airway pressure use. Fall precaution. The patient is to stop smoking. We will follow with you. Bon Sácnhez MD
[2017-05-03] MEDS: Pantoprazole 40 mg EC Tab PO SCH (05:19)
[2017-05-03 05:48] VITALS: RESP 22; TEMP 98.1; O2SAT 96
--- NOTE | 2017-05-03 07:53 | CP.PCM.CON ---
History of Present Illness - History of Present Illness History of Present Illness: Carlos Carmichael D.O. PGY-2, Internal Medicine Resident, Hem/Onc Consultation Note 81 year old male with a PMH of CAD s/p CABG, sCHF, COPD, stage IV prostate CA, who presents for worsening swelling in his legs. Patient was seen and examined at bedside. Patient states that since he was admitted his legs have gotten a lot better. Patient has no acute complaints at this time. He does admit that he has been compliant with his casodex as written. Denies SOB, cough, fever, chills , or otherwise. No overnight events. Review of Systems - Review of Systems All systems: reviewed and no additional remarkable complaints except - Cardiovascular Cardiovascular: Leg Edema Past Patient History - Infectious Disease Hx of Infectious Diseases: None - Tetanus Immunizations Tetanus Immunization: Unknown - Past Social History Smoking Status: Former Smoker - CARDIAC Hx Cardiac Disorders: Yes (CAD,CABG,MVR,PROSTHETIC MITRAL VALVE) Hx Congestive Heart Failure: Yes Hx Hypertension: Yes Hx Peripheral Edema: Yes - PULMONARY Hx Chronic Obstructive Pulmonary Disease (COPD): Yes - NEUROLOGICAL Hx Neurological Disorder: No - HEENT Hx HEENT Problems: Yes - RENAL Hx Renal Failure: Yes - ENDOCRINE/METABOLIC Hx Diabetes Mellitus Type 2: Yes - HEMATOLOGICAL/ONCOLOGICAL Hx Blood Disorders: Yes - INTEGUMENTARY Hx Dermatological Problems: Yes - MUSCULOSKELETAL/RHEUMATOLOGICAL Hx Falls: Yes - GASTROINTESTINAL Hx Gastrointestinal Disorders: Yes Hx Crohn's Disease: Yes - GENITOURINARY/GYNECOLOGICAL Hx Genitourinary Disorders: Yes (URINARY RETENTION ,HEMATURIA) Hx Hematuria: Yes Hx Prostate Problems: Yes Other/Comment: S/P CYSTO 11/17/2016 - PSYCHIATRIC Hx Emotional Abuse: No Hx Physical Abuse: No Hx Substance Use: No - SURGICAL HISTORY Hx Open Heart Surgery: Yes - ANESTHESIA Hx Anesthesia Reactions: No Hx Malignant Hyperthermia: No Meds Home Medications: Home Medication List Medication Instructions Recorded Confirmed Type Cefpodoxime [Vantin] 200 mg PO Q12 #14 tab 05/03/17 Rx Methylprednisolone [Medrol Dose See Taper PO DAILY #21 tablet 05/03/17 Rx Pack (21 tabs)] Potassium Chloride [K-Dur 20 mEq 20 meq PO BRK #30 tab 05/03/17 Rx ER Tab] oxyCODONE/Acetaminophen [Percocet 1 tab PO Q6H #20 tab 05/03/17 Rx 5/325 mg Tab] Allergies/Adverse Reactions: Allergies Allergy/AdvReac Type Severity Reaction Status Date / Time No Known Allergies Allergy Verified 04/29/17 17:22 - Medications Medications: Current Medications Acetaminophen (Tylenol 325mg Tab) 650 mg PO Q4H PRN PRN Reason: Fever >100.5 F Albuterol/Ipratropium (Duoneb 3 Mg/0.5 Mg (3 Ml) Ud) 3 ml IH Q4H PRN PRN Reason: Shortness of Breath Arformoterol Tartrate (Brovana) 15 mcg IH [id number] [facility] Last Admin: 05/02/17 20:24 Dose: 15 mcg Aspirin (Ecotrin) 81 mg PO DAILY [facility] Last Admin: 05/02/17 09:55 Dose: 81 mg Atorvastatin Calcium (Lipitor) 20 mg PO DIN [facility] Last Admin: 05/02/17 17:13 Dose: 20 mg Bicalutamide (Casodex) 50 mg PO DAILY [facility] Last Admin: 05/02/17 10:43 Dose: 50 mg Budesonide (Pulmicort Respules) 0.5 mg IH BIDRESP [facility] Last Admin: 05/02/17 20:25 Dose: 0.5 mg Clopidogrel Bisulfate (Plavix) 75 mg PO DAILY [facility] Last Admin: 05/02/17 09:54 Dose: 75 mg Docusate Sodium (Colace) 100 mg PO BID [facility] Last Admin: 05/02/17 17:13 Dose: 100 mg Enoxaparin Sodium (Lovenox) 40 mg SC DAILY [facility] PRN Reason: Protocol Last Admin: 05/02/17 09:57 Dose: 40 mg Furosemide (Lasix) 40 mg IV BID [facility] Last Admin: 05/02/17 17:14 Dose: 40 mg Ceftriaxone Sodium (Rocephin 1 Gram Ivpb) 1 gm in 100 mls @ 100 mls/hr IVPB DAILY [facility] PRN Reason: Protocol Last Admin: 05/02/17 09:57 Dose: 100 mls/hr Lisinopril (Zestril) 20 mg PO DAILY [facility] Last Admin: 05/02/17 09:55 Dose: 20 mg Methylprednisolone (Solu-Medrol) 40 mg IVP Q12 [facility] Last Admin: 05/02/17 21:13 Dose: 40 mg Metoprolol Tartrate (Lopressor) 25 mg PO BID [facility] Last Admin: 05/02/17 17:13 Dose: 25 mg Mirtazapine (Remeron) 30 mg PO HS [facility] Last Admin: 05/02/17 21:13 Dose: 30 mg Nicotine (Nicoderm Cq) 1 patch TD DAILY [facility] Last Admin: 05/02/17 09:56 Dose: 1 patch Ondansetron HCl (Zofran Inj) 4 mg IVP Q4H PRN PRN Reason: Nausea/Vomiting Oxycodone/Acetaminophen (Percocet 5/325 Mg Tab) 1 tab PO Q6H PRN PRN Reason: Pain, moderate (4-7) Stop: 05/03/17 09:55 Last Admin: 05/02/17 21:23 Dose: 1 tab Pantoprazole Sodium (Protonix Ec Tab) 40 mg PO 0600 [facility] Last Admin: 05/03/17 05:19 Dose: 40 mg Potassium Chloride (K-Dur 20 Meq Er Tab) 20 meq PO BRK [facility] Last Admin: 05/02/17 09:54 Dose: 20 meq Sitagliptin Phosphate (Januvia) 50 mg PO DAILY [facility] Tamsulosin HCl (Flomax) 0.4 mg PO DAILY [facility] Last Admin: 05/02/17 09:54 Dose: 0.4 mg Physical Exam - Constitutional Appears: Non-toxic, No Acute Distress - Head Exam Head Exam: ATRAUMATIC, NORMOCEPHALIC - Eye Exam Eye Exam: EOMI, PERRL - ENT Exam ENT Exam: Mucous Membranes Moist - Neck Exam Neck exam: Positive for: Normal Inspection - Respiratory Exam Respiratory Exam: Clear to Auscultation Bilateral. absent: Rales, Rhonchi, Wheezes - Cardiovascular Exam Cardiovascular Exam: RRR, +S1, +S2. absent: Gallop, Rubs - GI/Abdominal Exam GI & Abdominal Exam: Normal Bowel Sounds, Soft. absent: Tenderness - Extremities Exam Extremities exam: Positive for: pedal edema. Negative for: calf tenderness - Neurological Exam Neurological exam: Alert, CN II-XII Intact, Oriented x3 - Psychiatric Exam Psychiatric exam: Normal Affect, Normal Mood - Skin Skin Exam: Dry, Warm Results - Vital Signs Recent Vital Signs: Last Vital Signs Temp 98.1 F 05/03/17 05:47 Pulse 59 L 05/03/17 05:47 Resp 22 05/03/17 05:47 BP 139/63 05/03/17 05:47 Pulse Ox 96 05/03/17 05:47 - Labs Result Diagrams: 05/02/17 08:00 05/02/17 08:00 Labs: Laboratory Results - last 24 hr 05/02/17 05/02/17 05/02/17 07:16 08:00 08:00 WBC 11.3 H RBC 3.81 Hgb 11.0 L Hct 34.7 L MCV 91.1 MCH 28.9 MCHC 31.7 RDW 21.1 H Plt Count 310 MPV 9.4 Gran % 91.1 H Lymph % (Auto) 5.6 L Millard % (Auto) 3.3 Eos % (Auto) 0.0 L Baso % (Auto) 0.0 Gran # 10.34 H Lymph # (Auto) 0.6 L Millard # (Auto) 0.4 Eos # (Auto) 0.0 Baso # (Auto) 0.00 Neutrophils % (Manual) 88 H Lymphocytes % (Manual) 10 L Monocytes % (Manual) 2 Anisocytosis (manual) Slight Target Cells Slight Sodium 142 Potassium 4.6 Chloride 103 Carbon Dioxide 29 Anion Gap 14 BUN 34 H Creatinine 1.0 Est GFR ( Amer) > 60 Est GFR (Non-Af Amer) > 60 POC Glucose (mg/dL) 128 H Random Glucose 114 H Calcium 8.5 05/02/17 05/02/17 05/02/17 11:13 16:00 21:29 WBC RBC Hgb Hct MCV MCH MCHC RDW Plt Count MPV Gran % Lymph % (Auto) Millard % (Auto) Eos % (Auto) Baso % (Auto) Gran # Lymph # (Auto) Millard # (Auto) Eos # (Auto) Baso # (Auto) Neutrophils % (Manual) Lymphocytes % (Manual) Monocytes % (Manual) Anisocytosis (manual) Target Cells Sodium Potassium Chloride Carbon Dioxide Anion Gap BUN Creatinine Est GFR ( Amer) Est GFR (Non-Af Amer) POC Glucose (mg/dL) 155 H 88 88 Random Glucose Calcium Assessment & Plan - Assessment and Plan (Free Text) Assessment: 81 year old male with a PMH of CAD s/p CABG, sCHF, COPD, stage IV prostate CA, who presents for worsening swelling in his legs. Plan: Stage IV prostate CA sCHF with acute exacerbation CAD s/p CABG COPD Discontinue casodex, patient on zytiga at home Undergoing diuresis Following Discussed with attending physician - Date & Time Date: 05/02/17 Time: 18:00
[2017-05-03] MEDS: Arformoterol 15 mcg/2 ml Inh Sol IH SCH (08:14)
[2017-05-03] MEDS: Budesonide 0.5 mg/2 ml Inhal Susp UD IH SCH (08:14)
[2017-05-03] MEDS: Potassium Chloride 20 mEq ER Tab PO SCH (08:48)
[2017-05-03] MEDS: Enoxaparin 40 mg Syringe SC SCH (09:51)
[2017-05-03] MEDS: cefTRIAXone 1 gm 1 GM/100 ML BAG IVPB SCH (09:51)
[2017-05-03] MEDS: MethylPREDNISolone 40 mg Vial IVP SCH (09:53)
[2017-05-03 10:01] VITALS: BP 148/57; PULSE 60
--- NOTE | 2017-05-03 15:58 | PN ---
DATE: 05/03/2017 LOCATION: The patient in room 373, bed 1. REASON FOR CONSULTATION AND FOLLOWUP: History of COPD exacerbation, history of mitral valve replacement, status post coronary artery bypass surgery, history of permanent pacemaker insertion. SUBJECTIVE: The patient is sitting on the bedside. Denies any chest pain. He says breathing is much better. Denies any palpitation. PHYSICAL EXAMINATION: VITAL SIGNS: Blood pressure 148/57, respirations 22, pulse is 60, temperature 98.1. Yesterday, blood pressure was 121/50. HEENT: Head is normocephalic. Eyes: Pupils normal. Conjunctivae slightly pale. NECK: JVP low. Carotids equal. THORAX: AP diameter normal. LUNGS: No significant rales. CARDIOVASCULAR: S1 and S2. ABDOMEN: Soft. No tenderness, no organomegaly. Bowel sounds are normal. EXTREMITIES: No clubbing, no cyanosis. LABORATORY DATA: WBC 11.3, hemoglobin 11, hematocrit 34.7, and platelet 310. Sodium 142, potassium 4.6. BUN 34, creatinine 1. Random sugar 86. 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 Echo on 07/15/2016, showed ejection fraction of 55%, bioprosthetic mitral valve thickened, but adequate opening of the valve. PLAN: The patient is being followed by Pulmonary, Dr. Sánchez. In the meantime, the patient is on Ecotrin 81 mg daily, Flomax 0.4 daily, Januvia 50 daily, potassium 20 mEq daily, furosemide 40 IV b.i.d., atorvastatin 20 mg daily, metoprolol 25 b.i.d., Lovenox 40 mg subcutaneously daily, Plavix 75 daily, Protonix 40 daily, Vantin 200 mg p.o. q. 12 hours, lisinopril 20 daily, Solu-Medrol 40 mg IV q. 12 hours. We will stop IV Lasix and will put Lasix 40 mg p.o. b.i.d and we will follow. Bon Caba MD [facility] # [id number]
[2017-05-03] MEDS ORDERED: Cefpodoxime (Vantin) 200 mg Tab PO SCH ×2 (22:00)
== END 2017-05-03 15:04 | disposition home or self-care (01) | DRG 191 ==
LOC: ED 17:04 → ERH 19:23 → 3RSO 04-30 01:20 → OBSVTOIN 05-01 13:01
PROVIDERS: ADMIT Internal Medicine; ATTEND Internal Medicine
DX: J44.1 Chronic obstructive pulmonary disease with (acute) exacerbation (principal); I50.32 Chronic diastolic (congestive) heart failure; C79.51 Secondary malignant neoplasm of bone; N39.0 Urinary tract infection, site not specified; I11.0 Hypertensive heart disease with heart failure; E11.51 Type 2 diabetes mellitus with diabetic peripheral angiopathy without gangrene; I27.29 Other secondary pulmonary hypertension; I08.2 Rheumatic disorders of both aortic and tricuspid valves; B96.20 Unspecified Escherichia coli [E. coli] as the cause of diseases classified elsewhere; I42.9 Cardiomyopathy, unspecified; I27.81 Cor pulmonale (chronic); G47.33 Obstructive sleep apnea (adult) (pediatric); I25.10 Atherosclerotic heart disease of native coronary artery without angina pectoris; M16.10 Unilateral primary osteoarthritis, unspecified hip; C61 Malignant neoplasm of prostate; E78.00 Pure hypercholesterolemia, unspecified; F17.210 Nicotine dependence, cigarettes, uncomplicated; I25.2 Old myocardial infarction; Z79.82 Long term (current) use of aspirin; Z95.0 Presence of cardiac pacemaker; Z91.19 Patient's noncompliance with other medical treatment and regimen; Z95.1 Presence of aortocoronary bypass graft; Z95.2 Presence of prosthetic heart valve; Z79.84 Long term (current) use of oral hypoglycemic drugs

== ENCOUNTER 2017-09-25 12:35 | Inpatient (IN) | payer MEDICARE, MEDICAID ==
[2017-09-25 12:53] VITALS: BMI 29.7
[2017-09-25] MEDS: Albuterol-Ipratrop 3 mg / 0.5 (3 ml) UD IH SCH ×3 (13:33→14:03)
[2017-09-25 13:52] LABS: BASO # 0.01 K/mm3 (0.0-2.0); BASO % 0.2 % (0.0-3.0); EOS % 0.2 % (1.5-5.0); GRAN # 4.3 (1.4-6.5); GRAN % 66.9 % (50.0-68.0); HEMOGLOBIN 12.6 g/dL (14.0-18.0); LYMPH # 1.6 (1.2-3.4); LYMPH % 24.1 % (22.0-35.0); MEAN CELL VOLUME 81.6 fl (80.0-105.0); MEAN CORPUSCULAR HEMOGLOBIN 28.6 pg (25.0-35.0); MEAN PLATELET VOLUME 9.6 fl (7.0-11.0); MONO # 0.6 (0.1-0.6); MONO % 8.6 % (1.0-6.0); RBC 4.41 10^6/uL (3.5-6.1); RED CELL DISTRIBUTION WIDTH 18.2 % (11.5-14.5); WHITE BLOOD COUNT 6.4 10^3/ul (4.5-11.0)
[2017-09-25 14:00] LABS: ALB/GLOB RATIO 1.2 (1.1-1.8); ALBUMIN 3.7 g/dL (3.0-4.8); ALT/SGPT 24 U/L (7-56); AST/SGOT 109 U/L (17-59); BLOOD UREA NITROGEN 30 mg/dL (7-21); CALCIUM 9.1 mg/dL (8.4-10.5); GFR AFRICAN-AMERICAN > 60; GFR NON-AFRICAN AMERICAN 58
--- NOTE | 2017-09-25 14:00 | ED PDOC ---
Arrival/HPI - History of Present Illness Time/Duration: 1 week Symptom Onset: Gradual Activities at Onset: Rest Context: Home <Vu Tucker - Last Filed: 09/25/17 14:35> <Parth Jorge DO - Last Filed: 09/25/17 17:46> - General Chief Complaint: Upper Extremity Problem/Injury Time Seen by Provider: 09/25/17 13:01 - History of Present Illness Narrative History of Present Illness (Text): 09/25/17 13:55 This is a 82 year old male with PMH of prosthetic mitral valve, COPD not on 02 therapy, CHF and prostrate cancer presents to the ED for shortness of breath and swelling in his left shoulder and left leg. Symptoms started one week ago and worsened two days ago. Patient receives chemotherapy for prostrate cancer once a month, with his last treatment occurring one week ago. Patient has never had swelling in left shoulder in past but admits to swelling in legs that resolves over a few days. He states he is compliant with his medications. Denies chest pain, nausea, vomiting, fevers, chills, and headaches. PMD is Dr. Sorto. Patient is active smoker for 40 years and smokes 1 pack/day. (Vu Tucker) Past Medical History - Provider Review Nursing Documentation Reviewed: Yes - Past History Past History: No Previous - Infectious Disease Hx of Infectious Diseases: None - Tetanus Immunization Tetanus Immunization: Unknown - Cardiac Hx Cardiac Disorders: Yes (CAD,CABG,MVR,PROSTHETIC MITRAL VALVE) Hx Congestive Heart Failure: Yes Hx Hypertension: Yes Hx Peripheral Edema: Yes - Pulmonary Hx Respiratory Disorders: Yes Hx Chronic Obstructive Pulmonary Disease (COPD): Yes - Neurological Hx Neurological Disorder: No - HEENT Hx HEENT Disorder: Yes - Renal Hx Renal Disorder: Yes Hx Renal Failure: Yes - Endocrine/Metabolic Hx Diabetes Mellitus Type 2: Yes - Hematological/Oncological Hx Blood Disorders: Yes Hx Cancer: Yes - Integumentary Hx Dermatological Disorder: Yes - Musculoskeletal/Rheumatological Hx Musculoskeletal Disorders: Yes Hx Arthritis: Yes Hx Falls: Yes - Gastrointestinal Hx Gastrointestinal Disorders: Yes Hx Crohn's Disease: Yes - Genitourinary/Gynecological Hx Genitourinary Disorders: Yes (URINARY RETENTION ,HEMATURIA) Hx Hematuria: Yes Hx Prostate Cancer: Yes Hx Prostate Problems: Yes - Psychiatric Hx Emotional Abuse: No Hx Physical Abuse: No Hx Substance Use: No - Past Surgical History Past Surgical History: No Previous - Surgical History Hx Open Heart Surgery: Yes - Anesthesia Hx Anesthesia Reactions: No Hx Malignant Hyperthermia: No - Suicidal Assessment Feels Threatened In Home Enviroment: No <JaceyVu sung - Last Filed: 09/25/17 14:35> Family/Social History - Physician Review Nursing Documentation Reviewed: Yes Family/Social History: Unknown Family HX Smoking Status: Former Smoker Hx Alcohol Use: No Hx Substance Use: No Hx Substance Use Treatment: No <Jaceyana liliaVu - Last Filed: 09/25/17 14:35> Allergies/Home Meds <Jaceyana liliaValorena - Last Filed: 09/25/17 14:35> <aPrth Jorge DO - Last Filed: 09/25/17 17:46> Allergies/Adverse Reactions: Allergies No Known Allergies Allergy (Verified 09/25/17 12:53) Home Medications: Home Meds Medication Instructions Recorded Confirmed Aspirin [Adult Low Dose Aspirin EC] 81 mg PO DAILY 08/07/16 04/29/17 Multivitamin with Iron [Daily 1 tab PO DAILY 11/14/16 04/29/17 Vitamin + Iron] Furosemide [Lasix] 40 mg PO BID 02/02/17 04/29/17 SITagliptin [Januvia] 100 mg PO DAILY 02/06/17 04/29/17 Albuterol HFA [Ventolin HFA 90 2 puff NEB Q4 PRN 04/29/17 04/29/17 mcg/actuation (8 g)] Albuterol/Ipratropium [Combivent 2 puff NEB Q4 PRN 04/29/17 04/29/17 Respimat] Clopidogrel [Plavix] 75 mg PO DAILY 04/29/17 04/29/17 Fluticasone/Salmeterol 250/50 2 puff NEB DAILY 04/29/17 04/29/17 [Advair Diskus 250/50] Review of Systems - Physician Review All systems were reviewed & negative as marked: Yes - Review of Systems Constitutional: Normal Eyes: Normal ENT: Normal Respiratory: SOB, Wheezing. absent: Cough, Sputum Cardiovascular: Edema. absent: Chest Pain, Palpitations Gastrointestinal: Normal Genitourinary Male: Normal Musculoskeletal: Normal Skin: Normal Neurological: Normal Endocrine: Normal Hemo/Lymphatic: Normal Psychiatric: Normal <Jaceyana liliaValorena - Last Filed: 09/25/17 14:35> Physical Exam Vital Signs Reviewed: Yes Temperature: Afebrile Blood Pressure: Normal Pulse: Regular Respiratory Rate: Normal Appearance: Positive for: Well-Appearing, Non-Toxic, Comfortable Pain Distress: None Mental Status: Positive for: Alert and Oriented X 3 - Systems Exam Head: Present: Atraumatic, Normocephalic Pupils: Present: PERRL Extroacular Muscles: Present: EOMI Conjunctiva: Present: Normal Mouth: Present: Moist Mucous Membranes Neck: Present: Normal Range of Motion Respiratory/Chest: Present: Good Air Exchange, Wheezes. No: Respiratory Distress, Accessory Muscle Use Cardiovascular: Present: Regular Rate and Rhythm, Normal S1, S2. No: Murmurs Abdomen: No: Tenderness, Distention, Peritoneal Signs Back: Present: Normal Inspection Upper Extremity: Present: Normal Inspection, Tenderness, Swelling, Other ( swelling and tenderness in left shoulder). No: Cyanosis, Edema Lower Extremity: Present: NORMAL PULSES, Swelling. No: Edema Neurological: Present: GCS=15, CN II-XII Intact, Speech Normal Skin: Present: Warm, Dry, Normal Color. No: Rashes Psychiatric: Present: Alert, Oriented x 3, Normal Insight, Normal Concentration <Jaceyana liliaValorena - Last Filed: 09/25/17 14:35> Vital Signs Temp Pulse Resp BP Pulse Ox 09/25/17 16:10 82 18 125/80 93 L 09/25/17 13:20 18 99 09/25/17 12:50 98.7 F 99 H 18 103/58 L 99 Medical Decision Making <Jaceyana liliaVu - Last Filed: 09/25/17 14:35> <Parth Jorge DO - Last Filed: 09/25/17 17:46> ED Course and Treatment: 09/25/17 14:24 This is a 82 year old male with PMH of prosthetic mitral valve, COPD not on 02 therapy, CHF and prostrate cancer presents to the ED for shortness of breath and swelling in his left shoulder and left leg. Differential: COPD exacerbation vs chemotherapy side effects Plan: -Blood work -CXY -EKG -dopple of left shoulder and left leg -jaron Progress: 09/25/17 14:35 EKG: rate of 80bpm, NJ of 212ms, QRS of 126ms, ventricular paced. (Garrett,Vu) - Lab Interpretations Lab Results: 09/25/17 13:40 09/25/17 13:40 Lab Results 09/25/17 13:40: Sodium 138, Potassium 3.6, Chloride 96 L, Carbon Dioxide 29, Anion Gap 16, BUN 30 H, Creatinine 1.2, Est GFR ( Amer) > 60, Est GFR ( Non-Af Amer) 58, Random Glucose 71, Calcium 9.1, Magnesium 2.0, Total Bilirubin 1.4 H, AST 109 H, ALT 24, Alkaline Phosphatase 114, Lactate Dehydrogenase 3245 H , Total Creatine Kinase 394 H, CK-MB (CK-2) 1.5, CK-MB (CK-2) % Cancelled, Troponin I 0.09 D, NT-Pro-B Natriuret Pep 4560 H, Total Protein 6.9, Albumin 3.7, Globulin 3.1, Albumin/Globulin Ratio 1.2 09/25/17 13:40: WBC 6.4 D, RBC 4.41, Hgb 12.6 L, Hct 36.0 L, MCV 81.6 D, MCH 28.6, MCHC 35.0, RDW 18.2 H, Plt Count 189, MPV 9.6, Gran % 66.9, Lymph % (Auto ) 24.1, [place] % (Auto) 8.6 H, Eos % (Auto) 0.2 L, Baso % (Auto) 0.2, Gran # 4.30 , Lymph # (Auto) 1.6, [place] # (Auto) 0.6, Eos # (Auto) 0.0, Baso # (Auto) 0.01 - RAD Interpretation Radiology Orders: 09/25/17 13:20 CHEST PORTABLE [RAD] Stat 09/25/17 13:21 DUPLEX UPPER EXTRM VEIN LEFT [US] Stat 09/25/17 13:22 DUPLEX LOWER EXTRM VEIN LEFT [US] Stat - Medication Orders Current Medication Orders: Albuterol/Ipratropium (Duoneb 3 Mg/0.5 Mg (3 Ml) Ud) 3 ml IH Q15M EFRAIN Last Admin: 09/25/17 14:03 Dose: 3 ml Discontinued Medications Aspirin (Aspirin) 325 mg PO STAT STA Stop: 09/25/17 15:41 Last Admin: 09/25/17 16:05 Dose: 325 mg Methylprednisolone (Solu-Medrol) 125 mg IVP STAT STA Stop: 09/25/17 13:25 Last Admin: 09/25/17 13:39 Dose: 125 mg IVP Administration Document 09/25/17 13:39 TAMERA (Rec: 09/25/17 13:42 TAMERA [id number]) Charges for Administration # of IVP Administrations 1 - PA / MORNING SHOW HOST / Resident Statement MIKKI has reviewed & agrees with the documentation as recorded. MIKKI has examined the patient and agrees with the treatment plan. <Vu Tucker - Last Filed: 09/25/17 14:35> Disposition/Present on Arrival - Present on Arrival Any Indicators Present on Arrival: No History of DVT/PE: No History of Uncontrolled Diabetes: No Urinary Catheter: No History of Decub. Ulcer: No History Surgical Site Infection Following: None <Vu Tucker - Last Filed: 09/25/17 14:35> - Disposition Have Diagnosis and Disposition been Completed?: Yes Disposition Time: 15:00 <Parth Jorge DO - Last Filed: 09/25/17 17:46> - Disposition Diagnosis: COPD exacerbation, Congestive heart failure (CHF), Elevated troponin Disposition: HOSPITALIZED Condition: STABLE
--- NOTE | 2017-09-25 14:02 | RAD ---
Date of service: 09/25/2017 HISTORY: r/o infiltrate COMPARISON: 04/29/2017. FINDINGS: LUNGS: The lungs are well inflated and clear. No focal consolidation. PLEURA: No significant pleural effusion identified, no pneumothorax apparent. CARDIOVASCULAR: The heart is normal in size. Status post CABG. There is stable position of left-sided permanent pacing device. OSSEOUS STRUCTURES: No significant abnormalities. VISUALIZED UPPER ABDOMEN: Normal. OTHER FINDINGS: None. IMPRESSION: No active pulmonary disease.
[2017-09-25 14:12] LABS: B-TYPE NATRIURETIC PEPTIDE 4560 pg/mL (0-450); TROPONIN I 0.09 ng/mL
[2017-09-25 14:19] LABS: CK-MB 1.5 ng/mL (0.0-3.6)
--- NOTE | 2017-09-25 16:54 | CARD ---
APPROVED REPORT Date of service: 09/25/2017 EKG Measurement Heart [id number] <Conclusion> Atrial sensed, ventricular paced rhythm
--- NOTE | 2017-09-25 17:29 | US ---
PROCEDURE: Left upper extremity venous ultrasound HISTORY: Arm pain and swelling. Evaluate for deep venous thrombosis. PHYSICIAN(S): Daniel Kate MD. FINDINGS: The visualized leftinternal jugular vein is sonographically normal and compressible. No evidence of obstruction or thrombus is seen. The visualized segments of the left subclavian vein are patent with normal waveforms. No sonographic evidence of obstruction or thrombosis is seen. The visualized deep venous system of the proximal leftupper extremity is sonographically normal and compressible. There is a 6 cm oblong fluid collection contiguous with the left shoulder. IMPRESSION: 1. No sonographic evidence for deep venous thrombosis in the visualized segments of the left upper extremity.
--- NOTE | 2017-09-25 17:30 | US ---
PROCEDURE: Left lower extremity venous US HISTORY: Leg pain and swelling. Evaluate for DVT. PHYSICIAN(S): Daniel Kate MD. TECHNIQUE: Duplex sonography and color-flow Doppler with graded compression were used to evaluate the deep venous system of the left lower extremity. The exam is limited by edema. FINDINGS: The visualized deep venous system of the left lower extremity is sonographically normal and compressible. Normal wave forms and augmentation are seen. There is no sonographic evidence for deep venous thrombosis in the visualized segments of the left lower extremity. IMPRESSION: 1. No sonographic evidence for deep venous thrombosis in the visualized segments of the left lower extremity.
[2017-09-25 18:23] LABS: ARTERIAL BLOOD GAS HCO3 23.7 mmol/L (21-28); ARTERIAL BLOOD GAS HEMOGLOBIN 11.5 g/dL (11.7-17.4); ARTERIAL BLOOD GAS O2 CAPACITY 15.2 mL/dl (16-24); ARTERIAL BLOOD GAS O2 CONTENT 14.5 ML/dl (15-23); ARTERIAL BLOOD GAS O2 SAT 95.1 % (95-98); ARTERIAL BLOOD GAS PCO2 44 mm/Hg (35-45); ARTERIAL BLOOD GAS PH 7.34 (7.35-7.45); ARTERIAL BLOOD GAS TCO2 25.1 mmol.L (22-28)
[2017-09-25] MEDS: Budesonide 0.5 mg/2 ml Inhal Susp UD IH SCH (20:45)
[2017-09-25] MEDS ORDERED: Oxycodone/Acetaminophen 5/325 mg Tab PO PRN (21:22)
[2017-09-25] MEDS: MethylPREDNISolone 40 mg Vial IV SCH (23:20)
[2017-09-26 04:54] LABS: PH,URINE 5.5 (4.7-8.0); URINE BILIRUBIN SMALL (NEGATIVE); URINE BLOOD MODERATE (NEGATIVE); URINE GLUCOSE (UA) NEGATIVE (NEGATIVE); URINE LEUKOCYTE ESTERASE LARGE Leu/uL (NEGATIVE); URINE PROTEIN 30 mg/dL (<30 mg/dL)
[2017-09-26 05:31] LABS: URINE APPEARANCE CLOUDY (CLEAR); URINE COLOR DARK YELLOW (YELLOW)
[2017-09-26 05:33] LABS: URINE WBC 20 - 25 /hpf (0-6)
[2017-09-26 05:34] LABS: URINE BACTERIA LARGE (NEG)
[2017-09-26] MEDS: Pantoprazole 40 mg EC Tab PO SCH (07:04)
[2017-09-26] MEDS: MethylPREDNISolone 40 mg Vial IV SCH ×3 (07:20→21:41)
[2017-09-26] MEDS: Budesonide 0.5 mg/2 ml Inhal Susp UD IH SCH ×2 (07:43→20:30)
[2017-09-26] MEDS: Arformoterol 15 mcg/2 ml Inh Sol IH SCH ×2 (07:43→20:31)
[2017-09-26] MEDS ORDERED: Bisacodyl 5mg EC Tab PO ONE (08:39)
[2017-09-26] MEDS ORDERED: POLYETHYLENE GLYCOL 3350 17 GM/Dose PACKET PO PRN (08:40)
[2017-09-26 09:40] LABS: BASO # 0.01 K/mm3 (0.0-2.0); BASO % 0.1 % (0.0-3.0); GRAN # 10.18 (1.4-6.5); GRAN % 85.6 % (50.0-68.0); HEMOGLOBIN 12.8 g/dL (14.0-18.0); LYMPH # 1.3 (1.2-3.4); LYMPH % 10.8 % (22.0-35.0); MEAN CELL VOLUME 81.6 fl (80.0-105.0); MEAN CORPUSCULAR HGB CONC 34.3 g/dl (31.0-37.0); MEAN PLATELET VOLUME 9.6 fl (7.0-11.0); MONO # 0.4 (0.1-0.6); MONO % 3.5 % (1.0-6.0); RBC 4.57 10^6/uL (3.5-6.1); RED CELL DISTRIBUTION WIDTH 18.1 % (11.5-14.5); WHITE BLOOD COUNT 11.9 10^3/ul (4.5-11.0)
[2017-09-26 09:47] LABS: ALB/GLOB RATIO 1.2 (1.1-1.8); ALBUMIN 3.7 g/dL (3.0-4.8); ALT/SGPT 19 U/L (7-56); AST/SGOT 112 U/L (17-59); BLOOD UREA NITROGEN 39 mg/dL (7-21); CALCIUM 9.3 mg/dL (8.4-10.5); GFR AFRICAN-AMERICAN > 60; GFR NON-AFRICAN AMERICAN 53; HDL CHOLESTEROL 24 mg/dL (29-60)
[2017-09-26 09:55] LABS: LDL CHOLESTEROL 112 mg/dL (0-129)
[2017-09-26 09:59] LABS: TROPONIN I 0.05 ng/mL
[2017-09-26] MEDS ORDERED: Enoxaparin 40 mg Syringe SC SCH (10:00)
[2017-09-26 10:04] LABS: FREE T4 1.65 ng/dL (0.78-2.19)
[2017-09-26 10:12] LABS: CK-MB 1.9 ng/mL (0.0-3.6)
[2017-09-26] MEDS: Multivitamin With Minerals Tab PO SCH (11:37)
[2017-09-26] MEDS: Enoxaparin 80 mg Syringe SC SCH ×2 (11:38→21:41)
[2017-09-26] MEDS: cefTRIAXone 1 gm 1 GM/100 ML BAG IVPB SCH (11:39)
[2017-09-26] MEDS: Insulin Reg-LOW-Coverage SC SCH ×3 (12:07→21:43)
--- NOTE | 2017-09-26 14:22 | CON ---
DATE: 09/26/2017 CONSULT SERVICE: Cardiology. REFERRING PHYSICIAN: Dr. Bon Blanc. REASON FOR THE CONSULTATION: Followup shortness of breath, acute exacerbation of COPD, leg edema and he came in with swelling of the leg, history of coronary artery disease, CABG, mitral valve replacement. BRIEF CLINICAL HISTORY: This is an 82-year-old male with past medical history significant for coronary artery disease, status post CABG; diabetes; hypertension; hyperlipidemia; obesity; history of mitral valve endocarditis, history of mitral valve replaced, history of pacemaker and he came in with complaint of leg swelling and mild shortness of breath and left shoulder pain. Denies any chest pain, shortness of breath or any palpitation. PAST MEDICAL HISTORY: Significant for coronary artery disease, paroxysmal atrial fibrillation; history of mitral valve endocarditis status post mitral valve replacement; [id number] myocardial infarction at that time, status post 5-vessel bypass surgery; COPD, active tobacco abuse; hypertension; sleep apnea, noncompliant to the medications; history of arthritis; history of prostate CA; status post permanent pacemaker. SOCIAL HISTORY: Patient actively smokes, claims half pack a day. Denies any history of alcohol abuse. ALLERGIES: NO KNOWN ALLERGY. CURRENT MEDICATIONS: The patient is taking at home Flomax, Januvia, prednisone, potassium chloride, multivitamin, Lasix, Advair, , atorvastatin, aspirin, albuterol inhaler. PREVIOUS CARDIAC WORKUP: As follows: The patient had echocardiogram 07/15/2016 that shows ejection fraction 50 to 55%, trace aortic regurgitation, bioprosthetic leaflet with thickened mitral valve, well positioned. No vegetation noted. Ejection fraction 50 to 55%, trace tricuspid regurgitation, RV systolic pressure of 40, pacemaker lead noted. EKG shows normal sinus, V-paced rhythm, underlying normal rhythm at rate of 84. REVIEW OF SYSTEMS: As per HPI. EKG shows V-paced rhythm, underlying sinus, rate of 84. PHYSICAL EXAMINATION: VITAL SIGNS: As follows, height of the patient is 5 feet 7 inches, weight of the patient is 190 pounds, and body mass index 29.8 kg/m2. Temperature afebrile, heart rate 74, blood pressure 137/62. HEENT: PERRLA. Extraocular muscles intact. NECK: Supple. No carotid bruit. No thyromegaly. CHEST: Clear to auscultation. HEART: S1 and S2 regular. ABDOMEN: Soft. EXTREMITIES: Clubbing and cyanosis negative. LABORATORY DATA: Blood workup as follows: WBC 6.4, hemoglobin 12.6, hematocrit 36, platelet count 189. Chemistry shows sodium 130, potassium 3.6, chloride 96, carbon dioxide 29, anion gap of 15, BUN 30, creatinine 1.2. BNP 4560. IMPRESSION: An 82-year-old male with past medical history significant for obesity, diabetes, hypertension, hyperlipidemia, history of coronary artery disease, history of gzk-BS-[id number] elevation myocardial infarction, history of mitral valve endocarditis. At that time, the patient underwent five-vessel coronary artery bypass graft and mitral valve replacement, history of paroxysmal atrial fibrillation, now the patient is in normal sinus. At one point, the patient was on anticoagulation, was off anticoagulation because a history of the GI bleed in the past, admitted with shortness of breath and leg edema. Denies any chest pain. RECOMMENDATIONS: We will resume the medication. We will get the pacemaker interrogation. Followup serial CPK, troponin. We will get echo to assess LV function. Lipid profile, TSH and hemoglobin A1c. Further recommendation depending upon hospital course. We will follow with you. Borderline elevated troponin, we will follow serial CPK. We will start Lovenox. Followup serial CPK and troponin. Further recommendation will be made depending upon the trend of the troponin. Thank you, Dr. Sorto for providing us the opportunity in taking care of the patient, Davin Venegas. Bon Blanc MD
[2017-09-26 15:37] LABS: TROPONIN I 0.05 ng/mL
[2017-09-26 15:42] LABS: CK-MB 2.1 ng/mL (0.0-3.6)
--- NOTE | 2017-09-26 18:22 | CARD ---
APPROVED REPORT Date of service: 09/26/2017 EXAM: Two-dimensional and M-mode echocardiogram with Doppler and color Doppler. INDICATION CABG 2D DIMENSIONS Left Atrium (2D)4.6 (1.6-4.0cm)IVSd1.1 (0.7-1.1cm) LVDd4.4 (3.9-5.9cm)PWd1.1 (0.7-1.1cm) M-Mode DIMENSIONS Aortic Root2.60 (2.2-3.7cm)Aortic Cusp Exc.1.10 (1.5-2.0cm) Aortic Valve AoV Peak Chimutmh430.0cm/Gee Peak GR.9mmHg Mitral Valve E/A ratio0.0 TDI E/Lateral E'0.0E/Medial E'0.0 Tricuspid Valve TR Peak [id number]/sTR Peak Gr.[id number] LEFT VENTRICLE The left ventricle is normal size. There is borderline concentric left ventricular hypertrophy. The systolic function is mildly impaired.EF-45-50% There is mild hypokinesis in the apical anterior wall. Transmitral Doppler flow pattern is Grade III-reversible restrictive diastolic dysfunction. No left ventricle thrombus noted on this study. There is no ventricular septal defect visualized. There is no left ventricular aneurysm. There is no mass noted in the left ventricle. RIGHT VENTRICLE The right ventricle is borderline dilated. There is normal right ventricular wall thickness. The right ventricular systolic function is normal. There is a pacemaker lead in the right ventricle. ATRIA The left atrium is mildly dilated. The right atrium is mildly dilated. There is a catheter/pacemaker lead seen in the right atrium. The interatrial septum is intact with no evidence for an atrial septal defect. AORTIC VALVE The aortic valve is thickened but opens well. No aortic regurgitation is present. Aortic Sclerosis Vs mild There is no aortic valvular vegetation. MITRAL VALVE S/p MVR bioprosthetic, Trace to Mild MR. TRICUSPID VALVE The tricuspid valve leaflets are thickened or calcified, but open well. There is mild to moderate tricuspid regurgitation.RVSP-53 mmof hg. There is no tricuspid valve stenosis. There is no tricuspid valve prolapse or vegetation. PULMONIC VALVE The pulmonic valve is not well visualized, but probably normal. GREAT VESSELS The aortic root is normal in size. The ascending aorta is normal in size. The pulmonary artery is normal. The IVC is dilated. PERICARDIAL EFFUSION There is no pleural effusion. There is no pericardial effusion. <Conclusion> The left ventricle is normal size. There is borderline concentric left ventricular hypertrophy. The systolic function is mildly impaired.EF-45-50% There is a pacemaker lead in the right ventricle. The right atrium is mildly dilated. There is a catheter/pacemaker lead seen in the right atrium. Aortic Sclerosis Vs mild S/p MVR bioprosthetic, Trace to Mild MR. There is mild to moderate tricuspid regurgitation.RVSP-53 mmof hg. The IVC is dilated. There is no pericardial effusion. No vegetation or thrombus noted.
--- NOTE | 2017-09-26 18:26 | CON ---
DATE: 09/26/2017 PULMONARY CONSULT REFERRING PHYSICIAN: Salty Sorto MD REASON FOR CONSULT: Chronic obstructive lung disease, cough and shortness of breath, and suspected sleep apnea syndrome. HISTORY OF PRESENT ILLNESS: This is an 82-year-old gentleman well known to me from previous admission, noncompliant with followup and CPAP, actively smoke, comes into ER, feeling weak, decreased lower extremity strength, cough, and shortness of breath. There is no hemoptysis or emesis. No hematuria. No diarrhea reported. PAST MEDICAL HISTORY: Coronary artery disease, history of coronary bypass surgery, has a history of mitral valve replacement in the past, chronic obstructive lung disease, suspected sleep apnea syndrome, hypertension, chronic lung disease, history of renal insufficiency, diabetes, degenerative joint disease. FAMILY HISTORY: No significant cardiopulmonary disease reported. SOCIAL HISTORY: Active smoker. Denies any alcohol use. ALLERGIES: NONE KNOWN. MEDICATIONS: Brovana inhaled twice a day, Colace 100 mg twice a day, vitamin D 50,000 units weekly, albuterol/Atrovent nebulizer every 4 hours p.r.n., Ecotrin 81 mg daily, Flomax 0.4 mg daily, insulin coverage, Januvia 50 mg daily, Lasix 40 mg daily, Lipitor 20 mg daily, Lovenox 70 mg subcu every 12 hours, MiraLax 17 g twice a day p.r.n., Percocet 10/325 one tablet every 4 hours p.r.n., Plavix 75 mg daily, Protonix 40 mg daily, Pulmicort inhaled twice a day, Rocephin 1 g IV daily, Singulair 10 mg daily, Solu-Medrol 40 mg every 8 hours, multivitamins daily. REVIEW OF SYSTEMS: No headache, no rhinitis. Does have a cough, sputum production. No chest pain. No nausea. No vomiting. No diarrhea. No dysuria. No low back pain. No incontinence of bowel or urine. No leg swelling. Has some difficulty with walking. PHYSICAL EXAMINATION: GENERAL: No acute distress. VITAL SIGNS: Temperature is 98, heart rate 74, respiratory rate 20, blood pressure 137/62, pulse ox 95% on nasal cannula. HEENT: Moist mucous membrane. Crowded airway. Mallampati score of 4. NECK: Supple. No JVD. LUNGS: A few scattered rhonchi with some wheezing. Overall fair airflow. HEART: S1 and S2. ABDOMEN: Soft, nontender. No organomegaly. EXTREMITIES: No edema. NEUROLOGIC: Awake, alert, and follows simple commands. LABORATORY DATA: Shows hemoglobin 12.8, hematocrit 37.3, WBC 11.9, and platelets 211. Has blood gases done, which show pH 7.34, pCO2 of 44, O2 is 69. Sodium 140, potassium 4, chloride 97, bicarbonate 30. BUN 39, creatinine 1.3. Glucose 165. Calcium is 9.3, phosphorus 5.2, magnesium 2.2. AST 112, ALT 19, alk phos is 116. LDH is 2566. Creatinine kinase 507. Troponin is negative. Albumin 3.7. Cholesterol is 171. TSH 0.45. Urinalysis shows wbc 20 to 25, rbc 2 to 5. Chest x-ray done yesterday in ER shows no active pulmonary disease. EKG done in ER shows atrial-sensed ventricular-paced rhythm. Has an ultrasound of lower extremity done, which shows no sonographic evidence of DVT thrombus in lower extremity. IMPRESSION AND PLAN: Chronic obstructive lung disease, may have sleep apnea syndrome, cardiomyopathy, valvular heart disease, coronary artery disease, diabetes, history of prostate cancer, history of lung nodule, history of urinary tract infection and has been on chemotherapy. Pulmonary point of view, he is doing okay. Continue IV and inhaled bronchodilator. We will place him on CPAP 7 cm with 100% oxygen while sleeping. Avoid sedation. Gastric prophylaxis, on anticoagulation. We will give him Nicoderm patch. Thank you and we will follow with you. Bno Sánchez MD
[2017-09-26 21:21] LABS: TROPONIN I 0.05 ng/mL
[2017-09-26 21:30] LABS: CK-MB 2.3 ng/mL (0.0-3.6)
[2017-09-26] MEDS: Oxycodone/Acetaminophen 10/325 mg Tab PO PRN (21:42)
[2017-09-26] MEDS ORDERED: Albuterol-Ipratrop 3 mg / 0.5 (3 ml) UD IH PRN (21:45)
[2017-09-27] MEDS: Oxycodone/Acetaminophen 10/325 mg Tab PO PRN ×2 (04:38→19:08)
[2017-09-27] MEDS: Pantoprazole 40 mg EC Tab PO SCH (05:01)
[2017-09-27] MEDS: MethylPREDNISolone 40 mg Vial IV SCH (05:01)
--- NOTE | 2017-09-27 06:25 | CP.PCM.CON ---
History of Present Illness - History of Present Illness History of Present Illness: Archana Cruz DO PGY-2, Internal Medicine Resident: Hematology and Oncology Consult Note for Dr. Parekh 82 year old male with a past medical history of CAD, paroxysmal atrial fibrillation, history of mitral valve endocarditis s/p MV replacement with NSTEMI at that time, status-post 5 vessel bypass surgery; COPD, hypertension, sleep apnea, and with prostate cancer. On February 02, 2017 via TRUS biopsy revealed adenocarcinoma of the prostate with , Ryan 5 +4 = 9 in the left and on the right. A bone scan on January revealed atypical appearance of uptake involving the skeleton, bilateral femurs, humerus, and shoulders. He is currently on Leuprolide once a month, Zytiga daily, and Aredia once monthly. He was admitted for complaints of swelling in left shoulder and a COPD exacerbation. He complains of an inability to abduct his left shoulder and pain with abducting his left shoulder for the past week. He denies any precipitating event or trauma to the area. He states that his "bone pain" is well controlled on his current medication, but that he is most concerned about his left shoulder and the inability to abduct it. On ROS he reports having hematuria and pain in the left deltoid area. He denies fever, chills, night sweats, easy brusing or bleeding, chest pain, dyspnea, or productive sputum, dizziness, hearing changes, nausea, vomiting, or diarrhea. PMHX: CAD, CHF (EF 50-55%), BPH, PVD, COPD, DM, osteoarthritis PSH: CABGx3, Mitral valve replacement, left inguinal hernia repair Meds: Lopressor, Docusate, Daily vitamin with iron, Remeron, Plavix, Flomax, Januvia, Protonix, Lipitor, Proscar, low dose ASA, Lasix Allergies: NKDA Family hx: DM Social hx: smoking 1ppd x 60 yrs, denies EtOH or recreational drugs, lives alone in [facility], has aide for 2 hrs/day, daughter lives in [place]. Review of Systems - Review of Systems All systems: reviewed and no additional remarkable complaints except (as per HPI ) Past Patient History - Infectious Disease Hx of Infectious Diseases: None - Tetanus Immunizations Tetanus Immunization: Unknown - Past Social History Smoking Status: Current Some Days Smoker - CARDIAC Hx Cardiac Disorders: Yes (CAD,CABG,MVR,PROSTHETIC MITRAL VALVE) Hx Congestive Heart Failure: Yes Hx Hypertension: Yes Hx Peripheral Edema: Yes - PULMONARY Hx Respiratory Disorders: Yes Hx Chronic Obstructive Pulmonary Disease (COPD): Yes - NEUROLOGICAL Hx Neurological Disorder: No - HEENT Hx HEENT Problems: Yes - RENAL Hx Chronic Kidney Disease: Yes Hx Renal Failure: Yes - ENDOCRINE/METABOLIC Hx Diabetes Mellitus Type 2: Yes - HEMATOLOGICAL/ONCOLOGICAL Hx Blood Disorders: Yes Hx Cancer: Yes - INTEGUMENTARY Hx Dermatological Problems: Yes - MUSCULOSKELETAL/RHEUMATOLOGICAL Hx Musculoskeletal Disorders: Yes Hx Arthritis: Yes Hx Falls: Yes - GASTROINTESTINAL Hx Gastrointestinal Disorders: Yes Hx Crohn's Disease: Yes - GENITOURINARY/GYNECOLOGICAL Hx Genitourinary Disorders: Yes (URINARY RETENTION ,HEMATURIA) Hx Hematuria: Yes Hx Prostate Problems: Yes - PSYCHIATRIC Hx Emotional Abuse: No Hx Physical Abuse: No Hx Substance Use: No - SURGICAL HISTORY Hx Open Heart Surgery: Yes - ANESTHESIA Hx Anesthesia Reactions: No Hx Malignant Hyperthermia: No Meds Allergies/Adverse Reactions: Allergies Allergy/AdvReac Type Severity Reaction Status Date / Time No Known Allergies Allergy Verified 09/25/17 12:53 - Medications Medications: Current Medications Albuterol/Ipratropium (Duoneb 3 Mg/0.5 Mg (3 Ml) Ud) 3 ml IH [id number] PRN PRN Reason: Shortness of Breath Arformoterol Tartrate (Brovana) 15 mcg IH [id number] [facility] Last Admin: 09/26/17 20:31 Dose: 15 mcg Aspirin (Ecotrin) 81 mg PO DAILY [facility] Last Admin: 09/26/17 11:37 Dose: 81 mg Atorvastatin Calcium (Lipitor) 20 mg PO DIN [facility] Last Admin: 09/26/17 18:14 Dose: 20 mg Budesonide (Pulmicort Respules) 0.5 mg IH BIDRESP [facility] Last Admin: 09/26/17 20:30 Dose: 0.5 mg Clopidogrel Bisulfate (Plavix) 75 mg PO DAILY [facility] Last Admin: 09/26/17 11:37 Dose: 75 mg Docusate Sodium (Colace) 100 mg PO BID [facility] Last Admin: 09/26/17 18:16 Dose: Not Given Enoxaparin Sodium (Lovenox) 70 mg SC Q12H [facility] PRN Reason: Protocol Last Admin: 09/26/17 21:41 Dose: 70 mg Ergocalciferol (Drisdol 50,000 Intl Units Cap) 1 cap PO QWK [facility] Furosemide (Lasix) 40 mg IV DAILY [facility] Last Admin: 09/26/17 11:40 Dose: 40 mg Ceftriaxone Sodium (Rocephin 1 Gram Ivpb) 1 gm in 100 mls @ 100 mls/hr IVPB DAILY [facility] PRN Reason: Protocol Last Admin: 09/26/17 11:39 Dose: 100 mls/hr Insulin Human Regular (Humulin R Low) 0 units SC ACHS [facility] PRN Reason: Protocol Last Admin: 09/26/17 21:43 Dose: Not Given Methylprednisolone (Solu-Medrol) 40 mg IV Q8 [facility] Last Admin: 09/27/17 05:01 Dose: 40 mg Montelukast Sodium (Singulair) 10 mg PO HS [facility] Last Admin: 09/26/17 21:41 Dose: 10 mg Multivitamins/Minerals (Therapeutic-M Tab) 1 tab PO DAILY [facility] Last Admin: 09/26/17 11:37 Dose: 1 tab Oxycodone/Acetaminophen (Percocet 10/325 Mg Tab) 1 tab PO Q4H PRN PRN Reason: Pain, moderate (4-7) Last Admin: 09/27/17 04:38 Dose: 1 tab Pantoprazole Sodium (Protonix Ec Tab) 40 mg PO 0600 [facility] Last Admin: 09/27/17 05:01 Dose: 40 mg Polyethylene Glycol (Miralax) 17 gm PO BID PRN PRN Reason: Constipation Sitagliptin Phosphate (Januvia) 50 mg PO DAILY [facility] Last Admin: 09/26/17 11:37 Dose: 50 mg Tamsulosin HCl (Flomax) 0.4 mg PO DAILY [facility] Last Admin: 09/26/17 11:37 Dose: 0.4 mg Physical Exam - Constitutional Appears: Non-toxic, No Acute Distress - Head Exam Head Exam: ATRAUMATIC, NORMOCEPHALIC - Eye Exam Eye Exam: EOMI - ENT Exam ENT Exam: Mucous Membranes Moist - Neck Exam Neck exam: Positive for: Normal Inspection - Respiratory Exam Respiratory Exam: Wheezes (faint). absent: Accessory Muscle Use - Cardiovascular Exam Cardiovascular Exam: RRR, +S1, +S2 - Extremities Exam Extremities exam: Positive for: pedal edema - Back Exam Back exam: NORMAL INSPECTION. absent: CVA tenderness (L), CVA tenderness (R) - Neurological Exam Neurological exam: Alert, Oriented x3 - Psychiatric Exam Psychiatric exam: Normal Affect, Normal Mood - Skin Skin Exam: Dry, Intact, Normal Color, Warm Results - Vital Signs Recent Vital Signs: Last Vital Signs Temp 98.1 F 09/27/17 00:01 Pulse 68 09/27/17 02:00 Resp 20 09/27/17 00:01 BP 135/72 09/27/17 00:01 Pulse Ox 95 09/27/17 00:01 - Labs Result Diagrams: 09/27/17 06:15 09/27/17 06:15 Labs: Laboratory Results - last 24 hr 09/26/17 09/26/17 09/26/17 07:29 09:20 09:20 WBC 11.9 H D RBC 4.57 Hgb 12.8 L Hct 37.3 L MCV 81.6 MCH 28.0 MCHC 34.3 RDW 18.1 H Plt Count 211 MPV 9.6 Gran % 85.6 H Lymph % (Auto) 10.8 L Blackford % (Auto) 3.5 Eos % (Auto) 0.0 L Baso % (Auto) 0.1 Gran # 10.18 H Lymph # (Auto) 1.3 [place] # (Auto) 0.4 Eos # (Auto) 0.0 Baso # (Auto) 0.01 Sodium 140 Potassium 4.0 Chloride 97 L Carbon Dioxide 30 Anion Gap 16 BUN 39 H Creatinine 1.3 Est GFR ( Amer) > 60 Est GFR (Non-Af Amer) 53 POC Glucose (mg/dL) 142 H Random Glucose 162 H Hemoglobin A1c Calcium 9.3 Phosphorus 5.2 H Magnesium 2.2 Total Bilirubin 0.9 AST 112 H ALT 19 Alkaline Phosphatase 116 Lactate Dehydrogenase 2566 H Total Creatine Kinase 507 H CK-MB (CK-2) 1.9 CK-MB (CK-2) % Cancelled Troponin I 0.05 D Total Protein 6.8 Albumin 3.7 Globulin 3.1 Albumin/Globulin Ratio 1.2 Triglycerides 142 Cholesterol 171 LDL Cholesterol Direct 112 HDL Cholesterol 24 L Free T4 TSH 3rd Generation 09/26/17 09/26/17 09/26/17 09:20 09:20 11:28 WBC RBC Hgb Hct MCV MCH MCHC RDW Plt Count MPV Gran % Lymph % (Auto) Blackford % (Auto) Eos % (Auto) Baso % (Auto) Gran # Lymph # (Auto) [place]ford # (Auto) Eos # (Auto) Baso # (Auto) Sodium Potassium Chloride Carbon Dioxide Anion Gap BUN Creatinine Est GFR ( Amer) Est GFR (Non-Af Amer) POC Glucose (mg/dL) 165 H Random Glucose Hemoglobin A1c 6.4 Calcium Phosphorus Magnesium Total Bilirubin AST ALT Alkaline Phosphatase Lactate Dehydrogenase Total Creatine Kinase CK-MB (CK-2) CK-MB (CK-2) % Troponin I Total Protein Albumin Globulin Albumin/Globulin Ratio Triglycerides Cholesterol LDL Cholesterol Direct HDL Cholesterol Free T4 1.65 TSH 3rd Generation 0.45 L 09/26/17 09/26/17 09/26/17 15:10 16:29 20:56 WBC RBC Hgb Hct MCV MCH MCHC RDW Plt Count MPV Gran % Lymph % (Auto) [place]ford % (Auto) Eos % (Auto) Baso % (Auto) Gran # Lymph # (Auto) [place] # (Auto) Eos # (Auto) Baso # (Auto) Sodium Potassium Chloride Carbon Dioxide Anion Gap BUN Creatinine Est GFR ( Amer) Est GFR (Non-Af Amer) POC Glucose (mg/dL) 135 H Random Glucose Hemoglobin A1c Calcium Phosphorus Magnesium Total Bilirubin AST ALT Alkaline Phosphatase Lactate Dehydrogenase 2211 H 2368 H Total Creatine Kinase 325 H 363 H CK-MB (CK-2) 2.1 2.3 CK-MB (CK-2) % Cancelled Cancelled Troponin I 0.05 0.05 Total Protein Albumin Globulin Albumin/Globulin Ratio Triglycerides Cholesterol LDL Cholesterol Direct HDL Cholesterol Free T4 TSH 3rd Generation 09/26/17 21:21 WBC RBC Hgb Hct MCV MCH MCHC RDW Plt Count MPV Gran % Lymph % (Auto) [place]ford % (Auto) Eos % (Auto) Baso % (Auto) Gran # Lymph # (Auto) [place]ford # (Auto) Eos # (Auto) Baso # (Auto) Sodium Potassium Chloride Carbon Dioxide Anion Gap BUN Creatinine Est GFR ( Amer) Est GFR (Non-Af Amer) POC Glucose (mg/dL) 137 H Random Glucose Hemoglobin A1c Calcium Phosphorus Magnesium Total Bilirubin AST ALT Alkaline Phosphatase Lactate Dehydrogenase Total Creatine Kinase CK-MB (CK-2) CK-MB (CK-2) % Troponin I Total Protein Albumin Globulin Albumin/Globulin Ratio Triglycerides Cholesterol LDL Cholesterol Direct HDL Cholesterol Free T4 TSH 3rd Generation Assessment & Plan - Assessment and Plan (Free Text) Assessment: 82 year old male with a past medical history of CAD, paroxysmal atrial fibrillation, history of mitral valve endocarditis s/p MV replacement with NSTEMI at that time, status-post 5 vessel bypass surgery; COPD, hypertension, sleep apnea, and prostate cancer. He is currently on Leuprolide, Zytiga, and Aredia. He was admitted for complaints of swelling in left shoulder. He complains of an inability to abduct his left shoulder and pain with abducting his left shoulder for the past week. 3 view shoulder X-ray showed moderate degenerative osteoarthrosis in the acromioclavicular and glenohumeral joints. No acute displaced fracture or dislocation. Dr. Campbell was consulted for further evaluation of the shoulder issue. The patient has a pacemaker [employer]pta [id number] that, to my knowledge, does not have FDA conditional approval for MRI. We will continue to follow up with the patient while he is in house. Case was reviewed and discussed with attending physician, Dr. Parekh - Date & Time Date: 09/27/17 Time: 06:20
[2017-09-27 06:42] LABS: BASO # 0.01 K/mm3 (0.0-2.0); BASO % 0.1 % (0.0-3.0); EOS % 0.1 % (1.5-5.0); GRAN # 11.78 (1.4-6.5); GRAN % 89.3 % (50.0-68.0); HEMOGLOBIN 11.7 g/dL (14.0-18.0); LYMPH # 0.8 (1.2-3.4); LYMPH % 5.7 % (22.0-35.0); MEAN CELL VOLUME 80.6 fl (80.0-105.0); MEAN CORPUSCULAR HGB CONC 34.7 g/dl (31.0-37.0); MEAN PLATELET VOLUME 9.4 fl (7.0-11.0); MONO # 0.6 (0.1-0.6); MONO % 4.8 % (1.0-6.0); RBC 4.18 10^6/uL (3.5-6.1); WHITE BLOOD COUNT 13.2 10^3/ul (4.5-11.0)
[2017-09-27 06:56] LABS: TROPONIN I 0.05 ng/mL
[2017-09-27 06:59] LABS: ALB/GLOB RATIO 1.1 (1.1-1.8); ALBUMIN 3.4 g/dL (3.0-4.8); ALT/SGPT 30 U/L (7-56); AST/SGOT 101 U/L (17-59); BLOOD UREA NITROGEN 53 mg/dL (7-21); GFR AFRICAN-AMERICAN > 60; GFR NON-AFRICAN AMERICAN 53
[2017-09-27 07:04] LABS: CK-MB 2.3 ng/mL (0.0-3.6)
[2017-09-27] MEDS: Insulin Reg-LOW-Coverage SC SCH ×4 (07:30→22:17)
[2017-09-27] MEDS: Budesonide 0.5 mg/2 ml Inhal Susp UD IH SCH ×2 (08:10→20:48)
[2017-09-27] MEDS: Arformoterol 15 mcg/2 ml Inh Sol IH SCH ×2 (08:10→20:48)
[2017-09-27] MEDS: Multivitamin With Minerals Tab PO SCH (10:17)
[2017-09-27] MEDS: Enoxaparin 80 mg Syringe SC SCH (10:17)
[2017-09-27] MEDS: cefTRIAXone 1 gm 1 GM/100 ML BAG IVPB SCH (10:17)
--- NOTE | 2017-09-27 10:17 | CP.PCM.PN ---
Subjective - Date & Time of Evaluation Date of Evaluation: 09/27/17 Time of Evaluation: 07:10 - Subjective Subjective: Awake, alert, lying in bed, watching TV, denies chest pain,denies shortness of breath Reason for consultation and follow up: Cardiac evaluation for shortness of breath and leg swelling. History of prosthetic mitral valve, COPD, CHF and prostrate cancer on chemotherapy once a month, active smoker for 40 years and smokes 1 pack/day. Seen and examined by me and Dr. Blanc Objective - Vital Signs/Intake and Output Vital Signs (last 24 hours): Temp Pulse Resp BP Pulse Ox 97.7 F 78 20 156/74 H 94 L 09/27/17 06:00 09/27/17 06:00 09/27/17 06:00 09/27/17 06:00 09/27/17 06:00 Intake and Output: 09/27/17 09/27/17 06:59 18:59 Intake Total 600 Output Total 925 Balance -325 - Medications Medications: Current Medications Albuterol/Ipratropium (Duoneb 3 Mg/0.5 Mg (3 Ml) Ud) 3 ml IH [id number] PRN PRN Reason: Shortness of Breath Arformoterol Tartrate (Brovana) 15 mcg IH [id number] [facility] Last Admin: 09/27/17 08:10 Dose: 15 mcg Aspirin (Ecotrin) 81 mg PO DAILY [facility] Last Admin: 09/26/17 11:37 Dose: 81 mg Atorvastatin Calcium (Lipitor) 20 mg PO DIN [facility] Last Admin: 09/26/17 18:14 Dose: 20 mg Budesonide (Pulmicort Respules) 0.5 mg IH BIDRESP [facility] Last Admin: 09/27/17 08:10 Dose: 0.5 mg Clopidogrel Bisulfate (Plavix) 75 mg PO DAILY [facility] Last Admin: 09/26/17 11:37 Dose: 75 mg Docusate Sodium (Colace) 100 mg PO BID [facility] Last Admin: 09/26/17 18:16 Dose: Not Given Enoxaparin Sodium (Lovenox) 70 mg SC Q12H [facility] PRN Reason: Protocol Last Admin: 09/26/17 21:41 Dose: 70 mg Ergocalciferol (Drisdol 50,000 Intl Units Cap) 1 cap PO QWK [facility] Furosemide (Lasix) 40 mg IVP DAILY [facility] Ceftriaxone Sodium (Rocephin 1 Gram Ivpb) 1 gm in 100 mls @ 100 mls/hr IVPB DAILY [facility] PRN Reason: Protocol Last Admin: 09/26/17 11:39 Dose: 100 mls/hr Insulin Human Regular (Humulin R Low) 0 units SC ACHS [facility] PRN Reason: Protocol Last Admin: 09/27/17 07:30 Dose: Not Given Methylprednisolone (Solu-Medrol) 40 mg IV Q8 [facility] Last Admin: 09/27/17 05:01 Dose: 40 mg Montelukast Sodium (Singulair) 10 mg PO HS [facility] Last Admin: 09/26/17 21:41 Dose: 10 mg Multivitamins/Minerals (Therapeutic-M Tab) 1 tab PO DAILY [facility] Last Admin: 09/26/17 11:37 Dose: 1 tab Oxycodone/Acetaminophen (Percocet 10/325 Mg Tab) 1 tab PO Q4H PRN PRN Reason: Pain, moderate (4-7) Last Admin: 09/27/17 04:38 Dose: 1 tab Pantoprazole Sodium (Protonix Ec Tab) 40 mg PO 0600 [facility] Last Admin: 09/27/17 05:01 Dose: 40 mg Polyethylene Glycol (Miralax) 17 gm PO BID PRN PRN Reason: Constipation Sitagliptin Phosphate (Januvia) 50 mg PO DAILY [facility] Last Admin: 09/26/17 11:37 Dose: 50 mg Tamsulosin HCl (Flomax) 0.4 mg PO DAILY [facility] Last Admin: 09/26/17 11:37 Dose: 0.4 mg - Labs Labs: 09/27/17 06:15 09/27/17 06:15 - Constitutional Appears: No Acute Distress - Eye Exam Eye Exam: Normal appearance - ENT Exam ENT Exam: Mucous Membranes Moist - Respiratory Exam Respiratory Exam: Decreased Breath Sounds, Clear to Ausculation Bilateral, NORMAL BREATHING PATTERN - Cardiovascular Exam Cardiovascular Exam: +S1, +S2 Additional comments: Left PPM - GI/Abdominal Exam GI & Abdominal Exam: Soft, Normal Bowel Sounds - Exam Additional comments: continent - Extremities Exam Additional comments: 1+ pedal edema - Neurological Exam Neurological Exam: Alert, Awake, Oriented x3 - Psychiatric Exam Psychiatric exam: Normal Affect - Skin Skin Exam: Dry, Warm Assessment and Plan - Assessment and Plan (Free Text) Assessment: An 82 year old male who came in to the ER due to mild shortness of breath and leg swelling and left shoulder pain. History of mitral valve endocarditis, status post prosthetic mitral valve replacement NSTEMI- post coronary artery bypass grafting x 5 vessels, history of PPM insertion,COPD, CHF, sleep apnea, arthritis, and prostrate cancer on chemotherapy once a month, active smoker for 40 years and smokes 1 pack/day. history of atrial fibrillation, was on anticoagulation but now patient heart rhythm is V- pacing at 60's and 70's. Plan: Pacemaker interrogated- 1-2 years battery life, Last Atrial fibrillation recorded August 20, 2017 normal functioning DDD PPM [employer] ECHO done and showed LVEF 45-50%, mildly impaired, status post MVR bioprosthetic trace to mild MR, seen pacemaker leads in right ventricle and right atrium, moderate TR, no vegetation Cardiac status stable Controlled heart rate and blood pressure Denies shortness of breath, feels better Pulmonary and Oncology on consult Continue current medications Continue current treatment Will follow up Plan and treatment discussed with Dr. Blanc
--- NOTE | 2017-09-27 11:07 | RAD ---
Date of service: 09/27/2017 PROCEDURE: Radiographs of the Left Shoulder HISTORY: inability to abduct left glenohumeral joint, COMPARISON: No prior. FINDINGS: BONES: Bone alignment is normal. There is diffuse bone demineralization. There is no acute displaced fracture or bone destruction. JOINTS: There is moderate degenerative osteoarthrosis in the glenohumeral and acromioclavicular joints with reduced joint spaces, marginal spurring and subarticular cystic changes. SOFT TISSUES: Normal. OTHER FINDINGS: None. IMPRESSION: Moderate degenerative osteoarthrosis in the acromioclavicular and glenohumeral joints. No acute displaced fracture or dislocation.
--- NOTE | 2017-09-27 11:38 | PN ---
DATE: 09/26/2017 SUBJECTIVE: Patient is comfortable, in no distress. No chest pain. He is better. He is eating and feels better. Less wheezing. PHYSICAL EXAMINATION: VITAL SIGNS: Temperature 98, heart rate 80, blood pressure 132/57, respirations 20, saturation 97%. HEAD AND NECK: Normal. No JVD. No thyromegaly. CHEST: Clear bilaterally. CARDIAC: A few rhonchi. ABDOMEN: Soft and nontender. EXTREMITIES: No edema. NEUROLOGIC: Seems normal. LABORATORY DATA: Sodium 140, potassium 4, chloride 97, bicarb 30, BUN 39, creatinine 1.3, sugar 162, calcium 9.3, phosphorus 5.2, magnesium 2.2. Patient had AST 112, ALT ____, alkaline phosphatase 116, lactate dehydrogenase 2566. CK is 507. Troponin is down to 0.05. Albumin and globulin is normal. IMPRESSION AND PLAN: 1. Acute chronic obstructive pulmonary disease exacerbation. Continue intravenous steroids. Continue inhaled bronchodilators. Doing better. 2. Urinary tract infections. Rocephin 1 g daily. We will obtain culture of the urine. 3. Prostate cancer. We will get Dr. Parekh consult, Oncology consult. 4. Patient does have chronic anemia. He has chronic osteoarthritis, chronic back pain, severe hip osteoarthritis, peripheral vascular disease, prosthetic mitral valve biological valve, history of congestive heart failure, coronary artery disease and diabetes type 2. PLAN: Continue current medications. Follow up clinically. Continue GI and DVT prophylaxis. Salty Sorto MD
--- NOTE | 2017-09-27 14:11 | HP ---
REASON FOR ADMISSION: Short of breath. HISTORY OF PRESENT ILLNESS: This 82-year-old male with past medical history of mitral valve, biologic valve replacements; COPD; CHF; hypertension; prostate CA with possible bone metastases, also came in with shortness of breath, wheezing, left-side swelling and not feeling well. He denied any fever, any chills, any nausea or vomiting. Patient still smoking. He smoked for 40 years and he comes to the office occasionally for followup on different medications. PAST MEDICAL HISTORY: COPD, prosthetic biologic mitral valve, hypertension, obesity, severe osteoarthritis of the right hip and lower back, peripheral vascular disease, history of stent to femoral artery, cardiac bypass surgery more than 10 years ago, prostate CA with bone metastases. ALLERGIES: NO KNOWN ALLERGIES. SOCIAL HISTORY: History of smoking, lives by himself in senior citizen building. Kids, daughter, son supporting him. REVIEW OF SYSTEMS: He also complains of frequent urination, back pian, general weakness, wheezing, cough, still active smoking. No GI symptoms. No constipation. The patient had colonoscopy, EGD in the past, multiple CAT scans. PHYSICAL EXAMINATION: On 09/25, VITAL SIGNS: Temperature 98.7, heart rate 99, blood pressure 103/58, respirations 18, saturating 99%. HEAD AND NECK: Normal. No JVD. No thyromegaly. CHEST: Bilateral expiratory wheeze. CARDIAC: First sound and second sound normal. No murmur, rub or gallop. ABDOMEN: Soft, obese, nontender. EXTREMITIES: No edema. NEUROLOGIC: Normal. LABORATORY DATA: White 6.4, hemoglobin 12.6, hematocrit 36, platelets 189. Chemistry: Sodium 138, potassium 3.6, chloride 96, bicarb 29, BUN 30, creatinine 1.2, total bilirubin 1.4, AST 109, ALT 24, alkaline phosphatase 114, lactate dehydrogenase 3245, total CPK 394, proBNP is 4560, troponin 0.09. Patient also had urinalysis, which shows 20%-25% white blood cells. Blood gas shows pCO2 of 44, pO2 of 69, bicarb is 23, pH is 7.34. Patient also had chest x-ray done on admission also, which shows lungs inflated, clear, no consolidation. Patient had electrocardiogram, which shows ventricular pacemaker and heart rate is 80; atrial sensed, ventricular paced rhythm. Patient also had venous Doppler of lower extremities, which shows no sonographic evidence of DVT of left upper extremity, but there is 6 cm oblong fluid collection along the left shoulder. IMPRESSION AND PLAN: 1. This is an 82-year-old male came with his bilateral wheezing, coughing, short of breath. Chest x-ray, no pneumonia and left upper extremity negative for deep venous thrombosis and also, lower extremity was reported negative for deep venous thrombosis. We will also admit the patient for acute chronic obstructive pulmonary disease exacerbation. We will give him steroids, nebulizer, inhaled bronchodilators. Pulmonary consult, oxygen and we will follow clinically. 2. Patient also has urinary tract infection, we are going to follow up on that. He denied any burning urination, but will repeat urine culture and sensitivity and we will follow up clinically. We will put the patient on Rocephin 1 g daily. Considering putting the patient on Rocephin 1 g daily. 3. Prostate cancer. We will get Dr. Parekh for Oncology. 4. History of congestive heart failure, prosthetic mitral valve. We will continue Lasix. Cardiology consult and follow up on his cardiac status. 5. Chronic bone pain. Continue Percocet. Continue Plavix. CURRENT MEDICATIONS: Brovana; Colace; vitamin D; DuoNeb; Ecotrin; Flomax; insulin coverage for his diabetes, it is controlled; Januvia 50; Lasix 40 intravenous daily; Lipitor; Lovenox for deep venous thrombosis prophylaxis; MiraLax; Percocet; Plavix; Protonix 40; Pulmicort; Singulair; Solu-Medrol 40 intravenous every 8 hours and multivitamin. Salty Sorto MD
[2017-09-27] MEDS ORDERED: MethylPREDNISolone 40 mg Vial IVP SCH ×2 (16:03→16:04)
[2017-09-27] MEDS: MethylPREDNISolone 40 mg Vial IVP SCH (22:19)
[2017-09-28] MEDS: Oxycodone/Acetaminophen 10/325 mg Tab PO PRN (00:05)
--- NOTE | 2017-09-28 01:23 | PN ---
DATE: 09/27/2017 PULMONARY PROGRESS NOTE REFERRING PHYSICIAN: Salty Sorto MD SUBJECTIVE: He is out of bed to chair. Night was unremarkable. He always uses CPAP. Still has a cough, shortness of breath. No nausea, no vomiting, no diarrhea. No leg swelling. OBJECTIVE: GENERAL: In no acute distress. VITAL SIGNS: Temperature is 98, heart rate 67, respiratory rate is 18, blood pressure 147/58, pulse ox 92% on nasal cannula. HEENT: Moist mucous membranes. Crowded airway. Mallampati score is 4. NECK: Supple. No JVD. LUNGS: Have a scattered rhonchi and wheezing. HEART: S1 and S2. ABDOMEN: Soft, nontender, no organomegaly. EXTREMITIES: Has trace edema. NEUROLOGIC: Awake, alert, follows simple command. MEDICATIONS: He is on Brovana inhaled twice a day, Colace 100 mg twice a day, vitamin D 50,000 units weekly, DuoNeb every 4 hour p.r.n., Ecotrin 81 mg daily, Flomax 0.4 mg daily, insulin coverage, Januvia 50 mg daily, Lasix 40 mg daily, Lipitor 20 mg daily, Lovenox 40 mg subcu daily, MiraLax 17 g twice a day p.r.n., Percocet 10/325 one tablet every 4 hour p.r.n., Plavix 75 mg daily, Protonix 40 mg daily, Pulmicort inhaled twice a day, Rocephin 1 g daily, Singulair 10 mg daily, Solu-Medrol 40 mg every 8 hour, multivitamins daily. LABORATORY DATA: Shows hemoglobin 11.7, hematocrit 33.7, WBC 13.2, platelet is 207. Sodium 140, potassium 4.2, chloride 99, bicarbonate 30, BUN 53, creatinine 1.3, glucose 115, calcium is 9, phosphorus 4, magnesium 2.2. AST 101, ALT 30, alk phos is 99. LDH is 2437. Creatine kinase is 449. Albumin is 3.4. Has a shoulder x-ray done which shows moderate degenerative osteoarthritis in the acromioclavicular and glenohumeral joints. Had echocardiogram done, which shows right ventricle systolic pressure is 10, LV ejection fraction 45 to 50%. Right atrium is mildly dilated. IMPRESSION AND PLAN: Chronic obstructive lung disease, may have sleep apnea syndrome, cardiomyopathy, valvular heart disease, coronary artery disease, diabetes, history of prostate cancer, lung nodule, history of urinary tract infection. Pulmonary point of view, doing okay. Encouraged CPAP use. Keep head at 45 degrees. Continue antibiotics. Decrease Solu-Medrol to 40 mg twice a day. Gastric prophylaxis, anticoagulation, fall precaution. Thank you and we will follow with you. Bon Sánchez MD
[2017-09-28] MEDS: Pantoprazole 40 mg EC Tab PO SCH (06:21)
[2017-09-28 07:10] LABS: BASO # 0.01 K/mm3 (0.0-2.0); BASO % 0.1 % (0.0-3.0); GRAN # 10.25 (1.4-6.5); GRAN % 86.1 % (50.0-68.0); LYMPH % 8.4 % (22.0-35.0); MEAN CELL VOLUME 81.5 fl (80.0-105.0); MEAN CORPUSCULAR HEMOGLOBIN 27.8 pg (25.0-35.0); MEAN CORPUSCULAR HGB CONC 34.2 g/dl (31.0-37.0); MEAN PLATELET VOLUME 9.8 fl (7.0-11.0); MONO # 0.6 (0.1-0.6); MONO % 5.4 % (1.0-6.0); RBC 3.95 10^6/uL (3.5-6.1); RED CELL DISTRIBUTION WIDTH 18.1 % (11.5-14.5); WHITE BLOOD COUNT 11.9 10^3/ul (4.5-11.0)
--- NOTE | 2017-09-28 07:23 | CP.PCM.PN ---
Subjective - Date & Time of Evaluation Date of Evaluation: 09/28/17 Time of Evaluation: 06:35 - Subjective Subjective: No distress, comfortable.awake, alert, lying in bed, watching TV, denies chest pain,denies shortness of breath Reason for consultation and follow up: Cardiac evaluation for shortness of breath and leg swelling. History of prosthetic mitral valve, COPD, CHF and prostrate cancer on chemotherapy once a month, active smoker for 40 years and smokes 1 pack/day. Seen and examined by me and Dr. Blanc Objective - Vital Signs/Intake and Output Vital Signs (last 24 hours): Temp Pulse Resp BP Pulse Ox 98.0 F 70 19 147/58 L 92 L 09/27/17 18:00 09/28/17 02:36 09/27/17 18:00 09/27/17 18:00 09/27/17 18:00 Intake and Output: 09/28/17 09/28/17 06:59 18:59 Intake Total 180 Output Total 750 Balance -570 - Medications Medications: Current Medications Albuterol/Ipratropium (Duoneb 3 Mg/0.5 Mg (3 Ml) Ud) 3 ml IH [id number] PRN PRN Reason: Shortness of Breath Arformoterol Tartrate (Brovana) 15 mcg IH [id number] [facility] Last Admin: 09/27/17 20:48 Dose: 15 mcg Aspirin (Ecotrin) 81 mg PO DAILY [facility] Last Admin: 09/27/17 10:17 Dose: 81 mg Atorvastatin Calcium (Lipitor) 20 mg PO DIN [facility] Last Admin: 09/27/17 17:40 Dose: 20 mg Budesonide (Pulmicort Respules) 0.5 mg IH BIDRESP [facility] Last Admin: 09/27/17 20:48 Dose: 0.5 mg Clopidogrel Bisulfate (Plavix) 75 mg PO DAILY [facility] Last Admin: 09/27/17 10:17 Dose: 75 mg Docusate Sodium (Colace) 100 mg PO BID [facility] Last Admin: 09/27/17 17:40 Dose: 100 mg Enoxaparin Sodium (Lovenox) 40 mg SC DAILY [facility] PRN Reason: Protocol Ergocalciferol (Drisdol 50,000 Intl Units Cap) 1 cap PO QWK [facility] Furosemide (Lasix) 40 mg IVP DAILY [facility] Last Admin: 09/27/17 10:18 Dose: 40 mg Ceftriaxone Sodium (Rocephin 1 Gram Ivpb) 1 gm in 100 mls @ 100 mls/hr IVPB DAILY [facility] PRN Reason: Protocol Last Admin: 09/27/17 10:17 Dose: 100 mls/hr Insulin Human Regular (Humulin R Low) 0 units SC ACHS [facility] PRN Reason: Protocol Last Admin: 09/27/17 22:17 Dose: Not Given Methylprednisolone (Solu-Medrol) 40 mg IVP Q12 [facility] Last Admin: 09/27/17 22:19 Dose: 40 mg Montelukast Sodium (Singulair) 10 mg PO HS [facility] Last Admin: 09/27/17 22:18 Dose: 10 mg Multivitamins/Minerals (Therapeutic-M Tab) 1 tab PO DAILY [facility] Last Admin: 09/27/17 10:17 Dose: 1 tab Oxycodone/Acetaminophen (Percocet 10/325 Mg Tab) 1 tab PO Q4H PRN PRN Reason: Pain, moderate (4-7) Last Admin: 09/28/17 00:05 Dose: 1 tab Pantoprazole Sodium (Protonix Ec Tab) 40 mg PO 0600 [facility] Last Admin: 09/28/17 06:21 Dose: 40 mg Polyethylene Glycol (Miralax) 17 gm PO BID PRN PRN Reason: Constipation Sitagliptin Phosphate (Januvia) 50 mg PO DAILY [facility] Last Admin: 09/27/17 10:17 Dose: 50 mg Tamsulosin HCl (Flomax) 0.4 mg PO DAILY [facility] Last Admin: 09/27/17 10:17 Dose: 0.4 mg - Labs Labs: 09/28/17 06:30 09/27/17 06:15 - Constitutional Appears: No Acute Distress - Eye Exam Eye Exam: Normal appearance - ENT Exam ENT Exam: Mucous Membranes Moist - Respiratory Exam Respiratory Exam: Clear to Ausculation Bilateral, NORMAL BREATHING PATTERN - Cardiovascular Exam Cardiovascular Exam: Irregular Rhythm, +S1, +S2 Additional comments: PPM - GI/Abdominal Exam GI & Abdominal Exam: Soft, Normal Bowel Sounds - Extremities Exam Additional comments: 1+ pedal edema - Neurological Exam Neurological Exam: Alert, Awake, Oriented x3 - Psychiatric Exam Psychiatric exam: Normal Affect, Normal Mood - Skin Skin Exam: Dry, Warm Assessment and Plan - Assessment and Plan (Free Text) Assessment: An 82 year old male who came in to the ER due to mild shortness of breath and leg swelling and left shoulder pain. History of mitral valve endocarditis, status post prosthetic mitral valve replacement NSTEMI- post coronary artery bypass grafting x 5 vessels, history of PPM insertion,COPD, CHF, sleep apnea, arthritis, and prostrate cancer on chemotherapy once a month, active smoker for 40 years and smokes 1 pack/day. history of atrial fibrillation, was on anticoagulation but now patient heart rhythm is V- pacing at 60's and 70's. Pacemaker interrogated- 1-2 years battery life, Last Atrial fibrillation recorded August 20, 2017, normal functioning DDD PPM [employer] ECHO done and showed LVEF 45-50%, mildly impaired, status post MVR bioprosthetic ,trace to mild MR, seen pacemaker leads in right ventricle and right atrium, moderate TR, no vegetation. Plan: Feeling better, no distress Improved clinically Cardiac status stable Controlled heart rate and blood pressure Denies shortness of breath, feels better Pulmonary and Oncology on consult Continue current medications Continue current treatment Discharge planning Will follow up Plan and treatment discussed with Dr. Blanc
[2017-09-28] MEDS: Insulin Reg-LOW-Coverage SC SCH ×4 (07:30→22:40)
[2017-09-28] MEDS: Budesonide 0.5 mg/2 ml Inhal Susp UD IH SCH ×2 (07:34→19:43)
[2017-09-28] MEDS: Arformoterol 15 mcg/2 ml Inh Sol IH SCH ×2 (07:34→19:43)
--- NOTE | 2017-09-28 07:35 | CP.PCM.PN ---
Subjective - Date & Time of Evaluation Date of Evaluation: 09/28/17 Time of Evaluation: 07:00 - Subjective Subjective: Archana Cruz DO PGY-2: Hematology and Oncology Progress Note for Dr. Parekh Patient was seen and examined at bedside. Patient reports taking his Zytiga daily, but does not have it in the hospital. He reports his left shoulder pain is 2/10 in severity, much improved, but he is still unable to abduct the left shoulder. He denies any fever, chills, nausea, vomiting, or diarrhea. Chart review indicates Dr. Campbell came and performed an intra-articular injection to the left shoulder. We will follow up with his response. Otherwise, no adverse noted overnight. Objective - Vital Signs/Intake and Output Vital Signs (last 24 hours): Temp Pulse Resp BP Pulse Ox 98.0 F 70 19 147/58 L 92 L 09/27/17 18:00 09/28/17 02:36 09/27/17 18:00 09/27/17 18:00 09/27/17 18:00 Intake and Output: 09/28/17 09/28/17 06:59 18:59 Intake Total 180 Output Total 750 Balance -570 - Medications Medications: Current Medications Albuterol/Ipratropium (Duoneb 3 Mg/0.5 Mg (3 Ml) Ud) 3 ml IH [id number] PRN PRN Reason: Shortness of Breath Arformoterol Tartrate (Brovana) 15 mcg IH [id number] [facility] Last Admin: 09/28/17 07:34 Dose: 15 mcg Aspirin (Ecotrin) 81 mg PO DAILY [facility] Last Admin: 09/27/17 10:17 Dose: 81 mg Atorvastatin Calcium (Lipitor) 20 mg PO DIN [facility] Last Admin: 09/27/17 17:40 Dose: 20 mg Budesonide (Pulmicort Respules) 0.5 mg IH BIDRESP [facility] Last Admin: 09/28/17 07:34 Dose: 0.5 mg Clopidogrel Bisulfate (Plavix) 75 mg PO DAILY [facility] Last Admin: 09/27/17 10:17 Dose: 75 mg Docusate Sodium (Colace) 100 mg PO BID [facility] Last Admin: 09/27/17 17:40 Dose: 100 mg Enoxaparin Sodium (Lovenox) 40 mg SC DAILY [facility] PRN Reason: Protocol Ergocalciferol (Drisdol 50,000 Intl Units Cap) 1 cap PO QWK [facility] Furosemide (Lasix) 40 mg IVP DAILY [facility] Last Admin: 09/27/17 10:18 Dose: 40 mg Ceftriaxone Sodium (Rocephin 1 Gram Ivpb) 1 gm in 100 mls @ 100 mls/hr IVPB DAILY [facility] PRN Reason: Protocol Last Admin: 09/27/17 10:17 Dose: 100 mls/hr Insulin Human Regular (Humulin R Low) 0 units SC ACHS [facility] PRN Reason: Protocol Last Admin: 09/27/17 22:17 Dose: Not Given Methylprednisolone (Solu-Medrol) 40 mg IVP Q12 [facility] Last Admin: 09/27/17 22:19 Dose: 40 mg Montelukast Sodium (Singulair) 10 mg PO HS [facility] Last Admin: 09/27/17 22:18 Dose: 10 mg Multivitamins/Minerals (Therapeutic-M Tab) 1 tab PO DAILY [facility] Last Admin: 09/27/17 10:17 Dose: 1 tab Oxycodone/Acetaminophen (Percocet 10/325 Mg Tab) 1 tab PO Q4H PRN PRN Reason: Pain, moderate (4-7) Last Admin: 09/28/17 00:05 Dose: 1 tab Pantoprazole Sodium (Protonix Ec Tab) 40 mg PO 0600 [facility] Last Admin: 09/28/17 06:21 Dose: 40 mg Polyethylene Glycol (Miralax) 17 gm PO BID PRN PRN Reason: Constipation Sitagliptin Phosphate (Januvia) 50 mg PO DAILY [facility] Last Admin: 09/27/17 10:17 Dose: 50 mg Tamsulosin HCl (Flomax) 0.4 mg PO DAILY [facility] Last Admin: 09/27/17 10:17 Dose: 0.4 mg - Labs Labs: 09/28/17 06:30 09/27/17 06:15 - Constitutional Appears: Well, Non-toxic - Head Exam Head Exam: ATRAUMATIC, NORMOCEPHALIC - Eye Exam Eye Exam: EOMI, Normal appearance - ENT Exam ENT Exam: Mucous Membranes Moist, Normal Oropharynx - Neck Exam Neck Exam: Normal Inspection - Respiratory Exam Respiratory Exam: Wheezes, NORMAL BREATHING PATTERN. absent: Accessory Muscle Use - Cardiovascular Exam Cardiovascular Exam: +S1, +S2. absent: Tachycardia - Extremities Exam Extremities Exam: Normal Inspection. absent: Calf Tenderness - Neurological Exam Neurological Exam: Alert, Awake, Oriented x3 - Psychiatric Exam Psychiatric exam: Normal Affect, Normal Mood - Skin Skin Exam: Dry, Intact, Normal Color, Warm Assessment and Plan - Assessment and Plan (Free Text) Assessment: From a hematology and oncology perspective, we will reach out to patient's son, as the patient has permitted us to, and request for the Zytiga be given to the inpatient pharmacy so the patient can take this medication as he normally does. We ordered a computed tomography of the chest, abdomen, and pelvis with IV contrast for surveillance of the patient's advanced prostate cancer which carries a [place] score of 9, with evidence of metastasis to bone, and an elevated total serum PSA on 08/09/17 (in office reading). We will follow up the patient's serum PSA and his CT findings and manage from there. For the patient' s left shoulder pain, Dr. Campbell, who performed an intra-articular steroid injection in the left glenohumeral joint. Case was reviewed and discussed with attending physician, Dr. Parekh
[2017-09-28 07:46] LABS: ALB/GLOB RATIO 1.2 (1.1-1.8); ALBUMIN 3.4 g/dL (3.0-4.8); ALT/SGPT 19 U/L (7-56); AST/SGOT 111 U/L (17-59); BLOOD UREA NITROGEN 66 mg/dL (7-21); CALCIUM 9.2 mg/dL (8.4-10.5); GFR AFRICAN-AMERICAN > 60; GFR NON-AFRICAN AMERICAN 58
[2017-09-28] MEDS: Multivitamin With Minerals Tab PO SCH (09:55)
[2017-09-28] MEDS: MethylPREDNISolone 40 mg Vial IVP SCH ×2 (09:56→22:35)
[2017-09-28] MEDS ORDERED: Enoxaparin 80 mg Syringe SC SCH ×2 (10:00)
[2017-09-28] MEDS: Enoxaparin 40 mg Syringe SC SCH (10:01)
[2017-09-28] MEDS: cefTRIAXone 1 gm 1 GM/100 ML BAG IVPB SCH (10:07)
--- NOTE | 2017-09-28 12:17 | PN ---
DATE: 09/27/2017 SUBJECTIVE: Patient feels better. He is eating better, moving better. His breathing is much better than before. He has no chest pain, not shortness of breath. He is still getting IV Solu-Medrol and just needs some assistance with his walking. His gait is abnormal and he still feels weak and needs some assistance for that. PHYSICAL EXAMINATION: VITAL SIGNS: Temperature 98, heart rate 67, blood pressure 147/58, respirations 19, saturation 92% on the room air. HEAD AND NECK: Normal. No JVD, no thyromegaly. CHEST: Clear bilaterally. CARDIAC: First sound and second sound normal. ABDOMEN: Soft, nontender. EXTREMITIES: No edema. NEUROLOGIC: Normal. LABORATORY DATA: White count is 13.2, hemoglobin 11.7, hematocrit 33.7, platelets 207. Chemistry: Sodium 140, potassium 4.2, chloride 99, bicarbonate 30, BUN 53, creatinine 1.3, blood sugar 115. Liver function test is normal except AST is elevated at 101. His total CK 449 and lactate dehydrogenase . Troponin is 0.05. IMPRESSION AND PLAN: 1. Acute chronic obstructive pulmonary disease exacerbation. Continue intravenous steroids. Continue current therapy. Continue inhaled bronchodilators, doing better. 2. Patient does have a history of mitral valve biologic valve, doing well. No congestive heart failure on chest x-ray. Also his brain natriuretic peptide is elevated. Patient has an echocardiogram, which shows the left ventricle is borderline concentric, left ventricular hypertrophy, systolic function mildly reduced, ejection fraction mildly impaired, ejection fraction 45% to 50%. There is also grade 3 reversible diastolic dysfunction and right-sided ventricular systolic function is normal. There is pacemaker in the right ventricle. 3. History of peripheral vascular disease, edema in lower extremities is improved, has been on Lasix, continue diuretics, continue current therapy. 4. History of prostate cancer, will be seen by Dr. Parekh. 5. Diabetes, controlled on low insulin coverage plus Januvia. He is doing well. Plan is to continue current therapy. 6. Urinary tract infection, prostate cancer. Continue Rocephin IV, continue Flomax. Follow up with Dr. Parekh for prostate cancer. CURRENT MEDICATION: Brovana; Colace; vitamin D; DuoNeb; Ecotrin; Flomax; insulin coverage, low algorithm; Januvia 50 daily; Lasix 40 IV daily; Lipitor 20 at bedtime; MiraLax b.i.d. p.r.n., Percocet 10 every 6 hours; Plavix 75; Protonix 40; Pulmicort b.i.d.; Rocephin 1 g; Singulair; Solu-Medrol 40 IV every 12 and multivitamins. Patient has chronic severe degenerative arthritis; right hip severe arthritis, chronic back pain; chronic osteoarthritis all over including his back, his ribs, his hands. Continue Percocet p.r.n. Patient also has a history of prostate cancer with bone metastasis, continue current therapy. Salty Sorto MD
[2017-09-28] MEDS ORDERED: Vancomycin 1gm in NS 250ml 1 GM/250 ML BAG IVPB STA ×2 (12:57→13:07)
[2017-09-28] MEDS ORDERED: Barium Sulfate Susp 2.1% w/v, 2.0% w/w 450 mL Bottle PO ONE (13:05)
--- NOTE | 2017-09-28 14:21 | CON ---
DATE: 09/28/2017 ORTHOPEDIC CONSULT He is an 82-year-old male. I was asked to see him for left shoulder pain for at least over a month. X-ray shows chronic rotator cuff tear with associated arthropathy from arthritis from the rotator cuff tear with decreased joint space between the humerus and the acromion and increased pain with passive motion as he cannot do active abduction. So, I injected his left shoulder with Depo-Medrol and Marcaine for symptomatic relief and hopefully, this will help his pain while he is in the hospital because he may be experiencing increased pain. They will have to transport him from the bed to the chair to the x-ray department. Hopefully, cortisone injection will help his left shoulder discomfort from rotator cuff arthritis of left shoulder. Jan Campbell DO
[2017-09-28] MEDS ORDERED: Iohexol 350 MG/100 ML VIAL ONE (17:40)
--- NOTE | 2017-09-28 19:07 | CT ---
Date of service: 09/28/2017 PROCEDURE: CT Chest, Abdomen and Pelvis with intravenous contrast. HISTORY: Prostate CA, PSA COMPARISON: Comparison made with prior CT scan chest abdomen pelvis 02/10/2017 TECHNIQUE: IV dose administered: Cyst low-level 100 cc Omnipaque 350 contrast material Radiation dose: Total exam DLP = 1264.0 mGy-cm. This CT exam was performed using one or more of the following dose reduction techniques: Automated exposure control, adjustment of the mA and/or kV according to patient size, and/or use of iterative reconstruction technique. FINDINGS: CT CHEST WITH CONTRAST: LUNGS: Mild atelectasis/scarring changes both lung bases. MEDIASTINUM: Heart size within range normal. No significant pericardial effusion. Ascending thoracic aorta measures approximately 3.0 cm and descending thoracic aorta measures approximately 2.5 cm. Pulmonary trunk measures approximately 2.9 cm. Central airways related. . No large central endoluminal lesions. Small hiatal hernia. LYMPH NODES: Few small nonspecific mediastinal lymph nodes are present. There also appears to be tiny left anterolateral pericardiac lymph node. PLEURA: There appears to be a trace left-sided effusion. BONES: Diffuse sclerotic bony metastasis seen within the thoracic and lumbar spine, sacrum pelvis as well as both proximal humeri and femora. Numerous metastatic lesions seen throughout the ribs. Comment sternum and scapulae. OTHER FINDINGS: None. CT ABDOMEN AND PELVIS: LIVER: Unre liver exhibits normal size. Mild diffuse fatty hepatic infiltration. Portal and splenic veins are opacified. GALLBLADDER AND BILE DUCTS: Gallbladder is physiologically distended. . Small intraluminal gallbladder calculus. PANCREAS: Pancreas appears unremarkable without mass collection or calcification. SPLEEN: Unremarkable. ADRENALS: Gland prominent bilateral adrenal glands. KIDNEYS AND URETERS: Kidneys exhibit symmetric nephrograms. Suspect not minor vascular calcification left renal hilar There is left-sided hydronephrosis. This could be secondary to encroaching enlarged prostate gland at the level of the right UVJ. Clinical correlation recommended. VASCULATURE: No evidence of abdominal aortic aneurysm. BOWEL: Evaluation of the bowel is limited due to incomplete opacification. The stomach is distended with wall none pharyngeal linear. Visualized small bowel exhibit normal contour and caliber. No evidence of edema and small-bowel obstruction. Questionable small lipoma within the lumen of the sigmoid colon. Colonic diverticulosis with no definitive evidence of acute diverticulitis. APPENDIX: Appendix is not seen with certainty however no evidence of acute appendicitis. PERITONEUM: Unremarkable. No free fluid. No free air. Moderately large left-sided fat containing inguinal hernia. LYMPH NODES: Unremarkable. No enlarged lymph nodes. BLADDER: Urinary bladder is incompletely distended which may in part account for thick-walled appearance. Muscular hypertrophy may contribute. Note that possibility of encroaching prostate carcinoma not excluded REPRODUCTIVE: Enlarged prostate gland of measuring approximately 5.8 cm. The prostate gland encroach into the right UVJ region resulting in at aforementioned right-sided hydronephrosis. BONES: No acute fracture. Diffuse sclerotic metastasis as outlined above. Degenerative osteoarthritis both hip joints. The OTHER FINDINGS: Note made of some minor infiltration changes subcutaneous fat lower anterior abdominal wall. IMPRESSION: Extensive diffuse sclerotic bone metastases. Suspect trace left effusion with minor bibasilar atelectasis. Cholelithiasis. Mild fatty hepatic infiltration. There is right-sided hydronephrosis possibly due to enlarged prostate gland encroaching into the right UVJ region. . Moderate-sized left-sided fat containing inguinal hernia.
[2017-09-28] MEDS ORDERED: Meropenem 500 MG in Sodium Chloride 0.9% 50 ML IVPB SCH (22:00)
--- NOTE | 2017-09-28 22:47 | PN ---
DATE: 09/28/2017 PULMONARY PROGRESS NOTE REFERRING PHYSICIAN: Salty Sorto MD. SUBJECTIVE: He is sitting up in bed, tolerated CPAP last night. No overnight events. Has some cough, shortness of breath. No headache, chest pain , nausea, vomiting, leg pain, or leg swelling reported. OBJECTIVE: GENERAL: The patient sitting up in bed, in no acute distress. VITAL SIGNS: Temperature 98, pulse 71, blood pressure 161/69, respirations 20, pulse ox 93% on room air. HEENT: Moist mucous membrane. Crowded airway. Mallampati plus 4. NECK: Supple. No JVD. LUNGS: Wheezing and few rhonchi. CARDIAC: S1 and S2. ABDOMEN: Soft, nontender, nondistended. EXTREMITIES: Trace edema. NEUROLOGIC: Awake, alert, follow simple commands. LABORATORY DATA: Reviewed. WBC 11.9, hemoglobin 11, hematocrit 32.2, platelet 214. Sodium 138, potassium 5, chloride 101, carbon dioxide 29, anion gap 13, BUN 66, creatinine 1.2, GFR greater than 60, glucose 105, calcium 9.2. Bilirubin 0.5, AST 111, ALT 19, alk phos 86, total protein 6.4, albumin 3.4, globulin 2.9, albumin-globulin ratio 1.2. PSA 895. MEDICATIONS: Reviewed. IV normal saline 500 mL given one-time dose, Lovenox 40 mg subcu. No other changes to medications since yesterday. IMPRESSION AND PLAN: Chronic obstructive lung disease, may have sleep apnea syndrome, cardiomyopathy, valvular heart disease, coronary artery disease, diabetes, history of prostate cancer, lung nodule, history of urinary tract infection. Pulmonary point of view, he is doing okay. We will decrease Solu-Medrol to 20 mg IV every 12. Pending CAT scan of abdomen, waiting for results. Case discussed with nursing staff. Continue to encourage CPAP use every night. Keep head elevated at 45 degrees. Gastric prophylaxis on anticoagulation. Fall precaution. This patient was examined with Dr. Sánchez and discussed assessment and plan as described above. Thank you for this consult and we will follow with you. Heike Milan APN Bon Sánchez MD [facility] # [id number] [facility]
--- NOTE | 2017-09-29 01:22 | CON ---
DATE: 09/28/2017 REASON FOR CONSULTATION: Need for a contrast study. HISTORY OF PRESENT ILLNESS: An 82-year-old male previously unknown to me. Patient was admitted on 09/25/2017 with complaints of shortness of breath, lower extremity pain, inability to walk. Also, patient had some wheezing, he had some swelling of his left lower extremity. He denied any fever, chills at the time of presentation. Denied nausea or vomiting. Patient is a heavy smoker. He smoked for 40 years. He has a history of COPD, CHF. Patient has a history of prostate cancer with possible mets. Patient needs a CT scan of the abdomen and pelvis with contrast. Hence consultation is requested. PAST MEDICAL AND SURGICAL HISTORY: COPD, MVR, hypertension, severe osteoarthritis, peripheral vascular disease, femoral artery stent, CABG, prostate cancer, bone mets. FAMILY HISTORY: Noncontributory. SOCIAL HISTORY: Persistent smoking, no alcohol, no IV drug abuse. ALLERGIES: NO KNOWN DRUG ALLERGIES. MEDICATIONS AT HOME: Had been on sitagliptin 50 mg daily, prednisone 5 b.i.d., vitamin D, Lasix 40 b.i.d., Advair, Colace, Plavix, Lipitor, aspirin, Flomax, Protonix, multivitamin, Remeron. REVIEW OF SYSTEMS: Currently, patient denies any shortness of breath. He denies any chest pain. He denies any nausea, vomiting, or diarrhea. He denies any history of diabetes or hypertension (??) PHYSICAL EXAMINATION: GENERAL: Elderly male, lying in bed. VITAL SIGNS: Blood pressure 136/88, heart rate 69, respiratory rate 18, temperature 98. HEENT: Normocephalic, atraumatic, positive pallor. NECK: Supple, no JVD. LUNGS: Bilateral equal air entry, bilateral rhonchi, no rubs. CARDIAC: S1, S2. Regular rate and rhythm. No murmur, no rub. ABDOMEN: Obese, distended, soft, nontender, bowel sounds present. EXTREMITIES: 1+ pitting edema of the left lower extremity. Right, no edema. INTAKE AND OUTPUT: 680/615. LABORATORY DATA: WBC 11.9, hemoglobin 11, hematocrit 32, platelets 214. Sodium 138, potassium 5, chloride 101, CO2 of 29, BUN 66, creatinine 1.2, glucose 105, calcium 9.2. AST 111, ALT 19, albumin 3.4. Urinalysis: Dark yellow, cloudy, pH 5.5, specific gravity 1.020, urine protein 30, ketones trace, blood moderate, bilirubin small, urobilinogen 2, leukocyte esterase large. Urine culture: Gram-positive cocci. CURRENT MEDICATIONS: Brovana, Colace, Drisdol, DuoNeb, Ecotrin, Flomax, insulin, Januvia, Lasix 40 IV daily is on hold, Lipitor, Lovenox, MiraLax, Percocet, Plavix, Protonix, Singulair, Solu-Medrol, vancomycin 1 g. ASSESSMENT: 1. Status post chronic obstructive pulmonary disease exacerbation, currently much improved. 2. Coronary artery disease, coronary artery bypass graft, history of mitral valve replacement, congestive heart failure; currently compensated. 3. Peripheral vascular disease. 4. Prostate cancer with bone mets. 5. Noninsulin-dependent diabetes mellitus. 6. Urinary tract infection. 7. Mild renal insufficiency, chronic kidney disease, stage II/III. PLAN: 1. Patient is cleared for a contrast study, would recommend IV hydration with normal saline at 60 mL/hour for 4 hours pre and 4 hours post contrast. 2. Hold Lasix for 24 hours. 3. Avoid nephrotoxins. 4. Continue antibiotics for gram-positive UTI. 5. Monitor fingersticks. 6. Continue current antihypertensives. Thank you for the courtesy of this consultation. We will follow this patient closely with you. Shelley Larson MD
[2017-09-29] MEDS: Oxycodone/Acetaminophen 10/325 mg Tab PO PRN (03:24)
[2017-09-29] MEDS: Pantoprazole 40 mg EC Tab PO SCH (06:26)
[2017-09-29] MEDS: Arformoterol 15 mcg/2 ml Inh Sol IH SCH ×2 (07:49→19:44)
[2017-09-29] MEDS: Budesonide 0.5 mg/2 ml Inhal Susp UD IH SCH ×2 (07:50→19:44)
[2017-09-29] MEDS: Insulin Reg-LOW-Coverage SC SCH ×4 (07:51→21:53)
[2017-09-29] MEDS: Enoxaparin 40 mg Syringe SC SCH (09:38)
[2017-09-29] MEDS: MethylPREDNISolone 40 mg Vial IVP SCH ×2 (09:39→21:53)
[2017-09-29] MEDS: Multivitamin With Minerals Tab PO SCH (09:40)
--- NOTE | 2017-09-29 12:47 | CP.PCM.CON ---
History of Present Illness - History of Present Illness History of Present Illness: 82 year old male with PMH of CAD, paroxysmal atrial fibrillation, history of mitral valve endocarditis S/P mitral valve replacement, CAD S/P CABG, S/P pacemaker placement, prostate cancer was initially admitted in [facility] because of shortness of breath and cough and was found to have COPD exacerbation. He was also having intermittent hematuria and urinalysis and urine cx was done, showing Entercoccus in the urine. He has no fever or chills, no dysuria, no frequency or urgency, no flank pain, no abdominal pain, no headache or dizziness , no sore throat, no diarrhea. Infectious Diseases consult is requested to further evaluate and manage. Review of Systems - Review of Systems All systems: reviewed and no additional remarkable complaints except (as per HPI ) Past Patient History - Infectious Disease Hx of Infectious Diseases: None - Tetanus Immunizations Tetanus Immunization: Unknown - Past Social History Smoking Status: Current Some Days Smoker - CARDIAC Hx Cardiac Disorders: Yes (CAD,CABG,MVR,PROSTHETIC MITRAL VALVE) Hx Congestive Heart Failure: Yes Hx Hypertension: Yes - PULMONARY Hx Chronic Obstructive Pulmonary Disease (COPD): Yes - NEUROLOGICAL Hx Neurological Disorder: No - HEENT Hx HEENT Problems: Yes - RENAL Hx Renal Failure: Yes - ENDOCRINE/METABOLIC Hx Diabetes Mellitus Type 2: Yes - HEMATOLOGICAL/ONCOLOGICAL Hx Blood Disorders: Yes Hx Cancer: Yes - INTEGUMENTARY Hx Dermatological Problems: Yes - MUSCULOSKELETAL/RHEUMATOLOGICAL Hx Arthritis: Yes - GASTROINTESTINAL Hx Gastrointestinal Disorders: Yes Hx Crohn's Disease: Yes - GENITOURINARY/GYNECOLOGICAL Hx Genitourinary Disorders: Yes (URINARY RETENTION ,HEMATURIA) Hx Hematuria: Yes Hx Prostate Problems: Yes - PSYCHIATRIC Hx Emotional Abuse: No Hx Physical Abuse: No Hx Substance Use: No - SURGICAL HISTORY Hx Open Heart Surgery: Yes - ANESTHESIA Hx Anesthesia Reactions: No Hx Malignant Hyperthermia: No Meds Allergies/Adverse Reactions: Allergies Allergy/AdvReac Type Severity Reaction Status Date / Time No Known Allergies Allergy Verified 09/25/17 12:53 - Medications Medications: Current Medications Albuterol/Ipratropium (Duoneb 3 Mg/0.5 Mg (3 Ml) Ud) 3 ml IH [id number] PRN PRN Reason: Shortness of Breath Arformoterol Tartrate (Brovana) 15 mcg IH [id number] [facility] Last Admin: 07/13/18 07:34 Dose: 15 mcg Aspirin (Ecotrin) 81 mg PO DAILY [facility] Last Admin: 09/28/17 09:55 Dose: 81 mg Atorvastatin Calcium (Lipitor) 20 mg PO DIN [facility] Last Admin: 09/27/17 17:40 Dose: 20 mg Budesonide (Pulmicort Respules) 0.5 mg IH BIDRESP [facility] Last Admin: 09/28/17 07:34 Dose: 0.5 mg Clopidogrel Bisulfate (Plavix) 75 mg PO DAILY [facility] Last Admin: 09/28/17 09:56 Dose: 75 mg Docusate Sodium (Colace) 100 mg PO BID [facility] Last Admin: 09/28/17 09:56 Dose: 100 mg Enoxaparin Sodium (Lovenox) 40 mg SC DAILY [facility] PRN Reason: Protocol Last Admin: 09/28/17 10:01 Dose: 40 mg Ergocalciferol (Drisdol 50,000 Intl Units Cap) 1 cap PO QWK [facility] Furosemide (Lasix) 40 mg IVP DAILY [facility] Last Admin: 09/28/17 09:56 Dose: 40 mg Ceftriaxone Sodium (Rocephin 1 Gram Ivpb) 1 gm in 100 mls @ 100 mls/hr IVPB DAILY [facility] PRN Reason: Protocol Last Admin: 09/28/17 10:07 Dose: 100 mls/hr Insulin Human Regular (Humulin R Low) 0 units SC ACHS [facility] PRN Reason: Protocol Last Admin: 09/28/17 07:30 Dose: Not Given Methylprednisolone (Solu-Medrol) 40 mg IVP Q12 [facility] Last Admin: 09/28/17 09:56 Dose: 40 mg Montelukast Sodium (Singulair) 10 mg PO HS [facility] Last Admin: 09/27/17 22:18 Dose: 10 mg Multivitamins/Minerals (Therapeutic-M Tab) 1 tab PO DAILY [facility] Last Admin: 09/28/17 09:55 Dose: 1 tab Oxycodone/Acetaminophen (Percocet 10/325 Mg Tab) 1 tab PO Q4H PRN PRN Reason: Pain, moderate (4-7) Last Admin: 09/28/17 00:05 Dose: 1 tab Pantoprazole Sodium (Protonix Ec Tab) 40 mg PO 0600 [facility] Last Admin: 09/28/17 06:21 Dose: 40 mg Polyethylene Glycol (Miralax) 17 gm PO BID PRN PRN Reason: Constipation Last Admin: 09/28/17 10:01 Dose: 17 gm Sitagliptin Phosphate (Januvia) 50 mg PO DAILY [facility] Last Admin: 09/27/17 10:17 Dose: 50 mg Tamsulosin HCl (Flomax) 0.4 mg PO DAILY [facility] Last Admin: 09/28/17 09:56 Dose: 0.4 mg Physical Exam - Constitutional Appears: Chronically Ill - Head Exam Head Exam: NORMAL INSPECTION - ENT Exam ENT Exam: Mucous Membranes Moist - Neck Exam Neck exam: Negative for: Lymphadenopathy, Meningismus - Respiratory Exam Respiratory Exam: Decreased Breath Sounds - Cardiovascular Exam Cardiovascular Exam: +S1, +S2 - GI/Abdominal Exam GI & Abdominal Exam: Soft. absent: Tenderness Results - Vital Signs Recent Vital Signs: Last Vital Signs Temp 98.0 F 09/28/17 06:00 Pulse 69 09/28/17 06:00 Resp 18 09/28/17 06:00 BP 136/68 09/28/17 09:56 Pulse Ox 97 09/28/17 06:00 - Labs Result Diagrams: 09/28/17 06:30 09/28/17 06:30 Labs: Laboratory Results - last 24 hr 09/27/17 09/27/17 09/28/17 17:01 21:08 06:30 WBC 11.9 H RBC 3.95 Hgb 11.0 L Hct 32.2 L MCV 81.5 MCH 27.8 MCHC 34.2 RDW 18.1 H Plt Count 214 MPV 9.8 Gran % 86.1 H Lymph % (Auto) 8.4 L [place] % (Auto) 5.4 Eos % (Auto) 0.0 L Baso % (Auto) 0.1 Gran # 10.25 H Lymph # (Auto) 1.0 L [place] # (Auto) 0.6 Eos # (Auto) 0.0 Baso # (Auto) 0.01 Sodium Potassium Chloride Carbon Dioxide Anion Gap BUN Creatinine Est GFR ( Amer) Est GFR (Non-Af Amer) POC Glucose (mg/dL) 83 102 Random Glucose Calcium Total Bilirubin AST ALT Alkaline Phosphatase Total Protein Albumin Globulin Albumin/Globulin Ratio Prostate Specific Ag 09/28/17 09/28/17 09/28/17 06:30 06:30 07:42 WBC RBC Hgb Hct MCV MCH MCHC RDW Plt Count MPV Gran % Lymph % (Auto) [place] % (Auto) Eos % (Auto) Baso % (Auto) Gran # Lymph # (Auto) [place] # (Auto) Eos # (Auto) Baso # (Auto) Sodium 138 Potassium 5.0 Chloride 101 Carbon Dioxide 29 Anion Gap 13 BUN 66 H Creatinine 1.2 Est GFR ( Amer) > 60 Est GFR (Non-Af Amer) 58 POC Glucose (mg/dL) 97 Random Glucose 105 Calcium 9.2 Total Bilirubin 0.5 AST 111 H ALT 19 Alkaline Phosphatase 86 Total Protein 6.4 Albumin 3.4 Globulin 2.9 Albumin/Globulin Ratio 1.2 Prostate Specific Ag 895.0 H Assessment & Plan - Assessment and Plan (Free Text) Plan: Assessment consider lower tract UTI with E. faecalis acute excerbation of COPD, slowly improving history of mitral valve endocarditis S/P mitral valve replacement CAD S/P CABG S/P pacemaker placement prostate cancer Plan gave a dose of IV Vancomycin yesterday and will continue Augmentin for 5-7 days overall prognosis is poor
--- NOTE | 2017-09-29 17:35 | PN ---
DATE: 09/29/2017 SUBJECTIVE: The patient is seen lying in bed. He is awake. He appears mildly short of breath. He denies any chest pain. He denies any shortness of breath. He denies any cough. PHYSICAL EXAMINATION: GENERAL: Elderly male lying in bed. VITAL SIGNS: Blood pressure 155/70, heart rate 73, respiratory rate 20, temperature 98. HEENT: Normocephalic, atraumatic, positive pallor. NECK: Supple, no JVD. LUNGS: Bilateral equal air entry, bilateral equal expansion. CARDIAC: S1 and S2, regular rate and rhythm, no murmur, no rub. ABDOMEN: Soft, nondistended, nontender, bowel sounds present. EXTREMITIES: No lower extremity edema. INTAKE AND OUTPUT: 1040/1950. LABORATORY DATA: WBC 11.9, hemoglobin 11, hematocrit 32, platelets 214. Sodium 138, potassium 5, chloride 101, CO2 of 29, BUN 66, creatinine 1.2, glucose 105, calcium 9.2. AST 111, ALT 19. Urine culture, Enterococcus faecalis. CURRENT MEDICATIONS: Brovana, Colace, Drisdol, DuoNeb, Ecotrin, Flomax, insulin, Januvia, Lasix, Lipitor, Lovenox, MiraLax, Tylenol, Plavix, Protonix, Pulmicort, and Singulair. ASSESSMENT: 1. Chronic obstructive pulmonary disease. 2. Jpi-dqgoyuu-hptbjgeyf diabetes mellitus. 3. Hypertension. 4. Prostate cancer with bone metastasis. 5. 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 PLAN: 1. The patient had a contrast CAT scan yesterday. 2. The patient was hydrated pre and post. 3. Will check labs tomorrow. 4. CAT scan shows right-sided hydronephrosis secondary to enlarged prostate. 5. Urology evaluation. 6. Oncology followup. Shelley Larson MD
--- NOTE | 2017-09-29 22:37 | PN ---
DATE: 09/29/2017 PULMONARY CONSULTATION REFERRING PHYSICIAN: Salty Sorto MD SUBJECTIVE: Patient feels okay. Sleepy, tired. Did not use CPAP last night. Still has some cough, phlegm. No headache, chest pain, nausea, vomiting, hematuria, leg pain, leg swelling reported. OBJECTIVE: VITAL SIGNS: Temperature 98, pulse 73, respirations 20, blood pressure 165/70, pulse ox 93%. GENERAL: The patient is sitting in bed, elevated at 45 degrees. Sleepy, in no acute distress. HEENT: Moist mucous membrane. Crowded airway. Mallampati plus 4. NECK: Supple. No JVD. LUNGS: Few scattered rhonchi. CARDIAC: S1 and S2. ABDOMEN: Soft, nontender. No organomegaly. EXTREMITIES: No edema. NEUROLOGIC: Awake, alert, and follows command. LABORATORY DATA: Results reviewed. Bedside glucose 120. CT of chest, abdomen, and pelvis shows extensive diffuse sclerotic bone metastases, with minor bibasilar atelectasis, cholelithiasis, mild fatty hepatic infiltration, right-sided hydronephrosis possibly due to enlarged prostate, moderate-sized left-sided fat-containing inguinal hernia. IMPRESSION AND PLAN: Chronic obstructive lung disease, may have sleep apnea syndrome, cardiomyopathy, valvular heart disease, coronary artery disease, diabetes, history of prostate cancer, urinary tract infection, renal insufficiency. Dr. Parekh on this case following patient. Pulmonary point of view, he is doing okay. Continue IV Solu-Medrol 20 mg every 12 hours. Continue to encourage CPAP use. Keep head elevated at 45 degrees. Sleep apnea precaution, avoid nocturnal sedation, gastric prophylaxis, on anticoagulation. Fall precaution. This patient was examined with Dr. Sánchez and discussed assessment and plan as described above. Thank you for this consult and we will follow with you. Heike Milan APN MTDOsmar
[2017-09-30] MEDS: Oxycodone/Acetaminophen 10/325 mg Tab PO PRN ×3 (02:41→23:10)
[2017-09-30] MEDS: Pantoprazole 40 mg EC Tab PO SCH (05:19)
[2017-09-30 07:30] LABS: GRAN % 82.8 % (50.0-68.0); HEMOGLOBIN 11.2 g/dL (14.0-18.0); MEAN CELL VOLUME 81.7 fl (80.0-105.0); MEAN CORPUSCULAR HEMOGLOBIN 27.7 pg (25.0-35.0); MEAN CORPUSCULAR HGB CONC 33.8 g/dl (31.0-37.0); MEAN PLATELET VOLUME 9.6 fl (7.0-11.0); RBC 4.05 10^6/uL (3.5-6.1); RED CELL DISTRIBUTION WIDTH 18.2 % (11.5-14.5); WHITE BLOOD COUNT 12.1 10^3/ul (4.5-11.0)
[2017-09-30 07:31] LABS: BASO # 0.01 K/mm3 (0.0-2.0); BASO % 0.1 % (0.0-3.0); EOS % 0.1 % (1.5-5.0); GRAN # 10.03 (1.4-6.5); LYMPH # 1.1 (1.2-3.4); LYMPH % 8.7 % (22.0-35.0); MONO % 8.3 % (1.0-6.0)
[2017-09-30] MEDS: Budesonide 0.5 mg/2 ml Inhal Susp UD IH SCH ×2 (07:40→19:47)
[2017-09-30] MEDS: Arformoterol 15 mcg/2 ml Inh Sol IH SCH ×2 (07:40→19:47)
[2017-09-30 07:53] LABS: BLOOD UREA NITROGEN 53 mg/dL (7-21); CALCIUM 9.3 mg/dL (8.4-10.5); GFR AFRICAN-AMERICAN > 60; GFR NON-AFRICAN AMERICAN 58
[2017-09-30] MEDS: Insulin Reg-LOW-Coverage SC SCH ×2 (08:00→13:10)
[2017-09-30] MEDS: MethylPREDNISolone 40 mg Vial IVP SCH ×2 (10:42→22:09)
[2017-09-30] MEDS: Multivitamin With Minerals Tab PO SCH (10:43)
[2017-09-30] MEDS: Enoxaparin 40 mg Syringe SC SCH (10:43)
--- NOTE | 2017-09-30 16:23 | CP.PCM.PN ---
Subjective - Date & Time of Evaluation Date of Evaluation: 09/30/17 Time of Evaluation: 11:20 - Subjective Subjective: Comfortable, no fevers. Objective - Vital Signs/Intake and Output Vital Signs (last 24 hours): Temp Pulse Resp BP Pulse Ox 98.0 F 66 19 149/68 97 09/29/17 17:21 09/29/17 17:21 09/29/17 17:21 09/29/17 17:21 09/29/17 17:21 Intake and Output: 09/30/17 09/30/17 06:59 18:59 Output Total 800 Balance -800 - Medications Medications: Current Medications Albuterol/Ipratropium (Duoneb 3 Mg/0.5 Mg (3 Ml) Ud) 3 ml IH [id number] PRN PRN Reason: Shortness of Breath Arformoterol Tartrate (Brovana) 15 mcg IH [id number] [facility] Last Admin: 09/29/17 19:44 Dose: 15 mcg Aspirin (Ecotrin) 81 mg PO DAILY [facility] Last Admin: 09/29/17 09:38 Dose: 81 mg Atorvastatin Calcium (Lipitor) 20 mg PO DIN [facility] Last Admin: 09/29/17 17:19 Dose: 20 mg Budesonide (Pulmicort Respules) 0.5 mg IH BIDRESP [facility] Last Admin: 09/29/17 19:44 Dose: 0.5 mg Clopidogrel Bisulfate (Plavix) 75 mg PO DAILY [facility] Last Admin: 09/29/17 09:39 Dose: 75 mg Docusate Sodium (Colace) 100 mg PO BID [facility] Last Admin: 09/29/17 17:19 Dose: 100 mg Enoxaparin Sodium (Lovenox) 40 mg SC DAILY [facility] PRN Reason: Protocol Last Admin: 09/29/17 09:38 Dose: 40 mg Ergocalciferol (Drisdol 50,000 Intl Units Cap) 1 cap PO QWK [facility] Furosemide (Lasix) 40 mg IVP DAILY [facility] Last Admin: 09/28/17 09:56 Dose: 40 mg Insulin Human Regular (Humulin R Low) 0 units SC ACHS [facility] PRN Reason: Protocol Last Admin: 09/29/17 21:53 Dose: Not Given Methylprednisolone (Solu-Medrol) 20 mg IVP Q12 [facility] Last Admin: 09/29/17 21:53 Dose: 20 mg Montelukast Sodium (Singulair) 10 mg PO HS [facility] Last Admin: 09/29/17 21:53 Dose: 10 mg Multivitamins/Minerals (Therapeutic-M Tab) 1 tab PO DAILY [facility] Last Admin: 09/29/17 09:40 Dose: 1 tab Oxycodone/Acetaminophen (Percocet 10/325 Mg Tab) 1 tab PO Q4H PRN PRN Reason: Pain, moderate (4-7) Last Admin: 09/30/17 02:41 Dose: 1 tab Pantoprazole Sodium (Protonix Ec Tab) 40 mg PO 0600 [facility] Last Admin: 09/30/17 05:19 Dose: 40 mg Polyethylene Glycol (Miralax) 17 gm PO BID PRN PRN Reason: Constipation Last Admin: 09/28/17 10:01 Dose: 17 gm Sitagliptin Phosphate (Januvia) 50 mg PO DAILY [facility] Last Admin: 09/29/17 09:38 Dose: 50 mg Tamsulosin HCl (Flomax) 0.4 mg PO DAILY [facility] Last Admin: 09/29/17 09:38 Dose: 0.4 mg - Labs Labs: 09/30/17 06:30 09/28/17 06:30 - Constitutional Appears: Chronically Ill - Head Exam Head Exam: NORMAL INSPECTION - Respiratory Exam Respiratory Exam: Decreased Breath Sounds - Cardiovascular Exam Cardiovascular Exam: +S1, +S2 - GI/Abdominal Exam GI & Abdominal Exam: Soft. absent: Tenderness Assessment and Plan - Assessment and Plan (Free Text) Plan: Assessment consider lower tract UTI with E. faecalis acute excerbation of COPD, slowly improving history of mitral valve endocarditis S/P mitral valve replacement CAD S/P CABG S/P pacemaker placement prostate cancer Plan gave a dose of IV Vancomycin yesterday and will continue Augmentin for 54-6 more days overall prognosis is poor
[2017-09-30] MEDS ORDERED: Sod Polystyrene Sulf 15 gm/60 ml Susp PO ONE (17:27)
[2017-09-30] MEDS: POLYETHYLENE GLYCOL 3350 17 GM/Dose PACKET PO SCH (18:45)
--- NOTE | 2017-09-30 22:03 | CP.PCM.PN ---
Subjective - Date & Time of Evaluation Date of Evaluation: 09/29/17 Time of Evaluation: 22:00 - Subjective Subjective: No acute events ROS: 12 ROS negative Objective - Vital Signs/Intake and Output Vital Signs (last 24 hours): Temp Pulse Resp BP Pulse Ox 97.9 F 84 19 144/71 90 L 09/30/17 18:00 09/30/17 18:00 09/30/17 18:00 09/30/17 18:00 09/30/17 18:00 Intake and Output: 09/30/17 10/01/17 18:59 06:59 Intake Total 720 Output Total 700 Balance 20 - Medications Medications: Current Medications Albuterol/Ipratropium (Duoneb 3 Mg/0.5 Mg (3 Ml) Ud) 3 ml IH [id number] PRN PRN Reason: Shortness of Breath Amoxicillin/Clavulanate Potassium (Augmentin 875 Mg-125 Mg Tab) 1 tab PO Q12 [facility] PRN Reason: Protocol Stop: 10/07/17 08:00 Arformoterol Tartrate (Brovana) 15 mcg IH [id number] [facility] Last Admin: 09/30/17 19:47 Dose: 15 mcg Aspirin (Ecotrin) 81 mg PO DAILY [facility] Last Admin: 09/30/17 10:42 Dose: 81 mg Atorvastatin Calcium (Lipitor) 20 mg PO DIN [facility] Last Admin: 09/30/17 18:44 Dose: 20 mg Budesonide (Pulmicort Respules) 0.5 mg IH BIDRESP [facility] Last Admin: 09/30/17 19:47 Dose: 0.5 mg Clopidogrel Bisulfate (Plavix) 75 mg PO DAILY [facility] Last Admin: 09/30/17 10:43 Dose: 75 mg Docusate Sodium (Colace) 100 mg PO BID [facility] Last Admin: 09/30/17 18:44 Dose: 100 mg Enoxaparin Sodium (Lovenox) 40 mg SC DAILY [facility] PRN Reason: Protocol Last Admin: 09/30/17 10:43 Dose: 40 mg Ergocalciferol (Drisdol 50,000 Intl Units Cap) 1 cap PO QWK [facility] Furosemide (Lasix) 40 mg IVP DAILY [facility] Last Admin: 09/28/17 09:56 Dose: 40 mg Insulin Human Regular (Humulin R Low) 0 units SC ACHS [facility] PRN Reason: Protocol Last Admin: 09/30/17 13:10 Dose: Not Given Methylprednisolone (Solu-Medrol) 20 mg IVP Q12 [facility] Last Admin: 09/30/17 10:42 Dose: 20 mg Montelukast Sodium (Singulair) 10 mg PO HS [facility] Last Admin: 09/29/17 21:53 Dose: 10 mg Multivitamins/Minerals (Therapeutic-M Tab) 1 tab PO DAILY [facility] Last Admin: 09/30/17 10:43 Dose: 1 tab Oxycodone/Acetaminophen (Percocet 10/325 Mg Tab) 1 tab PO Q4H PRN PRN Reason: Pain, moderate (4-7) Last Admin: 09/30/17 18:49 Dose: 1 tab Pantoprazole Sodium (Protonix Ec Tab) 40 mg PO 0600 [facility] Last Admin: 09/30/17 05:19 Dose: 40 mg Polyethylene Glycol (Miralax) 17 gm PO BID [facility] Last Admin: 09/30/17 18:45 Dose: 17 gm Sitagliptin Phosphate (Januvia) 50 mg PO DAILY [facility] Last Admin: 09/30/17 10:42 Dose: 50 mg Tamsulosin HCl (Flomax) 0.4 mg PO DAILY [facility] Last Admin: 09/30/17 10:43 Dose: 0.4 mg - Labs Labs: 09/30/17 06:30 09/30/17 06:30 - Constitutional Appears: Well - Respiratory Exam Respiratory Exam: Clear to Ausculation Bilateral, NORMAL BREATHING PATTERN - Cardiovascular Exam Cardiovascular Exam: REGULAR RHYTHM, +S1, +S2. absent: Murmur - GI/Abdominal Exam GI & Abdominal Exam: Soft, Normal Bowel Sounds. absent: Tenderness - Extremities Exam Extremities Exam: Full ROM, Normal Capillary Refill, Normal Inspection. absent : Joint Swelling, Pedal Edema Assessment and Plan - Assessment and Plan (Free Text) Assessment: Mr. Venegas is a 82 y/o with a pmhx significant for CAD s/p CAGB s/p pacemaker metastatic prostate cancer currently on abiraterone currently admitted to the hospital with a COPD exacerbation and a UTI. Breathing much better. Will f/u to allwo patient to continue with home abiraterone. Repeat CT c/a/p shows extensive disease will compare to prior films to gauge efficacy of treatment Porter Parekh MD Oncology Service
--- NOTE | 2017-09-30 22:05 | CP.PCM.PN ---
Subjective - Date & Time of Evaluation Date of Evaluation: 09/30/17 Time of Evaluation: 21:00 - Subjective Subjective: No BM in the last 3-4 days. Denies n/v; able to pass flatus ROS: 12 ROS otherwise negative Objective - Vital Signs/Intake and Output Vital Signs (last 24 hours): Temp Pulse Resp BP Pulse Ox 97.9 F 84 19 144/71 90 L 09/30/17 18:00 09/30/17 18:00 09/30/17 18:00 09/30/17 18:00 09/30/17 18:00 Intake and Output: 09/30/17 10/01/17 18:59 06:59 Intake Total 720 Output Total 700 Balance 20 - Medications Medications: Current Medications Albuterol/Ipratropium (Duoneb 3 Mg/0.5 Mg (3 Ml) Ud) 3 ml IH [id number] PRN PRN Reason: Shortness of Breath Amoxicillin/Clavulanate Potassium (Augmentin 875 Mg-125 Mg Tab) 1 tab PO Q12 [facility] PRN Reason: Protocol Stop: 10/07/17 08:00 Arformoterol Tartrate (Brovana) 15 mcg IH [id number] [facility] Last Admin: 09/30/17 19:47 Dose: 15 mcg Aspirin (Ecotrin) 81 mg PO DAILY [facility] Last Admin: 09/30/17 10:42 Dose: 81 mg Atorvastatin Calcium (Lipitor) 20 mg PO DIN [facility] Last Admin: 09/30/17 18:44 Dose: 20 mg Budesonide (Pulmicort Respules) 0.5 mg IH BIDRESP [facility] Last Admin: 09/30/17 19:47 Dose: 0.5 mg Clopidogrel Bisulfate (Plavix) 75 mg PO DAILY [facility] Last Admin: 09/30/17 10:43 Dose: 75 mg Docusate Sodium (Colace) 100 mg PO BID [facility] Last Admin: 09/30/17 18:44 Dose: 100 mg Enoxaparin Sodium (Lovenox) 40 mg SC DAILY [facility] PRN Reason: Protocol Last Admin: 09/30/17 10:43 Dose: 40 mg Ergocalciferol (Drisdol 50,000 Intl Units Cap) 1 cap PO QWK [facility] Furosemide (Lasix) 40 mg IVP DAILY [facility] Last Admin: 09/28/17 09:56 Dose: 40 mg Insulin Human Regular (Humulin R Low) 0 units SC ACHS [facility] PRN Reason: Protocol Last Admin: 09/30/17 13:10 Dose: Not Given Methylprednisolone (Solu-Medrol) 20 mg IVP Q12 [facility] Last Admin: 09/30/17 10:42 Dose: 20 mg Montelukast Sodium (Singulair) 10 mg PO HS [facility] Last Admin: 09/29/17 21:53 Dose: 10 mg Multivitamins/Minerals (Therapeutic-M Tab) 1 tab PO DAILY [facility] Last Admin: 09/30/17 10:43 Dose: 1 tab Oxycodone/Acetaminophen (Percocet 10/325 Mg Tab) 1 tab PO Q4H PRN PRN Reason: Pain, moderate (4-7) Last Admin: 09/30/17 18:49 Dose: 1 tab Pantoprazole Sodium (Protonix Ec Tab) 40 mg PO 0600 [facility] Last Admin: 09/30/17 05:19 Dose: 40 mg Polyethylene Glycol (Miralax) 17 gm PO BID [facility] Last Admin: 09/30/17 18:45 Dose: 17 gm Sitagliptin Phosphate (Januvia) 50 mg PO DAILY [facility] Last Admin: 09/30/17 10:42 Dose: 50 mg Tamsulosin HCl (Flomax) 0.4 mg PO DAILY [facility] Last Admin: 09/30/17 10:43 Dose: 0.4 mg - Labs Labs: 09/30/17 06:30 09/30/17 06:30 - Constitutional Appears: Well - Respiratory Exam Respiratory Exam: Clear to Ausculation Bilateral, NORMAL BREATHING PATTERN - Cardiovascular Exam Cardiovascular Exam: REGULAR RHYTHM, +S1, +S2. absent: Murmur - GI/Abdominal Exam GI & Abdominal Exam: Soft, Normal Bowel Sounds. absent: Tenderness - Back Exam Back Exam: NORMAL INSPECTION Assessment and Plan - Assessment and Plan (Free Text) Assessment: Mr. Venegas stefanie 82 y/o with a pmhx significant for CAD s/p CAGB s/p pacemaker metastatic prostate cancer currently on abiraterone currently admitted to the hospital with a COPD exacerbation and a UTI. Breathing much better. Will f/u to allwo patient to continue with home abiraterone. Repeat CT c/a/p shows extensive disease will compare to prior films to gauge efficacy of treatment. Optimizing bowel regimen to facilitate BM Porter Parekh MD Oncology Service
[2017-09-30] MEDS: Amoxicillin-Clav 875-125 mg Tab PO SCH (22:08)
--- NOTE | 2017-09-30 23:33 | PN ---
DATE: 09/28/2017 SUBJECTIVE: The patient is comfortable. No distress. No chest pain. He is eating better. He is currently on IV antibiotics. No chest pain. Not short of breath. The patient has no nausea, no vomiting. He feels weak, unsteady. He does complain of severe arthritis, especially his back and his right hip. PHYSICAL EXAMINATION: The patient's physical examination on 09/28/2017, VITAL SIGNS: Temperature 98, heart rate 71, blood pressure 136/68, respirations 20, saturating 93% on room air. HEAD AND NECK: Normal. No JVD. No thyromegaly. CHEST: Bilaterally clear. CARDIAC: First sound and second sound normal. ABDOMEN: Soft, obese, nontender. EXTREMITIES: No edema. NEUROLOGIC: Normal. LABORATORY STUDY: White count is 11.9, hemoglobin 11, hematocrit 32.2, platelets 214. Chemistry noted for sodium 138, potassium 5, chloride 101, bicarb 29, BUN 66, creatinine 1.2, blood sugar 105, calcium 9.2, total bili 0.5, AST 111, ALT 19, alk phos 86, total protein 6.4, albumin and globulin ratio is normal. IMPRESSION AND PLAN: 1. Acute chronic obstructive pulmonary disease exacerbations. We will continue IV steroids. The patient is getting 40 IV every 8, we will decrease it to every 12. Continue inhaled and IV bronchodilators. Seems doing well. We will follow up with Dr. Sánchez too. The patient is getting Brovana, Pulmicort and Singular and Claritin. Seems doing well. 2. Diabetes. Continue Januvia as needed insulin coverage. He is doing well. 3. History of peripheral vascular disease, coronary artery disease, mitral valve replacement. Continue aspirin 81 mg p.o. daily. 4. The patient also has hypercholesterolemia. Continue Lipitor. Continue current medications. The patient also has history of prostate cancer with possible bone metastasis. We will get Dr. Parekh to see him. He got chemotherapy. I do not see any Casodex here. We will talk to Dr. Parekh. Current medication is Brovana, Colace, vitamin D, DuoNeb, aspirin, Flomax, insulin, Januvia, Lasix 40 mg IV daily is on hold, Lipitor 20 at bedtime, Lovenox 40 subcutaneous daily, MiraLax, Percocet 10 every 4 hours p.r.n., Plavix 75 daily, Protonix 40 once a day, Pulmicort, Singulair, Solu-Medrol and multivitamins. Continue current therapy. We will encourage physical therapy. Discussed with the patient the patient needs more physical therapy and possibly Transitional Care Unit for continuation of IV therapy. Also, the patient was considered Infectious Disease consult, Dr. Arnold for urinary tract infections, gram-positive Rocephin, which will be discontinued. At this time, we will follow up with Infectious Disease consults. Salty Sorto MD
--- NOTE | 2017-09-30 23:42 | PN ---
DATE: 09/29/2017 SUBJECTIVE: The patient is seen on 09/29/2017. The patient is comfortable. No distress. No chest pain. No other complaint. His breathing is better. He is eating better. He moved his bowels. He and need more physical therapy. The patient was seen by other consultants. PHYSICAL EXAMINATION: His physical examination on 09/29/2017 as follows, VITAL SIGNS: Temperature 98, heart rate 66, blood pressure 149/68, respirations 19, saturations 97% on room air. HEAD AND NECK: Normal. No JVD. No thyromegaly. CHEST: Clear bilaterally. CARDIAC: First sound and second sound normal. No murmur, rub or gallop. ABDOMEN: Soft, obese, nontender. EXTREMITIES: No edema. NEUROLOGIC: Normal. LABORATORY STUDIES: On 09/29/2017, his blood sugar 120. He has also laboratory study will be ordered for tomorrow. According to here last lab, white count 11.9, hemoglobin 11, hematocrit 32.2, platelets 114. Last BUN is 66, creatinine is 1.2. IMPRESSION AND PLAN: 1. Acute chronic obstructive pulmonary disease exacerbation. Continue IV and inhaled bronchodilators, tapering down IV steroids. Continue followup with Dr. Sánchez. 2. Prostate cancer with bone metastasis. Possible hydronephrosis. Dr. Larson seen the patient. 3. Chronic osteoarthritis. Severe hip pain and right back pain. History of bone metastasis. Continue Percocet p.r.n. 4. Gait disorder. Needs physical therapy and Transitional Care Unit eval. 5. History of anemia. Negative colonoscopy. The patient also had hypertension, diabetes type 2, on Januvia plus insulin coverage. 6. Prostate cancer with bone metastasis. Continue Flomax. Seen by Dr. Parekh. PLAN: Continue current therapy. Current therapy, Brovana, Colace, vitamin D, DuoNeb, Ecotrin, Flomax, Januvia, insulin coverage, Lasix has been on hold, Lipitor 20 p.o. at bedtime, Lovenox 40, MiraLax, Percocet, Plavix 75, Protonix, Pulmicort, Singular, multivitamins and Solu-Medrol, continue 40 b.i.d., we will keep tapering it down. The patient is getting physical therapy, TCU eval. Salty Sorto MD [facility] # [id number]
[2017-10-01] MEDS: Pantoprazole 40 mg EC Tab PO SCH (05:37)
--- NOTE | 2017-10-01 07:17 | CP.PCM.PN ---
Subjective - Date & Time of Evaluation Date of Evaluation: 10/01/17 Time of Evaluation: 06:25 - Subjective Subjective: awake, alert, lying in bed, comfortable, denies chest pain,denies shortness of breath, left shoulder pain better Reason for consultation and follow up: Cardiac evaluation for shortness of breath and leg swelling. History of prosthetic mitral valve, COPD, CHF and prostrate cancer on chemotherapy once a month, active smoker for 40 years and smokes 1 pack/day. Seen and examined by me and Dr. Blanc Objective - Vital Signs/Intake and Output Vital Signs (last 24 hours): Temp Pulse Resp BP Pulse Ox 97.9 F 84 19 144/71 90 L 09/30/17 18:00 09/30/17 18:00 09/30/17 18:00 09/30/17 18:00 09/30/17 18:00 Intake and Output: 10/01/17 10/01/17 06:59 18:59 Intake Total 420 Output Total 400 200 Balance -400 220 - Medications Medications: Current Medications Albuterol/Ipratropium (Duoneb 3 Mg/0.5 Mg (3 Ml) Ud) 3 ml IH [id number] PRN PRN Reason: Shortness of Breath Amoxicillin/Clavulanate Potassium (Augmentin 875 Mg-125 Mg Tab) 1 tab PO Q12 [facility] PRN Reason: Protocol Stop: 10/07/17 08:00 Last Admin: 09/30/17 22:08 Dose: 1 tab Arformoterol Tartrate (Brovana) 15 mcg IH [id number] [facility] Last Admin: 09/30/17 19:47 Dose: 15 mcg Aspirin (Ecotrin) 81 mg PO DAILY [facility] Last Admin: 09/30/17 10:42 Dose: 81 mg Atorvastatin Calcium (Lipitor) 20 mg PO DIN [facility] Last Admin: 09/30/17 18:44 Dose: 20 mg Budesonide (Pulmicort Respules) 0.5 mg IH BIDRESP [facility] Last Admin: 09/30/17 19:47 Dose: 0.5 mg Clopidogrel Bisulfate (Plavix) 75 mg PO DAILY [facility] Last Admin: 09/30/17 10:43 Dose: 75 mg Docusate Sodium (Colace) 100 mg PO BID [facility] Last Admin: 09/30/17 18:44 Dose: 100 mg Enoxaparin Sodium (Lovenox) 40 mg SC DAILY [facility] PRN Reason: Protocol Last Admin: 09/30/17 10:43 Dose: 40 mg Ergocalciferol (Drisdol 50,000 Intl Units Cap) 1 cap PO QWK [facility] Furosemide (Lasix) 40 mg IVP DAILY [facility] Last Admin: 09/28/17 09:56 Dose: 40 mg Insulin Human Regular (Humulin R Low) 0 units SC ACHS [facility] PRN Reason: Protocol Last Admin: 09/30/17 13:10 Dose: Not Given Methylprednisolone (Solu-Medrol) 20 mg IVP Q12 [facility] Last Admin: 09/30/17 22:09 Dose: 20 mg Montelukast Sodium (Singulair) 10 mg PO HS [facility] Last Admin: 09/30/17 22:08 Dose: 10 mg Multivitamins/Minerals (Therapeutic-M Tab) 1 tab PO DAILY [facility] Last Admin: 09/30/17 10:43 Dose: 1 tab Oxycodone/Acetaminophen (Percocet 10/325 Mg Tab) 1 tab PO Q4H PRN PRN Reason: Pain, moderate (4-7) Last Admin: 09/30/17 23:10 Dose: 1 tab Pantoprazole Sodium (Protonix Ec Tab) 40 mg PO 0600 [facility] Last Admin: 10/01/17 05:37 Dose: 40 mg Polyethylene Glycol (Miralax) 17 gm PO BID [facility] Last Admin: 09/30/17 18:45 Dose: 17 gm Sitagliptin Phosphate (Januvia) 50 mg PO DAILY [facility] Last Admin: 09/30/17 10:42 Dose: 50 mg Tamsulosin HCl (Flomax) 0.4 mg PO DAILY [facility] Last Admin: 09/30/17 10:43 Dose: 0.4 mg - Labs Labs: 09/30/17 06:30 09/30/17 06:30 - Constitutional Appears: No Acute Distress - Head Exam Head Exam: NORMOCEPHALIC - Eye Exam Eye Exam: Normal appearance - ENT Exam ENT Exam: Mucous Membranes Moist - Cardiovascular Exam Cardiovascular Exam: +S1, +S2 Additional comments: PPM - GI/Abdominal Exam GI & Abdominal Exam: Soft, Normal Bowel Sounds - Extremities Exam Extremities Exam: Normal Capillary Refill - Neurological Exam Neurological Exam: Alert, Awake, Oriented x3 - Psychiatric Exam Psychiatric exam: Normal Affect - Skin Skin Exam: Dry, Normal Color, Warm Assessment and Plan - Assessment and Plan (Free Text) Assessment: An 82 year old male who came in to the ER due to mild shortness of breath and leg swelling and left shoulder pain. History of mitral valve endocarditis, status post prosthetic mitral valve replacement NSTEMI- post coronary artery bypass grafting x 5 vessels, history of PPM insertion,COPD, CHF, sleep apnea, arthritis, and prostrate cancer on chemotherapy once a month, active smoker for 40 years and smokes 1 pack/day. history of atrial fibrillation, was on anticoagulation but now patient heart rhythm is V- pacing at 60's and 70's. Pacemaker interrogated- 1-2 years battery life, Last Atrial fibrillation recorded August 20, 2017, normal functioning DDD PPM [employer] ECHO done and showed LVEF 45-50%, mildly impaired, status post MVR bioprosthetic ,trace to mild MR, seen pacemaker leads in right ventricle and right atrium, moderate TR, no vegetation. Had steroid injection on left shoulder. positive for urinary tract infection, seen by ID and on oral antibiotics. Plan: Left shoulder less pain, post injection of steroids Cardiac status stable Controlled heart rate and blood pressure Denies shortness of breath, feels better Urinary tract infection, urine positive for E. faecalis ID on consult, on oral augmentin Continue current medications Continue current treatment Discharge planning Will follow up Plan and treatment discussed with Dr. Blanc
[2017-10-01] MEDS: Arformoterol 15 mcg/2 ml Inh Sol IH SCH (07:30)
[2017-10-01] MEDS: Budesonide 0.5 mg/2 ml Inhal Susp UD IH SCH (07:31)
[2017-10-01 07:37] LABS: BLOOD UREA NITROGEN 42 mg/dL (7-21); CALCIUM 8.7 mg/dL (8.4-10.5); GFR AFRICAN-AMERICAN > 60; GFR NON-AFRICAN AMERICAN > 60
[2017-10-01 08:40] VITALS: BP 121/59; PULSE 74; RESP 20; TEMP 98.2; O2SAT 96
[2017-10-01] MEDS ORDERED: Dextrose 50% SYRINGE Inj (50 ml) IVP ONE (09:17)
[2017-10-01] MEDS ORDERED: Insulin Regular 1 UNITS/0.01 ML ML IV STA (09:17)
[2017-10-01] MEDS ORDERED: Dextrose 50% SYRINGE Inj (50 ml) IV PRN (09:21)
[2017-10-01] MEDS: Insulin Reg-LOW-Coverage SC SCH (09:32)
[2017-10-01] MEDS: Amoxicillin-Clav 875-125 mg Tab PO SCH (09:47)
[2017-10-01] MEDS: Enoxaparin 40 mg Syringe SC SCH (09:49)
[2017-10-01] MEDS: POLYETHYLENE GLYCOL 3350 17 GM/Dose PACKET PO SCH ×2 (09:49→17:31)
[2017-10-01] MEDS: MethylPREDNISolone 40 mg Vial IVP SCH (09:50)
[2017-10-01] MEDS: Multivitamin With Minerals Tab PO SCH (09:50)
--- NOTE | 2017-10-01 10:28 | CP.PCM.PN ---
Subjective - Date & Time of Evaluation Date of Evaluation: 10/01/17 Time of Evaluation: 07:10 - Subjective Subjective: Archana Cruz DO PGY-2: Hematology and Oncology Progress Note for Dr. Parekh Patient was seen and examined at bedside. Patient denies any chest pain, dyspnea , dysuria, cough, or worsening of his left shoulder pain. He reports no improvement with the steroid injection he received from the orthopedist. He still cannot abduct his left shoulder. Otherwise, chart review indicates no adverse events overnight. Objective - Vital Signs/Intake and Output Vital Signs (last 24 hours): Temp Pulse Resp BP Pulse Ox 98.2 F 74 20 121/59 L 96 10/01/17 08:39 10/01/17 08:39 10/01/17 08:39 10/01/17 08:39 10/01/17 08:39 Intake and Output: 10/01/17 10/01/17 06:59 18:59 Intake Total 420 Output Total 400 200 Balance -400 220 - Medications Medications: Current Medications Albuterol/Ipratropium (Duoneb 3 Mg/0.5 Mg (3 Ml) Ud) 3 ml IH [id number] PRN PRN Reason: Shortness of Breath Amoxicillin/Clavulanate Potassium (Augmentin 875 Mg-125 Mg Tab) 1 tab PO Q12 [facility] PRN Reason: Protocol Stop: 10/07/17 08:00 Last Admin: 10/01/17 09:47 Dose: 1 tab Arformoterol Tartrate (Brovana) 15 mcg IH [id number] [facility] Last Admin: 10/01/17 07:30 Dose: 15 mcg Aspirin (Ecotrin) 81 mg PO DAILY [facility] Last Admin: 10/01/17 09:48 Dose: 81 mg Atorvastatin Calcium (Lipitor) 20 mg PO DIN [facility] Last Admin: 09/30/17 18:44 Dose: 20 mg Budesonide (Pulmicort Respules) 0.5 mg IH BIDRESP [facility] Last Admin: 10/01/17 07:31 Dose: 0.5 mg Clopidogrel Bisulfate (Plavix) 75 mg PO DAILY [facility] Last Admin: 10/01/17 09:49 Dose: 75 mg Dextrose (Dextrose 50% Inj) 50 ml IV STAT PRN; Protocol PRN Reason: Hypoglycemia Protocol Docusate Sodium (Colace) 100 mg PO BID [facility] Last Admin: 10/01/17 09:47 Dose: 100 mg Enoxaparin Sodium (Lovenox) 40 mg SC DAILY [facility] PRN Reason: Protocol Last Admin: 10/01/17 09:49 Dose: 40 mg Ergocalciferol (Drisdol 50,000 Intl Units Cap) 1 cap PO QWK [facility] Furosemide (Lasix) 40 mg IVP DAILY [facility] Last Admin: 09/28/17 09:56 Dose: 40 mg Insulin Human Regular (Humulin R Low) 0 units SC ACHS [facility] PRN Reason: Protocol Last Admin: 10/01/17 09:32 Dose: Not Given Methylprednisolone (Solu-Medrol) 20 mg IVP Q12 [facility] Last Admin: 10/01/17 09:50 Dose: 20 mg Montelukast Sodium (Singulair) 10 mg PO HS [facility] Last Admin: 09/30/17 22:08 Dose: 10 mg Multivitamins/Minerals (Therapeutic-M Tab) 1 tab PO DAILY [facility] Last Admin: 10/01/17 09:50 Dose: 1 tab Oxycodone/Acetaminophen (Percocet 10/325 Mg Tab) 1 tab PO Q4H PRN PRN Reason: Pain, moderate (4-7) Last Admin: 09/30/17 23:10 Dose: 1 tab Pantoprazole Sodium (Protonix Ec Tab) 40 mg PO 0600 [facility] Last Admin: 10/01/17 05:37 Dose: 40 mg Polyethylene Glycol (Miralax) 17 gm PO BID [facility] Last Admin: 10/01/17 09:49 Dose: 17 gm Sitagliptin Phosphate (Januvia) 50 mg PO DAILY [facility] Last Admin: 10/01/17 09:49 Dose: 50 mg Tamsulosin HCl (Flomax) 0.4 mg PO DAILY [facility] Last Admin: 10/01/17 09:48 Dose: 0.4 mg - Labs Labs: 09/30/17 06:30 10/01/17 06:30 - Constitutional Appears: Non-toxic, No Acute Distress - Head Exam Head Exam: ATRAUMATIC, NORMOCEPHALIC - Eye Exam Eye Exam: EOMI, Normal appearance - ENT Exam ENT Exam: Mucous Membranes Moist - Neck Exam Neck Exam: Normal Inspection - Respiratory Exam Respiratory Exam: NORMAL BREATHING PATTERN. absent: Accessory Muscle Use - Cardiovascular Exam Cardiovascular Exam: RRR, +S1, +S2 - Neurological Exam Neurological Exam: Alert, Awake, Oriented x3 - Psychiatric Exam Psychiatric exam: Normal Affect, Normal Mood - Skin Skin Exam: Dry, Intact, Normal Color, Warm Assessment and Plan - Assessment and Plan (Free Text) Assessment: Mr. Venegas stefanie 82 y/o with a pmhx significant for CAD s/p CAGB s/p pacemaker metastatic prostate cancer currently on abiraterone daily, currently admitted to the hospital with a COPD exacerbation and a UTI. Breathing much better. Will f/u to allwo patient to continue with home abiraterone. Repeat CT c/a/p shows extensive disease will compare to prior films to gauge efficacy of treatment. Optimizing bowel regimen to facilitate BM. [place] continue to follow the patient while in house.
--- NOTE | 2017-10-01 11:03 | CARD ---
APPROVED REPORT Date of service: 10/01/2017 EKG Measurement Heart [id number] <Conclusion> Electronic ventricular pacemaker
[2017-10-01 11:48] LABS: BLOOD UREA NITROGEN 41 mg/dL (7-21); CALCIUM 9.2 mg/dL (8.4-10.5); GFR AFRICAN-AMERICAN > 60; GFR NON-AFRICAN AMERICAN > 60
--- NOTE | 2017-10-01 14:57 | CP.PCM.PN ---
Subjective - Date & Time of Evaluation Date of Evaluation: 10/01/17 Time of Evaluation: 11:55 - Subjective Subjective: Comfortable in bed, no fevers. Objective - Vital Signs/Intake and Output Vital Signs (last 24 hours): Temp Pulse Resp BP Pulse Ox 98.2 F 74 20 121/59 L 96 10/01/17 08:39 10/01/17 08:39 10/01/17 08:39 10/01/17 08:39 10/01/17 08:39 Intake and Output: 10/01/17 10/01/17 06:59 18:59 Intake Total 420 Output Total 400 200 Balance -400 220 - Medications Medications: Current Medications Albuterol/Ipratropium (Duoneb 3 Mg/0.5 Mg (3 Ml) Ud) 3 ml IH [id number] PRN PRN Reason: Shortness of Breath Amoxicillin/Clavulanate Potassium (Augmentin 875 Mg-125 Mg Tab) 1 tab PO Q12 [facility] PRN Reason: Protocol Stop: 10/07/17 08:00 Last Admin: 10/01/17 09:47 Dose: 1 tab Arformoterol Tartrate (Brovana) 15 mcg IH [id number] [facility] Last Admin: 10/01/17 07:30 Dose: 15 mcg Aspirin (Ecotrin) 81 mg PO DAILY [facility] Last Admin: 10/01/17 09:48 Dose: 81 mg Atorvastatin Calcium (Lipitor) 20 mg PO DIN [facility] Last Admin: 09/30/17 18:44 Dose: 20 mg Budesonide (Pulmicort Respules) 0.5 mg IH BIDRESP [facility] Last Admin: 10/01/17 07:31 Dose: 0.5 mg Clopidogrel Bisulfate (Plavix) 75 mg PO DAILY [facility] Last Admin: 10/01/17 09:49 Dose: 75 mg Dextrose (Dextrose 50% Inj) 50 ml IV STAT PRN; Protocol PRN Reason: Hypoglycemia Protocol Docusate Sodium (Colace) 100 mg PO BID [facility] Last Admin: 10/01/17 09:47 Dose: 100 mg Enoxaparin Sodium (Lovenox) 40 mg SC DAILY [facility] PRN Reason: Protocol Last Admin: 10/01/17 09:49 Dose: 40 mg Ergocalciferol (Drisdol 50,000 Intl Units Cap) 1 cap PO QWK [facility] Furosemide (Lasix) 40 mg IVP DAILY [facility] Last Admin: 09/28/17 09:56 Dose: 40 mg Insulin Human Regular (Humulin R Low) 0 units SC ACHS [facility] PRN Reason: Protocol Last Admin: 10/01/17 09:32 Dose: Not Given Methylprednisolone (Solu-Medrol) 20 mg IVP Q12 [facility] Last Admin: 10/01/17 09:50 Dose: 20 mg Montelukast Sodium (Singulair) 10 mg PO HS [facility] Last Admin: 09/30/17 22:08 Dose: 10 mg Multivitamins/Minerals (Therapeutic-M Tab) 1 tab PO DAILY [facility] Last Admin: 10/01/17 09:50 Dose: 1 tab Oxycodone/Acetaminophen (Percocet 10/325 Mg Tab) 1 tab PO Q4H PRN PRN Reason: Pain, moderate (4-7) Last Admin: 09/30/17 23:10 Dose: 1 tab Pantoprazole Sodium (Protonix Ec Tab) 40 mg PO 0600 [facility] Last Admin: 10/01/17 05:37 Dose: 40 mg Polyethylene Glycol (Miralax) 17 gm PO BID [facility] Last Admin: 10/01/17 09:49 Dose: 17 gm Sitagliptin Phosphate (Januvia) 50 mg PO DAILY [facility] Last Admin: 10/01/17 09:49 Dose: 50 mg Tamsulosin HCl (Flomax) 0.4 mg PO DAILY [facility] Last Admin: 10/01/17 09:48 Dose: 0.4 mg - Labs Labs: 09/30/17 06:30 10/01/17 06:30 - Constitutional Appears: Chronically Ill - Head Exam Head Exam: NORMAL INSPECTION - Respiratory Exam Respiratory Exam: Decreased Breath Sounds - Cardiovascular Exam Cardiovascular Exam: +S1, +S2 - GI/Abdominal Exam GI & Abdominal Exam: Soft. absent: Tenderness Assessment and Plan - Assessment and Plan (Free Text) Plan: Assessment consider lower tract UTI with E. faecalis acute excerbation of COPD, slowly improving history of mitral valve endocarditis S/P mitral valve replacement CAD S/P CABG S/P pacemaker placement prostate cancer Plan continue Augmentin day 3 to complete 5-7 days overall prognosis is poor
[2017-10-01 17:07] LABS: HEMOGLOBIN 11.3 g/dL (14.0-18.0); MEAN CORPUSCULAR HEMOGLOBIN 28.3 pg (25.0-35.0); MEAN CORPUSCULAR HGB CONC 34.1 g/dl (31.0-37.0); MEAN PLATELET VOLUME 9.3 fl (7.0-11.0); RBC 3.99 10^6/uL (3.5-6.1); RED CELL DISTRIBUTION WIDTH 18.6 % (11.5-14.5); WHITE BLOOD COUNT 13.9 10^3/ul (4.5-11.0)
--- NOTE | 2017-10-01 20:56 | PN ---
DATE: 10/01/2017 PULMONARY PROGRESS NOTE REFERRING PHYSICIAN: Salty Sorto MD. SUBJECTIVE: He is out of bed to chair. Family is at bedside. Night was unremarkable. Could not use CPAP. No headache. No rhinitis. Has some cough. No nausea. No vomiting, diarrhea. Did well with physical therapy, able to ambulate with walker. OBJECTIVE: GENERAL: In no acute distress. VITAL SIGNS: Temperature is 98, heart rate is 74, respiratory rate is 20, blood pressure 121/59, pulse ox is 96% on nasal cannula. HEENT: Moist mucous membrane. Crowded airway. NECK: Supple. No JVD. LUNGS: Have scattered rhonchi and expiratory wheezing. HEART: S1 and S2. ABDOMEN: Soft, nontender. No organomegaly. EXTREMITIES: There is no edema. NEUROLOGICAL: Awake and alert. Follows simple command. MEDICATIONS: He is on Augmentin 875/125 one tab twice a day, Brovana inhaled twice a day, Colace 100 mg twice a day, vitamin D 50,000 units weekly, DuoNeb every 4 hours p.r.n., Ecotrin 81 mg daily, Flomax 0.4 mg daily, insulin coverage, Januvia 50 mg daily, Lasix 40 mg daily, Lipitor 20 mg daily, Lovenox 40 mg subcu daily, MiraLax 17 g twice a day, Percocet 10/325 one tab every 4 hours p.r.n., Plavix 75 mg daily, Protonix 40 mg daily, Pulmicort inhaled twice a day, Singulair 10 mg daily, Solu-Medrol 20 mg every 12 hours, multivitamins daily. LABORATORY DATA: Shows hemoglobin 11.3, hematocrit 33.1, WBC 13.9, platelet count is 219. Sodium 143, potassium 5.1, chloride 105, bicarbonate 27, BUN 41, creatinine 1.1, glucose 144, calcium is 9.2. Urine culture has Enterococcus faecalis sensitive to ampicillin. Had EKG done today, which shows heart rate is 80, which is ventricle paced rhythm. IMPRESSION AND PLAN: Chronic obstructive lung disease, sleep apnea syndrome, cardiomyopathy, valvular heart disease, coronary artery disease, diabetes, prostate cancer with metastasis, renal insufficiency, activities of daily living dysfunction. Pulmonary point of view, doing okay. Continue Solu-Medrol 20 mg twice a day. Continue antibiotics. Covering chronic obstructive pulmonary disease as well as urinary tract infection. Encourage continuous positive airway pressure use. Gastric prophylaxis, anticoagulation, fall precaution. Spoke to family at bedside. All the questions answered. Thank you and we will follow with you. Bon Sánchez MD
--- NOTE | 2017-10-01 21:17 | PN ---
DATE: 10/01/2017 SUBJECTIVE: The patient is seen lying in bed. He is lying comfortably. Does not appear to be in any kind of distress. PHYSICAL EXAMINATION: VITAL SIGNS: Blood pressure 121/59, heart rate 74, respiratory rate 20, temperature 98.2. HEENT: Normocephalic, atraumatic. NECK: Supple, no JVD. LUNGS: Bilateral equal expansion, bilateral scattered rhonchi, no rales. CARDIAC: S1 and S2, regular rate and rhythm, no murmur, no rub. ABDOMEN: Obese, distended, soft, nontender, bowel sounds present. EXTREMITIES: No lower extremity edema. INTAKE AND OUTPUT: 720/1100. LABORATORY DATA: WBC 13.9, hemoglobin 11, hematocrit 33, platelets . Sodium 143, potassium 5.1, chloride 105, CO2 of 27, BUN 41, creatinine 1.1, glucose 79, calcium 9.2. A.m. potassium was 5.6. CURRENT MEDICATIONS: Augmentin, Brovana, Colace, Drisdol, DuoNeb, aspirin, Flomax, insulin, Januvia, Lasix 40 IV daily, Lipitor, Lovenox, MiraLax, Colace. ASSESSMENT: 1. Hyperkalemia, etiology unclear. The patient is not on any medications that can cause hyperkalemia. 2. Mild prerenal azotemia. 3. Status post contrast study, renal function stable. 4. Prostate cancer with bone metastasis. 5. Status post chronic obstructive pulmonary disease exacerbation. PLAN: 1. The patient received D50 plus insulin, he got a dose of Kayexalate. Repeat potassium is 5.1. This is acceptable. 2. Renal function is stable post contrast. 3. The patient is stable from the renal standpoint. Shelley Larson MD
[2017-10-02] MEDS ORDERED: Ergocalciferol 50,000 Intl Units Cap PO SCH (10:00)
--- NOTE | 2017-10-02 15:24 | DS ---
HOSPITAL COURSE: Patient was admitted to the hospital with shortness of breath, weakness and was given IV steroids, IV Solu-Medrol. Seen by Pulmonary consult, ID consult Dr. Arnold and Dr. Parekh, Oncology consult. Patient was doing well. He has no chest pain and his breathing got better, maintained on Solu-Medrol 40 IV every 6 hours and tapered down to become 20 mg IV every 12 hours. With nebulizer, the patient did very well. Fluid monitored and electrolytes monitored. Patient did very well and complained of severe right hip pain and back pain. Patient was given Percocet for that and for diabetes with insulin coverage. Patient, otherwise, is stable. PHYSICAL EXAMINATION: VITAL SIGNS: Stable. Blood pressure 130/80, heart rate 80 to 70, respirations 18, saturation 93% on room air. HEAD AND NECK: Normal. No JVD. No thyromegaly. CHEST: Clear bilaterally. CARDIAC: First sound and second sound normal. Systolic murmur. ABDOMEN: Soft, obese, nontender. EXTREMITIES: No edema. NEUROLOGIC: Normal. LABORATORY DATA: Patient had chest x-ray that shows no pneumonia. His urinalysis shows gram-positive, sensitive to Augmentin and patient received antibiotic in the beginning and switched to p.o. Augmentin by ID consult and was transferred to TCU for continuation of therapy and physical therapy. DISCHARGE DIAGNOSES: 1. Acute chronic obstructive pulmonary disease exacerbation. 2. Acute urinary tract infection. 3. Prostate cancer with bone metastasis. 4. Chronic back pain with severe right hip arthritis. 5. Anemia. 6. Hypercholesterolemia. 7. Chronic constipation. 8. Peripheral vascular disease. 9. Coronary artery disease. 10. History of mitral valve replacement. 11. Diabetes type 2. MEDICATIONS ON DISCHARGE: Augmentin 875 b.i.d., Brovana, Colace, vitamin D once a day, DuoNeb, Ecotrin 81, Flomax, insulin coverage low algorithm, Januvia 50 mg daily, Lasix mg p.o. daily, Lipitor 20 p.o. at night, Lovenox 40 subcutaneous daily, MiraLax b.i.d., Percocet 10/325 every 4 hours p.r.n., Plavix 75 mg p.o. daily, Protonix 40 once a day, Pulmicort, Singulair, Solu-Medrol 20 IV every 12 hours, multivitamins once a day. PLAN: Continue current therapy. We will discharge the patient to TCU. Follow up clinically. Continue physical therapy. Continue IV steroids and nebulizer treatment, and Augmentin b.i.d. Salty Sorto MD
== END 2017-10-01 18:36 | DRG 191 ==
LOC: ED 12:35 → ERH 15:37 → 2RSO 16:37 → 3RSO 09-27 17:02
PROVIDERS: ADMIT Internal Medicine; ATTEND Internal Medicine
PROC: 3E0F7GC Introduction of Other Therapeutic Substance into Respiratory Tract, Via Natural or Artificial Opening (ICD-10-PCS; 2017-09-25)
PROC: 5A09457 Assistance with Respiratory Ventilation, 24-96 Consecutive Hours, Continuous Positive Airway Pressure (ICD-10-PCS; principal; 2017-09-26)
PROC: 3E0U33Z Introduction of Anti-inflammatory into Joints, Percutaneous Approach (ICD-10-PCS; 2017-09-28)
PROC: 3E0U3BZ Introduction of Anesthetic Agent into Joints, Percutaneous Approach (ICD-10-PCS; 2017-09-28)
DX: J44.1 Chronic obstructive pulmonary disease with (acute) exacerbation (principal); C79.51 Secondary malignant neoplasm of bone; N39.0 Urinary tract infection, site not specified; I13.0 Hypertensive heart and chronic kidney disease with heart failure and stage 1 through stage 4 chronic kidney disease, or unspecified chronic kidney disease; N13.30 Unspecified hydronephrosis; I42.9 Cardiomyopathy, unspecified; I25.10 Atherosclerotic heart disease of native coronary artery without angina pectoris; C61 Malignant neoplasm of prostate; I50.9 Heart failure, unspecified; F17.210 Nicotine dependence, cigarettes, uncomplicated; I48.0 Paroxysmal atrial fibrillation; N40.0 Benign prostatic hyperplasia without lower urinary tract symptoms; M75.102 Unspecified rotator cuff tear or rupture of left shoulder, not specified as traumatic; E11.51 Type 2 diabetes mellitus with diabetic peripheral angiopathy without gangrene; D64.9 Anemia, unspecified; G89.29 Other chronic pain; M16.11 Unilateral primary osteoarthritis, right hip; E11.22 Type 2 diabetes mellitus with diabetic chronic kidney disease; N18.3 Chronic kidney disease, stage 3 (moderate); E78.00 Pure hypercholesterolemia, unspecified; G47.30 Sleep apnea, unspecified; E87.5 Hyperkalemia; M19.012 Primary osteoarthritis, left shoulder; I25.2 Old myocardial infarction; Z91.14 Patient's other noncompliance with medication regimen; Z91.19 Patient's noncompliance with other medical treatment and regimen; Z87.440 Personal history of urinary (tract) infections; Z79.84 Long term (current) use of oral hypoglycemic drugs; Z79.02 Long term (current) use of antithrombotics/antiplatelets; Z95.3 Presence of xenogenic heart valve; Z95.1 Presence of aortocoronary bypass graft; Z95.0 Presence of cardiac pacemaker

== ENCOUNTER 2017-10-01 18:36 | Inpatient (IN) | payer MEDICARE, MEDICAID ==
[2017-10-01] MEDS ORDERED: Albuterol-Ipratrop 3 mg / 0.5 (3 ml) UD IH PRN (19:41)
[2017-10-01] MEDS ORDERED: Dextrose 50% SYRINGE Inj (50 ml) IVP PRN (19:41)
[2017-10-01] MEDS: Amoxicillin-Clav 875-125 mg Tab PO SCH (23:15)
[2017-10-01] MEDS: Insulin Reg-LOW-Coverage SC SCH (23:25)
[2017-10-01] MEDS: MethylPREDNISolone 40 mg Vial IVP SCH (23:27)
[2017-10-01] MEDS: Oxycodone/Acetaminophen 10/325 mg Tab PO PRN (23:31)
[2017-10-02] MEDS: Enoxaparin 40 mg Syringe SC SCH (05:57)
[2017-10-02] MEDS: Pantoprazole 40 mg EC Tab PO SCH (05:57)
[2017-10-02] MEDS: Oxycodone/Acetaminophen 10/325 mg Tab PO PRN ×2 (06:03→19:32)
[2017-10-02] MEDS: Budesonide 0.5 mg/2 ml Inhal Susp UD IH SCH ×3 (07:15→20:27)
[2017-10-02] MEDS: Arformoterol 15 mcg/2 ml Inh Sol IH SCH ×3 (07:15→20:27)
[2017-10-02 07:18] LABS: BLOOD UREA NITROGEN 43 mg/dL (7-21); CALCIUM 8.5 mg/dL (8.4-10.5); GFR AFRICAN-AMERICAN > 60; GFR NON-AFRICAN AMERICAN > 60
[2017-10-02] MEDS: Insulin Reg-LOW-Coverage SC SCH ×4 (07:27→22:25)
[2017-10-02] MEDS ORDERED: ZYTIGA PO SCH (10:00)
[2017-10-02] MEDS ORDERED: Ergocalciferol 50,000 Intl Units Cap PO SCH (10:00)
[2017-10-02] MEDS: Amoxicillin-Clav 875-125 mg Tab PO SCH ×2 (10:43→21:52)
[2017-10-02] MEDS: Multivitamin With Minerals Tab PO SCH (11:03)
[2017-10-02] MEDS ORDERED: Sod Polystyrene Sulf 15 gm/60 ml Susp PO ONE (11:20)
[2017-10-02] MEDS: POLYETHYLENE GLYCOL 3350 17 GM/Dose PACKET PO SCH ×2 (14:58→18:23)
[2017-10-02] MEDS: MethylPREDNISolone 40 mg Vial IVP SCH ×2 (15:25→21:52)
--- NOTE | 2017-10-03 06:18 | CON ---
DATE: 10/02/2017 PULMONARY CONSULTATION REFERRING PHYSICIAN: Salty Sorto MD REASON FOR CONSULTATION: Chronic obstructive lung disease, obstructive sleep apnea syndrome, cardiomyopathy. HISTORY OF PRESENT ILLNESS: This is an 82-year-old gentleman, well known to me from previous admission, with multiple medical problems including chronic obstructive lung disease, active smoker, sleep apnea syndrome, coronary artery disease, history of coronary artery bypass surgery, history of valve replacement, hypertension, renal insufficiency, diabetes, degenerative joint disease, admitted with cough and shortness of breath originally to acute side of the hospital, treated with steroids, inhaled bronchodilator, was doing better. Presently admitted to PICU for continued care. He is lying in the bed, doing well in therapy. No nausea, no vomiting, no diarrhea. PAST MEDICAL HISTORY: As per history of present illness. ALLERGIES: NONE KNOWN. SOCIAL HISTORY: Active smoker. Denies any alcohol use. FAMILY HISTORY: No significant cardiopulmonary disease reported. MEDICATIONS: He is on Brovana inhaled twice a day, Colace 100 mg twice a day, vitamin D 50,000 units weekly, DuoNeb every 4 hours p.r.n., Ecotrin 81 mg daily, Flomax 0.4 mg daily, insulin coverage, Januvia 50 mg daily, Lipitor 20 mg daily, Lovenox 40 mg subcu daily, MiraLax 17 g twice a day, Percocet 10/325 one tablet every 4 hours p.r.n., Plavix 75 mg daily, Protonix 40 mg daily, Pulmicort inhaled twice a day, Singulair 10 mg daily, Solu-Medrol 20 mg every 12 hours, multivitamins daily. REVIEW OF SYSTEMS: No headache, no rhinitis. Has some cough, shortness with exertion. No chest pain, no nausea, no vomiting, no diarrhea, no dysuria. No leg pain or leg swelling. PHYSICAL EXAMINATION: GENERAL: No acute distress. VITAL SIGNS: Temperature 98, heart rate 84, respiratory rate is 20, blood pressure 127/56, pulse ox 92% on room air. HEENT: Moist mucous membrane. Crowded airway. NECK: Supple. No JVD. LUNGS: Have a scattered rhonchi, prolonged expiratory phase. HEART: S1 and S2. ABDOMEN: Soft, nontender. No organomegaly. EXTREMITIES: No edema. NEUROLOGIC: Awake and alert. Follows simple commands. LABORATORY DATA: Shows hemoglobin 11.3, hematocrit 33.1, WBC 13.9, platelet count is 219. Sodium 140, potassium 5.2, chloride 103, bicarbonate 30, BUN 43, creatinine 1.1, glucose 95, calcium is 8.5. Microbiology, urine culture on 09/27/2017 has Enterococcus faecalis. IMPRESSION AND PLAN: Chronic obstructive lung disease, sleep apnea syndrome, cardiomyopathy, valvular heart disease, coronary artery disease, history of coronary artery bypass surgery, diabetes, metastatic prostate cancer, renal insufficiency, activities of daily living dysfunction. Pulmonary point of view, doing okay. Continue bronchodilator. Keep head at 45 degrees. Gastric prophylaxis, deep venous thrombosis prophylaxis. We will place back on continuous positive airway pressure while sleeping. Fall precaution. Thank you and we will follow with you. Bon Sánchez MD
[2017-10-03] MEDS: Budesonide 0.5 mg/2 ml Inhal Susp UD IH SCH ×2 (08:13→21:05)
[2017-10-03] MEDS: Arformoterol 15 mcg/2 ml Inh Sol IH SCH ×2 (08:13→21:04)
[2017-10-03] MEDS: Insulin Reg-LOW-Coverage SC SCH ×4 (08:24→22:00)
[2017-10-03] MEDS: POLYETHYLENE GLYCOL 3350 17 GM/Dose PACKET PO SCH ×2 (10:01→17:46)
[2017-10-03] MEDS: Oxycodone/Acetaminophen 10/325 mg Tab PO PRN ×3 (10:01→21:47)
[2017-10-03] MEDS: Pantoprazole 40 mg EC Tab PO SCH (10:02)
[2017-10-03] MEDS: Multivitamin With Minerals Tab PO SCH (10:03)
[2017-10-03] MEDS: MethylPREDNISolone 40 mg Vial IVP SCH ×2 (10:57→21:49)
--- NOTE | 2017-10-03 14:30 | HP ---
DATE OF EXAM: 10/02/2017 The patient in TCU, getting physical therapy and medical therapy, IV steroids, seems doing well. Seems improving. HISTORY OF PRESENT ILLNESS: This is an 82-year-old man with past history of mitral valve biologic valve replacement, bypass surgery, cardiac bypass for coronary artery disease that was done more than 15 years ago, COPD, prostate CA with possible mets to the bone, hypertension, obstructive sleep apnea, chronic back pain, severe hip arthritis. The patient came in to the hospital was acute short of breath, was given Lasix, IV Solu-Medrol, nebulizer treatment and seen by record changer, Dr. Sánchez. The patient seems improving and due to his multiple medical problems, he was offered to go to Transitional Care Unit for continuation of physical therapy and medical therapy. PAST MEDICAL HISTORY: As above. ALLERGIES: NO KNOWN ALLERGIES. SOCIAL HISTORY: He did have a history of smoking in the past, quit. He decreased his smoking, he decreased on the number of cigarettes smokes by himself. Has a daughter and son who are very supportive to him. REVIEW OF SYSTEMS: As in the present illness, he always complains of back pain, right hip pain, short of breath, cough, frequent urination, dysuria. No rectal bleeding. No any seizure or focal activity or numbness. PHYSICAL EXAMINATION: GENERAL: The patient is lying in the bed, he is comfortable, no distress, seems breathing comfortably. VITAL SIGNS: Temperature 98.1, heart rate 84, blood pressure 127/56, oxygen saturation 90% on room air. HEAD AND NECK: Normal. No JVD, no thyromegaly. CHEST: Bilaterally clear, although diminished. CARDIAC: First sound and second sound normal. Systolic murmur. ABDOMEN: Obese, soft, nontender. EXTREMITIES: No edema. NEUROLOGIC: Nonfocal. Alert, awake, oriented x3. LABORATORY STUDIES: Shows sodium 140, potassium 5.2, chloride 103, bicarb 30, BUN 43, creatinine 1.1, glomerular filtration rate more than 60, blood sugar 75, calcium 8.5. IMPRESSION AND PLAN: 1. Chronic obstructive pulmonary disease exacerbation, congestive heart failure, generalized weakness. Plan is to treat underlying medical condition plus physical therapy on daily basis. 2. Prostate cancer with severe hip arthritis, chronic back pain, chronic osteoarthritis. Continue Percocet, continue physical therapy. 3. Hypercholesterolemia, diabetes, hypertension. Plan is to continue current therapy. The patient is getting Brovana Pulmicort for underlying chronic obstructive pulmonary disease, seems doing well. Continue Plavix, aspirin for underlying peripheral vascular disease. Continue IV Solu-Medrol 20 IV every 12 hours, continue MiraLax. Deep venous thrombosis prophylaxis with Lovenox and gastric prophylaxis with Protonix. Continue baby aspirin 81 mg daily and follow up clinically. Salty Sorto MD
--- NOTE | 2017-10-03 15:38 | PN ---
DATE: 10/03/2017 PULMONARY PROGRESS NOTE REFERRING PHYSICIAN: Salty Sorto MD. SUBJECTIVE: The patient is lying in the bed, head at 45 degrees. Night was unremarkable. Tolerated CPAP well. No cough. No sputum production. No nausea. No vomiting, diarrhea. No leg swelling. OBJECTIVE: GENERAL: In no acute distress. VITAL SIGNS: Temperature is 98, heart rate is 84, respiratory rate is 20, blood pressure 127/56, pulse ox 90% on room air. HEENT: Moist mucous membrane. Crowded airway. NECK: Supple. No JVD. LUNGS: Have a few scattered rhonchi. HEART: S1 and S2. ABDOMEN: Soft, nontender. No organomegaly. EXTREMITIES: No edema. NEUROLOGICAL: Awake, alert. Follows simple command. MEDICATIONS: He is on Brovana inhaled twice a day, Colace 100 mg twice a day, vitamin D 50,000 units every 7 days, DuoNeb every 4 hours p.r.n., Ecotrin 81 mg daily, Flomax 0.4 mg daily, insulin coverage, Januvia 50 mg daily, Lipitor 20 mg daily, Lovenox 40 mg subcu daily, MiraLax 17 g twice a day, Percocet 10/325 one tab every 4 hours p.r.n., Plavix 75 mg daily, Protonix is 0.5 mg every 12 hours, Singulair 10 mg at bedtime, Solu-Medrol 20 mg IV every 12 hours, multivitamins daily. LABORATORY DATA: Reviewed, blood sugar 95. IMPRESSION AND PLAN: Chronic obstructive lung disease, sleep apnea syndrome, cardiomyopathy, valvular heart disease, coronary artery disease, history of coronary artery bypass surgery, diabetes, metastatic prostate cancer to the bones, renal insufficiency, activities of daily living dysfunction. Continue IV and inhaled bronchodilator. Head at 45 degrees. Gastric prophylaxis. Deep venous thrombosis prophylaxis. Encourage continuous positive airway pressure use. Fall precaution. Continue therapy. Thank you and we will follow with you. Bon Sánchez MD
[2017-10-04] MEDS: Pantoprazole 40 mg EC Tab PO SCH (05:47)
[2017-10-04] MEDS: Enoxaparin 40 mg Syringe SC SCH (05:48)
[2017-10-04] MEDS: Budesonide 0.5 mg/2 ml Inhal Susp UD IH SCH ×2 (07:18→20:09)
[2017-10-04] MEDS: Arformoterol 15 mcg/2 ml Inh Sol IH SCH ×2 (07:18→20:08)
[2017-10-04] MEDS: Insulin Reg-LOW-Coverage SC SCH ×4 (08:03→22:00)
[2017-10-04] MEDS: Multivitamin With Minerals Tab PO SCH (08:03)
[2017-10-04] MEDS: Oxycodone/Acetaminophen 10/325 mg Tab PO PRN ×2 (10:44→21:37)
[2017-10-04] MEDS: MethylPREDNISolone 40 mg Vial IVP SCH ×2 (10:44→21:39)
[2017-10-04] MEDS: POLYETHYLENE GLYCOL 3350 17 GM/Dose PACKET PO SCH ×2 (10:44→17:43)
--- NOTE | 2017-10-04 11:30 | PN ---
DATE: 10/03/2017 SUBJECTIVE: An 82-year-old male, clinically stable, still needs physical therapy, IV therapy. Patient, otherwise, stable. No chest pain. Breathing is better. Still needs some help with ambulation. Complained of arthritis in right hip and back, on pain medicines. No nausea. No vomiting. No diarrhea. Pain controlled. Doing better. PHYSICAL EXAMINATION: VITAL SIGNS: Temperature 98.2, heart rate 88, blood pressure 112/56, respirations 18, saturation 98% on 2 L nasal cannula. HEAD AN NECK: Normal. No JVD. No thyromegaly. CHEST: Clear bilaterally. CARDIAC: First sound and second sound normal. Systolic murmur. ABDOMEN: Obese, soft, nontender. EXTREMITIES: No edema. NEUROLOGIC: Normal. LABORATORY DATA: Last lab had showed sodium 140, potassium 4.2, chloride 103, bicarb 30, BUN 43, creatinine 1.1, blood sugar 102, calcium 8.5. IMPRESSION AND PLAN: 1. Hyperkalemia. We gave Kayexalate. We will repeat labs in the morning. 2. Dehydration, hold off on Lasix from now. We will repeat labs in the morning. 3. Acute chronic obstructive pulmonary disease exacerbation, this is improving. Continue IV Solu-Medrol, inhaled bronchodilators. 4. Prostate carcinoma with bone metastases, chronic back pain, chronic hip pain. Continue pain medications. 5. Chronic anemia. Patient had Gastroenterology consult and upper endoscopy and colonoscopy in the past, stable. 6. Hypercholesterolemia, hypertension, diabetes type 2. Patient has peripheral vascular disease, history of mitral valve bioprosthetic replacement with bypass surgery. PLAN: Continue all his medications and follow up clinically. CURRENT MEDICATIONS: Brovana; Colace; vitamin D; DuoNeb; aspirin 81; Flomax; insulin, low insulin coverage; Januvia 50, Lipitor 20, Lovenox for DVT prophylaxis, MiraLax, Percocet 10 every 6 hours, Plavix 75 once a day, Protonix 40 once a day, Pulmicort, Remeron was added as appetite stimulant and sleeping medicine 15 mg at bedtime, Singulair, Solu-Medrol IV and multivitamins. Continue current therapy. Follow up clinically. Salty Sorto MD [facility] # [id number]
[2017-10-04 16:25] VITALS: BP 134/54; PULSE 71; RESP 20; TEMP 98.2; O2SAT 96
--- NOTE | 2017-10-04 19:19 | PN ---
DATE: 10/04/2017 PULMONARY PROGRESS NOTE REFERRING PHYSICIAN: Salty Sorto MD SUBJECTIVE: Patient is lying in the bed at 45 degrees. Night was unremarkable, tolerated CPAP well. Doing well in therapy. No nausea. No vomiting or diarrhea. No leg pain or swelling. OBJECTIVE : GENERAL: In no acute distress. VITAL SIGNS: Temperature is 98, heart rate 71, respiratory rate is 18, blood pressure 134/54, pulse ox 96% on 2 liters nasal cannula. HEENT: Moist mucous membranes. Crowded airway. NECK: Supple. No JVD. LUNGS: Have a fair airflow with few rhonchi. HEART: S1 and S2. ABDOMEN: Soft, nontender. No organomegaly. EXTREMITIES: No edema. NEUROLOGIC: Awake and alert. Follows simple command. MEDICATIONS: He is on Brovana inhaled twice a day, vitamin D 50,000 units weekly, DuoNeb every 4 hours p.r.n., aspirin 81 mg daily, Flomax 0.4 mg, insulin coverage, Januvia 50 mg daily, Lipitor 20 mg daily, Lovenox 40 mg subcu daily, MiraLax 17 g twice a day, Percocet 10/325 one tablet every 4 hours p.r.n., Plavix 75 mg daily, Protonix 40 mg daily, Pulmicort inhaled twice a day, Remeron 15 mg at bedtime, Singulair 10 mg at bedtime, Solu-Medrol 20 mg every 12 hours, multivitamins daily. LABORATORY DATA: Shows blood sugar this morning 117. IMPRESSION AND PLAN: Chronic obstructive lung disease, sleep apnea syndrome, cardiomyopathy, valvular heart disease, coronary artery disease, history of coronary bypass surgery, diabetes, metastatic prostate cancer, renal insufficiency, activities of daily living dysfunction. Pulmonary point of view, doing okay. Continue IV and inhaled bronchodilator. Keep head at 45 degrees. Gastric prophylaxis. Fall precaution. Thank you and we will follow with you. Bon Sánchez MD
[2017-10-05] MEDS: Enoxaparin 40 mg Syringe SC SCH (05:18)
[2017-10-05] MEDS: Pantoprazole 40 mg EC Tab PO SCH (05:18)
[2017-10-05] MEDS: Insulin Reg-LOW-Coverage SC SCH (07:04)
[2017-10-05 07:17] LABS: BLOOD UREA NITROGEN 36 mg/dL (7-21); CALCIUM 8.9 mg/dL (8.4-10.5); GFR AFRICAN-AMERICAN > 60; GFR NON-AFRICAN AMERICAN 58
[2017-10-05] MEDS: Arformoterol 15 mcg/2 ml Inh Sol IH SCH (07:19)
[2017-10-05] MEDS: Budesonide 0.5 mg/2 ml Inhal Susp UD IH SCH (07:19)
[2017-10-05] MEDS: MethylPREDNISolone 40 mg Vial IVP SCH (09:46)
[2017-10-05] MEDS: POLYETHYLENE GLYCOL 3350 17 GM/Dose PACKET PO SCH (11:52)
[2017-10-05] MEDS: Multivitamin With Minerals Tab PO SCH (11:53)
--- NOTE | 2017-10-05 16:58 | PN ---
DATE: 10/05/2017 PULMONARY PROGRESS NOTE REFERRING PHYSICIAN: Salty Sorto MD SUBJECTIVE: He is lying in the bed. Night was unremarkable. Doing well in therapy. Feels better. Decreased cough. Decreased shortness of breath. No nausea. No vomiting. No diarrhea. No leg pain or leg swelling. OBJECTIVE: GENERAL: In no acute distress. VITAL SIGNS: Temperature is 98, heart rate 71, respiratory rate is 20, blood pressure 134/54, pulse ox 96% on 2 liters nasal cannula. HEENT: Moist mucous membranes. Crowded airway. NECK: Supple. No JVD. LUNGS: Have fair airflow with rhonchi. HEART: S1 and S2. ABDOMEN: Soft, nontender. No organomegaly. EXTREMITIES: There is no edema. NEUROLOGICAL: Awake and alert. Follows simple command. MEDICATIONS: Reviewed. Noted no new changes in medications since yesterday. LABORATORY DATA: Shows sodium 138, potassium 5.2, chloride 104, bicarbonate 28, BUN 36, creatinine 1.2, glucose is 92, calcium is 8.9. IMPRESSION AND PLAN: Chronic obstructive lung disease, sleep apnea syndrome, cardiomyopathy, valvular heart disease, coronary artery disease, history of coronary artery bypass surgery, diabetes, metastatic prostate cancer, metastases to the bones, history of renal insufficiency, activities of daily living dysfunction. Pulmonary point of view is stable. The patient is noncompliant with CPAP when he lost his home CPAP. I had long discussion with the patient about sleep apnea and its consequences. He expressed understanding and will go as an outpatient to [facility] for sleep study to qualify for CPAP at home. I urged him to stop smoking. He expressed understanding. Follow up electrolytes as outpatient with Dr. Sorto. Thank you and we will follow with you. Bon Sánchez MD
--- NOTE | 2017-10-06 09:00 | PN ---
DATE: 10/04/2017 SUBJECTIVE: The patient is sitting around the table with the family, no distress. He is not compliant much with the physical therapy, although he is able to walk with his arthritis and his body habitus. Seems okay with a walker. He has no chest pain, not short of breath. Took all his meds. PHYSICAL EXAMINATION: On 10/04/2017, VITAL SIGNS: Temperature 98.2, heart rate 71, blood pressure 134/54, respirations 20, saturations 96% on 2 L. HEAD AND NECK: Normal. No JVD. No thyromegaly. CHEST: Clear bilaterally. CARDIAC: First sound and second sound normal. ABDOMEN: Soft, nontender. EXTREMITIES: No edema. NEUROLOGIC: Normal. LABORATORY DATA: Blood sugar runs very good in 100s. IMPRESSION AND PLAN: 1. Acute chronic obstructive pulmonary disease exacerbations. Continue steroids IV. We will change it to p.o. before discharge. 2. Gait disorder, generalized weakness. The patient seems walking okay with the walker. He wants to go home. We will discharge him in the morning. 3. Diabetes, controlled. 4. Prostate cancer with bone metastasis, severe back pain, severe osteoarthritis, especially right hip. Continue oxycodone p.r.n. 5. Prostate cancer with bone metastasis. Continue Flomax. 6. Peripheral vascular disease, coronary artery disease, mitral valve replacement, biologic valve. Continue Plavix. Continue baby aspirin and follow up clinically. 7. The patient has poor appetite. We will include Remeron 15 mg at bedtime. 8. Urinary tract infections. Continue Augmentin 875 mg b.i.d. Continue current therapy. Plan is to continue medication plus we will discharge him in the morning. Salty Sorto MD
--- NOTE | 2017-10-07 02:39 | DS ---
HISTORY OF PRESENT ILLNESS: Patient seems doing well, eating well. No chest pain. No short of breath. Slept very well. He seems ambulating with the walker, he is on walker around and will be discharged today. He received IV Solu-Medrol, did well. No wheezing. Breathing is better, and no leg edema. Patient has high BUN and creatinine, we decreased Lasix to 20 mg, advised to continue. No potassium because of associated hyperkalemia. Patient advised to continue inhalers and diabetes pills, check his sugar, monitoring on a regular basis and finish the course of Augmentin to finish 7 days. PHYSICAL EXAMINATION: On discharge date 10/05/2017; VITAL SIGNS: Temperature 98.2, heart rate 71, blood pressure 134/54, respirations 20, saturation 96% on 2 L nasal cannula. HEAD AND NECK: Normal. No JVD. No thyromegaly. CHEST: Clear bilaterally. CARDIAC: First sounds and second sounds normal. Systolic murmur. ABDOMEN: Soft, obese, nontender. EXTREMITIES: No edema. Pulse is decreased. NEUROLOGIC: Normal. MUSCULOSKELETAL: Right hip, decreased range of motion due to severe arthritis and associated deformity, flexion deformity of the right hip. LABORATORY DATA: Blood sugar runs 117, 130. DISCHARGE DIAGNOSES: 1. Acute chronic obstructive pulmonary disease exacerbations. Patient is off Solu-Medrol IV. We will give him Medrol Dosepak. 2. Urinary tract infection. Continue Augmentin for one week. 3. Anemia, etiology multifactorial. 4. Prostate cancer with bone metastasis. 5. Severe osteoarthritis especially his lower lumbosacral area and severe right hip osteoarthritis. Continue oxycodone. 6. Diabetes type 2. 7. Noncompliance. 8. Hyperkalemia, avoid any potassium. 9. History of congestive heart failure. 10. Renal insufficiency, high BUN. PLAN: Decrease Lasix to 20. Monitor his weight and leg edema. If it happened, his weight increased, gets short of breath or increase his leg edema, he will go back to 40 mg daily and come to the office. Continue current therapy. Patient was given a prescription for basic metabolic panel plus magnesium to be done within 5 days. Salty Sorto MD
== END 2017-10-05 15:59 | disposition home health service (06) | DRG 191 ==
LOC: TRCU 18:36
PROVIDERS: ADMIT Internal Medicine; ATTEND Internal Medicine
PROC: 5A09357 Assistance with Respiratory Ventilation, Less than 24 Consecutive Hours, Continuous Positive Airway Pressure (ICD-10-PCS; 2017-10-02)
PROC: F07Z9FZ Gait Training/Functional Ambulation Treatment using Assistive, Adaptive, Supportive or Protective Equipment (ICD-10-PCS; principal; 2017-10-03)
PROC: F07Z5FZ Bed Mobility Treatment using Assistive, Adaptive, Supportive or Protective Equipment (ICD-10-PCS; 2017-10-03)
PROC: F07Z8FZ Transfer Training Treatment using Assistive, Adaptive, Supportive or Protective Equipment (ICD-10-PCS; 2017-10-03)
PROC: F07L6UZ Therapeutic Exercise Treatment of Musculoskeletal System - Lower Back / Lower Extremity using Prosthesis (ICD-10-PCS; 2017-10-04)
PROC: F08Z1FZ Dressing Techniques Treatment using Assistive, Adaptive, Supportive or Protective Equipment (ICD-10-PCS; 2017-10-04)
PROC: F08Z0FZ Bathing/Showering Techniques Treatment using Assistive, Adaptive, Supportive or Protective Equipment (ICD-10-PCS; 2017-10-04)
DX: J44.1 Chronic obstructive pulmonary disease with (acute) exacerbation (principal); C79.51 Secondary malignant neoplasm of bone; I42.9 Cardiomyopathy, unspecified; N39.0 Urinary tract infection, site not specified; C61 Malignant neoplasm of prostate; D64.9 Anemia, unspecified; I25.10 Atherosclerotic heart disease of native coronary artery without angina pectoris; M16.11 Unilateral primary osteoarthritis, right hip; E11.51 Type 2 diabetes mellitus with diabetic peripheral angiopathy without gangrene; E87.5 Hyperkalemia; I11.0 Hypertensive heart disease with heart failure; I50.9 Heart failure, unspecified; N28.9 Disorder of kidney and ureter, unspecified; G47.33 Obstructive sleep apnea (adult) (pediatric); E86.0 Dehydration; G89.29 Other chronic pain; E78.00 Pure hypercholesterolemia, unspecified; F17.200 Nicotine dependence, unspecified, uncomplicated; M54.9 Dorsalgia, unspecified; R26.9 Unspecified abnormalities of gait and mobility; R53.1 Weakness; Z95.1 Presence of aortocoronary bypass graft; Z95.2 Presence of prosthetic heart valve; Z79.82 Long term (current) use of aspirin; Z79.84 Long term (current) use of oral hypoglycemic drugs; Z91.19 Patient's noncompliance with other medical treatment and regimen

== ENCOUNTER 2017-10-18 07:27 | Inpatient (IN) | payer MEDICARE, MEDICAID ==
--- NOTE | 2017-10-18 07:54 | ED PDOC ---
Arrival/HPI - General Chief Complaint: Weakness/Neurological Deficit Historian: Patient - History of Present Illness Narrative History of Present Illness (Text): 10/18/17 07:51 82 year old male, whose past medical history includes prostate cancer with mets and COPD, who presents to the Emergency department complaining of weakness and bilateral leg swelling x several days. Patient notes associated nausea and vomiting since last night. Patient notes he hasn't moved his bowels since last week. Patient denies any shortness of breath, chest pain, headache, fever, chills, or any other complaints. Time/Duration: < week Symptom Onset: Gradual Symptom Course: Unchanged Activities at Onset: Light Context: Home Past Medical History - Provider Review Nursing Documentation Reviewed: Yes - Travel History Have you recently traveled outside [place] w/in the past 3 mons?: Yes - Past History Past History: No Previous - Infectious Disease Hx of Infectious Diseases: None - Tetanus Immunization Tetanus Immunization: Unknown - Cardiac Hx Cardiac Disorders: Yes Hx Congestive Heart Failure: Yes - Pulmonary Hx Chronic Obstructive Pulmonary Disease (COPD): Yes - Neurological Hx Neurological Disorder: No - HEENT Hx HEENT Disorder: Yes - Renal Hx Renal Failure: Yes - Endocrine/Metabolic Hx Diabetes Mellitus Type 2: Yes - Hematological/Oncological Hx Blood Disorders: Yes Hx Cancer: Yes - Integumentary Hx Dermatological Disorder: Yes - Musculoskeletal/Rheumatological Hx Arthritis: Yes - Gastrointestinal Hx Gastrointestinal Disorders: No - Genitourinary/Gynecological Hx Genitourinary Disorders: No Hx Reproductive Disorders: No - Psychiatric Hx Emotional Abuse: No Hx Physical Abuse: No Hx Substance Use: No - Past Surgical History Past Surgical History: No Previous - Surgical History Hx Open Heart Surgery: Yes - Anesthesia Hx Anesthesia: Yes Hx Anesthesia Reactions: No Hx Malignant Hyperthermia: No - Suicidal Assessment Feels Threatened In Home Enviroment: No Family/Social History Family/Social History: Unknown Family HX Smoking Status: Current Some Days Smoker Hx Alcohol Use: No Hx Substance Use: No Hx Substance Use Treatment: No Allergies/Home Meds Allergies/Adverse Reactions: Allergies No Known Allergies Allergy (Verified 10/03/17 06:13) Home Medications: Home Meds Medication Instructions Recorded Confirmed Albuterol HFA [Ventolin HFA 90 2 puff NEB Q4 PRN 04/29/17 10/18/17 mcg/actuation (8 g)] Clopidogrel [Plavix] 75 mg PO DAILY 04/29/17 10/18/17 Fluticasone/Salmeterol 250/50 2 puff NEB DAILY 04/29/17 10/18/17 [Advair Diskus 250/50] Prednisone [Perri] 5 mg PO BID 09/25/17 10/18/17 SITagliptin [Januvia] 50 mg PO DAILY 09/25/17 10/18/17 Abiraterone Acetate [Zytiga] 0 mg PO DAILY 10/18/17 10/18/17 Lubiprostone [Amitiza] 0 mcg PO DAILY 10/18/17 10/18/17 Review of Systems - Review of Systems Constitutional: Fatigue, Weight Change. absent: Fevers, Night Sweats Eyes: absent: Vision Changes, Photophobia ENT: absent: Hearing Changes Respiratory: SOB. absent: Cough, Wheezing Cardiovascular: Edema, SANDERS. absent: Chest Pain, Palpitations, Calf Pain Gastrointestinal: Abdominal Pain, Nausea, Vomiting. absent: Constipation, Diarrhea, Food Intolerance Genitourinary Male: Urinary Output Changes. absent: Dysuria, Hematuria Musculoskeletal: absent: Back Pain, Neck Pain Skin: absent: Rash Neurological: Dizziness. absent: Headache, Focal Weakness, Gait Changes, Speech Changes, Disequilibrium Endocrine: absent: Polyuria Hemo/Lymphatic: absent: Easy Bleeding Psychiatric: absent: Depression Physical Exam - Physical Exam Narrative Physical Exam (Text): 10/18/17 07:54 Head: Atraumatic. Normocephalic. Eyes: PERRL. EOMI. Conjunctivae are pale. Soft tissue swelling to eyelid. ENT: Mucous membranes are dry. Oropharynx is clear and symmetric. No stridor. Neck: Supple. Full ROM. Positive JVD. No lymphadenopathy. Cardiovascular: Irregular rate and rhythm. Systolic murmur. Pulmonary/Chest: Bilateral rales with mild wheezing. No accessory muscle usage. Not tachypneic. Abdominal: Soft and non-distended. Mild tenderness. No rebound, guarding, or rigidity. No organomegaly. Good bowel sounds. Back: No CVA tenderness. There is paraspinal thoracic and lumbar spinal tenderness. Genitourinary: no testicular erythema or edema Rectal: no melena or grossly bloody stool Extremities: Bilateral pitting edema. No cyanosis. No clubbing. Full range of motion in all extremities. No calf tenderness. Skin: Skin is warm and dry. No petechiae. No purpura. Neurological: Alert, awake, and oriented to person, place, time, and situation. Normal speech. No meningeal signs. Motor and sensory exam intact. Psychiatric: Good eye contact. Normal interaction, affect, and behavior. 10/18/17 12:21 Vital Signs Reviewed: Yes Vital Signs Temp Pulse Resp BP Pulse Ox 10/18/17 10:12 100.0 F H 86 20 90/44 L 98 10/18/17 09:52 87 17 90/44 L 98 10/18/17 08:37 100.3 F H 10/18/17 07:31 98.2 F 108 H 18 99/47 L 94 L Temperature: Febrile Blood Pressure: Hypotensive Pulse: Tachycardic Respiratory Rate: Normal Appearance: Positive for: Ill-Appearing, Uncomfortable Pain Distress: Mild Mental Status: Positive for: Alert and Oriented X 3 Medical Decision Making ED Course and Treatment: 10/18/17 08:41 Impression: 82 year old male presents to the emergency department complaining of weakness and bilateral leg swelling x several days. Plan: -- ABG -- VBG -- CT Abd/Pelvis -- EKG -- Chest X-ray -- Sodium Chloride -- Duoneb -- Cardiac Enzymes -- Blood Culture -- Urine Culture -- UA -- Reassess and disposition Progress Notes: Patient's history supplemented by son at bedside, who states that patient was doing well initially after recent discharge, but started to become "very weak" over the past week. On exam he is hypotensive, NO active bleeding or melena noted on rectal exam. Rectal temperature elevated and initial VBG lactate is elevated. Due to hypotension, tachycardia, elevated lactate, fever, CODE SEPSIS CALLED. IV fluids however given cautiously as patient exhibits signs of congestive heart failure with hypoxia and elevated BNP. Despite IV fluids, SBP remains 90s. Will administer fluid in ICU setting as patient is at risk for heart failure given history of worsening lower extremity edema and past cardiac history. Patient is more anemic when compared to recent Hgb from past admission. Cr also elevated. Case discussed with Dr. Sorto. Will admit to ICU given MULTIPLE abnormalities noted including but not limited to possible sepsis, hypotension, anemia, renal failure. 10/18/17 09:23 Chest X-ray reviewed, shows: LUNGS: No active pulmonary disease. PLEURA: No significant pleural effusion identified, no pneumothorax apparent. CARDIOVASCULAR: Mild cardiomegaly OSSEOUS STRUCTURES: No significant abnormalities. VISUALIZED UPPER ABDOMEN: Normal. OTHER FINDINGS: Pacemaker IMPRESSION: No active disease. 10/18/17 10:13 CT abd/pelvis reviewed, shows: LOWER THORAX: Unremarkable. LIVER: Unremarkable. No gross lesion or ductal dilatation. GALLBLADDER AND BILE DUCTS: Unremarkable. PANCREAS: Unremarkable. No gross lesion or ductal dilatation. SPLEEN: Unremarkable. ADRENALS: Unremarkable. No mass. KIDNEYS AND URETERS: The previous study showed right-sided hydronephrosis and hydroureter. This has improved. There is minimal perinephric stranding around the right kidney. There is new perinephric stranding and fluid around the left kidney without evidence of hydronephrosis. This could be secondary to pyelonephritis. Clinical correlation is suggested. VASCULATURE: Unremarkable. No aortic aneurysm. BOWEL: Unremarkable. No obstruction. No gross mural thickening. There is a fat containing left inguinal hernia measuring 4.8 cm in diameter. APPENDIX: Unremarkable. Normal appendix. PERITONEUM: Unremarkable. No free fluid. No free air. LYMPH NODES: Unremarkable. No enlarged lymph nodes. BLADDER: Unremarkable. REPRODUCTIVE: The prostate is decreased in size measuring 5.9 cm in height and 4.8 cm in with compare 27.3 x 6.3 cm in the coronal plane. BONES: There is bony sclerosis throughout the spine consistent with metastatic disease. Severe degenerative changes are seen in both hips. OTHER FINDINGS: None. IMPRESSION: There is new perinephric stranding and fluid around the left kidney without evidence of hydronephrosis. This could be secondary to pyelonephritis. Clinical correlation is suggested Patient is noted have likely bony metatatic disease from review of past imaging studies. He currently has no headache and is able to move his lower extremities with NO saddle anesthesia or bowel/bladder incontinence, although back pain requires serial exams as well, possibly further imaging if leg numbness and pain worsen although current exam reveals he is able to lift both legs off of bed with equal strength. IV antibiotics ordered, suspect possible component of pyelonephritis. Patient evaluated by bed teacher, Dr. Henson, who accepts patient to ICU. Patient with elevated troponin, although denie chest pain currently, denies pleuritic pain. Cannot exclude NSTEMI, also possible renal component. Will consult cardiology. - Critical Care Critical Care Minutes: 30 minutes - Lab Interpretations Lab Results: 10/18/17 08:03 10/18/17 08:03 Lab Results 10/18/17 08:03: PT 14.7 H, INR 1.27, APTT 17.8 L 10/18/17 08:03: WBC 10.3 D, RBC 3.19 L, Hgb 9.3 L D, Hct 27.5 L, MCV 86.2 D, MCH 29.2, MCHC 33.8, RDW 22.9 H, Plt Count 124, MPV 10.0, Gran % 70.2 H, Lymph % (Auto) 25.6, Rosebud % (Auto) 3.7, Eos % (Auto) 0.2 L, Baso % (Auto) 0.3, Gran # 7.24 H, Lymph # (Auto) 2.6, Rosebud # (Auto) 0.4, Eos # (Auto) 0.0, Baso # (Auto) 0.03, Corrected WBC (Man) 8.7, Neutrophils % (Manual) 81 H, Band Neutrophils % 7 H, Lymphocytes % (Manual) 11 L, Monocytes % (Manual) 1, Nucleated RBC % 19, Platelet Evaluation Low 10/18/17 08:03: Sodium 138, Chloride 103, Potassium 5.2 H, Carbon Dioxide 19 L, Anion Gap 20, BUN 71 H, Creatinine 3.0 H, Est GFR ( Amer) 24, Est GFR ( Non-Af Amer) 20, Random Glucose 111 H, Calcium 8.9, Magnesium 2.4 H, Total Bilirubin 1.4 H, AST 93 H D, ALT 32, Alkaline Phosphatase 160 H D, Lactate Dehydrogenase 2951 H, Total Creatine Kinase 289 H, CK-MB (CK-2) 2.0, CK-MB (CK-2 ) % Cancelled, Troponin I 0.18 H* D, NT-Pro-B Natriuret Pep 73785 H, Total Protein 6.2, Albumin 3.5, Globulin 2.7, Albumin/Globulin Ratio 1.3 10/18/17 08:03: pO2 31, VBG pH 7.30 L, VBG pCO2 40.0, VBG HCO3 19.7 L, VBG Total CO2 20.9 L, VBG O2 Sat (Calc) 56.5, VBG Base Excess -6.3 L, VBG Potassium 5.3 H, Sodium 134.0, Chloride 105.0, Glucose 111 H, Lactate 3.1 H, FiO2 21.0, Venous Blood Potassium 5.3 H 10/18/17 07:53: pCO2 27 L, pO2 57.0 L, HCO3 16.3 L, ABG pH 7.39, ABG Total CO2 17.1 L, ABG O2 Saturation 91.7 L, ABG Base Excess -7.1 L, ABG Potassium 4.8, Sodium 133.0, Chloride 108.0 H, Glucose 105, Lactate 2.1, FiO2 21.0, Arterial Blood Potassium 4.8 10/18/17 07:39: POC Glucose (mg/dL) 92 - RAD Interpretation Radiology Orders: 10/18/17 07:54 CHEST PORTABLE [RAD] Stat 10/18/17 08:38 ABD & PELVIS W/O PO OR IV CONT [CT] Stat Plastic Sheets Supervisor: Radiologist - EKG Interpretation EKG Interpretation (Text): 10/18/17 12:22 irregular rhythm rate of 108, electronic ventricular pacemaker Interpreted by ED Physician: Yes Type: 12 lead EKG - Medication Orders Current Medication Orders: Heparin Sodium (Porcine) (Heparin) 5,000 units SC Q8H EFRAIN PRN Reason: Protocol Sodium Bicarbonate 150 meq/ (Dextrose) 1,150 mls @ 150 mls/hr IV .Q7H40M EFRAIN Meropenem 500 mg/ Sodium (Chloride) 50 mls @ 100 mls/hr IVPB Q12 EFRAIN PRN Reason: Protocol Stop: 10/27/17 22:01 NOREPINEPHRINE BIT/0.9 % NACL (Levophed 4 Mg/ 250 Ml Ns Premixed) 4 mg in 250 mls @ 15 mls/hr IV .[id number] PRN; Protocol; 4 MCG/MIN PRN Reason: TITRATE PER MD ORDER Vasopressin 20 units/ Sodium (Chloride) 101 mls @ 9.09 mls/hr IV .Q11H7M EFRAIN; 0.03 U/MIN PRN Reason: Protocol Pantoprazole Sodium (Protonix Inj) 40 mg IVP DAILY EFRAIN Discontinued Medications Albuterol/Ipratropium (Duoneb 3 Mg/0.5 Mg (3 Ml) Ud) 3 ml IH STAT STA Stop: 10/18/17 08:05 Last Admin: 10/18/17 08:22 Dose: 3 ml Aspirin (Aspirin Chewable) 81 mg PO STAT STA Stop: 10/18/17 08:45 Last Admin: 10/18/17 09:24 Dose: 81 mg Sodium Chloride (Sodium Chloride 0.9%) 500 mls @ 1,000 mls/hr IV .Q30M STA Stop: 10/18/17 08:24 Last Admin: 10/18/17 08:22 Dose: 1,000 mls/hr eMAR Start Stop Document 10/18/17 08:22 [email or web address] (Rec: 10/18/17 08:23 [email or web address] [id number]) Intravenous Solution Start Date 10/18/17 Start Time 08:23 End Date 10/18/17 End time 08:53 Total Infusion Time 30 Ceftriaxone Sodium (Rocephin 1 Gram Ivpb) 1 gm in 100 mls @ 200 mls/hr IVPB ONCE STA PRN Reason: Protocol Stop: 10/18/17 09:02 Last Admin: 10/18/17 09:26 Dose: 200 mls/hr eMAR Start Stop Document 10/18/17 09:26 [email or web address] (Rec: 10/18/17 09:27 [email or web address] [id number]) Intravenous Solution Start Date 10/18/17 Start Time 09:26 End Date 10/18/17 Sodium Chloride (Sodium Chloride 0.9%) 500 mls @ 1,000 mls/hr IV .Q30M STA Stop: 10/18/17 09:18 Last Admin: 10/18/17 09:27 Dose: 1,000 mls/hr eMAR Start Stop Document 10/18/17 09:27 [email or web address] (Rec: 10/18/17 09:27 [email or web address] [id number]) Intravenous Solution Start Date 10/18/17 Start Time 09:27 End Date 10/18/17 Sodium Bicarbonate 150 meq/ (Dextrose) 1,150 mls @ 100 mls/hr IV .[id number] EFRAIN Vancomycin HCl (Vancomycin 1gm) 1 gm in 250 mls @ 167 mls/hr IVPB STAT STA PRN Reason: Protocol Stop: 10/18/17 11:42 Meropenem (Merrem Iv 1 Gm Premix) 50 mls @ 100 mls/hr IVPB Q12 EFRAIN PRN Reason: Protocol - Scribe Statement The provider has reviewed the documentation as recorded by the Scribe Alisia Lunsford All medical record entries made by the Buzz were at my direction and personally dictated by me. I have reviewed the chart and agree that the record accurately reflects my personal performance of the history, physical exam, medical decision making, and the department course for this patient. I have also personally directed, reviewed, and agree with the discharge instructions and disposition. Disposition/Present on Arrival - Present on Arrival Any Indicators Present on Arrival: No History of DVT/PE: No History of Uncontrolled Diabetes: No Urinary Catheter: No History of Decub. Ulcer: No History Surgical Site Infection Following: None - Disposition Have Diagnosis and Disposition been Completed?: Yes Diagnosis: Sepsis, Acute renal failure, Elevated troponin, Lower extremity edema, Congestive heart failure (CHF), COPD (chronic obstructive pulmonary disease), Anemia, Back pain Disposition: HOSPITALIZED Disposition Time: 09:05 Patient Plan: Admission, ICU Condition: CRITICAL
[2017-10-18] MEDS ORDERED: Sodium Chloride 0.9% 500 ML IV STA ×2 (07:55→08:49)
[2017-10-18] MEDS ORDERED: Albuterol-Ipratrop 3 mg / 0.5 (3 ml) UD IH STA (08:04)
[2017-10-18 08:16] LABS: VENOUS BLOOD GAS BASE EXCESS -6.3 mmol/L (0.0-2.0); VENOUS BLOOD GAS PO2 31 mm/Hg (30-55)
[2017-10-18 08:17] LABS: BASO # 0.03 K/mm3 (0.0-2.0); BASO % 0.3 % (0.0-3.0); EOS % 0.2 % (1.5-5.0); GRAN # 7.24 (1.4-6.5); GRAN % 70.2 % (50.0-68.0); LYMPH # 2.6 (1.2-3.4); LYMPH % 25.6 % (22.0-35.0); MEAN CELL VOLUME 86.2 fl (80.0-105.0); MEAN CORPUSCULAR HEMOGLOBIN 29.2 pg (25.0-35.0); MEAN CORPUSCULAR HGB CONC 33.8 g/dl (31.0-37.0); MONO # 0.4 (0.1-0.6); MONO % 3.7 % (1.0-6.0); PLATELET COUNT 124 10^3/uL (120.0-450.0); RBC 3.19 10^6/uL (3.5-6.1); RED CELL DISTRIBUTION WIDTH 22.9 % (11.5-14.5); WHITE BLOOD COUNT 10.3 10^3/ul (4.5-11.0)
[2017-10-18 08:21] LABS: HEMOGLOBIN 9.3 g/dL (14.0-18.0)
[2017-10-18 08:22] LABS: INR 1.27; PROTHROMBIN TIME 14.7 SECONDS (9.4-12.5)
[2017-10-18 08:32] LABS: ALB/GLOB RATIO 1.3 (1.1-1.8); ALBUMIN 3.5 g/dL (3.0-4.8); CALCIUM 8.9 mg/dL (8.4-10.5)
[2017-10-18] MEDS ORDERED: cefTRIAXone 1 gm 1 GM/100 ML BAG IVPB STA (08:33)
[2017-10-18 08:34] LABS: PARTIAL THROMBOPLASTIN TIME 17.8 Seconds (25.1-36.5)
[2017-10-18 08:38] LABS: TROPONIN I 0.18 ng/mL
[2017-10-18 08:45] LABS: ARTERIAL BLOOD GAS HCO3 16.3 mmol/L (21-28); ARTERIAL BLOOD GAS O2 SAT 91.7 % (95-98); ARTERIAL BLOOD GAS PCO2 27 mm/Hg (35-45); ARTERIAL BLOOD GAS PH 7.39 (7.35-7.45); ARTERIAL BLOOD GAS TCO2 17.1 mmol.L (22-28)
--- NOTE | 2017-10-18 08:52 | RAD ---
Date of service: 10/18/2017 HISTORY: sob, weakness COMPARISON: 09/25/2017 FINDINGS: LUNGS: No active pulmonary disease. PLEURA: No significant pleural effusion identified, no pneumothorax apparent. CARDIOVASCULAR: Mild cardiomegaly OSSEOUS STRUCTURES: No significant abnormalities. VISUALIZED UPPER ABDOMEN: Normal. OTHER FINDINGS: Pacemaker IMPRESSION: No active disease.
[2017-10-18 09:57] LABS: BAND 7 % (0-2); CORRECTED WBC 8.7 K/mm3 (4.5-11.0); LYMPHOCYTE 11 % (22.0-35.0); MONOCYTE 1 % (1.0-6.0); NEUTROPHIL 81 % (50.0-70.0); NUCLEATED RED BLOOD CELL 19 %; PLATELET ESTIMATE LOW (NORMAL)
--- NOTE | 2017-10-18 10:03 | CT ---
Date of service: 10/18/2017 PROCEDURE: CT Abdomen and Pelvis without intravenous contrast HISTORY: vomiting, abdominal pain COMPARISON: CT of the abdomen 09/28/2017 TECHNIQUE: Without contrast. Contrast dose: Radiation dose: Total exam DLP = 837 mGy-cm. This CT exam was performed using one or more of the following dose reduction techniques: Automated exposure control, adjustment of the mA and/or kV according to patient size, and/or use of iterative reconstruction technique. FINDINGS: LOWER THORAX: Unremarkable. LIVER: Unremarkable. No gross lesion or ductal dilatation. GALLBLADDER AND BILE DUCTS: Unremarkable. PANCREAS: Unremarkable. No gross lesion or ductal dilatation. SPLEEN: Unremarkable. ADRENALS: Unremarkable. No mass. KIDNEYS AND URETERS: The previous study showed right-sided hydronephrosis and hydroureter. This has improved. There is minimal perinephric stranding around the right kidney. There is new perinephric stranding and fluid around the left kidney without evidence of hydronephrosis. This could be secondary to pyelonephritis. Clinical correlation is suggested. VASCULATURE: Unremarkable. No aortic aneurysm. BOWEL: Unremarkable. No obstruction. No gross mural thickening. There is a fat containing left inguinal hernia measuring 4.8 cm in diameter. APPENDIX: Unremarkable. Normal appendix. PERITONEUM: Unremarkable. No free fluid. No free air. LYMPH NODES: Unremarkable. No enlarged lymph nodes. BLADDER: Unremarkable. REPRODUCTIVE: The prostate is decreased in size measuring 5.9 cm in height and 4.8 cm in with compare 27.3 x 6.3 cm in the coronal plane. BONES: There is bony sclerosis throughout the spine consistent with metastatic disease. Severe degenerative changes are seen in both hips. OTHER FINDINGS: None. IMPRESSION: There is new perinephric stranding and fluid around the left kidney without evidence of hydronephrosis. This could be secondary to pyelonephritis. Clinical correlation is suggested
[2017-10-18] MEDS ORDERED: Vancomycin 1gm in NS 250ml 1 GM/250 ML BAG IVPB STA (10:13)
[2017-10-18] MEDS ORDERED: Meropenem IV 1 gm in NS 50 ML IVPB SCH (10:15)
[2017-10-18] MEDS ORDERED: Sodium Bicarbonate 8.4% 150 MEQ in Dextrose 5% In Water 1,000 ML IV SCH ×2 (10:15→10:20)
[2017-10-18 11:29] LABS: URINE BILIRUBIN MODERATE (NEGATIVE); URINE BLOOD LARGE (NEGATIVE); URINE GLUCOSE (UA) NEGATIVE (NEGATIVE); URINE LEUKOCYTE ESTERASE LARGE Leu/uL (NEGATIVE); URINE PROTEIN 100 mg/dL (<30 mg/dL)
[2017-10-18 11:31] LABS: URINE APPEARANCE SL CLOUDY (CLEAR); URINE COLOR DARK YELLOW (YELLOW)
[2017-10-18 11:33] LABS: URINE RBC TNTC /hpf (0-2)
[2017-10-18 11:34] LABS: URINE AMORPHOUS SEDIMENT FEW; URINE BACTERIA MANY (NEG); URINE COARSE GRANULAR CAST TRACE /hpf (0-2); URINE EPITHELIAL CELLS 0 - 2 /hpf (0-5); URINE FINE GRANULAR CAST 0 - 2 /hpf (0-2); URINE WBC TNTC /hpf (0-6)
--- NOTE | 2017-10-18 11:52 | PCM.PROC ---
<ToribioSantos - Last Filed: 10/18/17 11:48> Procedures Attestation:: I certify that I have explained the specified Operation(s) or Procedure(s), risks, benefits and reasonable alternatives to the Patient and/or other person responsible. The opportunity was given to ask questions and all questions answered - Central Line Placement Right Internal Jugular Triple Lumen Catheter Aseptic technique was employed throughout the procedure: Hand Hygiene done prior to procedure, Full sterile barriers (mask, hair cover, sterile gown, sterile gloves), Full body sterile drape, Chloraprep Antiseptic: 30 second prep for IJ or SC sites CVP Time Out Performed: Yes Pt. Placed on Pulse Ox Monitor: Yes Central Line Prep: Chlorhexidine-Alcohol Combination Local Anesthesia Used: Lidocaine 1% Amount of Anesthesia Used (mls): 10 Ultrasound Used for Placement: Yes Central Line Lumen Inserted: triple Central Line Length: 20 cm (22 cm) Post Procedure: Sutured in Place, Good Blood Return, All Ports Aspirated, Flushed, Capped, Sterile Dressing Applied Secured by: Securement device Post procedure dressing: Gauze Post Procedure X-Ray: Yes Patient Tolerated Procedure: Well, No Complications (Patient tolerated procedure very well with minimal pain) Immediate Complications: None Additional Comments: Procedure supervised by Dr. Chávez, all critical elements were performed by and supervised by Dr. Chávez <Jass Henson - Last Filed: 10/18/17 12:37> Attending/Attestation - Attestation I have personally seen and examined this patient.: Yes I have fully participated in the care of the patient.: Yes I have reviewed all pertinent clinical information, including history, physical exam and plan: Yes Notes (Text): 10/18/17 12:36 Procedure: right IJ Indication: vasopressor supprt After obtaining informed consent operational area was sterilzed, maximum barrier precautions used. TO performed. RIJV was cannulated by sterile seldinger technique under real time ultrasound guidance. Guidewire removed, hemostasis achieved, sterile dressings applied. CXR: no PTX
[2017-10-18] MEDS ORDERED: Piperacillin/Tazobact 2.25gm 2.25 GM/100 ML BAG IVPB SCH (12:00)
--- NOTE | 2017-10-18 12:04 | RAD ---
Date of service: 10/18/2017 PROCEDURE: Portable chest HISTORY: TLC placement COMPARISON: Earlier same day TECHNIQUE: FINDINGS: There is a new internal jugular catheter that terminates at the junction of the SVC and right atrium. There is no pneumothorax. The lungs remain clear IMPRESSION: Satisfactory position of right central catheter
[2017-10-18] MEDS ORDERED: NOREPINEPHRINE BIT/0.9 % NACL 4 MG/250 ML BAG IV PRN (12:06)
[2017-10-18 12:22] LABS: VENOUS BLOOD GAS BASE EXCESS -7.3 mmol/L (0.0-2.0); VENOUS BLOOD GAS PO2 110 mm/Hg (30-55); VENOUS BLOOD PH 7.29 (7.32-7.43)
--- NOTE | 2017-10-18 12:44 | CARD ---
APPROVED REPORT Date of service: 10/18/2017 EKG Measurement Heart [id number] <Conclusion> Electronic ventricular pacemaker
[2017-10-18] MEDS: Sodium Bicarbonate 8.4% 80 MEQ in Dextrose 5% In Water 1,000 ML IV SCH (14:00)
[2017-10-18 14:51] VITALS: BMI 24.3
[2017-10-18] MEDS ORDERED: Morphine 2 mg/ml ISec IVP PRN (15:45)
--- NOTE | 2017-10-18 17:09 | CON ---
Copied To: Jass Henson MD Attending MD: Jass Henson MD DATE: 10/18/2017 HISTORY OF PRESENT ILLNESS: The patient is an 82-year-old gentleman with history of prostate cancer with mets to the bones, hydronephrosis, COPD, who presented to emergency department with weakness and bilateral swelling for several days. He also reports some nausea, vomiting started last night. There are no aggravating or alleviating factors. There is no previous history of similar symptoms. The patient reports that he has been constipated over the last week. Denies any shortness of breath, chest pain, headache, fever, chills. Some very mild tenderness in the right mesogastrium was reported when actively asked. PAST MEDICAL HISTORY: COPD, prostate cancer with mets to bones, diabetes mellitus type 2 and coronary artery disease. FAMILY HISTORY: Noncontributory. SOCIAL HISTORY: The patient is an active smoker. No alcohol or illicit drug abuse. HOME MEDICATIONS: Plavix, Advair, prednisone 5 mg p.o. b.i.d., Januvia, Zytiga, lubiprostone. PHYSICAL EXAMINATION: VITAL SIGNS: Temperature 100.3, heart rate 87, blood pressure 90/44, respiratory rate 17, oxygen saturation 94% on room air. ENT: Head and neck atraumatic. LUNGS: Clear to auscultation bilaterally. HEART: Regular rate and rhythm. S1 and S2 normal. ABDOMEN: Soft, nontender (despite the fact that the patient says that his abdomen a little bit tender before palpation). No rebound tenderness. No voluntary or involuntary guarding. MUSCULOSKELETAL: 3-4+ bilateral pedal and ankle edema. SKIN: Moist. PSYCH: The patient is alert, awake and oriented x3. CT of the abdomen and pelvis revealed new perinephric stranding and fluid around the left kidney without evidence of hydronephrosis. This could be secondary to pyelonephritis. Clinical correlation is recommended. Bony sclerosis throughout the spine consistent with metastatic disease. Severe degenerative changes seen in both hips. LABORATORY DATA: Sodium 138, potassium 5.2, chloride 103, carbon dioxide 19, BUN 71, creatinine 3, glucose 111, magnesium 2.4, total bilirubin 1.4, AST 93, ALT 32, alkaline phosphatase 160, LDH 2951, total CPK 289. Troponin 0.18. Blood gas showed pH 7.39/27/57; however, subsequent VBG showed pH 7.3, lactic acid 3.1, up from 2.1. INR 1.27, PT 17.8. ASSESSMENT AND PLAN: This is an 82-year-old gentleman who presented with what appears to be septic shock with multiorgan system failure including acute kidney injury, transaminitis, septic cardiomyopathy, lactic acidosis. The patient is getting fluid resuscitation. Broad-spectrum antibiotics were started. Septic workup initiated including procalcitonin, blood and urine culture. Cooper catheter will be placed and urine output monitored with a goal of more than 0.5 mL/kg/hour. If blood pressure remains low despite fluid resuscitation, central line will be placed and pressors will be started. Troponin will be trended. Possibility of primary coronary event is there; however, I suspect that troponin is leaking due to septic cardiomyopathy. Cardiology consult is pending (Dr. Blanc). We will maintain blood glucose within 140-180 range according to night sugar trial. We will hold on oral and hypoglycemic medication and start with Accu-Chek every 6 hours and sliding scale for coverage. We will maintain mean arterial pressure more than 65, avoid hyperchloremia, treat sepsis. Get Nephrology and Urology on board. Maintain euvolemia and euglycemia. Once fluid resuscitated, we will proceed with conservative fluid and oxygen management. The patient will be going to ICU for further management and monitoring. ccm time 40 min Jass Henson MD [id number]
--- NOTE | 2017-10-18 17:25 | CON ---
Copied To: Conrad Arnold MD Attending MD: Conrad Arnold MD DATE: 10/18/2017 LOCATION: The patient is in the ICU. CHIEF COMPLAINT: Low-grade temperature, hypotension and weakness. HISTORY OF PRESENT ILLNESS: This is an 82-year-old male with history of mitral valve replacement, mitral valve endocarditis, prostate cancer, chronic obstructive lung disease, diabetes mellitus and prostate cancer with metastases to the bone. The patient has had urinary tract infections in the past with E. coli and Enterococcus in the past and recent hospitalization last month, who is now admitted to the emergency room with the chief complaint of weakness and found to have a fever. Infectious Disease consultation requested. The patient has some mild abdominal discomfort. No nausea. There is mild shortness of breath, minimal cough. No headaches. No rash. REVIEW OF SYSTEMS: A 12-point review of systems is performed. PAST MEDICAL HISTORY: Significant for coronary artery disease, peripheral vascular disease, congestive heart failure, Crohn's disease, prostate cancer with metastases, hypertension, diabetes mellitus, renal insufficiency, arthritis and prostate cancer. PAST SURGICAL HISTORY: Significant for AICD pacemaker and mitral valve replacement and coronary artery bypass graft. ALLERGIES: THE PATIENT HAS NO KNOWN ALLERGIES. MEDICATIONS AT HOME: Reveals the patient to have Remeron and inhaler. The patient is on 5 mg p.o. prednisone b.i.d. and Januvia, Protonix, Lasix and Plavix. PHYSICAL EXAMINATION: GENERAL: On exam, he is in bed. VITAL SIGNS: Temperature of 100.3, heart rate of 108, blood pressure is 70/40 systolic, saturations 94% on O2 saturation, respiratory rate of 20. The patient's BMI is 24. HEENT: Examination of HEENT is unremarkable. NECK: Supple. LUNGS: Have decreased breath sounds. HEART: Normal S1, S2. ABDOMEN: Soft, nontender. No guarding. No rebound. LABORATORY DATA: Laboratory examination reveals a white count of 10,000, hemoglobin of 9, platelets of 124. Coagulation is noted. The chemistries reveals a BUN of 71, creatinine of three. The creatinine prior to that was 1.9 on 10/10/2017, prior to that it was 1.2 on 10/05/2017. The patient had a CAT scan of the abdomen and pelvis, which reveals to be positive for left pyelonephritis. There is also bony lesions found consistent with metastatic disease. Also a right-sided hydronephrosis, hydroureter from the previous studies shown has minimal perinephric stranding around the right kidney. There is a new perinephric stranding around the left kidney. The patient is started on pressors. ASSESSMENT AND PLAN: An 82-year-old male with a history of coronary artery disease, chronic obstructive lung disease, diabetes mellitus, renal disease, arthritis, hypertension, diabetes mellitus, Crohn's disease, congestive heart failure, prostate cancer with bone metastases, history of mitral valve endocarditis and pacemaker, automatic implantable cardioverter-defibrillator. Admitted with septic shock with left pyelonephritis and acute kidney injury, [id number] myocardial infarction and must rule out endocarditis and bacteremia and we will check on the urinalysis, urine culture, blood cultures. The patient was given a dose of vancomycin in the emergency room. We will add meropenem renally adjusted. We will follow closely with you. Pending panculture and workup results. The chest x-ray is reported to be negative. Conrad Arnold MD
--- NOTE | 2017-10-18 19:51 | CP.PCM.PN ---
Subjective - Date & Time of Evaluation Date of Evaluation: 10/18/17 Time of Evaluation: 19:50 - Subjective Subjective: Spoke to daughter Silvia as per whom we should intubate patient if needed but we should not perform CPR. Discussed with . Order was entered to above effect. Objective - Vital Signs/Intake and Output Vital Signs (last 24 hours): Temp Pulse Resp BP Pulse Ox 99.0 F 79 19 112/50 L 90 L 10/18/17 19:40 10/18/17 19:40 10/18/17 19:40 10/18/17 19:30 10/18/17 19:40 - Medications Medications: Current Medications Aspirin (Ecotrin) 81 mg PO DAILY EFRAIN Clopidogrel Bisulfate (Plavix) 75 mg PO DAILY [facility] Last Admin: 10/18/17 15:46 Dose: 75 mg Heparin Sodium (Porcine) (Heparin) 5,000 units SC Q8H EFRAIN PRN Reason: Protocol Last Admin: 10/18/17 19:32 Dose: 5,000 units Meropenem 500 mg/ Sodium (Chloride) 50 mls @ 100 mls/hr IVPB Q12 EFRAIN PRN Reason: Protocol Stop: 10/27/17 22:01 NOREPINEPHRINE BIT/0.9 % NACL (Levophed 4 Mg/ 250 Ml Ns Premixed) 4 mg in 250 mls @ 15 mls/hr IV .[id number] PRN; Protocol; 4 MCG/MIN PRN Reason: TITRATE PER MD ORDER Last Admin: 10/18/17 12:29 Dose: 4 mcg/min, 15 mls/hr Vasopressin 20 units/ Sodium (Chloride) 101 mls @ 9.09 mls/hr IV .Q11H7M EFRAIN; 0.03 U/MIN PRN Reason: Protocol Last Admin: 10/18/17 13:40 Dose: 9.09 mls/hr Sodium Bicarbonate 80 meq/ (Dextrose) 1,080 mls @ 150 mls/hr IV .Q7H12M EFRAIN Morphine Sulfate (Morphine) 2 mg IVP Q4H PRN PRN Reason: Pain, severe (8-10) Last Admin: 10/18/17 16:01 Dose: 2 mg Pantoprazole Sodium (Protonix Inj) 40 mg IVP DAILY [facility] Last Admin: 10/18/17 12:33 Dose: 40 mg - Labs Labs: PT 14.7 SECONDS (9.4-12.5) H 10/18/17 08:03 INR 1.27 10/18/17 08:03 APTT 17.8 Seconds (25.1-36.5) L 10/18/17 08:03
--- NOTE | 2017-10-18 20:29 | CON ---
Copied To: Bon Caba MD Attending MD: Bon Caba MD DATE: 10/18/2017 LOCATION: The patient is in CCU, 129 - bed 3. REASON FOR CONSULTATION: Swelling of legs, coronary artery disease, troponin elevation, renal failure, history of CABG, and history of mitral valve replacement. HISTORY OF PRESENT ILLNESS: The patient is an 82-year-old -[place] male admitted with a history that since last four days, he has noted his legs are getting swelling. He denied any chest pain, shortness of breath, or palpations. The patient has known CABG, diabetes, hypertension, hyperlipidemia, obesity, history of mitral valve endocarditis, status post mitral valve replacement. PAST MEDICAL HISTORY: Significant for coronary artery disease; paroxysmal atrial fibrillation; history of mitral valve endocarditis, status post mitral valve replacement; non-ST segment elevation of mycoardial infarction, status post 5-vessel bypass surgery; COPD; active tobacco abuse; hypertension, sleep apnea; noncompliance with medication; history of arthritis; history of prostatic CA; status post permanent pacemaker insertion. PERSONAL HISTORY: The patient continues to smoke, but half pack a day. Denies any alcohol abuse. ALLERGIES: THE PATIENT DENIES ANY ALLERGIES. MEDICATIONS: The patient's list of medications at home; Remeron 15 mg p.o. at bedtime, Ventolin 2 puffs nebulizer every 4 hours p.r.n., prednisone 5 mg b.i.d., Amitiza daily, Zytiga daily, Januvia 50 mg p.o. daily, Protonix 40 daily, furosemide 20 daily, Advair Diskus 2 puffs nebulizer daily, Plavix 75 mg daily. As the patient is noncompliant, so we do no know what he was taking at home . PREVIOUS CARDIAC WORKUP: The patient had echocardiogram on 09/26/2017, which showed left ventricle is in normal size. There is borderline concentric left ventricular hypertrophy. Systolic function is mildly impaired with EF 45% to 50%. Pacemaker lead in the right ventricle. Right atrium is mildly dilated. 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 REVIEW OF SYSTEMS: All the systems reviewed, positive mentioned in the history. PHYSICAL EXAMINATION: VITAL SIGNS: Blood pressure 90/44, respirations 17, pulse 87, and temperature 100.3. HEENT: Head is normocephalic. Eyes: Pupils normal. Conjunctivae slightly pale. NECK: JVP is low. Carotid equal. Thorax AP diameter normal. LUNGS: Clear. CARDIOVASCULAR: S1 and S2 with systolic murmur grade II/. No rub. ABDOMEN: Soft and nontender. No organomegaly. Bowel sounds normal. EXTREMITIES: The patient has some edema on the leg, but that can be also venous stasis. LABORATORY DATA: Showed WBC 10.3, hemoglobin 9.3, hematocrit 27.5, and platelets 124. Sodium 138, potassium 5.2. BUN 71, creatinine 3. Glucose 92. Calcium 8.9, magnesium 2.4. Total bilirubin 1.4, AST 93, ALT 32, alkaline phosphatase 160. LDH 2951. CPK 289, troponin 0.18. BNP 19,500. Chest x-ray, cardiomegaly, pacemaker leads, lungs are clear. EKG showed sinus rhythm, right bundle branch block, PACs. DIAGNOSES: Renal failure, dehydration, possible sepsis. The patient's BUN on 10/07/2017, was 36 and creatinine was 1.2. Coronary artery disease status post 5-vessel bypass surgery, status post mitral valve replacement with bioprosthetic valve due to endocarditis and 5-vessel coronary artery bypass graft. Hypertension, hyperlipidemia, history of non-segment elevation myocardial infarction, obesity, diabetes, hypertension, hyperlipidemia, anemia, mild left ventricular systolic dysfunction as per the echo report mentioned above, moderate pulmonary hypertension, moderate tricuspid regurgitation. Slight troponin elevation, can be false elevation due to high BUN and creatinine; however, non-ST elevation myocardial infarction cannot be ruled out. Noncompliant patient. Legs edema probably related to venous stasis. Rule out urinary tract infection. PLAN: The patient is on aspirin, 81 mg was given stat. Heparin 5000 units subcu every 8 hours, meropenem 500 mg IV every 12 hours. The patient is on norepinephrine drip and Protonix 40 IV daily. IV fluid with sodium bicarbonate 150 mL an hour. Vasopressor IV drip. We will add Lopressor 25 b.i.d. Home medications showed the patient was on Plavix, we will add Plavix also. We will do the followup troponin and followup chemistry labs. We will follow with you. Bon Caba MD [facility] # [id number]
[2017-10-18] MEDS: Meropenem 500 MG in Sodium Chloride 0.9% 50 ML IVPB SCH (21:37)
--- NOTE | 2017-10-19 02:44 | CON ---
Copied To: Shelley Larson MD Attending MD: Shelley Larson MD DATE: 10/18/2017 REASON FOR CONSULTATION: Acute kidney injury, hyperkalemia, left pyelonephritis. HISTORY OF PRESENTING ILLNESS: An 82-year-old male known to me from prior evaluation last month. The patient was admitted last month with COPD exacerbation, shortness of breath. He needed a CT scan of his abdomen and pelvis with IV contrast to stage prostate cancer. Consultation was provided for safety of IV contrast. The patient received the study. He was stable. His creatinine remained at 1.2 throughout the admission. He was discharged. The CAT scan showed diffuse bony sclerotic mass, right hydronephrosis, right hydroureter. The patient was brought to the emergency room yesterday with complaints of worsening mental status, lower extremity edema for a few days prior to presentation. Also was found to have nausea and vomiting. Constipation for 1 week. In the emergency room, the patient had a CT scan of his abdomen without contrast. At this time, he has left pyelonephritis. Collection around the left kidney. Improved right hydronephrosis. Also found to have acute kidney injury. BUN 71, creatinine of 3. Elevated potassium of 5.2. He was also found to have elevated troponins of 0.18, second set was 0.2. He was found to be hypotensive at the time of presentation. His blood pressure dropped to as low as 84/40. Currently seen in the ICU. He received 3 liters of IV fluids. Latest blood pressure is 124/62. He is lethargic, but arousable. Multiple family members are at bedside. PAST MEDICAL AND SURGICAL HISTORY: Metastatic prostate cancer with bone mets, intra-abdominal mets, severe COPD, CHF, CAD, MVR, hypertension, CABG, severe osteoarthritis. FAMILY HISTORY: Noncontributory. SOCIAL HISTORY: Active smoking. No alcohol use, no IV drug abuse. ALLERGIES: NO KNOWN DRUG ALLERGIES. MEDICATIONS AT HOME: Had been Januvia 50 mg daily, prednisone 5 mg b.i.d., Protonix, Remeron, Amitiza, Lasix 20 p.o. daily, Advair, Plavix, albuterol. REVIEW OF SYSTEMS: Systems review is unavailable as the patient is lethargic, sleepy, unable to cooperate with systems review. PHYSICAL EXAMINATION: GENERAL: Elderly male lying in bed in the ICU. VITAL SIGNS: Blood pressure 124/62, heart rate 76, respiratory rate 21, temperature 98.8. HEENT: Normocephalic, atraumatic, positive pallor. NECK: Supple, no JVD. LUNGS: Bilateral equal air entry, bilateral equal expansion, no rales appreciated anteriorly. CARDIAC: S1 and S2, regular rate and rhythm, no murmur, no rub. ABDOMEN: Obese, distended, soft, nontender, bowel sounds present. EXTREMITIES: 2+ pitting edema of the lower extremities. INTAKE AND OUTPUT: Not charted. LABORATORY DATA: WBC 10, hemoglobin 9.3, hematocrit 27.5, platelets 124. Sodium 138, potassium 5.2, chloride 103, CO2 19, BUN 71, creatinine 3, glucose 111, calcium 8.9, magnesium 2.4, total bili 1.4, AST 93, ALT 32, troponin 0.18, albumin 3.5. Urinalysis: Dark yellow, slightly cloudy, pH 6, specific gravity greater than 10.30, protein 100, ketones trace, blood large, bilirubin moderate, leukocyte esterase large, rbc's too numerous to count, wbc's too numerous to count. CT of the abdomen and pelvis, improved right-sided hydronephrosis and hydroureter, new perinephric stranding and fluid around the left kidney without hydronephrosis. Bony sclerosis throughout the spine. CURRENT MEDICATIONS: Aspirin 81, heparin, Levophed 4 mcg, meropenem 500 every 12, morphine, Plavix, Protonix, D5W with 3 amps of bicarb at 150, vasopressin. ASSESSMENT: 1. Sepsis, hypotension, acute kidney injury, lactic acidosis, multiorgan dysfunction. 2. Source of sepsis is likely to be genitourinary, left pyelonephritis suspect. 3. Advanced stage IV prostate cancer with bone mets, intra-abdominal mets. 4. Acute kidney injury. 5. Hyperkalemia. 6. Anion gap metabolic acidosis. 7. Acute coronary syndrome/elevated troponins. 8. History of coronary artery disease, coronary artery bypass graft, mitral valve regurgitation. 9. Chronic obstructive pulmonary disease. 10. Congestive heart failure. PLAN: 1. Case is discussed with multiple family members at bedside including son, brother. At this time, the patient is critically ill. The patient has advanced metastatic prostate cancer with bone mets. He has a history of right hydronephrosis, which is slightly improved, but now he has left pyelonephritis. Suspect he has extrinsic obstruction from metastatic disease. At this time, we would continue IV antibiotics, aggressive hydration. We would continue pressors as needed. The patient will be monitored closely in the ICU setting. Hopefully renal function will improve with the above measures. There is no indication for renal replacement therapy at this time, but I have discussed with family regarding consideration of advance directives. 2. At this time, the patient has received aggressive hydration. We will reduce IV fluids to 80 mL per hour since the patient has severe cardiomyopathy, decreased ejection fraction, CHF and advanced age. 3. Continue antibiotics as per ID recommendations, dose for creatinine clearance 10-30 mL/minute. 4. No treatment is needed additionally for hyperkalemia at this time. 5. Conservative management for non-ST elevation PA. 6. Case discussed with Dr. Henson. 7. Case discussed with the ICU nursing staff. More than 35 minutes was spent in the care of this critically ill patient. Shelley Larson MD
[2017-10-19 07:06] LABS: BASO # 0.01 K/mm3 (0.0-2.0); BASO % 0.2 % (0.0-3.0); EOS % 0.3 % (1.5-5.0); GRAN # 4.27 (1.4-6.5); GRAN % 64.8 % (50.0-68.0); LYMPH # 1.9 (1.2-3.4); LYMPH % 28.5 % (22.0-35.0); MEAN CELL VOLUME 84.6 fl (80.0-105.0); MEAN CORPUSCULAR HEMOGLOBIN 28.9 pg (25.0-35.0); MEAN CORPUSCULAR HGB CONC 34.2 g/dl (31.0-37.0); MONO # 0.4 (0.1-0.6); MONO % 6.2 % (1.0-6.0); PLATELET COUNT 96 10^3/uL (120.0-450.0); RBC 2.73 10^6/uL (3.5-6.1); RED CELL DISTRIBUTION WIDTH 23.2 % (11.5-14.5); WHITE BLOOD COUNT 6.6 10^3/ul (4.5-11.0)
[2017-10-19 07:17] LABS: HEMOGLOBIN 7.9 g/dL (14.0-18.0)
[2017-10-19 07:18] LABS: CALCIUM 7.5 mg/dL (8.4-10.5)
[2017-10-19 07:40] LABS: TROPONIN I 0.26 ng/mL
--- NOTE | 2017-10-19 07:45 | CP.PCM.CON ---
<Mary Solo - Last Filed: 10/19/17 11:06> History of Present Illness - History of Present Illness History of Present Illness: Palliative consult note for Comfort Enciso. 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 Patient is admitted to ICU for septic shock with multiorgan dysfunction including MICHAEL on CKD, anion gap metabolic/lactic acidosis , transaminitis, electrolyte derangement, troponin leak/NSTEMI likely due to pyelonephritis and ecoli UTI. Patient is still on levophed drip in the ICU, along with nasal cannula. Palliative care is consulted for advance directives. This morning patient appears very somnolent, responds to verbal commands, however unable to stay awake during the conversation. Aware that he's at [facility] hospital. Patient admits to feeling weak and tired, denies cp, admits to sob, denies fever and chills. 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 Allergy: NKDA Home meds: as per chart Review of Systems - Constitutional Constitutional: absent: Chills, Headache - EENT Eyes: absent: Change in Vision Ears: absent: Dizziness - Cardiovascular Cardiovascular: Dyspnea, Edema. absent: Chest Pain, Chest Pain at Rest - Respiratory Respiratory: Dyspnea. absent: Cough - Gastrointestinal Gastrointestinal: absent: Abdominal Pain, Bloating, Nausea, Vomiting - Genitourinary Genitourinary: Dysuria - Musculoskeletal Musculoskeletal: Back Pain - Neurological Neurological: Confusion, Weakness. absent: Headaches - Psychiatric Psychiatric: Confusion Past Patient History - Infectious Disease Hx of Infectious Diseases: None - Tetanus Immunizations Tetanus Immunization: Unknown - Past Social History Smoking Status: Heavy Smoker > 10 Cigarettes Daily Home Situation {Lives}: With Family - CARDIAC Hx Cardiac Disorders: Yes (cabg triple) Hx Cardia Arrhythmia: Yes Hx Congestive Heart Failure: Yes Hx Hypercholesterolemia: Yes Hx Hypertension: Yes Hx Pacemaker: Yes Hx Peripheral Edema: Yes (rle +2 pitting lle +3 pitting) Hx Peripheral Vascular Disease: Yes Other/Comment: pt/family deny hx blood clot, pvd with claudication, mitral valve replacement - PULMONARY Hx Respiratory Disorders: Yes (pulmonary edema) Hx Asthma: Yes Hx Chronic Obstructive Pulmonary Disease (COPD): Yes Hx Sleep Apnea: Yes (uses cpap at home) - NEUROLOGICAL Hx Neurological Disorder: No - HEENT Hx HEENT Problems: Yes - RENAL Hx Chronic Kidney Disease: Yes (renal insufficiancy) Hx Renal Failure: Yes - ENDOCRINE/METABOLIC Hx Endocrine Disorders: Yes Hx Diabetes Mellitus Type 2: Yes - HEMATOLOGICAL/ONCOLOGICAL Hx Blood Disorders: Yes (hyperkalemia) Hx Anemia: Yes Hx Cancer: Yes (prostate w/mets to bone) Hx Chemotherapy: Yes Other/Comment: dx with prostate ca 2016 presently receiving chemotherapy tx by dr alegria once a month last time had chemo was last week, pt denies every having blood transfusion - INTEGUMENTARY Hx Dermatological Problems: Yes Other/Comment: rle +2 pitting edema skin discoloration and foot cold to touch thick hard toenails, lle +3 pitting edema skin discolorations foot cold to tough , dry skin ble, 4cm x 0.5cm slit in skin stage 2 bed of wound is red located above butt crack - MUSCULOSKELETAL/RHEUMATOLOGICAL Hx Falls: No - GASTROINTESTINAL Hx Gastrointestinal Disorders: Yes (poor appetite, weight loss, constipation) Other/Comment: pt/family deny hx of crohns disease - GENITOURINARY/GYNECOLOGICAL Hx Genitourinary Disorders: Yes Hx Hematuria: Yes Hx Prostate Problems: Yes (enlarged/dx w/ca 2016) Hx Urinary Tract Infection: Yes - PSYCHIATRIC Hx Psychophysiologic Disorder: No Hx Emotional Abuse: No Hx Physical Abuse: No - SURGICAL HISTORY Hx Surgeries: Yes Hx Open Heart Surgery: Yes Other/Comment: tlc r jugular today 10/18/17, r leg bypass repair, cysto 11/17/16, cabd 3 vessels, mitral valve replacement, r leg procedure for blood clot but family/pt deny blood clot hx, transrectal us & us guided bx of prostate - ANESTHESIA Hx Anesthesia: Yes Hx Anesthesia Reactions: No Hx Malignant Hyperthermia: No Meds Allergies/Adverse Reactions: Allergies Allergy/AdvReac Type Severity Reaction Status Date / Time No Known Allergies Allergy Verified 10/03/17 06:13 - Medications Medications: Current Medications Aspirin (Ecotrin) 81 mg PO DAILY [facility] Clopidogrel Bisulfate (Plavix) 75 mg PO DAILY [facility] Last Admin: 10/18/17 15:46 Dose: 75 mg Heparin Sodium (Porcine) (Heparin) 5,000 units SC Q8H EFRAIN PRN Reason: Protocol Last Admin: 10/19/17 03:08 Dose: 5,000 units Meropenem 500 mg/ Sodium (Chloride) 50 mls @ 100 mls/hr IVPB Q12 EFRAIN PRN Reason: Protocol Stop: 10/27/17 22:01 Last Admin: 10/18/17 21:37 Dose: 100 mls/hr NOREPINEPHRINE BIT/0.9 % NACL (Levophed 4 Mg/ 250 Ml Ns Premixed) 4 mg in 250 mls @ 15 mls/hr IV .[id number] PRN; Protocol; 4 MCG/MIN PRN Reason: TITRATE PER MD ORDER Last Titration: 10/18/17 21:30 Dose: 2 mcg/min, 7.5 mls/hr Vasopressin 20 units/ Sodium (Chloride) 101 mls @ 9.09 mls/hr IV .Q11H7M EFRAIN; 0.03 U/MIN PRN Reason: Protocol Last Admin: 10/19/17 00:34 Dose: 9.09 mls/hr Sodium Bicarbonate 80 meq/ (Dextrose) 1,080 mls @ 150 mls/hr IV .Q7H12M EFRAIN Last Admin: 10/18/17 14:00 Dose: 150 mls/hr Morphine Sulfate (Morphine) 2 mg IVP Q4H PRN PRN Reason: Pain, severe (8-10) Last Admin: 10/18/17 16:01 Dose: 2 mg Pantoprazole Sodium (Protonix Inj) 40 mg IVP DAILY [facility] Last Admin: 10/18/17 12:33 Dose: 40 mg Physical Exam - Constitutional Appears: No Acute Distress - Head Exam Head Exam: ATRAUMATIC, NORMAL INSPECTION, NORMOCEPHALIC - Eye Exam Eye Exam: Normal appearance - ENT Exam ENT Exam: Mucous Membranes Moist - Neck Exam Neck exam: Positive for: Normal Inspection Additional comments: RIJ in place - Respiratory Exam Respiratory Exam: Clear to Auscultation Bilateral, NORMAL BREATHING PATTERN. absent: Rales, Rhonchi, Wheezes, Respiratory Distress, Stridor - Cardiovascular Exam Cardiovascular Exam: REGULAR RHYTHM, +S1, +S2 - GI/Abdominal Exam GI & Abdominal Exam: Normal Bowel Sounds, Soft. absent: Distended, Tenderness - Extremities Exam Extremities exam: Positive for: pedal edema - Neurological Exam Additional comments: Somnolent, arousable to verbal commands. - Psychiatric Exam Psychiatric exam: Flat Affect - Skin Skin Exam: Abrasion Results - Vital Signs Recent Vital Signs: Last Vital Signs Temp 99.1 F 10/19/17 06:36 Pulse 91 H 10/19/17 06:36 Resp 28 H 10/19/17 06:32 BP 104/42 L 10/19/17 06:32 Pulse Ox 96 10/19/17 06:36 - Labs Result Diagrams: 10/19/17 06:30 10/19/17 06:30 Labs: Laboratory Results - last 24 hr 10/18/17 10/18/17 10/18/17 09:30 11:10 12:10 WBC RBC Hgb Hct MCV MCH MCHC RDW Plt Count Gran % Lymph % (Auto) [place] % (Auto) Eos % (Auto) Baso % (Auto) Gran # Lymph # (Auto) [place] # (Auto) Eos # (Auto) Baso # (Auto) pO2 VBG pH VBG pCO2 VBG HCO3 VBG Total CO2 VBG O2 Sat (Calc) VBG Base Excess VBG Potassium Sodium Chloride Glucose Lactate FiO2 Potassium Carbon Dioxide Anion Gap BUN Creatinine Est GFR ( Amer) Est GFR (Non-Af Amer) POC Glucose (mg/dL) Random Glucose Lactic Acid Calcium Troponin I Procalcitonin 3.40 H Venous Blood Potassium Urine Color Dark yellow Urine Appearance Sl cloudy Urine pH 6.0 Ur Specific [place] >= 1.030 Urine Protein 100 H Urine Glucose (UA) Negative Urine Ketones Trace H Urine Blood Large H Urine Nitrate Negative Urine Bilirubin Moderate H Urine Urobilinogen 4.0 H Ur Leukocyte Esterase Large H Urine RBC Tntc Urine WBC Tntc Ur Epithelial Cells 0 - 2 Amorphous Sediment Few Urine Bacteria Many Fine Granular Casts 0 - 2 Coarse Granular Casts Trace H Urine Other Uyeast Blood Type O POSITIVE Antibody Screen Negative BBK History Checked Patient has bt 10/18/17 10/18/17 10/18/17 12:10 12:15 18:17 WBC RBC Hgb Hct MCV MCH MCHC RDW Plt Count Gran % Lymph % (Auto) [place] % (Auto) Eos % (Auto) Baso % (Auto) Gran # Lymph # (Auto) [place] # (Auto) Eos # (Auto) Baso # (Auto) pO2 110 H VBG pH 7.29 L VBG pCO2 39.0 L VBG HCO3 18.8 L VBG Total CO2 20.0 L VBG O2 Sat (Calc) 98.8 H VBG Base Excess -7.3 L VBG Potassium 5.0 Sodium 134.0 Chloride 107.0 Glucose 105 Lactate 1.8 FiO2 21.0 Potassium Carbon Dioxide Anion Gap BUN Creatinine Est GFR ( Amer) Est GFR (Non-Af Amer) POC Glucose (mg/dL) Random Glucose Lactic Acid Calcium Troponin I 0.20 H* 0.25 H* D Procalcitonin Venous Blood Potassium 5.0 Urine Color Urine Appearance Urine pH Ur Specific [place] Urine Protein Urine Glucose (UA) Urine Ketones Urine Blood Urine Nitrate Urine Bilirubin Urine Urobilinogen Ur Leukocyte Esterase Urine RBC Urine WBC Ur Epithelial Cells Amorphous Sediment Urine Bacteria Fine Granular Casts Coarse Granular Casts Urine Other Blood Type Antibody Screen BBK History Checked 10/18/17 10/18/17 10/19/17 18:17 22:07 06:30 WBC 6.6 D RBC 2.73 L Hgb 7.9 L Hct 23.1 L MCV 84.6 MCH 28.9 MCHC 34.2 RDW 23.2 H Plt Count 96 L Gran % 64.8 Lymph % (Auto) 28.5 [place] % (Auto) 6.2 H Eos % (Auto) 0.3 L Baso % (Auto) 0.2 Gran # 4.27 Lymph # (Auto) 1.9 [place] # (Auto) 0.4 Eos # (Auto) 0.0 Baso # (Auto) 0.01 pO2 VBG pH VBG pCO2 VBG HCO3 VBG Total CO2 VBG O2 Sat (Calc) VBG Base Excess VBG Potassium Sodium Chloride Glucose Lactate FiO2 Potassium Carbon Dioxide Anion Gap BUN Creatinine Est GFR ( Amer) Est GFR (Non-Af Amer) POC Glucose (mg/dL) 183 H Random Glucose Lactic Acid 1.7 Calcium Troponin I Procalcitonin Venous Blood Potassium Urine Color Urine Appearance Urine pH Ur Specific [place] Urine Protein Urine Glucose (UA) Urine Ketones Urine Blood Urine Nitrate Urine Bilirubin Urine Urobilinogen Ur Leukocyte Esterase Urine RBC Urine WBC Ur Epithelial Cells Amorphous Sediment Urine Bacteria Fine Granular Casts Coarse Granular Casts Urine Other Blood Type Antibody Screen BBK History Checked 10/19/17 06:30 WBC RBC Hgb Hct MCV MCH MCHC RDW Plt Count Gran % Lymph % (Auto) [place] % (Auto) Eos % (Auto) Baso % (Auto) Gran # Lymph # (Auto) [place] # (Auto) Eos # (Auto) Baso # (Auto) pO2 VBG pH VBG pCO2 VBG HCO3 VBG Total CO2 VBG O2 Sat (Calc) VBG Base Excess VBG Potassium Sodium 134 Chloride 99 Glucose Lactate FiO2 Potassium 4.1 Carbon Dioxide 26 Anion Gap 13 BUN 68 H Creatinine 2.4 H Est GFR ( Amer) 32 Est GFR (Non-Af Amer) 26 POC Glucose (mg/dL) Random Glucose 138 H Lactic Acid Calcium 7.5 L Troponin I 0.26 H* Procalcitonin Venous Blood Potassium Urine Color Urine Appearance Urine pH Ur Specific [place] Urine Protein Urine Glucose (UA) Urine Ketones Urine Blood Urine Nitrate Urine Bilirubin Urine Urobilinogen Ur Leukocyte Esterase Urine RBC Urine WBC Ur Epithelial Cells Amorphous Sediment Urine Bacteria Fine Granular Casts Coarse Granular Casts Urine Other Blood Type Antibody Screen BBK History Checked Assessment & Plan - Assessment and Plan (Free Text) Assessment: Patient is an 82 y/o male with pmhx of 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 Palliative care is consulted for advance directives. Plan: - Advance directives and goal of care planning- Started discussion with the patient, with nephew at the bedside, however patient appears very somnolent and states he's feeling to tired to have the conversation, wants to talk later. Patient did say however that he wants her daughter to be his proxy in case he's not able to make any decisions. As per ICU team, patient's daughter agreed to make patient DNR, however wants intubation. We'll await for patient's daughter to return in order to have a family discussion with both patient and his daughter. - Septic shock due to pylonephritis and ecoli uti- now off of levophed, and vasopressin, on Merrem, and ID is fallowing. - CAD- on plavix and asa, decatizer is following - h/o copd- on duonebs - Prostate cancer with bone metastasis and chronic back pain- on morphine prn - On heparin sc and protonix for dvt and gi prophylaxis. Patient seen, examined with Comfort Enciso. - Date & Time Date: 10/19/17 Time: 10:45 <Comfort Enciso F - Last Filed: 10/19/17 11:40> Meds - Medications Medications: Current Medications Albuterol/Ipratropium (Duoneb 3 Mg/0.5 Mg (3 Ml) Ud) 3 ml IH Q2H PRN PRN Reason: Shortness of Breath Aspirin (Ecotrin) 81 mg PO DAILY [facility] Last Admin: 10/19/17 09:32 Dose: 81 mg Clopidogrel Bisulfate (Plavix) 75 mg PO DAILY [facility] Last Admin: 10/19/17 09:32 Dose: 75 mg Heparin Sodium (Porcine) (Heparin) 5,000 units SC Q8H EFRAIN PRN Reason: Protocol Last Admin: 10/19/17 03:08 Dose: 5,000 units Meropenem 500 mg/ Sodium (Chloride) 50 mls @ 100 mls/hr IVPB Q12 EFRAIN PRN Reason: Protocol Stop: 10/27/17 22:01 Last Admin: 10/19/17 09:17 Dose: 100 mls/hr NOREPINEPHRINE BIT/0.9 % NACL (Levophed 4 Mg/ 250 Ml Ns Premixed) 4 mg in 250 mls @ 15 mls/hr IV .[id number] PRN; Protocol; 4 MCG/MIN PRN Reason: TITRATE PER MD ORDER Last Titration: 10/19/17 08:57 Dose: 0 mcg/min, 0 mls/hr Sodium Chloride (Sodium Chloride 0.9%) 1,000 mls @ 100 mls/hr IV .Q10H [facility] Insulin Human Lispro (Humalog Low) 0 units SC ACHS EFRAIN PRN Reason: Protocol Morphine Sulfate (Morphine) 2 mg IVP Q4H PRN PRN Reason: Pain, severe (8-10) Last Admin: 10/18/17 16:01 Dose: 2 mg Pantoprazole Sodium (Protonix Inj) 40 mg IVP DAILY [facility] Last Admin: 10/19/17 09:32 Dose: 40 mg Physical Exam - Back Exam Back exam: NORMAL INSPECTION - Additional Findings Additional findings: Palliative care performance rating 40% Results - Vital Signs Recent Vital Signs: Last Vital Signs Temp 99.1 F 10/19/17 09:50 Pulse 93 H 10/19/17 09:59 Resp 16 10/19/17 09:59 BP 92/50 L 10/19/17 10:00 Pulse Ox 87 L 10/19/17 09:59 - Labs Result Diagrams: 10/19/17 06:30 10/19/17 06:30 Labs: Laboratory Results - last 24 hr 10/18/17 10/18/17 10/18/17 11:10 12:10 12:10 WBC RBC Hgb Hct MCV MCH MCHC RDW Plt Count Gran % Lymph % (Auto) [place] % (Auto) Eos % (Auto) Baso % (Auto) Gran # Lymph # (Auto) [place] # (Auto) Eos # (Auto) Baso # (Auto) pO2 VBG pH VBG pCO2 VBG HCO3 VBG Total CO2 VBG O2 Sat (Calc) VBG Base Excess VBG Potassium Sodium Chloride Glucose Lactate FiO2 Potassium Carbon Dioxide Anion Gap BUN Creatinine Est GFR ( Amer) Est GFR (Non-Af Amer) POC Glucose (mg/dL) Random Glucose Lactic Acid Calcium Troponin I 0.20 H* Procalcitonin 3.40 H Venous Blood Potassium Urine Color Dark yellow Urine Appearance Sl cloudy Urine pH 6.0 Ur Specific [place] >= 1.030 Urine Protein 100 H Urine Glucose (UA) Negative Urine Ketones Trace H Urine Blood Large H Urine Nitrate Negative Urine Bilirubin Moderate H Urine Urobilinogen 4.0 H Ur Leukocyte Esterase Large H Urine RBC Tntc Urine WBC Tntc Ur Epithelial Cells 0 - 2 Amorphous Sediment Few Urine Bacteria Many Fine Granular Casts 0 - 2 Coarse Granular Casts Trace H Urine Other Uyeast 10/18/17 10/18/17 10/18/17 12:15 18:17 18:17 WBC RBC Hgb Hct MCV MCH MCHC RDW Plt Count Gran % Lymph % (Auto) [place] % (Auto) Eos % (Auto) Baso % (Auto) Gran # Lymph # (Auto) [place] # (Auto) Eos # (Auto) Baso # (Auto) pO2 110 H VBG pH 7.29 L VBG pCO2 39.0 L VBG HCO3 18.8 L VBG Total CO2 20.0 L VBG O2 Sat (Calc) 98.8 H VBG Base Excess -7.3 L VBG Potassium 5.0 Sodium 134.0 Chloride 107.0 Glucose 105 Lactate 1.8 FiO2 21.0 Potassium Carbon Dioxide Anion Gap BUN Creatinine Est GFR ( Amer) Est GFR (Non-Af Amer) POC Glucose (mg/dL) Random Glucose Lactic Acid 1.7 Calcium Troponin I 0.25 H* D Procalcitonin Venous Blood Potassium 5.0 Urine Color Urine Appearance Urine pH Ur Specific [place] Urine Protein Urine Glucose (UA) Urine Ketones Urine Blood Urine Nitrate Urine Bilirubin Urine Urobilinogen Ur Leukocyte Esterase Urine RBC Urine WBC Ur Epithelial Cells Amorphous Sediment Urine Bacteria Fine Granular Casts Coarse Granular Casts Urine Other 10/18/17 10/19/17 10/19/17 22:07 06:30 06:30 WBC 6.6 D RBC 2.73 L Hgb 7.9 L Hct 23.1 L MCV 84.6 MCH 28.9 MCHC 34.2 RDW 23.2 H Plt Count 96 L Gran % 64.8 Lymph % (Auto) 28.5 [place] % (Auto) 6.2 H Eos % (Auto) 0.3 L Baso % (Auto) 0.2 Gran # 4.27 Lymph # (Auto) 1.9 [place] # (Auto) 0.4 Eos # (Auto) 0.0 Baso # (Auto) 0.01 pO2 VBG pH VBG pCO2 VBG HCO3 VBG Total CO2 VBG O2 Sat (Calc) VBG Base Excess VBG Potassium Sodium 134 Chloride 99 Glucose Lactate FiO2 Potassium 4.1 Carbon Dioxide 26 Anion Gap 13 BUN 68 H Creatinine 2.4 H Est GFR ( Amer) 32 Est GFR (Non-Af Amer) 26 POC Glucose (mg/dL) 183 H Random Glucose 138 H Lactic Acid Calcium 7.5 L Troponin I 0.26 H* Procalcitonin Venous Blood Potassium Urine Color Urine Appearance Urine pH Ur Specific [place] Urine Protein Urine Glucose (UA) Urine Ketones Urine Blood Urine Nitrate Urine Bilirubin Urine Urobilinogen Ur Leukocyte Esterase Urine RBC Urine WBC Ur Epithelial Cells Amorphous Sediment Urine Bacteria Fine Granular Casts Coarse Granular Casts Urine Other 10/19/17 07:47 WBC RBC Hgb Hct MCV MCH MCHC RDW Plt Count Gran % Lymph % (Auto) [place] % (Auto) Eos % (Auto) Baso % (Auto) Gran # Lymph # (Auto) [place] # (Auto) Eos # (Auto) Baso # (Auto) pO2 VBG pH VBG pCO2 VBG HCO3 VBG Total CO2 VBG O2 Sat (Calc) VBG Base Excess VBG Potassium Sodium Chloride Glucose Lactate FiO2 Potassium Carbon Dioxide Anion Gap BUN Creatinine Est GFR ( Amer) Est GFR (Non-Af Amer) POC Glucose (mg/dL) 141 H Random Glucose Lactic Acid Calcium Troponin I Procalcitonin Venous Blood Potassium Urine Color Urine Appearance Urine pH Ur Specific [place] Urine Protein Urine Glucose (UA) Urine Ketones Urine Blood Urine Nitrate Urine Bilirubin Urine Urobilinogen Ur Leukocyte Esterase Urine RBC Urine WBC Ur Epithelial Cells Amorphous Sediment Urine Bacteria Fine Granular Casts Coarse Granular Casts Urine Other Assessment & Plan - Assessment and Plan (Free Text) Plan: I was present and examined patient, reviewed notes and reports and in agreement with this assessment and plan.
[2017-10-19] MEDS: Sodium Bicarbonate 8.4% 80 MEQ in Dextrose 5% In Water 1,000 ML IV SCH (09:16)
[2017-10-19] MEDS: Meropenem 500 MG in Sodium Chloride 0.9% 50 ML IVPB SCH ×2 (09:17→21:38)
[2017-10-19] MEDS ORDERED: Albuterol-Ipratrop 3 mg / 0.5 (3 ml) UD IH PRN (09:42)
[2017-10-19] MEDS: Sodium Chloride 0.9% 1,000 ML IV SCH (09:45)
[2017-10-19] MEDS: Insulin Lispro (humaLOG) LOW Coverage SC SCH ×2 (12:00→16:58)
--- NOTE | 2017-10-19 12:01 | CP.PCM.PN ---
Subjective - Date & Time of Evaluation Date of Evaluation: 10/19/17 Time of Evaluation: 10:45 - Subjective Subjective: No fevers, not in distress, no flank pain, no abdominal pain, no diarrhea, no SOB at rest. Objective - Vital Signs/Intake and Output Vital Signs (last 24 hours): Temp Pulse Resp BP Pulse Ox 99.2 F 86 16 120/55 L 99 10/19/17 00:00 10/19/17 02:20 10/19/17 02:20 10/19/17 02:15 10/19/17 02:20 Intake and Output: 10/18/17 10/19/17 18:59 06:59 Intake Total 2884 Output Total 150 Balance 2734 - Medications Medications: Current Medications Aspirin (Ecotrin) 81 mg PO DAILY [facility] Clopidogrel Bisulfate (Plavix) 75 mg PO DAILY [facility] Last Admin: 10/18/17 15:46 Dose: 75 mg Heparin Sodium (Porcine) (Heparin) 5,000 units SC Q8H EFRAIN PRN Reason: Protocol Last Admin: 10/19/17 03:08 Dose: 5,000 units Meropenem 500 mg/ Sodium (Chloride) 50 mls @ 100 mls/hr IVPB Q12 EFRAIN PRN Reason: Protocol Stop: 10/27/17 22:01 Last Admin: 10/18/17 21:37 Dose: 100 mls/hr NOREPINEPHRINE BIT/0.9 % NACL (Levophed 4 Mg/ 250 Ml Ns Premixed) 4 mg in 250 mls @ 15 mls/hr IV .[id number] PRN; Protocol; 4 MCG/MIN PRN Reason: TITRATE PER MD ORDER Last Titration: 10/18/17 21:30 Dose: 2 mcg/min, 7.5 mls/hr Vasopressin 20 units/ Sodium (Chloride) 101 mls @ 9.09 mls/hr IV .Q11H7M EFRAIN; 0.03 U/MIN PRN Reason: Protocol Last Admin: 10/19/17 00:34 Dose: 9.09 mls/hr Sodium Bicarbonate 80 meq/ (Dextrose) 1,080 mls @ 150 mls/hr IV .Q7H12M [facility] Last Admin: 10/18/17 14:00 Dose: 150 mls/hr Morphine Sulfate (Morphine) 2 mg IVP Q4H PRN PRN Reason: Pain, severe (8-10) Last Admin: 10/18/17 16:01 Dose: 2 mg Pantoprazole Sodium (Protonix Inj) 40 mg IVP DAILY [facility] Last Admin: 10/18/17 12:33 Dose: 40 mg - Labs Labs: PT 14.7 SECONDS (9.4-12.5) H 10/18/17 08:03 INR 1.27 10/18/17 08:03 APTT 17.8 Seconds (25.1-36.5) L 10/18/17 08:03 - Constitutional Appears: Non-toxic, Chronically Ill - Head Exam Head Exam: NORMAL INSPECTION - ENT Exam ENT Exam: Mucous Membranes Moist - Neck Exam Neck Exam: absent: Lymphadenopathy, Meningismus Additional comments: right IJ TLC in place - Respiratory Exam Respiratory Exam: Decreased Breath Sounds - Cardiovascular Exam Cardiovascular Exam: +S1, +S2 - GI/Abdominal Exam GI & Abdominal Exam: Soft. absent: Tenderness Assessment and Plan - Assessment and Plan (Free Text) Plan: Assessment septic shock due to left sided pyelonephritis with acute renal failure and probable NSTEMI history of lower tract UTI with E. faecalis acute excerbation of COPD, slowly improving history of mitral valve endocarditis S/P mitral valve replacement CAD S/P CABG S/P pacemaker placement prostate cancer Plan continue Merrem day 2 and given a dose of IV Vancomycin pending final urine cx results; blood cx are negative x 1 day overall prognosis is poor
--- NOTE | 2017-10-19 13:47 | CP.CCUPN ---
<Vu Tucker - Last Filed: 10/19/17 13:37> CCU Subjective - Physician Review Events Since Last Encounter (Free Text): Patient seen and examined at bedside this morning. No acute events overnight. Patient is tolerating food well and slept well. Stopped vasopressin, levophed and bicarb today. Patient denies chest pain, SOB, abdominal pain and urinary complaints. 12 ROS noted here, otherwise negative. CCU Objective - Vital Signs / Intake & Output Vital Signs (Last 4 hours): Vital Signs Temp Pulse Resp BP Pulse Ox 10/19/17 10:00 92/50 L 10/19/17 09:59 93 H 16 87 L 10/19/17 09:50 99.1 F 86 24 99 10/19/17 09:47 99.1 F 87 97 10/19/17 09:45 99.1 F 84 17 97/60 L 92 L 10/19/17 09:40 99.1 F 84 19 89 L Intake and Output (Last 8hrs): Intake & Output 10/18/17 10/19/17 10/19/17 22:59 06:59 14:59 Intake Total 2884 1950 13 Output Total 150 300 Balance 2734 1650 13 Intake: IV 2884 1950 13 Left Antecubital 1500 150 Right Antecubital 1167 1800 Output: Urine 150 300 Urethral (Cooper) 150 300 Other: # Bowel Movements 1 - Physical Exam Head: Positive for: Atraumatic, Normocephalic Pupils: Positive for: PERRL Extroacular Muscles: Positive for: EOMI Mouth: Positive for: Moist Mucous Membranes Pharnyx: Positive for: Normal Neck: Positive for: Normal Range of Motion Respiratory/Chest: Positive for: Clear to Auscultation. Negative for: Wheezes, Tachypneic Cardiovascular: Positive for: Regular Rate and Rhythm, Peripheal Pulses Present Abdomen: Positive for: Normal Bowel Sounds. Negative for: Tenderness, Distention, Rebound Upper Extremity: Positive for: Normal Inspection Lower Extremity: Positive for: Other (pitting edema +2 present on B/L legs). Negative for: CALF TENDERNESS Skin: Positive for: Warm, Dry Psychiatric: Positive for: Alert, Normal Insight - Medications Active Medications: Active Medications Generic Name Dose Route Start Last Admin Trade Name Freq PRN Reason Stop Dose Admin Albuterol/Ipratropium 3 ml 10/19/17 09:42 Duoneb 3 Mg/0.5 Mg (3 Ml) Ud IH Q2H PRN Shortness of Breath Aspirin 81 mg 10/19/17 10:00 10/19/17 09:32 Ecotrin PO 81 mg DAILY EFRAIN Administration Clopidogrel Bisulfate 75 mg 10/18/17 13:30 10/19/17 09:32 Plavix PO 75 mg DAILY EFRAIN Administration Heparin Sodium (Porcine) 5,000 units 10/18/17 10:30 10/19/17 03:08 Heparin SC 5,000 units Q8H [facility] Administration Protocol Meropenem 500 mg/ Sodium 50 mls @ 100 mls/hr 10/18/17 22:00 10/19/17 09:17 Chloride IVPB 10/27/17 22:01 100 mls/hr Q12 [facility] Administration Protocol NOREPINEPHRINE BIT/0.9 % NACL 4 mg in 250 mls @ 15 mls/hr 10/18/17 12:06 06/03 08:57 Levophed 4 Mg/ 250 Ml Ns Premixed IV 0 mcg/min .[id number] PRN 0 mls/hr TITRATE PER MD ORDER Titration Protocol 4 MCG/MIN Sodium Chloride 1,000 mls @ 100 mls/hr 10/19/17 09:45 Sodium Chloride 0.9% IV .Q10H [facility] Insulin Human Lispro 0 units 10/19/17 11:30 Humalog Low SC ACHS [facility] Protocol Morphine Sulfate 2 mg 10/18/17 15:45 10/18/17 16:01 Morphine IVP 2 mg Q4H PRN Administration Pain, severe (8-10) Pantoprazole Sodium 40 mg 10/18/17 10:30 10/19/17 09:32 Protonix Inj IVP 40 mg DAILY EFRAIN Administration - Patient Studies Lab Studies: Microbiology Studies 10/18/17 11:10 Urine Culture - Final Urine No Growth (<1,000 CFU/ML) Lab Studies 10/19/17 10/19/17 10/19/17 Range/Units 07:47 06:30 06:30 WBC 6.6 D (4.5-11.0) 10^3/ul RBC 2.73 L (3.5-6.1) 10^6/uL Hgb 7.9 L (14.0-18.0) g/dL Hct 23.1 L (42.0-52.0) % MCV 84.6 (80.0-105.0) fl MCH 28.9 (25.0-35.0) pg MCHC 34.2 (31.0-37.0) g/dl RDW 23.2 H (11.5-14.5) % Plt Count 96 L (120.0-450.0) 10^3/uL Gran % 64.8 (50.0-68.0) % Lymph % (Auto) 28.5 (22.0-35.0) % [place] % (Auto) 6.2 H (1.0-6.0) % Eos % (Auto) 0.3 L (1.5-5.0) % Baso % (Auto) 0.2 (0.0-3.0) % Gran # 4.27 (1.4-6.5) Lymph # (Auto) 1.9 (1.2-3.4) [place] # (Auto) 0.4 (0.1-0.6) Eos # (Auto) 0.0 (0.0-0.7) Baso # (Auto) 0.01 (0.0-2.0) K/mm3 Sodium 134 (132-148) mmol/L Potassium 4.1 (3.6-5.0) mmol/L Chloride 99 (98-107) mmol/L Carbon Dioxide 26 (21-33) mmol/L Anion Gap 13 (10-20) BUN 68 H (7-21) mg/dL Creatinine 2.4 H (0.8-1.5) mg/dl Est GFR ( Amer) 32 Est GFR (Non-Af Amer) 26 POC Glucose (mg/dL) 141 H (65-110) mg/dL Random Glucose 138 H (70-110) mg/dL Lactic Acid (0.7-2.1) mmol/L Calcium 7.5 L (8.4-10.5) mg/dL Troponin I 0.26 H* ng/mL Procalcitonin (0.19-0.49) NG/ML 10/18/17 10/18/17 10/18/17 Range/Units 22:07 18:17 18:17 WBC (4.5-11.0) 10^3/ul RBC (3.5-6.1) 10^6/uL Hgb (14.0-18.0) g/dL Hct (42.0-52.0) % MCV (80.0-105.0) fl MCH (25.0-35.0) pg MCHC (31.0-37.0) g/dl RDW (11.5-14.5) % Plt Count (120.0-450.0) 10^3/uL Gran % (50.0-68.0) % Lymph % (Auto) (22.0-35.0) % [place] % (Auto) (1.0-6.0) % Eos % (Auto) (1.5-5.0) % Baso % (Auto) (0.0-3.0) % Gran # (1.4-6.5) Lymph # (Auto) (1.2-3.4) [place] # (Auto) (0.1-0.6) Eos # (Auto) (0.0-0.7) Baso # (Auto) (0.0-2.0) K/mm3 Sodium (132-148) mmol/L Potassium (3.6-5.0) mmol/L Chloride (98-107) mmol/L Carbon Dioxide (21-33) mmol/L Anion Gap (10-20) BUN (7-21) mg/dL Creatinine (0.8-1.5) mg/dl Est GFR ( Amer) Est GFR (Non-Af Amer) POC Glucose (mg/dL) 183 H (65-110) mg/dL Random Glucose (70-110) mg/dL Lactic Acid 1.7 (0.7-2.1) mmol/L Calcium (8.4-10.5) mg/dL Troponin I 0.25 H* D ng/mL Procalcitonin (0.19-0.49) NG/ML 10/18/17 Range/Units 12:10 WBC (4.5-11.0) 10^3/ul RBC (3.5-6.1) 10^6/uL Hgb (14.0-18.0) g/dL Hct (42.0-52.0) % MCV (80.0-105.0) fl MCH (25.0-35.0) pg MCHC (31.0-37.0) g/dl RDW (11.5-14.5) % Plt Count (120.0-450.0) 10^3/uL Gran % (50.0-68.0) % Lymph % (Auto) (22.0-35.0) % [place] % (Auto) (1.0-6.0) % Eos % (Auto) (1.5-5.0) % Baso % (Auto) (0.0-3.0) % Gran # (1.4-6.5) Lymph # (Auto) (1.2-3.4) [place] # (Auto) (0.1-0.6) Eos # (Auto) (0.0-0.7) Baso # (Auto) (0.0-2.0) K/mm3 Sodium (132-148) mmol/L Potassium (3.6-5.0) mmol/L Chloride (98-107) mmol/L Carbon Dioxide (21-33) mmol/L Anion Gap (10-20) BUN (7-21) mg/dL Creatinine (0.8-1.5) mg/dl Est GFR ( Amer) Est GFR (Non-Af Amer) POC Glucose (mg/dL) (65-110) mg/dL Random Glucose (70-110) mg/dL Lactic Acid (0.7-2.1) mmol/L Calcium (8.4-10.5) mg/dL Troponin I ng/mL Procalcitonin 3.40 H (0.19-0.49) NG/ML Laboratory Results - last 24 hr 10/18/17 10/18/17 10/18/17 12:10 18:17 18:17 WBC RBC Hgb Hct MCV MCH MCHC RDW Plt Count Gran % Lymph % (Auto) [place] % (Auto) Eos % (Auto) Baso % (Auto) Gran # Lymph # (Auto) [place] # (Auto) Eos # (Auto) Baso # (Auto) Sodium Potassium Chloride Carbon Dioxide Anion Gap BUN Creatinine Est GFR ( Amer) Est GFR (Non-Af Amer) POC Glucose (mg/dL) Random Glucose Lactic Acid 1.7 Calcium Troponin I 0.25 H* D Procalcitonin 3.40 H 0810/19/17 10/19/17 22:07 06:30 06:30 WBC 6.6 D RBC 2.73 L Hgb 7.9 L Hct 23.1 L MCV 84.6 MCH 28.9 MCHC 34.2 RDW 23.2 H Plt Count 96 L Gran % 64.8 Lymph % (Auto) 28.5 [place] % (Auto) 6.2 H Eos % (Auto) 0.3 L Baso % (Auto) 0.2 Gran # 4.27 Lymph # (Auto) 1.9 [place] # (Auto) 0.4 Eos # (Auto) 0.0 Baso # (Auto) 0.01 Sodium 134 Potassium 4.1 Chloride 99 Carbon Dioxide 26 Anion Gap 13 BUN 68 H Creatinine 2.4 H Est GFR ( Amer) 32 Est GFR (Non-Af Amer) 26 POC Glucose (mg/dL) 183 H Random Glucose 138 H Lactic Acid Calcium 7.5 L Troponin I 0.26 H* Procalcitonin 10/19/17 07:47 WBC RBC Hgb Hct MCV MCH MCHC RDW Plt Count Gran % Lymph % (Auto) [place] % (Auto) Eos % (Auto) Baso % (Auto) Gran # Lymph # (Auto) [place] # (Auto) Eos # (Auto) Baso # (Auto) Sodium Potassium Chloride Carbon Dioxide Anion Gap BUN Creatinine Est GFR ( Amer) Est GFR (Non-Af Amer) POC Glucose (mg/dL) 141 H Random Glucose Lactic Acid Calcium Troponin I Procalcitonin Fingerstick Blood Sugar Results: 92 Critical Care Progress Note - Nutrition Nutrition: Nutrition Category Date Time Status Heart Healthy Diet [DIET] Diets 10/18/17 Dinner Active Assessment/Plan - Assessment and Plan (Free Text) Assessment: Assessment: This is a 82 year old male with PMH significant for COPD, DM, CHF and prostate cancer presents to the ICU for management of septic shock with multiorgan failure secondary to pyelonephritis, elevated troponin due to possible septic cardiomyopathy and acute renal failure Neuro: -maintain normothermia Lungs: -Hx of COPD, duonebs prn -maintain SaO2 > 90 Heart: -vasopressin, levophed stopped today -maintain MAP >65 -follow troponins -on ASA 81, plavix 75 -cardio consulted, appreciate recommendations Nephro: -maintain euvolemia, avoid hypochloremia. -replace electrolytes as needed -BUN/Cr today is 68/2.4 improved from 71/3 yesterday. History of elevated BUN/Cr -ABD/pelvis CT showed left kidney stranding with possible pyelonephritis. -U/A revealed large leukocyte esterase -lactic acidosis resolved, today is 1.7 -urology consulted, appreciate recommendations -nephrology consulted, appreciate recommendations ID: -WBC is 6.6, afebrile -on merrum day 2 for pyelonephritis -urine cultures show no growth, blood culture shows no growth after 24 hours -ID consulted, appreciate recommendations GI: -pantoprazole ppx Heme: -heparin ppx Endo: -finger sticks, sliding scale -maintain euglycemia <Parth Ace - Last Filed: 10/19/17 14:29> CCU Objective - Vital Signs / Intake & Output Intake and Output (Last 8hrs): Intake & Output 10/18/17 10/19/17 10/19/17 22:59 06:59 14:59 Intake Total 2884 1950 13 Output Total 150 300 Balance 2734 1650 13 Intake: IV 2884 1950 13 Left Antecubital 1500 150 Right Antecubital 1167 1800 Output: Urine 150 300 Urethral (Cooper) 150 300 Other: # Bowel Movements 1 - Medications Active Medications: Active Medications Generic Name Dose Route Start Last Admin Trade Name Juanq PRN Reason Stop Dose Admin Albuterol/Ipratropium 3 ml 10/19/17 09:42 Duoneb 3 Mg/0.5 Mg (3 Ml) Ud IH Q2H PRN Shortness of Breath Aspirin 81 mg 10/19/17 10:00 10/19/17 09:32 Ecotrin PO 81 mg DAILY EFRAIN Administration Clopidogrel Bisulfate 75 mg 10/18/17 13:30 10/19/17 09:32 Plavix PO 75 mg DAILY EFRAIN Administration Heparin Sodium (Porcine) 5,000 units 10/18/17 10:30 10/19/17 03:08 Heparin SC 5,000 units Q8H [facility] Administration Protocol Meropenem 500 mg/ Sodium 50 mls @ 100 mls/hr 10/18/17 22:00 10/19/17 09:17 Chloride IVPB 10/27/17 22:01 100 mls/hr Q12 [facility] Administration Protocol NOREPINEPHRINE BIT/0.9 % NACL 4 mg in 250 mls @ 15 mls/hr 10/18/17 12:06 06/03 08:57 Levophed 4 Mg/ 250 Ml Ns Premixed IV 0 mcg/min .[id number] PRN 0 mls/hr TITRATE PER MD ORDER Titration Protocol 4 MCG/MIN Sodium Chloride 1,000 mls @ 100 mls/hr 10/19/17 09:45 Sodium Chloride 0.9% IV .Q10H [facility] Insulin Human Lispro 0 units 10/19/17 11:30 Humalog Low SC ACHS [facility] Protocol Morphine Sulfate 2 mg 10/18/17 15:45 10/18/17 16:01 Morphine IVP 2 mg Q4H PRN Administration Pain, severe (8-10) Pantoprazole Sodium 40 mg 10/18/17 10:30 10/19/17 09:32 Protonix Inj IVP 40 mg DAILY EFRAIN Administration - Patient Studies Lab Studies: Microbiology Studies 10/18/17 11:10 Urine Culture - Final Urine No Growth (<1,000 CFU/ML) Lab Studies 10/19/17 10/19/17 10/19/17 Range/Units 07:47 06:30 06:30 WBC 6.6 D (4.5-11.0) 10^3/ul RBC 2.73 L (3.5-6.1) 10^6/uL Hgb 7.9 L (14.0-18.0) g/dL Hct 23.1 L (42.0-52.0) % MCV 84.6 (80.0-105.0) fl MCH 28.9 (25.0-35.0) pg MCHC 34.2 (31.0-37.0) g/dl RDW 23.2 H (11.5-14.5) % Plt Count 96 L (120.0-450.0) 10^3/uL Gran % 64.8 (50.0-68.0) % Lymph % (Auto) 28.5 (22.0-35.0) % [place] % (Auto) 6.2 H (1.0-6.0) % Eos % (Auto) 0.3 L (1.5-5.0) % Baso % (Auto) 0.2 (0.0-3.0) % Gran # 4.27 (1.4-6.5) Lymph # (Auto) 1.9 (1.2-3.4) [place] # (Auto) 0.4 (0.1-0.6) Eos # (Auto) 0.0 (0.0-0.7) Baso # (Auto) 0.01 (0.0-2.0) K/mm3 Sodium 134 (132-148) mmol/L Potassium 4.1 (3.6-5.0) mmol/L Chloride 99 (98-107) mmol/L Carbon Dioxide 26 (21-33) mmol/L Anion Gap 13 (10-20) BUN 68 H (7-21) mg/dL Creatinine 2.4 H (0.8-1.5) mg/dl Est GFR ( Amer) 32 Est GFR (Non-Af Amer) 26 POC Glucose (mg/dL) 141 H (65-110) mg/dL Random Glucose 138 H (70-110) mg/dL Lactic Acid (0.7-2.1) mmol/L Calcium 7.5 L (8.4-10.5) mg/dL Troponin I 0.26 H* ng/mL Procalcitonin (0.19-0.49) NG/ML Blood Type Antibody Screen Crossmatch BBK History Checked 10/18/17 10/18/17 10/18/17 Range/Units 22:07 18:17 18:17 WBC (4.5-11.0) 10^3/ul RBC (3.5-6.1) 10^6/uL Hgb (14.0-18.0) g/dL Hct (42.0-52.0) % MCV (80.0-105.0) fl MCH (25.0-35.0) pg MCHC (31.0-37.0) g/dl RDW (11.5-14.5) % Plt Count (120.0-450.0) 10^3/uL Gran % (50.0-68.0) % Lymph % (Auto) (22.0-35.0) % [place] % (Auto) (1.0-6.0) % Eos % (Auto) (1.5-5.0) % Baso % (Auto) (0.0-3.0) % Gran # (1.4-6.5) Lymph # (Auto) (1.2-3.4) [place] # (Auto) (0.1-0.6) Eos # (Auto) (0.0-0.7) Baso # (Auto) (0.0-2.0) K/mm3 Sodium (132-148) mmol/L Potassium (3.6-5.0) mmol/L Chloride (98-107) mmol/L Carbon Dioxide (21-33) mmol/L Anion Gap (10-20) BUN (7-21) mg/dL Creatinine (0.8-1.5) mg/dl Est GFR ( Amer) Est GFR (Non-Af Amer) POC Glucose (mg/dL) 183 H (65-110) mg/dL Random Glucose (70-110) mg/dL Lactic Acid 1.7 (0.7-2.1) mmol/L Calcium (8.4-10.5) mg/dL Troponin I 0.25 H* D ng/mL Procalcitonin (0.19-0.49) NG/ML Blood Type Antibody Screen Crossmatch BBK History Checked 10/18/17 10/18/17 Range/Units 12:10 09:30 WBC (4.5-11.0) 10^3/ul RBC (3.5-6.1) 10^6/uL Hgb (14.0-18.0) g/dL Hct (42.0-52.0) % MCV (80.0-105.0) fl MCH (25.0-35.0) pg MCHC (31.0-37.0) g/dl RDW (11.5-14.5) % Plt Count (120.0-450.0) 10^3/uL Gran % (50.0-68.0) % Lymph % (Auto) (22.0-35.0) % [place] % (Auto) (1.0-6.0) % Eos % (Auto) (1.5-5.0) % Baso % (Auto) (0.0-3.0) % Gran # (1.4-6.5) Lymph # (Auto) (1.2-3.4) [place] # (Auto) (0.1-0.6) Eos # (Auto) (0.0-0.7) Baso # (Auto) (0.0-2.0) K/mm3 Sodium (132-148) mmol/L Potassium (3.6-5.0) mmol/L Chloride (98-107) mmol/L Carbon Dioxide (21-33) mmol/L Anion Gap (10-20) BUN (7-21) mg/dL Creatinine (0.8-1.5) mg/dl Est GFR ( Amer) Est GFR (Non-Af Amer) POC Glucose (mg/dL) (65-110) mg/dL Random Glucose (70-110) mg/dL Lactic Acid (0.7-2.1) mmol/L Calcium (8.4-10.5) mg/dL Troponin I ng/mL Procalcitonin 3.40 H (0.19-0.49) NG/ML Blood Type O POSITIVE Antibody Screen Negative Crossmatch See Detail BBK History Checked Patient has bt Laboratory Results - last 24 hr 10/18/17 10/18/17 10/18/17 09:30 12:10 18:17 WBC RBC Hgb Hct MCV MCH MCHC RDW Plt Count Gran % Lymph % (Auto) [place] % (Auto) Eos % (Auto) Baso % (Auto) Gran # Lymph # (Auto) [place] # (Auto) Eos # (Auto) Baso # (Auto) Sodium Potassium Chloride Carbon Dioxide Anion Gap BUN Creatinine Est GFR ( Amer) Est GFR (Non-Af Amer) POC Glucose (mg/dL) Random Glucose Lactic Acid Calcium Troponin I 0.25 H* D Procalcitonin 3.40 H Blood Type O POSITIVE Antibody Screen Negative Crossmatch See Detail BBK History Checked Patient has bt 10/18/17 10/18/17 10/19/17 18:17 22:07 06:30 WBC 6.6 D RBC 2.73 L Hgb 7.9 L Hct 23.1 L MCV 84.6 MCH 28.9 MCHC 34.2 RDW 23.2 H Plt Count 96 L Gran % 64.8 Lymph % (Auto) 28.5 [place] % (Auto) 6.2 H Eos % (Auto) 0.3 L Baso % (Auto) 0.2 Gran # 4.27 Lymph # (Auto) 1.9 [place] # (Auto) 0.4 Eos # (Auto) 0.0 Baso # (Auto) 0.01 Sodium Potassium Chloride Carbon Dioxide Anion Gap BUN Creatinine Est GFR ( Amer) Est GFR (Non-Af Amer) POC Glucose (mg/dL) 183 H Random Glucose Lactic Acid 1.7 Calcium Troponin I Procalcitonin Blood Type Antibody Screen Crossmatch BBK History Checked 10/19/17 10/19/17 06:30 07:47 WBC RBC Hgb Hct MCV MCH MCHC RDW Plt Count Gran % Lymph % (Auto) [place] % (Auto) Eos % (Auto) Baso % (Auto) Gran # Lymph # (Auto) [place] # (Auto) Eos # (Auto) Baso # (Auto) Sodium 134 Potassium 4.1 Chloride 99 Carbon Dioxide 26 Anion Gap 13 BUN 68 H Creatinine 2.4 H Est GFR ( Amer) 32 Est GFR (Non-Af Amer) 26 POC Glucose (mg/dL) 141 H Random Glucose 138 H Lactic Acid Calcium 7.5 L Troponin I 0.26 H* Procalcitonin Blood Type Antibody Screen Crossmatch BBK History Checked Critical Care Progress Note - Nutrition Nutrition: Nutrition Category Date Time Status Heart Healthy Diet [DIET] Diets 10/18/17 Dinner Active Attending/Attestation - Attestation I have personally seen and examined this patient.: Yes I have fully participated in the care of the patient.: Yes I have reviewed all pertinent clinical information: Yes Notes (Text): 10/19/17 14:25 The patient was seen and examined at the bedside. Patient care was discussed with resident Medical records, lab studies, and imaging were reviewed and management issues were discussed and formulated. Agree with above treatment plans as outlined in 's note with addition of the following: Septic Shock \ Pylonephritis \ MICHAEL \ NSTEMI \ DM 2 \ ho COPD \ CAD \ Anemia -hemodynamic monitoring to maintain MAP>65; wean off vasopressor support -f\u serial CE and ECG; cardiology team f\u; continue ASA and plavix; start BBlcoker and Ender\ARB once B\P stable -possibly type 2 OR -o2 supplementation to maintain Spo2>90 Pao2>60; currently comfortable on NC -duoneb PRN -f\u Bun\Cr and U\o; continue IVF with NS -continue Abx as per ID team and f\u cultures -f\u serial H\H; no active bleed noted -heme \onc team f\u -PO diet and aspiration precautions -ISS and BGM monitoring -DVT \ PUD prophylaxis CCM time 32min
--- NOTE | 2017-10-19 15:04 | PN ---
Copied To: Bon Blanc MD Attending MD: Bon Blanc MD DATE: 10/19/2017 REASON FOR CONSULTATION AND FOLLOWUP: Swelling of the leg, coronary artery disease, acute renal failure, possible sepsis, hypotension, positive septic shock. SUBJECTIVE: The patient denies any chest pain, but very weak, lethargic, better than yesterday. OBJECTIVE: GENERAL: Not in apparent distress. VITAL SIGNS: Temperature 99.1, heart rate 91, blood pressure 104/42. HEENT: PERRLA. Extraocular muscles are intact. NECK: Supple. No carotid bruits. No thyromegaly. CHEST: Clear to auscultation. HEART: S1 and S2 regular. ABDOMEN: Soft. EXTREMITIES: A 2+ pedal edema. LABORATORY DATA: Blood workup as follows: WBC 6.6, hemoglobin 7.9, hematocrit 23.1, platelet count 96. Chemistries shows sodium 134, potassium , chloride 99, carbon dioxide 26, anion gap of 13, BUN 68, creatinine 2.4. Troponin 0.2, 0.1. Creatinine clearance 26 mL. 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 RECOMMENDATIONS: Patient is not on beta-gareth because he cannot tolerate, now hypotensive. Continue heparin for DVT prophylaxis. Continue aspirin. Continue Levophed as blood pressures tolerate. Continue IV fluid. Once the patient becomes euvolemic and normotensive, we will start low dose beta-gareth. Continue baby aspirin. Continue Plavix. Overall patient's condition is critical. Prognosis is guarded. History of prostate cancer, history of sleep apnea, noncompliance to the medications; as mentioned, history of coronary artery disease, coronary artery bypass grafting. Patient had recent echocardiography on 09/26/2017 on last admission that revealed ejection fraction 45% to 52%, pacemaker lead in right ventricle, dilated right atrium, aortic sclerosis with mild aortic stenosis, status post MVR bioprosthesis, [id number] mitral regurgitation, [id number] tricuspid regurgitation, RV systolic pressure of 53. Thank you Dr. Sorto for providing us the opportunity in taking care of Davin Venegas Jr. MD merrick Abbasi MD
--- NOTE | 2017-10-19 15:57 | CON ---
Copied To: Rob Heredia MD Attending MD: Rob Heredia MD DATE: 10/19/2017 HOSPITAL VISIT AND INTENSIVE CARE UNIT CONSULT This is [facility]' Intensive Care Unit visit. For Dr. Parekh. CHIEF COMPLAINT: Weakness. HISTORY OF PRESENT ILLNESS: The patient is an 82-year-old male admitted via the emergency room, now in the Intensive Care Unit, sitting up in a chair with IV antibiotics being for his septic shock with left-sided pyelonephritis with acute renal failure and [id number]-RB-lhsonzrt [place] diagnosis on admission. The patient also has history of COPD, history of mitral valve endocarditis with permanent pacer with CABG with prostate cancer history. At present, he is noted to have anemic indices with acute renal failure, for which we will recommend transfusion of 2 units of packed red blood cells after conversation with Dr. Larson, his renal storage management consultant. The patient is awake and alert, sitting up with family members at the bedside. Denying any pain at this point, reporting he had breakfast, which was uneventful, feeling better today. ALLERGIES: NO KNOWN ALLERGIES. PAST MEDICAL HISTORY: As above. Significant for ASCVD with ejection fraction of 35%, mitral valve endocarditis, mechanical mitral valve replacement, permanent pacer, BPH with a bladder mass ? history, type 2 diabetes, right femoral artery stent, COPD, chronic edema of the lower extremities, hyperlipidemia, history of nephrolithiasis with hematuria, sleep apnea with recently diagnosed prostate cancer, for which he was seen by Dr. Pires in 01/2017 with a PSA of greater than 800 at that time. FAMILY HISTORY AND SOCIAL HISTORY: The patient is a current smoker, reports at least a pack a day for 30 years. Denies alcohol use. 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 MEDICATIONS: The patient's medicines at present Include aspirin, DuoNeb, heparin subcu, insulin sliding scale, meropenem, morphine, norepinephrine, Plavix, Protonix, Rocephin, normal saline with vancomycin being discontinued. He also had premedication with Tylenol, Benadryl, Solu-Cortef in anticipation of transfusion of paced red blood cells. REVIEW OF SYSTEMS: The 12-point review of systems was done, which was negative to question except for items mentioned in the history of present illness. The patient does have weakness of the lower extremities, weakness to asian studies program chair. OBJECTIVE PHYSICAL EXAMINATION: VITAL SIGNS: Temperature 99.1; pulse 93; respirations 16; blood pressure 92/50; pulse ox of 87%, previously 99%, possibly change of position with his oxygen taken off briefly. HEENT: Tongue is dry. NECK: Supple. HEART: Regular rate with paced rhythm. LUNGS: No decreased breath sounds bilaterally. Poor inspiratory effort. ABDOMEN: Obese, soft, nontender. EXTREMITIES: 2+ edema of the feet bilaterally, reports of a chronic nature. CHEST WALL: The patient does have a triple-lumen catheter noted on the right chest wall. SKIN: Warm and dry. NEUROLOGIC: Awake and alert with decreased strength in the extremities as above to asian studies program chair. LABORATORY DATA: The patient's labs were done. White blood cell count of 6.6 yesterday, it was 10.3 on admission; his hemoglobin today is 7.9, nit was 9.3 on admission; hematocrit 23.1; platelet count of 96,000. It was 124,000 on admission yesterday. His INR is 1.2 with a PTT of 17.8. His chem metabolic panel shows a BUN of 68 today with a creatinine of 2.4. On admission yesterday, his BUN was 71 with a creatinine of 3 with a potassium of 5.2, which has now corrected to 4.1. However, the patient's troponin nancy from 0.18 to 0.25 and it is presently 0.26. The patient's B natriuretic peptide was done on admission yesterday, it was 19,500 with a procalcitonin of 3.4. His CK is 289 with an LDH of 2951, AST of 93, ALT of 32 with a magnesium of 2.4. The patient's urine showed large amount of blood, trace of ketones, moderate bilirubin, large leukocyte esterase with a blood culture returned as negative and urine culture also no growth. ASSESSMENT: The assessment for this patient is that of septic shock due to a left-sided pyelonephritis with acute renal failure, [id number]-[id number] myocardial infarction with elevated troponins, exacerbation of chronic obstructive pulmonary disease, history of prostate cancer, mitral valve endocarditis, status post mitral valve replacement, status post coronary artery bypass graft, pacer, chronic edema of the lower extremities, diabetes mellitus, tobacco abuse. Anemia of chronic disease with hematuria. PLAN: The plan for this patient after conversation with Dr. Parekh and Dr. Larson and Dr. Chacon and also with the tiler is to transfuse 2 units of packed red blood cells slowly over 3 hours each unit with premedication of Tylenol, Benadryl and Solu Cortef to improve his oxygen carry capacity with the transfusion of 2 units of blood cells. The patient will also be treated with IV antibiotics as per Dr. Chacon and Dr. Arnold. Dr. Pires, his urologist is consulted as is Dr. Larson for his acute renal failure with the patient noted to be a DNR as per family and the patient's request. He will continue with Plavix as per Dr. Blanc and Dr. Caba, Cardiology with the prognosis for this patient guarded. The patient also had an evaluation by Dr. 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 This is a complex patient with comprehensive medically necessary and appropriate visit carried out in excess of 60 minutes [id number] time with the patient's family present with questions answered to their satisfaction with the nurse in the Intensive Care Unit also spoken to regarding the patient's present findings and with the consultants as above. Rob Heredia MD
--- NOTE | 2017-10-19 19:48 | PN ---
Copied To: Shelley Larson MD Attending MD: Shelley Larson MD DATE: 10/19/2017 SUBJECTIVE: The patient is seen lying in bed in the ICU. He is arousable. He opens his eyes, nods, and then closes his eyes again. Multiple family members are at bedside. He does not appear to be in any kind of distress. PHYSICAL EXAMINATION: GENERAL: Elderly male lying in bed in the ICU. VITAL SIGNS: Blood pressure 96/50, heart rate 89, respiratory rate 18, and temperature 97.9. HEENT: Normocephalic, atraumatic, positive pallor. NECK: Supple, no JVD. LUNGS: Bilateral equal air entry, bilateral equal expansion, no rales appreciated anteriorly. CARDIAC: S1 and S2, regular rate and rhythm, no murmur, no rub. ABDOMEN: Obese, distended, soft, nontender, bowel sounds present. EXTREMITIES: 2+ pitting edema of the lower extremities. INTAKE AND OUTPUT: 4834/450 LABORATORY DATA: WBC 6.6, hemoglobin 7.9, hematocrit 23, and platelets 96. Sodium 134, potassium 4.1, chloride 99, CO2 of 26. BUN 68, creatinine 2.4. Glucose 138. Calcium 7.5. Lactic acid 1.7. Troponin 0.26. Blood cultures, no growth. Urine culture, no growth. CURRENT MEDICATIONS: DuoNeb, Ecotrin, insulin, meropenem 500 every 12 hours, morphine, Plavix 75, Protonix 40, normal saline at 100, Solu-Cortef 100 mg given this morning, vasopressin discontinued. ASSESSMENT: 1. Acute kidney injury superimposed on chronic kidney disease stage II/III, etiology of acute kidney injury is largely acute tubular necrosis in the setting of sepsis, hypotension, left pyelonephritis, lactic acidosis. 2. Septic shock, multiorgan dysfunction. 3. 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 4. History of right hydronephrosis. 5. Chronic obstructive pulmonary disease. 6. Congestive heart failure, coronary artery disease, history of coronary artery bypass graft, history of mitral valve replacement. 7. Ujo-kzksqin-frdrbqodo diabetes mellitus. 8. Active smoking. PLAN: 1. Metabolic acidosis has improved much with hydration with sodium bicarbonate. Agree with switching IV fluids to normal saline. 2. Hemoglobin has dropped with hydration, suspect delusional drop. Do not suspect any active bleeding. The patient is scheduled for blood transfusion as per Dr. Heredia. 3. Continue antibiotics as per ID recommendations, dose all antibiotics for creatinine clearance about 10 to 30 mL/min. 4. Renal function has improved, creatinine has come down from 3 to 2.4. Continue IV fluids and antibiotics. 4. Elevated troponin's, conservative management right now? 5. No indication for renal replacement therapy. 6. Case is discussed with family at bedside, case is discussed with the ICU resident at length. More than 35 minutes was spent in the care of this critically ill patient. Shelley Larson MD
[2017-10-20] MEDS: Sodium Chloride 0.9% 1,000 ML IV SCH ×4 (02:50→16:18)
[2017-10-20 07:35] LABS: BASO # 0.01 K/mm3 (0.0-2.0); BASO % 0.2 % (0.0-3.0); GRAN # 4.92 (1.4-6.5); GRAN % 75.6 % (50.0-68.0); LYMPH # 1.2 (1.2-3.4); LYMPH % 18.5 % (22.0-35.0); MEAN CELL VOLUME 84.3 fl (80.0-105.0); MEAN CORPUSCULAR HEMOGLOBIN 28.8 pg (25.0-35.0); MEAN CORPUSCULAR HGB CONC 34.1 g/dl (31.0-37.0); MONO # 0.4 (0.1-0.6); MONO % 5.7 % (1.0-6.0); PLATELET COUNT 88 10^3/uL (120.0-450.0); RBC 3.51 10^6/uL (3.5-6.1); RED CELL DISTRIBUTION WIDTH 21.1 % (11.5-14.5); WHITE BLOOD COUNT 6.5 10^3/ul (4.5-11.0)
[2017-10-20 07:39] LABS: ALB/GLOB RATIO 1.1 (1.1-1.8); ALBUMIN 2.8 g/dL (3.0-4.8); CALCIUM 7.7 mg/dL (8.4-10.5)
[2017-10-20 07:49] LABS: HEMOGLOBIN 10.1 g/dL (14.0-18.0)
[2017-10-20] MEDS: Insulin Lispro (humaLOG) LOW Coverage SC SCH ×3 (08:17→22:00)
--- NOTE | 2017-10-20 08:38 | PN ---
Copied To: Conrad Arnold MD Attending MD: Conrad Anrold MD DATE: 10/20/2017 SUBJECTIVE: The patient is in bed, in no acute distress, nontoxic. OBJECTIVE: VITAL SIGNS: On exam, temperature is 98, blood pressure is 108/60, respiratory rate of 22, heart rate of 98. HEENT: Examination is unremarkable. NECK: Supple. LUNGS: Have decreased breath sounds. HEART: Normal S1, S2. ABDOMEN: Soft, nontender. DATA: Laboratory examination reveals a white count of 6.6, hemoglobin is 7.9, platelets of 96 and the coagulation is noted and chemistries reveal the creatinine is 1.9. Troponin is 0.26 and 0.25 and elevated troponins with a procalcitonin of 3.4. Urinalysis is noted. Microbiology reveals the blood cultures have no growth. Urine cultures, no growth. Review of orders, the patient is on meropenem, Solu-Cortef. Dr. Parth Ace's progress note is reviewed from yesterday. ASSESSMENT AND PLAN: This is an 82-year-old male who was admitted with septic shock due to left-sided pyelonephritis and acute renal failure and [id number] myocardial infarction in the phase of a lower urinary tract infection by history, acute exacerbation of chronic obstructive lung disease, history of mitral valve endocarditis and mitral valve replacement, coronary artery disease, history of coronary artery bypass graft and pacemaker, on day #3 of meropenem with negative blood cultures, negative urine cultures. He had significant urinalysis so appears to be improving with complete 10 days of antibiotics. Conrad Arnold MD
[2017-10-20] MEDS: Pantoprazole 40 mg EC Tab PO SCH (09:16)
[2017-10-20] MEDS: Meropenem 500 MG in Sodium Chloride 0.9% 50 ML IVPB SCH (09:17)
--- NOTE | 2017-10-20 10:43 | CP.CCUPN ---
<Santos Rooney - Last Filed: 10/20/17 10:34> CCU Subjective - Physician Review Events Since Last Encounter (Free Text): 10/20/17 10:34 ICU progress note - Toribio PGY - 2, IM Resident Patient seen and examined at bedside with no acute overnight events. Patient has no complaints right now, states that he feels much better. Is able to sit in chair. Denies any chest pain or shortness of breath. CCU Objective - Vital Signs / Intake & Output Vital Signs (Last 4 hours): Vital Signs Pulse Resp BP Pulse Ox 10/20/17 07:36 99 H 25 H 10/20/17 07:34 96 H 19 10/20/17 07:33 97 H 25 H 10/20/17 07:32 96 H 29 H 10/20/17 07:30 97 H 55 L 10/20/17 07:22 86 21 10/20/17 07:21 90 26 H 10/20/17 07:20 85 21 10/20/17 07:18 87 15 10/20/17 07:17 86 15 10/20/17 07:16 88 25 H 10/20/17 07:10 85 32 H 73 L 10/20/17 07:06 88 22 10/20/17 07:05 91 H 32 H 10/20/17 07:04 87 26 H 10/20/17 07:03 85 35 H 10/20/17 07:02 84 22 10/20/17 07:01 84 24 10/20/17 07:00 108/60 10/20/17 06:59 83 28 H 10/20/17 06:58 84 20 10/20/17 06:57 85 10/20/17 06:56 83 41 H 10/20/17 06:55 85 24 10/20/17 06:54 84 30 H 10/20/17 06:53 86 26 H 10/20/17 06:52 31 H Intake and Output (Last 8hrs): Intake & Output 10/19/17 10/20/17 10/20/17 22:59 06:59 14:59 Intake Total 2375 1000 Output Total 400 600 Balance 1975 400 Weight 84.822 kg Intake: IV 1200 1000 Right Internal Jugular 1200 1000 Oral 750 Blood Product 325 Red Blood Cells Cp2d As3 0 Lr Unit [id number] Red Blood Cells Cpd As1 0 Lr Unit [id number] Other 100 Red Blood Cells Cp2d As3 50 Lr Unit [id number] Output: Urine 400 600 Urethral (Logan) 400 600 Other: # Bowel Movements 0 0 - Physical Exam Head: Positive for: Atraumatic, Normocephalic Pupils: Positive for: PERRL Extroacular Muscles: Positive for: EOMI Mouth: Positive for: Moist Mucous Membranes Pharnyx: Positive for: Normal Neck: Positive for: Normal Range of Motion Respiratory/Chest: Positive for: Clear to Auscultation. Negative for: Wheezes, Tachypneic Cardiovascular: Positive for: Regular Rate and Rhythm, Peripheal Pulses Present Abdomen: Positive for: Normal Bowel Sounds. Negative for: Tenderness, Distention, Rebound Upper Extremity: Positive for: Normal Inspection Lower Extremity: Positive for: Other (pitting edema +2 present on B/L legs). Negative for: CALF TENDERNESS Skin: Positive for: Warm, Dry Psychiatric: Positive for: Alert, Normal Insight - Medications Active Medications: Active Medications Generic Name Dose Route Start Last Admin Trade Name Freq PRN Reason Stop Dose Admin Albuterol/Ipratropium 3 ml 10/19/17 09:42 Duoneb 3 Mg/0.5 Mg (3 Ml) Ud IH Q2H PRN Shortness of Breath Aspirin 81 mg 10/19/17 10:00 10/20/17 09:17 Ecotrin PO 81 mg DAILY EFRAIN Administration Clopidogrel Bisulfate 75 mg 10/18/17 13:30 10/20/17 09:17 Plavix PO 75 mg DAILY EFRAIN Administration Heparin Sodium (Porcine) 5,000 units 10/19/17 22:00 10/20/17 06:11 Heparin SC 5,000 units Q8 [facility] Administration Protocol Meropenem 500 mg/ Sodium 50 mls @ 100 mls/hr 10/18/17 22:00 10/20/17 09:17 Chloride IVPB 10/27/17 22:01 100 mls/hr Q12 [facility] Administration Protocol Sodium Chloride 1,000 mls @ 60 mls/hr 10/20/17 10:08 Sodium Chloride 0.9% IV .[id number] [facility] Insulin Human Lispro 0 units 10/19/17 11:30 10/20/17 08:17 Humalog Low SC Not Given ACHS [facility] Protocol Morphine Sulfate 2 mg 10/18/17 15:45 10/18/17 16:01 Morphine IVP 2 mg Q4H PRN Administration Pain, severe (8-10) Pantoprazole Sodium 40 mg 10/20/17 07:30 10/20/17 09:16 Protonix Ec Tab PO 40 mg ACB EFRAIN Administration - Patient Studies Lab Studies: Microbiology Studies 10/18/17 11:10 Urine Culture - Final Urine No Growth (<1,000 CFU/ML) Lab Studies 10/20/17 10/20/17 10/20/17 Range/Units 06:30 06:30 06:30 WBC 6.5 (4.5-11.0) 10^3/ul RBC 3.51 (3.5-6.1) 10^6/uL Hgb 10.1 L D (14.0-18.0) g/dL Hct 29.6 L (42.0-52.0) % MCV 84.3 (80.0-105.0) fl MCH 28.8 (25.0-35.0) pg MCHC 34.1 (31.0-37.0) g/dl RDW 21.1 H (11.5-14.5) % Plt Count 88 L (120.0-450.0) 10^3/uL Gran % 75.6 H (50.0-68.0) % Lymph % (Auto) 18.5 L (22.0-35.0) % Clay % (Auto) 5.7 (1.0-6.0) % Eos % (Auto) 0.0 L (1.5-5.0) % Baso % (Auto) 0.2 (0.0-3.0) % Gran # 4.92 (1.4-6.5) Lymph # (Auto) 1.2 (1.2-3.4) Clay # (Auto) 0.4 (0.1-0.6) Eos # (Auto) 0.0 (0.0-0.7) Baso # (Auto) 0.01 (0.0-2.0) K/mm3 Sodium 136 (132-148) mmol/L Potassium 4.3 (3.6-5.0) mmol/L Chloride 100 (98-107) mmol/L Carbon Dioxide 25 (21-33) mmol/L Anion Gap 15 (10-20) BUN 60 H (7-21) mg/dL Creatinine 1.9 H (0.8-1.5) mg/dl Est GFR ( Amer) 41 Est GFR (Non-Af Amer) 34 POC Glucose (mg/dL) (65-110) mg/dL Random Glucose 108 (70-110) mg/dL Calcium 7.7 L (8.4-10.5) mg/dL Total Bilirubin 1.0 (0.2-1.3) mg/dL AST 89 H (17-59) U/L ALT 36 (7-56) U/L Alkaline Phosphatase 141 H (38-126) U/L Total Protein 5.4 L (5.8-8.3) g/dL Albumin 2.8 L (3.0-4.8) g/dL Globulin 2.6 gm/dL Albumin/Globulin Ratio 1.1 (1.1-1.8) Prostate Specific Ag 867.0 H (0.00-2.5) ng/mL Blood Type Antibody Screen Crossmatch BBK History Checked 10/19/17 10/19/17 10/18/17 Range/Units 16:46 11:20 09:30 WBC (4.5-11.0) 10^3/ul RBC (3.5-6.1) 10^6/uL Hgb (14.0-18.0) g/dL Hct (42.0-52.0) % MCV (80.0-105.0) fl MCH (25.0-35.0) pg MCHC (31.0-37.0) g/dl RDW (11.5-14.5) % Plt Count (120.0-450.0) 10^3/uL Gran % (50.0-68.0) % Lymph % (Auto) (22.0-35.0) % Clay % (Auto) (1.0-6.0) % Eos % (Auto) (1.5-5.0) % Baso % (Auto) (0.0-3.0) % Gran # (1.4-6.5) Lymph # (Auto) (1.2-3.4) Clay # (Auto) (0.1-0.6) Eos # (Auto) (0.0-0.7) Baso # (Auto) (0.0-2.0) K/mm3 Sodium (132-148) mmol/L Potassium (3.6-5.0) mmol/L Chloride (98-107) mmol/L Carbon Dioxide (21-33) mmol/L Anion Gap (10-20) BUN (7-21) mg/dL Creatinine (0.8-1.5) mg/dl Est GFR ( Amer) Est GFR (Non-Af Amer) POC Glucose (mg/dL) 105 168 H (65-110) mg/dL Random Glucose (70-110) mg/dL Calcium (8.4-10.5) mg/dL Total Bilirubin (0.2-1.3) mg/dL AST (17-59) U/L ALT (7-56) U/L Alkaline Phosphatase (38-126) U/L Total Protein (5.8-8.3) g/dL Albumin (3.0-4.8) g/dL Globulin gm/dL Albumin/Globulin Ratio (1.1-1.8) Prostate Specific Ag (0.00-2.5) ng/mL Blood Type O POSITIVE Antibody Screen Negative Crossmatch See Detail BBK History Checked Patient has bt Laboratory Results - last 24 hr 10/18/17 10/19/17 10/19/17 09:30 11:20 16:46 WBC RBC Hgb Hct MCV MCH MCHC RDW Plt Count Gran % Lymph % (Auto) Clay % (Auto) Eos % (Auto) Baso % (Auto) Gran # Lymph # (Auto) Clay # (Auto) Eos # (Auto) Baso # (Auto) Sodium Potassium Chloride Carbon Dioxide Anion Gap BUN Creatinine Est GFR ( Amer) Est GFR (Non-Af Amer) POC Glucose (mg/dL) 168 H 105 Random Glucose Calcium Total Bilirubin AST ALT Alkaline Phosphatase Total Protein Albumin Globulin Albumin/Globulin Ratio Prostate Specific Ag Blood Type O POSITIVE Antibody Screen Negative Crossmatch See Detail BBK History Checked Patient has bt 10/20/17 10/20/17 10/20/17 06:30 06:30 06:30 WBC 6.5 RBC 3.51 Hgb 10.1 L D Hct 29.6 L MCV 84.3 MCH 28.8 MCHC 34.1 RDW 21.1 H Plt Count 88 L Gran % 75.6 H Lymph % (Auto) 18.5 L Clay % (Auto) 5.7 Eos % (Auto) 0.0 L Baso % (Auto) 0.2 Gran # 4.92 Lymph # (Auto) 1.2 Clay # (Auto) 0.4 Eos # (Auto) 0.0 Baso # (Auto) 0.01 Sodium 136 Potassium 4.3 Chloride 100 Carbon Dioxide 25 Anion Gap 15 BUN 60 H Creatinine 1.9 H Est GFR ( Amer) 41 Est GFR (Non-Af Amer) 34 POC Glucose (mg/dL) Random Glucose 108 Calcium 7.7 L Total Bilirubin 1.0 AST 89 H ALT 36 Alkaline Phosphatase 141 H Total Protein 5.4 L Albumin 2.8 L Globulin 2.6 Albumin/Globulin Ratio 1.1 Prostate Specific Ag 867.0 H Blood Type Antibody Screen Crossmatch BBK History Checked Fingerstick Blood Sugar Results: 115 Critical Care Progress Note - Nutrition Nutrition: Nutrition Category Date Time Status Heart Healthy Diet [DIET] Diets 10/18/17 Dinner Active Assessment/Plan - Assessment and Plan (Free Text) Assessment: 82 year old male with PMHx pertinent for recurrent hydronephrosis under ICU management for multiorgan failure including possible type II MO, MICHAEL 2/2 septic shock due to pyelonephritis Hx COPD Hx DM Hx CHF Hx Prostate CA METS to Bone Patient is off pressors for 24 hours now. Leukocytosis improving, lactic acid has resolved. Troponin peaked at .26 yesterday. CR improving from 2.4 to 1.9 Plan Neuro: - Maintain normothermia Pulm: - Continue duonebs prn - Maintain SaO2 > 90 Cardio: - Maintain MAP >65 - Continue ASA 81, plavix 75 - Cardio consulted : - Maintain euvolemia, avoid hypochloremia. - Replace electrolytes as needed - Urology consulted, appreciate recommendations - Nephrology consulted, appreciate recommendations ID: - Continue with Merrem day 3 - Urine cultures show no growth, blood culture shows no growth after 24 hours - ID consulted, appreciate recommendations GI: - Pantoprazole ppx Heme: - Heparin ppx Endo: - Finger sticks, sliding scale - Maintain euglycemia Dispo: Patient is stable for transfer from ICU, has been off pressors for 24 hours <Mickey Jon - Last Filed: 10/20/17 12:02> CCU Objective - Vital Signs / Intake & Output Intake and Output (Last 8hrs): Intake & Output 10/19/17 10/20/17 10/20/17 22:59 06:59 14:59 Intake Total 2375 1000 Output Total 400 600 Balance 1975 400 Weight 187 lb Intake: IV 1200 1000 Right Internal Jugular 1200 1000 Oral 750 Blood Product 325 Red Blood Cells Cp2d As3 0 Lr Unit [id number] Red Blood Cells Cpd As1 0 Lr Unit [id number] Other 100 Red Blood Cells Cp2d As3 50 Lr Unit [id number] Output: Urine 400 600 Urethral (Logan) 400 600 Other: # Bowel Movements 0 0 - Medications Active Medications: Active Medications Generic Name Dose Route Start Last Admin Trade Name Freq PRN Reason Stop Dose Admin Albuterol/Ipratropium 3 ml 10/19/17 09:42 Duoneb 3 Mg/0.5 Mg (3 Ml) Ud IH Q2H PRN Shortness of Breath Aspirin 81 mg 10/19/17 10:00 10/20/17 09:17 Ecotrin PO 81 mg DAILY EFRAIN Administration Clopidogrel Bisulfate 75 mg 10/18/17 13:30 10/20/17 09:17 Plavix PO 75 mg DAILY EFRAIN Administration Heparin Sodium (Porcine) 5,000 units 10/19/17 22:00 10/20/17 06:11 Heparin SC 5,000 units Q8 EFRA[facility] Administration Protocol Meropenem 500 mg/ Sodium 50 mls @ 100 mls/hr 10/18/17 22:00 10/20/17 09:17 Chloride IVPB 10/27/17 22:01 100 mls/hr Q12 [facility] Administration Protocol Sodium Chloride 1,000 mls @ 60 mls/hr 10/20/17 10:08 Sodium Chloride 0.9% IV .[id number] [facility] Insulin Human Lispro 0 units 10/19/17 11:30 10/20/17 08:17 Humalog Low SC Not Given ACHS [facility] Protocol Morphine Sulfate 2 mg 10/18/17 15:45 10/18/17 16:01 Morphine IVP 2 mg Q4H PRN Administration Pain, severe (8-10) Pantoprazole Sodium 40 mg 10/20/17 07:30 10/20/17 09:16 Protonix Ec Tab PO 40 mg ACB EFRAIN Administration - Patient Studies Lab Studies: Microbiology Studies 10/18/17 11:10 Urine Culture - Final Urine No Growth (<1,000 CFU/ML) Lab Studies 10/20/17 10/20/17 10/20/17 Range/Units 11:37 07:48 06:30 WBC (4.5-11.0) 10^3/ul RBC (3.5-6.1) 10^6/uL Hgb (14.0-18.0) g/dL Hct (42.0-52.0) % MCV (80.0-105.0) fl MCH (25.0-35.0) pg MCHC (31.0-37.0) g/dl RDW (11.5-14.5) % Plt Count (120.0-450.0) 10^3/uL Gran % (50.0-68.0) % Lymph % (Auto) (22.0-35.0) % Clay % (Auto) (1.0-6.0) % Eos % (Auto) (1.5-5.0) % Baso % (Auto) (0.0-3.0) % Gran # (1.4-6.5) Lymph # (Auto) (1.2-3.4) Clay # (Auto) (0.1-0.6) Eos # (Auto) (0.0-0.7) Baso # (Auto) (0.0-2.0) K/mm3 Sodium (132-148) mmol/L Potassium (3.6-5.0) mmol/L Chloride (98-107) mmol/L Carbon Dioxide (21-33) mmol/L Anion Gap (10-20) BUN (7-21) mg/dL Creatinine (0.8-1.5) mg/dl Est GFR ( Amer) Est GFR (Non-Af Amer) POC Glucose (mg/dL) 121 H 115 H (65-110) mg/dL Random Glucose (70-110) mg/dL Calcium (8.4-10.5) mg/dL Total Bilirubin (0.2-1.3) mg/dL AST (17-59) U/L ALT (7-56) U/L Alkaline Phosphatase (38-126) U/L Total Protein (5.8-8.3) g/dL Albumin (3.0-4.8) g/dL Globulin gm/dL Albumin/Globulin Ratio (1.1-1.8) Prostate Specific Ag 867.0 H (0.00-2.5) ng/mL Blood Type Antibody Screen Crossmatch BBK History Checked 10/20/17 10/20/17 10/19/17 Range/Units 06:30 06:30 21:29 WBC 6.5 (4.5-11.0) 10^3/ul RBC 3.51 (3.5-6.1) 10^6/uL Hgb 10.1 L D (14.0-18.0) g/dL Hct 29.6 L (42.0-52.0) % MCV 84.3 (80.0-105.0) fl MCH 28.8 (25.0-35.0) pg MCHC 34.1 (31.0-37.0) g/dl RDW 21.1 H (11.5-14.5) % Plt Count 88 L (120.0-450.0) 10^3/uL Gran % 75.6 H (50.0-68.0) % Lymph % (Auto) 18.5 L (22.0-35.0) % Clay % (Auto) 5.7 (1.0-6.0) % Eos % (Auto) 0.0 L (1.5-5.0) % Baso % (Auto) 0.2 (0.0-3.0) % Gran # 4.92 (1.4-6.5) Lymph # (Auto) 1.2 (1.2-3.4) Clay # (Auto) 0.4 (0.1-0.6) Eos # (Auto) 0.0 (0.0-0.7) Baso # (Auto) 0.01 (0.0-2.0) K/mm3 Sodium 136 (132-148) mmol/L Potassium 4.3 (3.6-5.0) mmol/L Chloride 100 (98-107) mmol/L Carbon Dioxide 25 (21-33) mmol/L Anion Gap 15 (10-20) BUN 60 H (7-21) mg/dL Creatinine 1.9 H (0.8-1.5) mg/dl Est GFR ( Amer) 41 Est GFR (Non-Af Amer) 34 POC Glucose (mg/dL) 124 H (65-110) mg/dL Random Glucose 108 (70-110) mg/dL Calcium 7.7 L (8.4-10.5) mg/dL Total Bilirubin 1.0 (0.2-1.3) mg/dL AST 89 H (17-59) U/L ALT 36 (7-56) U/L Alkaline Phosphatase 141 H (38-126) U/L Total Protein 5.4 L (5.8-8.3) g/dL Albumin 2.8 L (3.0-4.8) g/dL Globulin 2.6 gm/dL Albumin/Globulin Ratio 1.1 (1.1-1.8) Prostate Specific Ag (0.00-2.5) ng/mL Blood Type Antibody Screen Crossmatch BBK History Checked 10/19/17 10/19/17 10/18/17 Range/Units 16:46 11:20 09:30 WBC (4.5-11.0) 10^3/ul RBC (3.5-6.1) 10^6/uL Hgb (14.0-18.0) g/dL Hct (42.0-52.0) % MCV (80.0-105.0) fl MCH (25.0-35.0) pg MCHC (31.0-37.0) g/dl RDW (11.5-14.5) % Plt Count (120.0-450.0) 10^3/uL Gran % (50.0-68.0) % Lymph % (Auto) (22.0-35.0) % Clay % (Auto) (1.0-6.0) % Eos % (Auto) (1.5-5.0) % Baso % (Auto) (0.0-3.0) % Gran # (1.4-6.5) Lymph # (Auto) (1.2-3.4) Clay # (Auto) (0.1-0.6) Eos # (Auto) (0.0-0.7) Baso # (Auto) (0.0-2.0) K/mm3 Sodium (132-148) mmol/L Potassium (3.6-5.0) mmol/L Chloride (98-107) mmol/L Carbon Dioxide (21-33) mmol/L Anion Gap (10-20) BUN (7-21) mg/dL Creatinine (0.8-1.5) mg/dl Est GFR ( Amer) Est GFR (Non-Af Amer) POC Glucose (mg/dL) 105 168 H (65-110) mg/dL Random Glucose (70-110) mg/dL Calcium (8.4-10.5) mg/dL Total Bilirubin (0.2-1.3) mg/dL AST (17-59) U/L ALT (7-56) U/L Alkaline Phosphatase (38-126) U/L Total Protein (5.8-8.3) g/dL Albumin (3.0-4.8) g/dL Globulin gm/dL Albumin/Globulin Ratio (1.1-1.8) Prostate Specific Ag (0.00-2.5) ng/mL Blood Type O POSITIVE Antibody Screen Negative Crossmatch See Detail BBK History Checked Patient has bt Laboratory Results - last 24 hr 10/18/17 10/19/17 10/19/17 09:30 11:20 16:46 WBC RBC Hgb Hct MCV MCH MCHC RDW Plt Count Gran % Lymph % (Auto) Clay % (Auto) Eos % (Auto) Baso % (Auto) Gran # Lymph # (Auto) Clay # (Auto) Eos # (Auto) Baso # (Auto) Sodium Potassium Chloride Carbon Dioxide Anion Gap BUN Creatinine Est GFR ( Amer) Est GFR (Non-Af Amer) POC Glucose (mg/dL) 168 H 105 Random Glucose Calcium Total Bilirubin AST ALT Alkaline Phosphatase Total Protein Albumin Globulin Albumin/Globulin Ratio Prostate Specific Ag Blood Type O POSITIVE Antibody Screen Negative Crossmatch See Detail BBK History Checked Patient has bt 10/19/17 10/20/17 10/20/17 21:29 06:30 06:30 WBC 6.5 RBC 3.51 Hgb 10.1 L D Hct 29.6 L MCV 84.3 MCH 28.8 MCHC 34.1 RDW 21.1 H Plt Count 88 L Gran % 75.6 H Lymph % (Auto) 18.5 L Clay % (Auto) 5.7 Eos % (Auto) 0.0 L Baso % (Auto) 0.2 Gran # 4.92 Lymph # (Auto) 1.2 Clay # (Auto) 0.4 Eos # (Auto) 0.0 Baso # (Auto) 0.01 Sodium 136 Potassium 4.3 Chloride 100 Carbon Dioxide 25 Anion Gap 15 BUN 60 H Creatinine 1.9 H Est GFR ( Amer) 41 Est GFR (Non-Af Amer) 34 POC Glucose (mg/dL) 124 H Random Glucose 108 Calcium 7.7 L Total Bilirubin 1.0 AST 89 H ALT 36 Alkaline Phosphatase 141 H Total Protein 5.4 L Albumin 2.8 L Globulin 2.6 Albumin/Globulin Ratio 1.1 Prostate Specific Ag Blood Type Antibody Screen Crossmatch BBK History Checked 10/20/17 10/20/17 10/20/17 06:30 07:48 11:37 WBC RBC Hgb Hct MCV MCH MCHC RDW Plt Count Gran % Lymph % (Auto) Clay % (Auto) Eos % (Auto) Baso % (Auto) Gran # Lymph # (Auto) Clay # (Auto) Eos # (Auto) Baso # (Auto) Sodium Potassium Chloride Carbon Dioxide Anion Gap BUN Creatinine Est GFR ( Amer) Est GFR (Non-Af Amer) POC Glucose (mg/dL) 115 H 121 H Random Glucose Calcium Total Bilirubin AST ALT Alkaline Phosphatase Total Protein Albumin Globulin Albumin/Globulin Ratio Prostate Specific Ag 867.0 H Blood Type Antibody Screen Crossmatch BBK History Checked Critical Care Progress Note - Nutrition Nutrition: Nutrition Category Date Time Status Heart Healthy Diet [DIET] Diets 10/18/17 Dinner Active Assessment/Plan - Assessment and Plan (Free Text) Assessment: Patient seen and examined on rounds with resident, agree with note with following additions/exceptions: Patient is 82 yo male with PMHx of Prostate Ca with mets, CKD, CHF, COPD, admitted with septic shock 2/2 pyelonephritis/UTI, now off Vasopressor support for >24hr. Currently afebrile, BP stable, NAD, sitting in chair, tolerating PO diet, no major complaints Labs, imaging, chart reviewed Nephrology following Septic Shock, resolved UTI/Pyelonephritis Dehydration Acute on CKD Prostate Ca with mets Elevated troponin Recommend: - supp o2 as needed, goal sat 90%, duonebs PRN - Abx as per ID, Merrem - follow up cultures - IVF hydration - low salt diet - FS control - DC central line - DC logan - GI ppx - DVT ppx - DNR - transfer to [facility]
[2017-10-20] MEDS: Oxycodone/Acetaminophen 10/325 mg Tab PO PRN (16:18)
--- NOTE | 2017-10-20 20:48 | PN ---
Copied To: Rob Heredia MD Attending MD: Rob Heredia MD DATE: 10/20/2017 This is [facility]'s hospital visit in the Intensive Care Unit. For Dr. Parekh. SUBJECTIVE: The patient is an 82-year-old male now sitting up in bed in the Intensive Care Unit with family at the bedside with the patient feeling strong after transfusion of 2 units of packed red blood cells yesterday. The patient is known to suffer from prostate cancer; however, he was admitted for septic shock with acute myocardial infarction as per troponin values bumping up with COPD and permanent pacer noted. At present, he reports he feels better and is denying pain at this time. PHYSICAL EXAMINATION: VITAL SIGNS: Temperature of 99, pulse 83, respirations 20, blood pressure 108/60 with a pulse ox of 98%. HEENT: Tongue is moist. NECK: Supple. HEART: Regular rate, paced. LUNGS: Occasional rhonchi. ABDOMEN: Obese, soft, and nontender. EXTREMITIES: Chronic +2 edema of the feet bilaterally. NEUROLOGIC: Awake and alert. SKIN: Warm and dry. LABORATORY DATA: The patient's labs were done. White blood cell count is 6.5; hemoglobin of 10.1, improved from 7.9 yesterday; hematocrit 29.6; and platelet count of 88,000. Chem metabolic panel showed a BUN of 60; creatinine of 1.9, improved from a creatinine of 2.4 on admission. The patient's most recent troponin was 0.26 done yesterday. The calcium is 7.7, AST of 89 with a PSA value of 867. ASSESSMENT: The assessment for this patient is that of septic shock; left-sided pyelonephritis; acute renal failure, now improving; [id number] myocardial infarction; chronic obstructive pulmonary disease; history of mitral valve replacement/endocarditis; status post bypass graft with pacer; history of prostate cancer; anemia status post hematuria?; chronic edema of the lower extremities; diabetes mellitus; tobacco abuse. PLAN: The plan for this patient after conversation with Dr. Parekh is to continue his present medical regimen. The patient is now improving with consideration to transfer to remote telemetry as indicated. We will monitor clinically and with labs, with the patient's platelet count to be monitored possibly due to his sepsis with improvement of his kidney functions as per Dr. Lau and Dr. Larson with IV antibiotics to continue as per Dr. Arnold and his AL followup as per Dr. Caba and Dr. Blanc. This is a complex patient with comprehensive medically necessary and appropriate visit carried out in excess of 40 minutes with the patient's and family's questions answered to their satisfaction with all the consultants and nurses also involving decision making for this patient. Rob Heredia MD
[2017-10-21] MEDS: Meropenem 500 MG in Sodium Chloride 0.9% 50 ML IVPB SCH ×3 (00:04→23:09)
[2017-10-21] MEDS: Pantoprazole 40 mg EC Tab PO SCH (08:06)
[2017-10-21] MEDS: Insulin Lispro (humaLOG) LOW Coverage SC SCH (09:41)
[2017-10-21 10:29] LABS: BASO # 0.02 K/mm3 (0.0-2.0); BASO % 0.3 % (0.0-3.0); EOS % 0.3 % (1.5-5.0); GRAN # 3.41 (1.4-6.5); HEMOGLOBIN 11.4 g/dL (14.0-18.0); LYMPH # 2.3 (1.2-3.4); LYMPH % 38.1 % (22.0-35.0); MEAN CELL VOLUME 86.6 fl (80.0-105.0); MEAN CORPUSCULAR HEMOGLOBIN 28.7 pg (25.0-35.0); MEAN CORPUSCULAR HGB CONC 33.1 g/dl (31.0-37.0); MONO # 0.3 (0.1-0.6); MONO % 5.3 % (1.0-6.0); PLATELET COUNT 107 10^3/uL (120.0-450.0); RBC 3.97 10^6/uL (3.5-6.1); RED CELL DISTRIBUTION WIDTH 22.2 % (11.5-14.5); WHITE BLOOD COUNT 6.1 10^3/ul (4.5-11.0)
[2017-10-21 10:38] LABS: ALB/GLOB RATIO 1.1 (1.1-1.8); ALBUMIN 3.2 g/dL (3.0-4.8); CALCIUM 7.9 mg/dL (8.4-10.5)
--- NOTE | 2017-10-21 15:46 | PN ---
Copied To: Conrad Arnold MD Attending MD: Conrad Arnold MD DATE: 10/21/2017 SUBJECTIVE: The patient is in bed, in no acute distress, nontoxic. PHYSICAL EXAMINATION: VITAL SIGNS: Temperature is 97, blood pressure is 120/40, respiratory rate of 16. HEENT: Unremarkable. NECK: Supple. LUNGS: Have decreased breath sounds. HEART: Normal S1, S2. ABDOMINAL: Soft. LABORATORY EXAMINATION: Reveals a white count of 6.1, hemoglobin of 11. Chemistries reveals a BUN of 62, creatinine is 2. PSA is 867, alkaline phosphatase is noted. Urinalysis is significant. Microbiology reveals the urine cultures are negative. Blood cultures are negative. Chest x-ray is noted. Has a new internal jugular catheter terminates at the junction of the SVC and right atrium. The lungs are clear. ASSESSMENT AND PLAN: This is an 82-year-old male admitted with a septic shock to the left-side, pyelonephritis, acute renal failure and [id number] myocardial infarction and lower urinary tract infection by history, acute exacerbation of chronic obstructive lung disease, history of mitral valve endocarditis and mitral valve replacement. Day #4 of meropenem with complete 10 days, although the urine culture is negative day #4 of 10 days for pyelonephritis of meropenem. Conrad Arnold MD : 10/21/2017 13:31:04
[2017-10-21] MEDS: Oxycodone/Acetaminophen 10/325 mg Tab PO PRN (16:37)
[2017-10-21 16:52] VITALS: BP 144/67; PULSE 75; RESP 16; TEMP 98.4; O2SAT 93
--- NOTE | 2017-10-21 20:56 | PN ---
Copied To: Rob Heredia MD Attending MD: Rob Heredia MD DATE: 10/21/2017 This is [facility] visit on the medical floor. For Dr. Parekh. SUBJECTIVE: The patient is an 82-year-old male seen lying awake in bed on the medical floor after being transferred from the Intensive Care Unit. He is now status post transfusion of 2 units of packed red blood cells for hemoglobin of 7.9, now the hemoglobin is 11.4. The patient feels stronger; however, he is now still being treated for septic shock with acute myocardial infarction, subendocardial, with the patient known to suffer from COPD and prostate cancer. At present, he is now reporting his appetite is not so good; however, he is in no acute distress. PHYSICAL EXAMINATION: VITAL SIGNS: Temperature 97.6, pulse 77, respirations 16, blood pressure 120/43, pulse ox of 100%. HEENT: Unremarkable. Tongue is moist. NECK: Supple. HEART: Paced, regular rate. LUNGS: Occasional rhonchi bilaterally. ABDOMEN: Obese, soft, nontender. EXTREMITIES: Chronic +2 edema of the feet bilaterally. NEUROLOGIC: Awake and alert, but somnolent. SKIN: Warm and dry. LABORATORY DATA: The patient's labs were done. White blood cell count is 6.1, hemoglobin of 11.4 after transfusion of 2 units for hemoglobin 7.9 two days prior, hematocrit of 34.4 and platelet count of 107,000 with a chem metabolic panel showing a BUN of 62, creatinine of 2 with a magnesium of 2.3, total bilirubin of 1.5, AST of 93, alkaline phosphatase 171. His PSA was also done, it is 867. The patient's urine culture showed no growth. Blood cultures also showed no growth. The patient had a triple-lumen catheter in the right neck, it was removed. ASSESSMENT: The assessment for this patient is that of left-sided pyelonephritis with septic shock with acute renal failure, [id number] myocardial infarction, history of prostate cancer, chronic obstructive pulmonary disease, mitral valve endocarditis status post mitral valve replacement with pacer, atherosclerotic cardiovascular disease status post grafting, anemia of chronic disease, chronic peripheral vascular disease, diabetes mellitus, tobacco abuse. PLAN: The plan for this patient after conversation with Dr. Parekh is to continue his present medical regimen with IV antibiotics as per Dr. Arnold with his renal status being followed by Dr. Larson and Dr. Lau, renal consultants. We will await consult with Dr. Pires for his hydronephrosis and his prostate cancer, for which he was getting Lupron?. Dr. Blanc is following him for his subendocardial myocardial infarction with elevated troponin values. He continues to be a DNR as per his and family request. This is a complex patient with a comprehensive medically necessary and appropriate visit carried out in excess of 25 minutes with the patient's test review and the patient's questions answered to his satisfaction. Rob Heredia MD
[2017-10-22] MEDS: Sodium Chloride 0.9% 250 ML IV SCH ×2 (01:15→01:16)
[2017-10-22] MEDS ORDERED: Sodium Chloride 0.9% 250 ML IV SCH (01:15)
--- NOTE | 2017-10-22 02:57 | PN ---
Copied To: Salty Sorto MD Attending MD: Salty Sorto MD DATE: 10/19/2017 SUBJECTIVE: The patient is comfortable in ICU. He is doing very well. No change. PHYSICAL EXAMINATION: VITAL SIGNS: Temperature 98, heart rate 84, blood pressure is 112/54, respirations 16. HEAD AND NECK: Normal. No JVD. No thyromegaly. CHEST: Clear. Good air entry. CARDIAC: First sound, second sound normal. ABDOMEN: Soft, nontender. EXTREMITIES: Mild edema. NEUROLOGIC: Normal. LABORATORY DATA: His laboratory studies shows the following, white count 6.6, hemoglobin 7.9, hematocrit 23.1, platelet is 96. Patient also had chemistry which shows sodium 134, potassium 4.1, chloride 99, bicarb 26, BUN 68, creatinine 2.4, blood sugar 138, calcium 7.5. Patient has troponin 0.26, slightly elevated. Patient had blood culture, urine cultures that came back negative. He also was seen by multiple consultants. IMPRESSION AND PLAN: 1. Severe sepsis most likely renal in origin. We will continue meropenem. Continue IV fluid. Patient seems to be doing well. We will taper off vasopressors. We will follow up with asphalt worker and Dr. Ace will continue to monitor the patient. Patient will be transferred to the medical floor. 2. Prostate cancer with bone metastasis, stable. 3. Acute renal failure. Patient is seen by Dr. Larson. Continue IV fluids, probably secondary to sepsis, in component of prerenal plus acute tubular necrosis may be etiology of his renal failure. We will discuss further with the buffing turner and counter. We will follow the recommendations. 4. Chronic obstructive pulmonary disease. 5. History of bypass surgery, mitral valve replacement, congestive heart failure. At this time, we will continue current management. Follow up with Cardiology, Dr. Caba will see the patient. 6. Anemia, thrombocytopenia. Patient probably secondary to sepsis. We will consider blood transfusion. Dr. Parekh has seen the patient and will followup on that. 7. acute non st elevation myocardial infarction,seeb by dr sweeney, aspirin plavix pronosis is guarded. PLAN: To continue current therapy. Follow up clinically. Salty Sorto MD [facility] # [id number] MTDOsmar
--- NOTE | 2017-10-22 03:19 | PN ---
Copied To: Salty Sorto MD Attending MD: Salty Sorto MD. DATE: 10/21/2017 SUBJECTIVE: Patient seen today on medical floor. He has being doing well. He is off vasopressor. Alert, awake, and oriented x3, in no distress. Did have breakfast. No vomiting. PHYSICAL EXAMINATION: On 10/21/2017 as follows: VITAL SIGNS: Temperature 97.6, heart rate 77, blood pressure 120/43, respirations 16, saturation 100% on room air. HEAD AND NECK: Normal. No JVD. No thyromegaly. CHEST: Clear bilaterally. There is diminished breath sounds in the bases, but otherwise clear. No wheezing. CARDIAC: First sound and second sound normal. There is mild systolic murmur. ABDOMEN: Soft, nontender. EXTREMITIES: Bilaterally, there is mild ankle edema both sides. NEUROLOGIC: Normal. IMPRESSION AND PLAN: 1. Severe sepsis. Patient currently has negative blood culture, urine cultures. We will continue meropenem for negative. 2. Acute renal failure, improving. Continue monitor creatinine. It is better, but it is slightly going up. BUN 62, creatinine is. Plan is to continue current treatment. 3. Patient has abnormal liver function tests, alkaline phosphatase and AST. We will get ultrasound of the liver. CT abdomen did not show any liver or gallbladder problems. 4. Thrombocytopenia, anemia is better, improving. Patient is seen by Dr. Rob Heredia, the Hematology associate with Dr. Parekh and seems better, status post 3 units of packed red blood cell transfusion. Hemoglobin went up to 11.4. 5. Chronic obstructive pulmonary disease, history of congestive heart failure, mitral valve replacement, bypass surgery, peripheral vascular disease. Plan: We will continue current treatment, inhaled bronchodilator. Patient seems doing well. 6. Diabetes, seems stable, is not going up. Continue current treatment. We will follow up with other consultants. 7.acute non st elevation myocardial infarction positive troponin.will foloow up with cardiology. 8.anemia better s/p transfusion better ,will monitor hemoglobin .possible marleny dic. prognosis is guarded. CURRENT MEDICATIONS: Albuterol nebulizer treatment, aspirin 81 mg, heparin subcutaneous for DVT prophylaxis, insulin coverage, meropenem 1 g IV every 12 hours, morphine p.r.n. 2 mg, Percocet 10 mg every 6 hours, Plavix 75, Protonix 40 once a day, and IV fluids 60 mL per hour. Continue current regimen. We will follow up clinically. LABORATORY DATA: On 10/21/2017, sodium 139, potassium 4.1, chloride 102, bicarb 24, BUN 62, and creatinine is 3. CBC shows white count 6.1, hemoglobin 11.4, hematocrit 34.4, platelets 107. Salty Sorto MD MTDOsmar
--- NOTE | 2017-10-22 05:21 | CP.PCM.PRO ---
<Yayo Cabral - Last Filed: 10/22/17 05:18> Pronouncement of Note - Clinical Findings Physical Exam: No Response Verbal/Painful Stimuli, Absent Peripheral Pulses{ Carotid & Femoral}, Absent Heart & Breath Sounds, No Pupillary Light Reflex, No Corneal Reflex, Pupils Fixed & Dilated, Absence of Vital Signs - Pronouncement Time Time of Pronouncement of : 05:05 Additional Comments: ADAPTIVE PHYSICAL EDUCATOR called for patient, found to be pulseless, was intubated, could not obtain pulse. patient was DNR, so compressions were not performed. - Notifications Pronouncement Notifications: Family Notified, Atending Notified (call made to Dr. Sorto, could not be reached) Skydiving Instructor Notified: No - Autopsy Autopsy Requested: No - [place] [id number] <Tal Farooq - Last Filed: 10/22/17 06:32> Attending/Attestation - Attestation I have personally seen and examined this patient.: Yes I have fully participated in the care of the patient.: Yes I have reviewed all pertinent clinical information: Yes Notes (Text): 10/22/17 06:29 I spoke to Terence Venegas ,next of Kin and informed him of expiration, who said that he would come to the hospital. was called, who returned the call and was notified by nurse.
[2017-10-22] MEDS: Insulin Lispro (humaLOG) LOW Coverage SC SCH (07:05)
--- NOTE | 2017-10-22 08:26 | RAD ---
Date of service: 10/22/2017 HISTORY: diminished breath sounds on left side COMPARISON: 10/18/2017. FINDINGS: LUNGS: The lungs are well inflated and clear. PLEURA: No significant pleural effusion identified, no pneumothorax apparent. CARDIOVASCULAR: There is mild cardiomegaly. Status post CABG. There is stable position of left-sided permanent pacing device. OSSEOUS STRUCTURES: No significant abnormalities. VISUALIZED UPPER ABDOMEN: Normal. OTHER FINDINGS: None. IMPRESSION: No active pulmonary disease.
--- NOTE | 2017-10-22 08:53 | HP ---
Copied To: Salty Sorto MD Attending MD: Salty Sorto REASON FOR ADMISSION: Patient feeling weak, lethargic, not doing well, according weakness, bilateral leg edema for a few days. He denied any abdominal pain. He felt nausea and vomited x2. He also denied any shortness of breath or any chest pain, headache, fever or chills. PAST MEDICAL HISTORY: Prostate CA with metastases, COPD, bypass surgery, mitral valve replacement, history of hypertension, congestive heart failure and peripheral vascular disease. ALLERGIES: PATIENT HAS NO KNOWN ALLERGIES. SOCIAL HISTORY: He smokes, but no drinking, does not use any drugs. He lives in a senior citizen home. His son help him and has very supportive kids. MEDICATIONS: He takes Lasix at home 20 mg. He takes nebulizer treatment, Januvia 50 mg. He was taking Protonix 40 mg, Remeron 15 mg, Amitiza twice a day, Advair 50/250 b.i.d., Plavix 75 once a day and the patient also was getting Zytiga. He takes oxycodone 10 mg every 6 hours. REVIEW OF SYSTEMS: As in the present illness, he does have always chronic back pain, chronic hip pain, difficulty ambulation, gait disorder, chronic cough. He does get wheezing and dyspnea and he does have arthritis and pain. No chest pain. He does have sometimes dysuria. He did have, in the past, frequent hematuria. PHYSICAL EXAMINATION: GENERAL: Patient, on 10/18/2017, is in ICU lying supine, kind of lethargic, looks weak, exhausted. VITAL SIGNS: Temperature 99; heart rate 83; blood pressure was kind of low, but with IV fluid, it is 113/59. Saturating 96% on 2 liters. Patient initially had lower blood pressures in the 80s on admission and it improved. HEAD AND NECK: Normal. No JVD, no thyromegaly. CHEST: Bilaterally, a few rhonchi; otherwise, negative. CARDIAC: First and second sounds normal and with systolic murmur. ABDOMEN: Soft, nontender. EXTREMITIES: Bilateral leg edema above the ankle. NEUROLOGIC: Patient is generally weak, but otherwise he recognizes me. He moves all extremities. LABORATORY DATA: When he came in, white count 10.3, hemoglobin 9.3, hematocrit 27.5, platelets 124. Chemistry noted for positive troponin, it is 0.20. His sodium is 138, potassium 5.2, chloride 103, bicarbonate 19, BUN 71, creatinine 3. Patient's sugar 111. Patient also has magnesium 2.4, total bili 1.4, alkaline phosphatase 160. CPK 289. Patient has AST high 93, ALT is 32. Patient has also procalcitonin 3.4 and patient also had urinalysis which showed too numerous red blood cells, too numerous white count. Also, patient had a chest x-ray when he came in. It showed no active pulmonary disease. Patient also had abdominal CAT scan and the CT abdomen and pelvis shows the following: There is new perinephric stranding fluid around left kidney without evidence of hydronephrosis, which could be secondary to pyelonephritis. Patient also had an EKG, which showed QT 378, QTc 506 and sinus rhythm. Heart rate is 108. IMPRESSION AND PLAN: 1. This is an 82-year-old male with history of prostate cancer, came in lethargic, running low blood pressure. Urine shows WBCs and CT shows pyelonephritis probably. Patient is septic due to acute pyelonephritis. Urine culture has been done. Blood culture has been done. ID consult, Dr. Arnold, has already seen the patient, started to give dose of vancomycin and meropenem. Cultures pending. 2. Hypotension. Patient is started on IV fluids. I advised to keep the pressure up. We will continue to monitor. 3. Acute renal failure. Patient did have a history of renal insufficiency in the past, seen by Dr. Larson, was consulted. 4. Chronic anemia. 5. Prostate carcinoma. 6. Chronic obstructive pulmonary disease. Patient will be given nebulizer treatment. Patient seen by post closing specialist, Dr. Jass Henson. We will resume nebulizer treatment, baby aspirin, deep venous thrombosis and gastrointestinal prophylaxis and will follow up clinically. Discussed with the family in detail. The family does not want any cardiac resuscitation, but they want to do intubation if this will be temporary and helps the patient, we will do it and they will think after intubation what to do next with the patient in case it is prolonged and the patient is not doing well. They will give another decision, but right now patient is to intubate if necessary. We will not do cardiac resuscitation. We will follow up with the consultants. Patient is critically ill. Salty Sorto MD
--- NOTE | 2017-10-22 09:22 | PN ---
Copied To: Jet Lau MD Attending MD: Jet Lau MD DATE: 10/20/2017 SUBJECTIVE: The patient is currently seen in CCU bed 2, but he has been downgraded to Med-Surg. He is awaiting transfer. Hemodynamics have stabilized. His infection appears to be better controlled. His BUN and creatinine are continuing to improve. MEDICATIONS: Medication list reviewed. The patient is on DuoNeb, Ecotrin, heparin, insulin, meropenem, morphine, Plavix, Protonix and normal saline at 60 mL an hour. OBJECTIVE: INTAKE/OUTPUT: Intake 3388 and output 1000. VITAL SIGNS: Blood pressure is 108/60. Heart rate is 99. Respiratory rate is 25 with a temperature of 99. Pulse ox is 98%. HEENT: Shows him to be normocephalic and atraumatic. Conjunctivae are pale. Sclerae are nonicteric. NECK: Supple. No neck vein distention. CHEST: Clear to auscultation and percussion with no rales, rhonchi or wheezing. CARDIOVASCULAR: Shows a regular S1 and S2 with no audible murmurs, rubs or gallops noted. ABDOMEN: Soft. Bowel sounds are normal. No distention. No rebound or guarding. EXTREMITIES: Show trace to 1+ pitting ankle edema only bilaterally. No cyanosis or clubbing. Diminished lower extremity pulses secondary to ankle edema. NEUROLOGICAL: Shows him to be alert and oriented. LABORATORY DATA AND IMAGING: CBC: White blood cell count today is 6.5, hemoglobin today is 7.1, platelet count is 96,000. Chemistries today show normal electrolytes. BUN is 68 with a creatinine of 1.9, this is down from a BUN of 71 and creatinine of 3. Baseline BUN is in the 30s with baseline creatinine of 1.2. Mild elevation of his AST at 89. Calcium is 7.7, but corrects to normal. Magnesium level was 3.4. No phosphorus level is available for comment. Of note, PSA level is significantly elevated , suggestive of metastatic prostate cancer. Microbiology all c/s negative at 48 hours. ASSESSMENT: 1. 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 This is felt to be in the setting of hypotension, left pyelonephritis, acute tubular crisis and lactic acidosis. The patient has improved with empiric intravenous antibiotic therapy and fluid resuscitation. 2. 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 3. Right-sided hydronephrosis, which is chronic. 4. Possible left kidney pyelonephritis as seen on the imaging studies. 5. History of congestive heart failure, coronary artery disease, history of coronary artery bypass grafting, and history of mitral valve replacement, all appeared to be stable. 6. History of [id number] diabetes mellitus. The patient is currently stable on sliding scale insulin. 7. History of cigarette smoking. 8. Status post metabolic acidosis. PLAN: 1. Continue IV fluid hydration. Continue IV antibiotic therapy. 2. Transfuse the patient on a p.r.n. basis. 3. Discussed with the patient and his daughter. He will not need any renal replacement therapy. I expect him to have a return to his baseline in terms of his renal function. 4. Continue Oncology followup in light of his metastatic prostate cancer. Jet Lau MD MTDD
== END 2017-10-22 05:05 | DRG 871 ==
LOC: ED 07:27 → ERH 08:51 → CCU 10:41 → 5RNO 10-20 12:59
PROVIDERS: ADMIT Internal Medicine; ATTEND Internal Medicine
PROC: 05HM33Z Insertion of Infusion Device into Right Internal Jugular Vein, Percutaneous Approach (ICD-10-PCS; principal; 2017-10-18)
PROC: B543ZZA Ultrasonography of Right Jugular Veins, Guidance (ICD-10-PCS; 2017-10-18)
DX: A41.9 Sepsis, unspecified organism (principal); N17.0 Acute kidney failure with tubular necrosis; I21.4 Non-ST elevation (NSTEMI) myocardial infarction; R65.21 Severe sepsis with septic shock; C79.51 Secondary malignant neoplasm of bone; N13.6 Pyonephrosis; E87.2 Acidosis; K50.90 Crohn's disease, unspecified, without complications; I13.0 Hypertensive heart and chronic kidney disease with heart failure and stage 1 through stage 4 chronic kidney disease, or unspecified chronic kidney disease; I50.22 Chronic systolic (congestive) heart failure; J44.1 Chronic obstructive pulmonary disease with (acute) exacerbation; C79.89 Secondary malignant neoplasm of other specified sites; C61 Malignant neoplasm of prostate; K59.00 Constipation, unspecified; I25.10 Atherosclerotic heart disease of native coronary artery without angina pectoris; E11.51 Type 2 diabetes mellitus with diabetic peripheral angiopathy without gangrene; E87.5 Hyperkalemia; E86.0 Dehydration; I27.20 Pulmonary hypertension, unspecified; E66.9 Obesity, unspecified; D63.8 Anemia in other chronic diseases classified elsewhere; D69.6 Thrombocytopenia, unspecified; N18.2 Chronic kidney disease, stage 2 (mild); E11.22 Type 2 diabetes mellitus with diabetic chronic kidney disease; E78.5 Hyperlipidemia, unspecified; K40.90 Unilateral inguinal hernia, without obstruction or gangrene, not specified as recurrent; F17.210 Nicotine dependence, cigarettes, uncomplicated; Z91.19 Patient's noncompliance with other medical treatment and regimen; Z91.14 Patient's other noncompliance with medication regimen; Z95.810 Presence of automatic (implantable) cardiac defibrillator; Z79.84 Long term (current) use of oral hypoglycemic drugs; Z95.1 Presence of aortocoronary bypass graft; Z95.4 Presence of other heart-valve replacement; Z79.02 Long term (current) use of antithrombotics/antiplatelets